=== PATIENT | female | born 2000 | race Caucasian/White ===

== ENCOUNTER 2023-07-17 19:15 | Outpatient (REF) | payer OTHER, SELFPAY ==
[2023-07-24 15:12] LABS: Age Gdln ACOG Testing Note (.); IGP, rfx Aptima HPV ASCU Note (.)
== END 2023-07-17 19:16 | disposition home or self-care (01) ==
LOC: LAB 19:15
PROVIDERS: Visit Provider Physician Assistant
DX: Z01.419 Encounter for gynecological examination (general) (routine) without abnormal findings (principal)
CPT/HCPCS: 88142; G0145

== ENCOUNTER 2024-07-21 20:12 | Outpatient (REF) | payer OTHER, SELFPAY ==
--- OUTSIDE RECORDS SUMMARY | 2024-07-21 20:17 | XMS_ITS | CCD ---
Author Organization [facility] Care Team Providers Care Tube Washer Name Role Phone ALISHA SHELLEY Attending Unavailable KARSTEN, ALISHA Admitting Unavailable CHARLA, DR ANN Marin Consulting Unavailable ALISHA SHELLEY Consulting Unavailable PRERNA, DR SLICK Fierro Attending Unavailable PRERNA, DR SLICK Fierro Consulting Unavailable PRERNA, DR SLICK Fierro Admitting Unavailable CHARLA, DR ANN Marin Consulting Unavailable ZIYAD, KHOI Admitting Unavailable ZIYAD, KHOI Attending Unavailable KHOI LACKEY Consulting Unavailable ANTONIO Browne Attending Provider [phone] Triny Browne Unavailable Triny Browne Admitting Unavailable Triny Browne Attending Unavailable FRANCISCO DOYLE Attending Unavailable FRANCISCO DOYLE Attending Unavailable FRANCISCO DOYLE Attending Unavailable FRANCISCO DOYLE Attending Unavailable Slick Graff MD Primary Care Provider LINO CONNER Attending Unavailable SLICK GRAFF Referring Unavailable SLICK GRAFF Primary Care Unavailable LINO CONNER Referring Unavailable SLICK GRAFF Primary Care Unavailable SLICK GRAFF Referring Unavailable SLICK GRAFF Primary Care Unavailable Slick Graff MD Primary Care Provider BECCA KEATING Attending Unavailable BECCA KEATING Attending Unavailable Allergies Allergy Classification Reported Allergen(s) Allergy Type Date of Onset Reaction(s) Facility (1 source) ALLERGIES NOT ON FILE; Translations: [ALLERGIES NOT ON FILE] Propensity to adverse reactions (disorder) [facility] Repository Medications Current Medications Medication Drug Class(es) Dates Sig (Normalized) Sig (Original) cetirizine hydrochloride 10 mg oral tablet (1 source) Histamine-1 Receptor Antagonist Start: 01-16-2022 take 1 tablet by mouth once daily cetirizine (ZyrTEC) 10 mg tablet TAKE 1 TABLET(10 MG) BY MOUTH DAILY 90 tablet 1 01/16/2022 Active Ethinyl Estradiol / Ferrous fumarate / Norethindrone (4 sources) Estrogen Start: 03-27-2024 End: 03-27-2025 norethindrone-eth inyl estradiol (Blisovi FE 07/28) 1-20 MG-MCG tablet Indications: Uses control Take 1 tablet by mouth Daily 28 tablet 12 03/27/2024 03/27/2025 Active Start: 08-14-2023 End: 12-04-2023 take 1 tablet by mouth in the morning, then take 0.05 tablet by mouth once norethindrone-e.estradioL-iron (JUNEL FE 07/28) 1 mg-20 mcg (21)/75 mg (7) per tablet Take 1 tablet by mouth in the morning. 0 08/14/2023 12/04/2023 Active fluticasone propionate 0.05 mg/actuat metered dose nasal spray (1 source) Corticosteroid Start: 12-09-2020 take 2 spray(s) nasal route once daily fluticasone propionate (FLONASE) 50 mcg/actuation nasal spray Administer 2 sprays into each nostril daily. 15.8 mL 2 12/09/2020 Active midodrine hydrochloride 5 mg oral tablet (4 sources) alpha-Adrenergic Agonist Start: 05-15-2023 midodrine (Proamatine) 5 MG tablet Take 5 mg by mouth in the morning and 5 mg at noon and 5 mg in the evening. 05/15/2023 Active Problems Active Problems Problem Classification Problem Date Documented Da te Episodic/Chronic Anxiety disorders (2 sources) Generalized anxiety disorder; Translations: [Generalized anxiety disorder] Onset: 03-09-2023 Chronic Menstrual disorders (2 sources) Menorrhagia; Translations: [Excessive and frequent menstruation with regular cycle] Onset: 08-21-2023 08-21-2023 Chronic Mood disorders (1 source) Moderate major depression, single episode; Translations: [Major depressive disorder, single episode, moderate] Onset: 09-11-2017 09-11-2017 Chronic Nonmalignant breast conditions (4 sources) Unspecified lump in axillary tail of the left breast; Translations: [UNS LUMP IN AXILLARY TAIL LT BREAST] Onset: 06-01-2021 Episodic Other and unspecified benign neoplasm (2 sources) Lipoma (clinical); Translations: [Benign lipomatous neoplasm of other sites] 06-11-2024 Episodic Residual codes; unclassified (1 source) Family history of Von Willebrand disease; Translations: [Family history of diseases of the blood and blood-forming organs and certain disorders involving the immune mechanism] 08-21-2023 Episodic Residual codes; unclassified (1 source) Family history of diseases of the blood and blood-forming organs and certain disorders involving the immune mechanism; Translations: [Family history of diseases of the blood and blood-forming organs and certain disorders involving the immune mechanism] Onset: 08-21-2023 Episodic Unclassified (1 source) Frequency of micturition; Translations: [Frequency of micturition] Onset: 04-29-2023 Unclassified (1 source) New Patient Onset: 08-21-2023 Unclassified (1 source) FHx Bleeding Disorder Onset: 08-21-2023 Past or Other Problems Problem Classification Problem Date Documented Da te Episodic/Chronic Fever of unknown origin (1 source) Fever, unspecified; Translations: [FEVER UNSPECIFIED] Onset: 01-31-2020 Episodic Immunizations and screening for infectious disease (4 sources) Encounter for screening for other viral diseases; Translations: [ENC SCREENING FOR OTH VIRAL DZ] Onset: 01-27-2020 Episodic Mood disorders (1 source) Mood disorders Onset: 08-21-2023 08-21-2023 Other connective tissue disease (4 sources) Pain in left foot; Translations: [PAIN IN LEFT FOOT] Onset: 03-02-2020 Episodic Other upper respiratory infections (1 source) Acute pharyngitis due to other specified organisms; Translations: [AC PHARYNGIT D/T OTH SPEC ORGANISMS] Onset: 01-31-2020 Episodic Syncope (1 source) Near syncope; Translations: [Syncope and collapse] Onset: 04-03-2023 04-03-2023 Episodic Results Test Name Value Interpretation Reference Range Facility Coagulation factor VIII acti vity actual/normal Coag (PPP) [Relative time]on 08-22-2023 Interpretation and review of laboratory results Abnormal [facility] Factor 8 activityon 08-22-19 Coagulation factor VIII activity actual/normal Coag (PPP) [Relative time] 152 % High [facility] No Panel Informationon 08-22 [facility] Von Willebrand antigen facto r VIII agon 08-22-2023 vWf Ag IA Qn (PPP) 157 % High 50 - 150 % [facility] Comment on above: It has been reported that patients with group A,B or AB have a much greater mean vWf: Ag than blood group O individuals. Data from a study of 1300 normal blood donors showed: ABO type Reference range O 35.6-157.0 A 48.0-233.9 B 56.8-241.0 AB 63.8-238.2 Reference: GIUSEPPE Vance, et.al. The effect of ABO blood group on the diagnosis of vWd. Blood 69:1691, 1987 vWf Ag IA Qn (PPP)on Interpretation and review of laboratory results Abnormal [facility] von Willebrand Factor Activi tyon 08-22-2023 vWf.activity actual/normal IA (PPP) [Relative ratio] 158 % 50 - 200 % [facility] APTTon 08-21-2023 aPTT Coag (PPP) [Time] 30 s [facility] GENERIC ORDERon TEST NAME [id number] VON WILLEBRA ND FACTOR GP1BM ACTIVITY Normal [facility] TEST RESULT SEE NOTE Normal [facility] Comment on above: Result Comment: NOTE Test name Result Flag Units RefIntvl VWF GPIbM Activity 132 IU/dL 52-180 For additional information, please visit [email or web address] This test was developed and its performance characteristics determined by [facility]. It has not been cleared or approved by the [place] Food and Drug Administration. This test is used for clinical purposes. It should not be regarded as investigational or for research. This laboratory is certified under the Clinical Laboratory Improvement Amendments (CLIA) as qualified to perform high complexity clinical laboratory testing. Performed by: [facility]. [address] [place] [id number] CBC AND AUTO DIFFon 08-21-19 24 ABSOLUTE BASOPHIL 0.0 X10E9/L Normal 0.0-0.2 [facility] Comment on above: Performed By: #### P INR, 10254-0, CBCA, FEPR, 2276-4, 6012-9, 96576-4, 3209-4 #### [facility] ([id number]) [address], [address] [place] [address] ABSOLUTE NEUTROPHIL 3.4 X10E9/L Normal 1.5-6.6 [facility] Comment on above: Performed By: #### P INR, 97915-9, CBCA, FEPR, 2276-4, 6012-9, 26588-5, 3209-4 #### [facility] ([id number]) [address], [address] [place] [address] Basophils/100 WBC (Bld) 0.6 % Normal [facility] Comment on above: Performed By: #### P INR, 92810-3, CBCA, FEPR, 2276-4, 6012-9, 61374-9, 3209-4 #### [facility] ([id number]) [address], [address] [place] [address] Eosinophils (Bld) [#/Vol] 0.1 10*3/uL Normal 0.0-0.4 [facility] Comment on above: Performed By: #### P INR, 67313-0, CBCA, FEPR, 2276-4, 6012-9, 47014-3, 3209-4 #### [facility] ([id number]) [address], [address] [place] [address] Eosinophils/100 WBC (Bld) 2.0 % Normal [facility] Comment on above: Performed By: #### P INR, 26761-6, CBCA, FEPR, 2276-4, 6012-9, 01214-0, 3209-4 #### [facility] ([id number]) [address], [address] [place] [address] Erythrocyte distribution width (RBC) [Ratio] 13.3 % Normal 11.5-15.0 [facility] Comment on above: Performed By: #### P INR, 55125-1, CBCA, FEPR, 2276-4, 6012-9, 43200-3, 3209-4 #### [facility] ([id number]) [address] [address] Hematocrit (Bld) [Volume fraction] 38.6 % Normal 35-47 [facility] Comment on above: Performed By: #### P INR, 43249-3, CBCA, FEPR, 2276-4, 6012-9, 04486-5, 3209-4 #### [facility] ([id number]) [address] [address] Hemoglobin (Bld) [Mass/Vol] 13.1 g/dL Normal 11.7-15.5 [facility] Comment on above: Performed By: #### P INR, 50453-5, CBCA, FEPR, 2276-4, 6012-9, 14118-4, 3209-4 #### [facility] ([id number]) [address] [address] Lymphocytes (Bld) [#/Vol] 1.2 10*3/uL Normal 1.0-3.5 [facility] Comment on above: Performed By: #### P INR, 66258-0, CBCA, FEPR, 2276-4, 6012-9, 92048-8, 3209-4 #### [facility] ([id number]) [address], [address] [place] [address] Lymphocytes/100 WBC (Bld) 23.5 % Normal [facility] Comment on above: Performed By: #### P INR, 23820-3, CBCA, FEPR, 2276-4, 6012-9, 04516-4, 3209-4 #### [facility] ([id number]) [address], [address] [place] [address] MCH (RBC) [Entitic mass] 29.8 pg Normal 27-34 [facility] Comment on above: Performed By: #### P INR, 28882-8, CBCA, FEPR, 2276-4, 6012-9, 93017-7, 3209-4 #### [facility] ([id number]) [address], [address] [place] [address] MCHC (RBC) [Mass/Vol] 33.8 g/dL Normal 32-36 [facility] Comment on above: Performed By: #### P INR, 83425-5, CBCA, FEPR, 2276-4, 6012-9, 90122-1, 3209-4 #### [facility] ([id number]) [address], [address] [place] [address] MCV (RBC) [Entitic vol] 88 fL Normal 80-100 [facility] Comment on above: Performed By: #### P INR, 32019-5, CBCA, FEPR, 2276-4, 6012-9, 70529-8, 3209-4 #### [facility] ([id number]) [address], [address] [place] [address] Monocytes (Bld) [#/Vol] 0.4 10*3/uL Normal 0-0.9 [facility] Comment on above: Performed By: #### P INR, 19494-0, CBCA, FEPR, 2276-4, 6012-9, 28141-9, 3209-4 #### [facility] ([id number]) [address], [address] [place] [address] Monocytes/100 WBC (Bld) 8.5 % Normal [facility] Comment on above: Performed By: #### P INR, 15354-0, CBCA, FEPR, 2276-4, 6012-9, 58613-2, 3209-4 #### [facility] ([id number]) [address], [facility] [address] [place] [address] Neutrophils/100 WBC (Bld) 65.4 % Normal [facility] Comment on above: Performed By: #### P INR, 45722-3, CBCA, FEPR, 2276-4, 6012-9, 08439-5, 3209-4 #### [facility] ([id number]) [address], [facility] [address] [place] [address] Platelet mean volume (Bld) [Entitic vol] 8.9 fL Normal 7-12 [facility] Comment on above: Performed By: #### P INR, 18555-7, CBCA, FEPR, 2276-4, 6012-9, 04085-2, 3209-4 #### [facility] ([id number]) [address], [facility] [address] [place] [address] Platelets (Bld) [#/Vol] 225 10*3/uL Normal 150-450 [facility] Comment on above: Performed By: #### P INR, 28184-0, CBCA, FEPR, 2276-4, 6012-9, 08704-3, 3209-4 #### [facility] ([id number]) [address], [facility] [address] [place] [address] RBC COUNT 4.38 X10E12/L Normal 3.80-5.20 [facility] Comment on above: Performed By: #### P INR, 79083-4, CBCA, FEPR, 2276-4, 6012-9, 29182-1, 3209-4 #### [facility] ([id number]) [address], [address] [place] [address] WBC (Bld) [#/Vol] 5.2 10*3/uL Normal 4.0-11.0 [facility] Comment on above: Performed By: #### P INR, 54970-0, CBCA, FEPR, 2276-4, 6012-9, 96181-9, 3209-4 #### [facility] ([id number]) [address], [address] [place] [address] CBC auto differentialon 08-09 Basophils (Bld) [#/Vol] 0.0 10*3/uL [facility] Basophils/100 WBC (Bld) 0.6 % [facility] Eosinophils (Bld) [#/Vol] 0.1 10*3/uL [facility] Eosinophils/100 WBC (Bld) 2.0 % [facility] Erythrocyte distribution width (RBC) [Ratio] 13.3 % 11.5 - 15.0 % [facility] Hematocrit (Bld) [Volume fraction] 38.6 % 35 - 47 % [facility] Hemoglobin (Bld) [Mass/Vol] 13.1 g/dL 11.7 - 15.5 g/dL [facility] Lymphocytes (Bld) [#/Vol] 1.2 10*3/uL [facility] Lymphocytes/100 WBC (Bld) 23.5 % [facility] MCH (RBC) [Entitic mass] 29.8 pg 27 - 34 pg [facility] MCHC (RBC) [Mass/Vol] 33.8 g/dL 32 - 36 g/dL [facility] MCV (RBC) [Entitic vol] 88 fL 80 - 100 fL [facility] Monocytes (Bld) [#/Vol] 0.4 10*3/uL [facility] Monocytes/100 WBC (Bld) 8.5 % [facility] Neutrophils (Bld) [#/Vol] 3.4 10*3/uL [facility] Neutrophils/100 WBC (Bld) 65.4 % [facility] Platelet mean volume (Bld) [Entitic vol] 8.9 fL 7 - 12 fL [facility] Platelets (Bld) [#/Vol] 225 10*3/uL [facility] RBC (Bld) [#/Vol] 4.38 10*6/uL [facility] WBC corrected for nucl RBC Auto (Bld) [#/Vol] 5.[address] [facility] Coagulation factor VIII acti vity actual/normal Coag (PPP) [Relative time]on 08-21-2023 FACTOR 8 ASSAY 152 % act High 50-150 [facility] Comment on above: Performed By: #### P INR, 88802-9, CBCA, FEPR, 2276-4, 6012-9, 38199-8, 3209-4 #### [facility] ([id number]) [address] [facility], [address] [place] [address] FERRITINon 08-21-2023 Ferritin [Mass/Vol] 9 ng/mL Low 11-307 [facility] Comment on above: Performed By: #### P INR, 69243-2, CBCA, FEPR, 2276-4, 6012-9, 10061-8, 3209-4 #### [facility] ([id number]) [address] [facility], [address] [place] [address] Ferritinon 08-21-2023 Ferritin [Mass/Vol] 9 ng/mL Low 11 - 307 ng/mL [facility] Ferritin [Mass/Vol]on 2023 Interpretation and review of laboratory results Abnormal [facility] IRON PROFILEon 08-21-2023 Iron [Mass/Vol] 67 ug/dL Normal 50-170 [facility] Comment on above: Performed By: #### P INR, 52579-9, CBCA, FEPR, 2276-4, 6012-9, 05296-3, 3209-4 #### [facility] ([id number]) [address] [facility], [address] [place] [address] IRON BINDING 438 ug/dL High 250-425 [facility] Comment on above: Performed By: #### P INR, 09675-4, CBCA, FEPR, 2276-4, 6012-9, 29188-3, 3209-4 #### [facility] ([id number]) [address], [address] [place] [address] IRON SATURATION 15 % SATURATION Normal 15-50 [facility] Comment on above: Performed By: #### P INR, 94919-0, CBCA, FEPR, 2276-4, 6012-9, 88776-5, 3209-4 #### [facility] ([id number]) [address], [address] [place] [address] Iron and TIBCon 08-21-2023 Interpretation and review of laboratory results Abnormal [facility] Iron [Mass/Vol] 67 ug/dL 50 - 170 ug/dL [facility] Iron binding capacity [Mass/Vol] 438 ug/dL High 250 - 425 ug/dL [facility] Iron saturation [Mass fraction] 15 [facility] Laboratory comment Be (Repo rt)on 08-21-2023 UNLISTED LAB TEST Sent to reference lab Normal [facility] No Panel Informationon 08-21 [facility] PROTIME AND INRon 08-21-2023 INR Coag (PPP) [Relative time] 1.1 {INR} Normal 0.8-1.1 [facility] Comment on above: Performed By: #### P INR, 68303-1, CBCA, FEPR, 2276-4, 6012-9, 36545-9, 3209-4 #### [facility] ([id number]) [address], [address] [place] [address] PT Coag (PPP) [Time] 13.1 s Normal 9.8-13.2 [facility] Comment on above: Performed By: #### P INR, 14789-6, CBCA, FEPR, 2276-4, 6012-9, 85904-9, 3209-4 #### [facility] ([id number]) [address], [address] [place] [address] Protime & INRon 08-21-2023 INR Coag (PPP) [Relative time] 1.1 {INR} [facility] PT Coag (PPP) [Time] 13.1 s [facility] aPTT Coag (PPP) [Time]on aPTT Coag (Bld) [Time] 30 s Normal 26-37 [facility] Comment on above: Performed By: #### P INR, 35161-2, CBCA, FEPR, 2276-4, 6012-9, 05738-8, 3209-4 #### [facility] ([id number]) [address], [address] [place], [place] [address] vWf Ag IA Qn (PPP)on 024 VON WILLEBRAND AG 157 % High 50-150 [facility] Comment on above: Result Comment: It has been reported that patients with group A,B or AB have a much greater mean vWf: Ag than blood group O individuals. Data from a study of 1300 normal blood donors showed: ABO type Reference range O 35.6-157.0 A 48.0-233.9 B 56.8-241.0 AB 63.8-238.2 Reference: GIUSEPPE Vance, et.al. The effect of ABO blood group on the diagnosis of vWd. Blood 69:1691, 1987 Performed By: #### P INR, 79739-8, CBCA, FEPR, 2276-4, 6012-9, 10566-1, 3209-4 #### [facility] ([id number]) [address], [address] [place] [address] vWf.activity actual/normal I A (PPP) [Relative ratio]on 08-21-2023 von Willebrand Factor Activity 158 % Normal 50-200 [facility] Comment on above: Performed By: #### P INR, 81522-6, CBCA, FEPR, 2276-4, 6012-9, 67952-2, 3209-4 #### [facility] ([id number]) [address] [place] [address], [address] [place] [address] Behavioral Health Telemedici neon 06-14-2023 [facility] [id number] Muhammad,Christina 2000 F Date Provider Department Center 06/14/2023 FRANCISCO GUILLAUME [facility] No family history on file Reason for Visit and Comments: Therapy [849] Normal [facility] Behavior[facility] Health Telemedici neon 05-17-2023 [facility] [id number] Muhammad,Christina 2000 F Date Provider Department Center 05/17/2023 FRANCISCO GUILLAUME [facility] GloriaFormerly named [facility] No family history on file Reason for Visit and Comments: Therapy [849] Normal [facility] Telemedici neon 05-03-2023 [facility] [id number] Muhammad,Christina 2000 F Date Provider Department [place] [facility] No family history on file Reason for Visit and Comments: Therapy [849] [facility] Urine Cultureon 04-29-2023 Bacteria identified Cx Nom (U) ORGANISM: Strep. agalactiae Grp B (O:B) [place] Count <10,000 PERFORMED BY: [place] [address] PATHOLOGIST SANDW[employer]ARD CARRIER TUAN HOGAN M.D. [facility] Comment on above: Performed By: #### C UU #### [place] [address] [place] #### VAGINITIS+ #### [facility] , Vaginitis Plus (VG+)on 04-29 Atopobium Vaginae Low - 0 Normal . [facility] Comment on above: Performed By: #### C UU #### [address] #### VAGINITIS+ #### [facility] , BVAB2 Low - 0 Normal . [facility] Comment on above: Performed By: #### C UU #### [place] [address] [place] #### VAGINITIS+ #### [facility] , Cherie Albicans, ALXEANDER Negative Normal Negative [facility] Comment on above: Result Comment: This test was developed and its performance characteristics determined by [facility]. It has not been cleared or approved by the Food and Drug Administration. Performed By: #### C UU #### [address] #### VAGINITIS+ #### [facility] , Cherie Glabrata, ALEXANDER Negative Normal Negative [facility] Comment on above: Result Comment: This test was developed and its performance characteristics determined by [facility]. It has not been cleared or approved by the Food and Drug Administration. PERFORMED BY: [place] [address] PATHOLOGIST SANDWICH [employer]ARD CARRIER TUAN HOGAN M.D. Performed By: #### C UU #### [place] [address] [place] #### VAGINITIS+ #### [facility] , Chlamydia Trachomotis, ALEXANDER Negative Normal Negative [facility] Comment on above: Performed By: #### C UU #### [place] [address] [place] #### VAGINITIS+ #### [facility] , Megasphaera Low - 0 Normal . [facility] Comment on above: Result Comment: Calc ulate total score by adding the 3 individual bacterial vaginosis (BV) marker scores together. Total score is interpreted as follows: Total score 0-1: Indicates the absence of BV. Total score 2: Indeterminate for BV. Additional clinical data should be evaluated to establish a diagnosis. Total score 3-6: Indicates the presence of BV. This test was developed and its performance characteristics determined by [facility]. It has not been cleared or approved by the Food and Drug Administration. Performed By: #### C UU #### [facility] [address] [place] [address] [place] #### VAGINITIS+ #### [facility] , Neisseria Gonorrhoeae, ALEXANDER Negative Normal Negative [facility] Comment on above: Result Comment: Perf ormed at: =G - [facility] [address] [id number] Trucker: Haylie Bustamante MD, Phone: [phone] Performed By: #### C UU #### [place] [address] [place] #### VAGINITIS+ #### [facility] , Tric Vag ALEXANDER Negative Normal Negative [facility] Comment on above: Performed By: #### C UU #### [facility] [address] [place] [address] [place] #### VAGINITIS+ #### [facility] , Behavioral Health Telemedici neon 04-10-2023 Behavioral Health Telemedicine [id number] [facility] 2000 F Date Provider Department Center 04/10/2023 FRANCISCO GUILLAUME [facility] No family history on file Reason for Visit and Comments: Therapy [849] Normal [facility] Behavioral Health Telemedici neon 03-26-2023 [facility] Tele[facility]icine [id number] Muhammad,Christina 2000 F Date Provider Department Center 03/26/2023 FRANCISCO GUILLAUME [facility] GloriaFormerly named [facility] No family history on file Reason for Visit and Comments: Therapy [849] Normal [facility] Behavioral Health Telemedici neon 03-09-2023 [facility] Telemedicine [id number] Christina Muhammad 2000 F Date [facility] 03/09/2023 [facility]ISCO GUILLAUME [facility] Gloria Heal No family history on file Reason for Visit and Comments: Therapy [849] Normal [facility] US BREAST LEFT LIMITEDon US BREAST LEFT LIMITED Patient: CHRISTINA MUHAMMAD Exam Date: 12/07/2020 : 2000 Gender:F Ordering : DR. ALISHA SHELLEY . Admission #: [id number] Family : Order #: [id number] CLICK HERE TO VIEW EXAM RADIOLOGY REPORT PROCEDURE: ULTRASOUND BREAST LEFT LIMITED COMPARISON: US VAC ASST BX BRST LT WO CLP, 05/10/2018. INDICATIONS: Breast lump TECHNIQUE: Breast ultrasound was performed, with evaluation focusing only on specific areas of concern. FINDINGS: DIAGNOSTIC CATEGORY 2--BENIGN FINDING NO CHANGE FROM COMPARISON ASSESSMENT. Ultrasound in the area the patient's palpable abnormality, left axilla demonstrates normal skin, fibroglandular tissue, fat and muscle. No focal ultrasound mass. Further evaluation should be based on clinical and physical exam. RECOMMENDATIONS: CLINICAL EVALUATION. PLEASE NOTE: A NORMAL ULTRASOUND EXAMINATION DOES NOT EXCLUDE THE POSSIBILITY OF BREAST CANCER. A CLINICALLY SUSPICIOUS PALPABLE LUMP SHOULD BE BIOPSIED. Dictated by: Ann Dunham MD on 12/07/2020 at 15:11 Approved by: Ann Dunham MD on 12/07/2020 at 15:12 Normal [facility] COVID-19 PCRon 01-29-2020 SARS-CoV-2 (COVID-19) RNA ALEXANDER+probe Ql (Unsp spec) Not detected Normal Not Detected [facility] Comment on above: Result Comment: This test was developed and its performance characteristics determined by [facility]. This test has not been FDA cleared or approved. This test has been authorized by FDA under an Emergency Use Authorization (EUA). This test is only authorized for the duration of time the declaration that circumstances exist justifying the authorization of the emergency use of in vitro diagnostic tests for detection of SARS-CoV-2 virus and/or diagnosis of COVID-19 infection under section 564(b)(1) of the Act, 21 U.S.C. 360bbb-3(b)(1), unless the authorization is terminated or revoked sooner. When diagnostic testing is negative, the possibility of a false negative result should be considered in the context of a patient's recent exposures and the presence of clinical signs and symptoms consistent with COVID-19. An individual without symptoms of COVID-19 and who is not shedding SARS-CoV-2 virus would expect to have a negative (not detected) result in this assay. Performed By: #### C VDPCR #### [facility] [address], [place] [address] Viraj Guadarrama Discharge Summaryon 12-08-19 18 Discharge Summary MR[id number] Name: Christina Muhammad Admitted: 11/08/2017 Discharged: 11/12/2017 Date of : 2000 Physician: Domenico Goodwin M.D. DISCHARGE SUMMARYREASON FOR ADMISSION: Suicidal ideation.HISTORY OF PRESENT ILLNESS AT ADMISSION: :Patient is a 17 year old female with no previous psychiatric history,presenting as a direct admission from [facility], where shepresented with her mother after she told a friend she wished she had takenthe pills in July today, who Patient reports she feels that she worriesexcessively, unable to identify specific areas of worry, but states thatshe gets nervous in crowds at times, making calls on the phone and havingto speak in front of people. She denies difficulty relaxing, does state shegets more irritable if she is anxious. Pt Denies auditory or visualhallucinations. Denies symptoms of joseph. Per mother, patient has seemedmore sad and irritable the majority of the time since July, appeared lupe doing better the last month or so until recent events. She does notethat patient was started on control in April, and while she has nottaken in in 3-4 weeks, she says that both she and patient's sister have hadissue with control causing mood issues and irritability in the past.Patient's mother states she is uneasy about patient being on medication dueto sister having a bad experience with being on medication briefly fordepression (cannot recall name of medication),who then told patient'sfamily. Patient was referring to an suicide attempt in July in which shetook 7 Flexeril pills. Patient states she had recently broken up with peter at the time and had somewhat impulsively decided she no longerwanted to live. She states she told a friend about this days later and thefriend told her family, who got her in to see a counselor. Patient did notgo to the hospital after this attempt.Patient states since this attempt, her mood has been up and down. Shestates she never really regretted attempting suicide afterwards, but has good and bad days. She states she may have been feeling a little betterrecently, but her ex texted her recently about he and his baseball team allwanting to have sex with her and she became upset. She called his family'slandlord and reported that they had a new puppy there, which was againstthe rules. The family was evicted last week, and the ex-boyfriend found outpatient was the one who reported this and texted her that he he didn't loveher anymore, which patient states led to her feeling like overdosing onpills again. She states prior to recent events she may have been feeling abit better, but essentially since July states she has been depressed andhas thought about suicide on and off, but did not reach point of wishing toharm herself until last night. She states 2-3 days a week she feels sad anddepressed for most of the day, and the rest of the days she typically feels normal and denies feeling down or depressed On these days that she feelsmore down, she endorses excessive daytime fatigue, states she will not feellike doing anything, despite enjoying playing sports and hanging out withfriends on other days. Denies problems falling asleep, says at times shewill wake up at night and have a hard time falling back asleep. Denieschanges in appetite. Denies feeling hopeless or helpless most of the time.She is ambivalent presently as to whether she wishes she was now or isstill contemplating suicide.HOSPITAL COURSE:Upon admission [facility], pt was assessed in detail by Dr. Lomeli. Labs were reviewed and discussed with guardian of patient, andpatient did not have any acute medical problems at time of admission andduring hospitalization. Patient was placed on suicide precaution andrun-away precautions for first 24 hours after admission, and wasperiodically assessed if she is acutely suicidal or homicidal duringhospitalization. Patient received individual and group therapy. Familymeetings were held to resolve the conflicts in relationship withcaretakers. Informed consent was given to legal guardian and Patient forthe medication. The patient's family and the patient did not want to start anypsychotropic medication and they felt that the patient's admission wasmainly due to psychosocial stressors. The patient's Loestrin controlpill was restarted. Family meetings were helpd to address the socialconflict. The patient was encouraged to work on her coping skills ingroups or individual therapy. The patient was taught the coping skills andwas asked to test those coping skills, which she reported significantimprovement in her coping skills. At the time of discharge, the patientdenied any suicidal or homicidal ideation, intent, or plan. The patientwas encouraged to go in outpatient therapy in addition to the struggles. Ptdenied suicidal ideation, intent or plan. Pt denied homicidal ideation,intend or plan. Patient and Legal guardians were ask to continueoutpatient follow up, were asked to call suicide hotline or 911 if patientbecomes acutely suicidal , homicidal or psychotic. Caretakers were asked tokeep medication safe in locked cabinet and only allow responsible adults tohave access to them.MENTAL STATUS EXAMINATION: The patient is 17-year-old female,who appears to be as stated age and there is known psychomotor agitation,retardation. Thought process was linear and goal directed. Thoughtcontent, patient denied any suicidal or homicidal ideation, intent, orplan. Thought perception, the patient denied any auditory, visual, ortactile hallucination. Cognition was alert and oriented x. Insight wasgood. Judgment was also good.DISCHARGE MEDICATIONS: None.DISCHARGE DIAGNOSES:[place] I: Mood disorder, NOS.[place] II: Deferred.[place] III: We do not know, but unsafe.[place] IV: Romantic relationship conflict.[place] V: GAF of 65.POSTDISCHARGE APPOINTMENT/POSTDISCHARGE FOLLOWUP: See the dischargeinstruction.DISC HARGE DISPOSITION: Parent's home.Time on discharge 32 minReviewed By:Randall Andres MD 12/11/2017 06:56 AEdited and Electronically Signed by:Domenico Goodwin M.D. 12/11/2017 11:21 A Domenico Goodwin M.D. I personally saw this patient on the day of the encounter, performed thekey portion(s) of the service and participated in the management andconfirm the resident's documentation. Please note there may be anadditional personal documentation from me. Date Dict: 12/07/2017/01:07 A/Vijay Beltrán Trans: 12/07/2017 06:22 [id number] Normal [facility] FREE T3on 11-09-2017 Triiodothyronine (T3) free 3.4 pg/mL Normal 2.5-3.9 [facility] Comment on above: Order Comment: No: D o not add to previous draw Performed By: #### 4 [id number], 19721, 10202, 00974 ####[facility].[address] FREE T4on 11-09-2017 Thyroxine (T4) free 0.89 ng/dL Normal 0.71-1.85 [facility] Comment on above: Order Comment: No: D o not add to previous draw Performed By: #### 4 6413, 41073, 86692, 29045 ####[facility] [place] [address], [facility] LIPID PROFILEon 11-09-2017 Cholesterol 152 mg/dL Normal 120-170 [facility] Comment on above: Order Comment: No: D o not add to previous draw Result Comment: CHOL ESTEROL REFERENCE RANGE:20 YEARS AND OLDER CARDIOVASCULAR RISKLess than 200 mg/dl Low Dbbm774 to 239 mg/dl Borderline Apqa863 mg/dl and greater High Risk Performed By: #### 4 6413, 44223, 62893, 40215 ####[facility] [place] [address], [facility] Cholesterol to HDL Ratio 3.3 {ratio} Normal .0-4.5 [facility] Comment on above: Order Comment: No: D o not add to previous draw Performed By: #### 4 6413, 44313, 24946, 44702 ####[facility] HDL Cholesterol 46 mg/dL Normal 23-92 [facility] Comment on above: Order Comment: No: D o not add to previous draw Result Comment: Slig ht variation in normal range could be due to gender and/or age.HDL CHOLESTEROL REFERENCE RANGE:20 years and older Cardiovascular Risk> or =60 mg/dL [id number] TO 59 mg/dL Low Risk<40 mg/dL High Risk Performed By: #### 4 6413, 93660, 77512, 71912 ####[facility].[address] LDL Cholesterol 92 mg/dL Normal 0-130 [facility] Comment on above: Order Comment: No: D o not add to previous draw Result Comment: LDL IS A CALCULATIONLDL IS ONLY VALID IF THE TRIG IS LESS THAN 400. Performed By: #### 4 6413, 56031, 92927, 85472 ####[facility].[address] NON-HDL CHOLESTEROL 106 mg/dL Normal [facility] Comment on above: Order Comment: No: D o not add to previous draw Performed By: #### 4 6413, 97192, 21108, 92315 ####[facility] Triglyceride 70 mg/dL Normal 37-148 [facility] Comment on above: Order Comment: No: D o not add to previous draw Result Comment: TRIG LYCERIDE REFERENCE RANGE:20 YEARS AND OLDER CARDIOVASCULAR RISKLESS THAN 150 mg/dl LOW DWYS349 TO 199 mg/dl BORDERLINE ZJSS638 mg/dl AND GREATER HIGH RISK Performed By: #### 4 6413, 36130, 84589, 47811 ####[facility] [facility].[address] VLDL CHOL 14 mg/dL Normal 0-40 [facility] Comment on above: Order Comment: No: D o not add to previous draw Performed By: #### 4 6413, 64700, 49904, 55555 ####[facility] [facility].[address] TSHon 11-09-2017 Thyroid stimulating hormone (TSH) 1.25 MICRO-IU/ML Normal 0.34-5.60 [facility] Comment on above: Order Comment: No: D o not add to previous draw Performed By: #### 4 6413, 15167, 56287, 11433 ####[facility] Vital Signs Date Time Vital Sign Value Performing Clinician Deb torrez 06-11-2024 09:28-0500 Body mass index (BMI) [Ratio] 21.58 kg/m2 Becca DALE Work Phone: [facility] 06-11-2024 09:28-0500 Body weight 68.22 kg Becca DALE Work Phone: [facility] 06-11-2024 09:28-0500 Diastolic blood pressure 70 mm[Hg] Becca DALE Work Phone: [facility] 06-11-2024 09:28-0500 Systolic blood pressure 108 mm[Hg] Becca DALE Work Phone: [facility] 08-21-2023 14:46-0500 Body height 177.8 cm Lino Conner MD Work Phone: [facility] 08-21-2023 14:46-0500 Body mass index (BMI) [Ratio] 21.48 kg/m2 Lino Conner MD Work Phone: [facility] 08-21-2023 14:46-0500 Body weight 67.9 kg Lino Conner MD Work Phone: [facility] 08-21-2023 14:46-0500 Diastolic blood pressure 75 mm[Hg] Lino Conner MD Work Phone: [facility] 08-21-2023 14:46-0500 Heart rate 66 /min Lino Conner MD Work Phone: [facility] 08-21-2023 14:46-0500 Systolic blood pressure 115 mm[Hg] Lino Conner MD Work Phone: [facility] Encounters Encounter Date Encounter Type Care Provider Facility Start: 06-11-2024 End: 06-11-2024 Bamboo flowsheet Becca DALE Work Phone: [facility] Start: 06-11-2024 End: 06-11-2024 Bamboo flowsheet Becca Keating PA Work Phone: [facility] Start: 06-11-2024 End: 06-11-2024 Office outpatient visit 10 minutes Becca DALE Work Phone: [facility] Comment on above: Lipoma of other spec ified sites (Primary Dx) Start: 06-11-2024 End: 06-11-2024 ambulatory BECCA KEATING Not Available Start: 08-21-2023 End: 08-22-2023 ambulatory LINO Arredondo [facility] Start: 08-21-2023 End: 08-21-2023 Office outpatient new 30 minutes Lino Conner MD Work Phone: [facility] Comment on above: Family history of vo n Willebrand disease (Primary Dx); Menorrhagia with regular cycle Start: 07-17-2023 End: 07-17-2023 ambulatory BECCA KEATING Not Available Start: 05-04-2023 End: 05-04-2023 ambulatory Triny Browne Other [place] Other Start: 05-04-2023 Telephone encounter Triny Browne [facility] [address] Start: 05-03-2023 ambulatory FRANCISCO Leung [facility] Start: 04-29-2023 End: 04-29-2023 ambulatory Triny Browne Facility:[facility] Start: 04-29-2023 End: 04-29-2023 ambulatory REFRIGERATION LEAD Triny Browne Work Phone: [facility] Work Phone: Start: 04-29-2023 End: 04-29-2023 Departed Referred REFRIGERATION LEAD Triny Browne Work Phone: [facility] [place] Work Phone: Start: 04-10-2023 ambulatory FRANCISCO DOYLE [facility] Start: 03-26-2023 ambulatory FRANCISCO DOYLE [facility] Start: 03-09-2023 ambulatory FRANCISCO DOYLE [facility] Start: 12-07-2020 End: 12-08-2020 ambulatory ALISHA SHELLEY Facility:[facility] Start: 03-02-2020 End: 03-03-[address] ANN DUNHAM Facility:[facility] Start: 01-27-2020 End: 01-28-[address] SLICK GRAFF Facility:[facility] Procedures Date Procedure Procedure Detail Performing Clinician Start: 08-21-2023 Adult depression screening assessment Lino Conner MD Work Phone: Plan of Treatment Date Care Activity Detail Author Start: 08-21-2024 Adult BMI Screening Adult BMI Screen ing [facility] Start: 08-21-2024 Depression Screening Depression Scre ening [facility] Start: 08-21-2024 Tobacco Screening Tobacco Screening [facility] Start: 07-21-2024 End: 07-21-2024 Patient encounter procedure 07/21/2024 2:00 PM EST Office Visit [facility] [address] [place] [id number] Becca Keating PA [address] [place], [place] [id number] [facility] Start: 06-11-2024 End: 06-11-2024 Patient encounter procedure 06/11/2024 9:30 AM EST Office Visit [facility] [address] [place], [place] [id number] Becca Keating PA [address] [place] [address] Arrived [facility] Comment on above: Arrived Start: 11-26-2023 DTaP,Tdap and Td Vaccines (7 - Td or Tdap) DTaP,Tdap and Td Vaccines (7 - Td or Tdap) [facility] Start: 04-29-2023 Bacteria identified in Urine by Culture [facility] Start: 04-29-2023 [facility] Start: 03-09-2023 Influenza vaccination Influenza Vacc ine [facility] Start: 2023 Screening for malign ant neoplasm of cervix Pap Smear [facility] Start: 2000 Screening for Chlamy samm trachomatis Chlamydia Screening [facility] Atopobium vaginae DN A [Presence] in Vaginal fluid by ALEXANDER with probe detection [facility] Bacterial vaginosis associated bacterium 2 DNA [Presence] in Vaginal fluid by ALEXANDER with probe detection [facility] Megasphaera sp type 1 DNA [Presence] in Vaginal fluid by ALEXANDER with probe detection [facility] End: 08-21-2024 Unlisted Lab Test Unlisted Lab Test Lab Routine Family history of von Willebrand disease Menorrhagia with regular cycle 1 Occurrences starting 08/21/2023 until 08/21/2024 [facility] Work Phone: Comment on above: 1 Occurrences starti ng 08/21/2023 until 08/21/2024 Unlisted Lab Test GP 1bM send to [facility] ([facility]) Unlisted Lab Test GP1bM send to [facility] ([facility]) Lab Routine Family history of von Willebrand disease Menorrhagia with regular cycle 08/21/2023 3:50 PM EST [facility] Immunizations Immunization Date Immunization Notes Care Provider Fa cility 05-08-2019 human papilloma viru s vaccine, quadrivalent Lino Conner MD Work Phone: [facility] 05-08-2019 influenza, seasonal, injectable, preservative free Lino Conner MD Work Phone: [facility] 05-08-2019 influenza virus vacc ine, unspecified formulation Lino Conner MD Work Phone: [facility] 03-03-2019 meningococcal oligosaccharide (groups A, C, Y and W-135) diphtheria toxoid conjugate vaccine (MCV4O) Lino Conner MD Work Phone: [facility] 02-14-2019 human papilloma viru s vaccine, quadrivalent Lino Conner MD Work Phone: [facility] 03-23-2018 influenza, injectabl e, quadrivalent, preservative free Lino Conner MD Work Phone: [facility] Payers Date Payer Category Payer Self-pay 2023 Unknown [id number] 2022 Private Health Insurance [id number] 2022 Unknown [id number] 2.16.8 [id number] 2002 Unknown [id number] 2.16.84 [id number] 2002 Unknown [id number] 2.16.8 [id number] 2002 Unknown [id number] 2.16.8 [id number] 2002 Unknown [id number] 2.16.8 [id number] 2002 Unknown [id number] 2.16.84 [id number] 2002 Unknown [id number] 2.16.84 [id number] 1977 Unknown [id number] 2.16.84 [id number] 1977 Unknown [id number] 2.16.84 [id number] 1959 Unknown [id number] Unknown [id number] 2.16.8 [id number] Social History Date Type Detail Facility Tobacco smoking stat [facility] Unknown if ever smoked [facility] Work Phone: Start: 2000 Sex Assigned At Female F [facility] Start: 08-19-2020 End: 08-21-2023 Sex Assigned At [facility] Start: 02-26-2023 Tobacco smoking stat [facility] Never smoked tobacco [facility] Start: 02-26-2023 Tobacco use and exposure Smokeless tobacco non-user [facility] Start: 08-21-2023 Alcohol intake Ex-drinker (finding) [facility] Start: 08-19-2020 End: 08-21-2023 History of Social function [facility] Adolescent depressio n screening assessment 0 [facility] Start: 04-03-2023 Alcohol Comment socially [facility] Start: 2000 Sex Assigned At Not on file P [facility] Tobacco smoking stat [facility] Tobacco smoking consumption unknown [facility] Start: 07-17-2023 Gender identity Identifies as female gender (finding) [facility] Clinical Notes 03-02-2020 to 06-11-2024 CHITO Alvarez - 06/11/2024 9:30 AM Hanny Rocha RN - 08/21/2023 3:00 PM Elena Conner MD - 08/21/2023 3:00 PM EST Note Date & Type Note Facility 06-11-2024 History of Present illness Narrative Reason for Appointment: Patient ID: Christina Muhammad is a 24 y.o. female who presents for Pelvic lump Patient presents today for Acute Visit. MEDICATIONS Current Outpatient Medications Medication Instructions midodrine (PROAMATINE) 5 mg, Oral, 3 times daily norethindrone-ethinyl estradiol (Blisovi FE 07/28) 1-20 MG-MCG tablet 1 tablet, Oral, Daily ALLERGIES No Known Allergies PROBLEMS Active Ambulatory Problems Diagnosis Date Noted No Active Ambulatory Problems Resolved Ambulatory Problems Diagnosis Date Noted No Resolved Ambulatory Problems Past Medical History: Diagnosis Date Low blood pressure HISTORY PAST MEDICAL HISTORY SOCIAL HISTORY Past Medical History: Diagnosis Date Low blood pressure Social History Tobacco Use Smoking status: Not on file Smokeless tobacco: Not on file Substance Use Topics Alcohol use: Not on file Drug use: Not on file FAMILY HISTORY No family history on file. SURGICAL HISTORY History reviewed. No pertinent surgical history. REVIEW OF SYSTEMS Review of Systems: Review of Systems Skin: Reports lump under skin located left mons pubis. Reports this is unchanged and non-tender and has been there since she can remember. All other systems reviewed and are negative. OBJECTIVE Objective: Physical Exam Constitutional: Appearance: Normal appearance. She is normal weight. HENT: Head: Normocephalic. Cardiovascular: Rate and Rhythm: Normal rate. Pulses: Normal pulses. Pulmonary: Effort: Pulmonary effort is normal. Breath sounds: Normal breath sounds. Abdominal: Palpations: Abdomen is soft. Musculoskeletal: General: Normal range of motion. Neurological: General: No focal deficit present. Mental Status: She is alert and oriented to person, place, and time. Skin: General: Skin is warm and dry. Comments: Lipoma 2.5cm to left mons pubis; no erythema, no lymphangitic streaking, no tenderness and no evidence of secondary infection, and no noted lymphadenopathy Psychiatric: Mood and Affect: Mood normal. Behavior: Behavior normal. Thought Content: Thought content normal. Judgment: Judgment normal. Vitals and nursing note reviewed. Vitals: Estimated body mass index is 21.58 kg/m as calculated from the following: Height as of 07/17/23: 5' 10 . Weight as of this encounter: 150 lb 6.4 oz. BP: 108/70 No LMP recorded. ASSESSMENT & PLAN No diagnosis found. Lipoma noted to the left Mons Pubis 2.5 cm freely mobile and non tender. If this becomes painful or larger and she desires excision this can be completed surgically if she desires. She declines surgical option at this time. Documented by CHITO Alvarez on behalf of: CHITO Alvarez documented in this encounter [facility] 08-21-2023 History of Present illness Narrative Pt is here as a new patient with a family history of vWD. Her maternal cousin has vWD. She reports that she has had 1-2 nosebleed throughout her life and nothing was recent. Periods LMP: 07/15/23-07/21/23 Age at onset 16 years old Duration: 6 days Frequency: monthly. The last couple of months have been at the beginning and the end of the month. Changing protection Every 3 hours Cramping [x] Clotting [x] BC: Junel FE started about 1 month ago. LIBRARY MONITOR: Wilson Images from the original note were not included. [facility] AD[facility] PEDIATRIC BENIGN HEMATOLOGY PEDIATRIC THROMBOPHILIA Dr.Dagmar Miguel Hernandez PA-C NEW OUTPATIENT NOTE: [facility] Patient ID: Christina Muhammad, 23 y.o. female Referred by: Self-referred PCP: Slick Graff MD : [id number] REASON FOR CONSULTATION: Family history of VWD CHIEF COMPLAINT: Chief Complaint Patient presents with New Patient FHx Bleeding Disorder HISTORY OF PRESENT ILLNESS: Christina Muhammad is a 23 y.o. female with history of ADHD, depression, and other health problems who presents today for consultation at the [facility] due to menorrhagia and family history of VWD. She reports that her maternal cousin was diagnosed with von Willebrand's disease. It sounds like this was diagnosed based on a low GP1bM level. She thinks that her maternal grandfather may have had some abnormal bleeding or blood disorder. Her mom does not have any problems. She has had 2 nosebleeds in her life. She does have a history of menorrhagia. This did not start until the last few years. She started OCPs last month for this, but has not had a period since. Sounds like her periods typically were lasting for 6-7 days. Four days were heavy. She did change her pad every 3 hours on her heavy days. She denies any clear symptoms of iron deficiency. No other major complaints today. She is here today alone. PAST HEMATOLOGY HISTORY: Oncology History No history exists. IS Bleeding Assessment Tool: Prashanth Martinez J Thromb Haemost. 2009;8(9):2063-5. Epistaxis: 0 0 = Trivial 1 = more than 5 events in 1 year or typical duration > 10 minutes 2 = Consultation only 3 = packing or Cauterization or Antifibrinolytics 4 = Blood transfusion or replacement therapy or DDAVP Cutaneous: 1 0 = no or trivial (<1cm) 1 = 5 or more bruises that are >1cm and no trauma 2 = Consultation only 3 = Extensive 4 = Spontaneous hematoma requiring transfusion Bleeding from minor wounds: 0 0 = trivial 1 = >5 events/year or typical duration > 10 minutes 2 = Consultation only 3 = Surgical hemostasis 4 = Blood transfusion or replacement therapy or DDAVP Oral Cavity (not dental): 0 0 = None 1 = Reported at least once 2 = Consultation only 3 = Surgical hemostasis or Antifibrinolytics 4 = Blood transfusion or replacement therapy or DDAVP GI bleedin 0 = None 1 = Associated with ulcer, portal HTN, hemorrhoids, angiodysplasia 2 = Spontaneous 3 = Surgical hemostasis or Antifibrinolytics or Blood transfusion or Replacement therapy or DDAVP Tooth Extraction: 0 0 = Not done or no bleeding in 1 extraction 1 = Reported in <25% of all procedures 2 = Reported in >25% of all procedures, no intervention 3 = Resuturing or Packing 4 = Blood transfusion or replacement therapy or DDAVP Surgery: 0 (no surgeries) 0 = Not done or no bleeding in 1 surgery 1 = Reported in <25% of all procedures 2 = Reported in >25% of all procedures, no intervention 3 = Resuturing or Packing 4 = Blood transfusion or replacement therapy or DDAVP Menorrhagia: 2 (increased in last 1-2 years) 0 = None 1 = Consultation only or change pad < 2 hours or clot and flooding 2 =Antifibrinolytics or pill use or Time off work/school > twice per year 3 = Requires combined antifibrinolytics and OCP or Present since menarche 4 = Admission for emergency treatment, or Blood transfusion/DDAVP or D&C/endometrial ablation/Hysterectomy Post- hemorrhage: 0 0 = None 1 = Consultation Only or Lochia > 6 weeks 2 = Iron therapy or Antifibrinolytics 3 = Blood transfusion, DDAVP or Exam under anesthesia to tamponade the uterus 4 = Hysterectomy or other surgical intervention Muscle Hematoma: 0 0 = Never 1 = Post-trauma, no therapy 2 = Spontaneous, no therapy 3 = Spontaneous or traumatic requiring DDAVP or Replacement therapy 4 = Spontaneous or traumatic requiring Surgical intervention or blood transfusion Hemarthrosis: 0 0 = Never 1 = Post-trauma, no therapy 2 = Spontaneous, no therapy 3 = Spontaneous or traumatic requiring DDAVP or Replacement therapy 4 = Spontaneous or traumatic requiring Surgical intervention or blood transfusion CLASSIFIED AD CLERK bleedin 3 = Subdural, any intervention 4 = Intracerebral, any intervention Total Score: 3 Abnormal ISTH BAT cutoff: Men >3 and Women >5 Samy lee al Haemophilia. 2014 May;20(6):831-5. REVIEW OF SYSTEMS: Complete 10-point ROS is negative except as mentioned in HPI. PAST MEDICAL HISTORY: Past Medical History: Diagnosis Date ADD (attention deficit disorder) Depression Orthostatic hypotension Suicide attempt by drug ingestion ([facility]) 07/2017 pt states she took 7 flexeril PAST SURGICAL HISTORY: History reviewed. No pertinent surgical history. PAST FAMILY HISTORY: Family History Problem Relation Age of Onset Meniere's disease Mother No Known Problems Father Heart disease Maternal Grandmother Dementia Maternal Grandfather Parkinsonism Maternal Grandfather Heart disease Maternal Grandfather Diabetes Paternal Grandmother SOCIAL HISTORY: Lives in [place], [place] with her parents. Works for [employer] 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 Tobacco Use Smoking status: Never Smokeless tobacco: Never Vaping Use Vaping Use: Every day Substances: Nicotine, THC, CBD, Flavoring Devices: Disposable Substance and Sexual Activity Alcohol use: Not Currently Comment: socially Drug use: Yes Types: Marijuana Comment: few times per month Sexual activity: Yes Partners: Male Other Topics Concern Caffeine Use Yes Social History Narrative Not on file Social Determinants of Health Financial Resource Strain: Not on file Food Insecurity: No Food Insecurity (08/21/2023) Hunger Screening Food Insecurity - Worry: Never True Food Insecurity - Inability: Never True Transportation Needs: Not on file Physical Activity: Not on file Stress: Not on file Social Connections: Not on file Interpersonal Safety: Not on file Housing Instability: Not on file MEDICATIONS: Current Outpatient Medications on File Prior to Visit Medication Sig Dispense Refill cetirizine (ZyrTEC) 10 mg tablet TAKE 1 TABLET(10 MG) BY MOUTH DAILY 90 tablet 1 fluticasone propionate (FLONASE) 50 mcg/actuation nasal spray Administer 2 sprays into each nostril daily. 15.8 mL 2 midodrine (PROAMATINE) 5 mg tablet Take 1 tablet (5 mg total) by mouth 3 (three) times a day. 270 tablet 3 norethindrone-e.estradioL-iron (07/28) 1 mg-20 mcg (21)/75 mg (7) per tablet Take 1 tablet by mouth in the morning. No current facility-administered medications on file prior to visit. ALLERGIES: No Known Allergies PHYSICAL EXAMINATION: Vital signs: BP 115/75 (BP Site: Left Arm, BP Postition: Sitting) Pulse 66 Ht 177.8 cm (5' 10 ) Wt 67.9 kg (149 lb 11.1 oz) LMP 07/15/2023 (Exact Date) BMI 21.48 kg/m General appearance: alert, oriented, no acute distress HEENT: supple CV: RRR, no murmurs PULM: CTAB, no wheezing ABD: soft, NT/ND NEURO: Negative for focal deficit, weakness or loss of sensation. EXT: No deformities or skin discoloration. No clubbing, cyanosis, or edema. LABORATORY DATA: Lab Results Component Value Date WBC 5.2 08/21/2023 HGB 13.1 08/21/2023 HCT 38.6 08/21/2023 MCV 88 08/21/2023 PLT 225 08/21/2023 Lab Results Component Value Date GLU 85 02/26/2023 CALCIUM 9.3 02/26/2023 SODIUM 141 02/26/2023 K 3.6 02/26/2023 CO2 29 02/26/2023 BUN 9 02/26/2023 CREATININE 0.74 02/26/2023 Lab Results Component Value Date ALT 11 02/26/2023 AST 16 02/26/2023 ALKPHOS 38 (L) 02/26/2023 Lab Results Component Value Date INR 1.1 08/21/2023 PROTIME 13.1 08/21/2023 IMAGING: Reviewed in EPIC BILLING: Total time spent was 30 minutes: Preparing to see the patient (e.g., review of tests) Obtaining and/or reviewing separately obtained history Performing a medically appropriate examination and/or evaluation Counseling and educating the patient/family/caregiver Ordering medications, tests, or procedures Documenting clinical information in the electronic or other health record ASSESSMENT: Christina Muhammad is a 23 y.o. female with history of ADHD, depression, and other health problems who presents today for consultation at the [facility] due to menorrhagia and family history of VWD. 1. Concern for bleeding diathesis / family history of VWD in cousin: She is here today given concerns for bleeding diathesis. Past bleeding includes menorrhagia mostly. She has not had any other bleeding or significant epistaxis. Her IS bleeding assessment score is 3 which is below the cutoff for abnormal bleeding in a woman. We discussed further bleed workup could be obtained given his family history. We discussed the pros and cons of this. We discussed the potential implications. At the end of our discussion, we decided to proceed with selective testing for von Willebrand's disease alone. Will also check GP1bM and her cousin's diagnosis was based on send out GP1bM. We discussed that her von Willebrand levels could be falsely elevated due to her estrogen use. Therefore, for levels are borderline, she may require repeat testing down the road when off estrogen. Will also check coags, CBC, and iron studies. RECOMMENDATIONS: - Discussed bleeding diathesis today. Discussed pros and cons of testing for VWD. - Check for VWD today. Will also do send out GP1bM VWD lab. Will also check coags. - Check CBC and iron studies as well. - Will contact patient with results. - RTC to be determined based upon the above results. Lino Conner MD Adult Cutter Hand [facility] [employer] Pager: [phone] documented in this encounter [facility] 06-14-2023 Note Psych Progress Note WEBEX SESSION Time In: 3:07 pm Time Out: 4 pm HPI Present at Visit: Christina Location of Service: Office and she was at her home Current Presenting Symptoms/Problems: Mood: Anhedonia Anxiety: Generalized worry Trauma/Abuse: No abuse reported Cognition: intact Sleep: Not hypersomnolent and No insomnia Lifestyle Habits: Attempts healthy eating, Regular exercise, and Structured routine of day Medication Compliance: n/a Onset/Timing: Adolescence Context: Home and work Severity: Moderate Individualized Service Plan (ISP): Problem: Anxiety Dates: Start: 05/17/23 Disciplines: Interdisciplinary Goal: GOAL: Reduce frequency, intesity, duration of anxiety so that daily functioning is improved Dates: Start: 05/17/23 Expected End: 05/17/24 Disciplines: Interdisciplinary Intervention: OBJ- 2 GAD7 total score in the non-clinical range Dates: Start: 05/17/23 Intervention: OBJ 1 -Patient will rate average anxiety level as low as reported in 4 consecutive sessions Dates: Start: 05/17/23 Progress Toward ISP Goals/Objectives: OBJ 1 - not met OBJ 2 - not met Therapeutic Interventions Provided: Assessed Mood, Assessed Thinking, Assistance with accessing natural support systems, Cognitive Behavioral Therapy, Insight Oriented Psychotherapy, Linkage to community resources, and Motivational Interviewing Rates recent mood as 7.4 lately on 1-10 (saddest to happiest) scale and recent anxiety as low. Is now working 1st shift versus previously on 3rd. She is considering taking 1-2 college classes again. She is taking new medication for low blood pressure. Addressed medication compliance and somatic anxiety. Has an [facility] appt Jul 17. Response to Intervention: Agreeable Overall Assessment of Progress: unchanged OARRS: Not reviewed Mental Status Exam Level of Alertness: alert Appearance: dressed appropriately and well-groomed Eye Contact: normal Build/Stature: normal weight and normal height Posture: good posture Muscle Tone: normal Attitude Toward Examiner: cooperative and pleasant Behavior: normal Speech: clear and coherent reciprocal Language: expressive normal and receptive normal Mood: anxious Affect: appropriate, congruent, and full Thought Process: coherent, goal-directed, linear, and logical Thought Content: intact Orientation: oriented to person, oriented to place, and oriented to time Attention and Concentration: able to appropriately shift attention Memory: able to comment on events Estimated Intelligence: above average and average Insight: intact Judgement: social judgment intact Reliability: very reliable The encounter diagnosis was JULITO (generalized anxiety disorder). Plan: Individual therapy for anxiety - 2 x monthly for 50+ minute sessions. Psychologist: Attestation Not Needed. The patient was not seen with a resident or student. Patient???s identity and location have been verified. Patient has been provide with confirmation of the provider???s identity and qualifications. Patient has been provided with provider???s contact information. It has been determined that patient is capable of using technology necessary for today???s session. Patient has confirmed that they are in a private location away from the general public. Telehealth care appears to be an appropriate method of treatment delivery for patient at this time. Francisco Doyle, PhD (electronically signed on 06/14/2023 at 3:59 PM) [facility] 05-17-2023 Note Psych Progress Note WEBEX SESSION Time In: 10:02 am Time Out: 10:58 am HPI Present at Visit: Christina Location of Service: Office and she was at her home Current Presenting Symptoms/Problems: Mood: Anhedonia Anxiety: Generalized worry Trauma/Abuse: No abuse reported Cognition: intact Sleep: Not hypersomnolent and No insomnia Lifestyle Habits: Attempts healthy eating, Regular exercise, and Structured routine of day Medication Compliance: n/a Onset/Timing: Adolescence Context: Home and work Severity: Moderate Individualized Service Plan (ISP): Problem: Anxiety Dates: Start: 05/17/23 Disciplines: Interdisciplinary Goal: GOAL: Reduce frequency, intesity, duration of anxiety so that daily functioning is improved Dates: Start: 05/17/23 Expected End: 05/17/24 Disciplines: Interdisciplinary Intervention: OBJ- 2 GAD7 total score in the non-clinical range Dates: Start: 05/17/23 Intervention: OBJ 1 -Patient will rate average anxiety level as low as reported in 4 consecutive sessions Dates: Start: 05/17/23 Progress Toward ISP Goals/Objectives: OBJ 1 - not met OBJ 2 - not met Therapeutic Interventions Provided: Assessed Mood, Assessed Thinking, Assistance with accessing natural support systems, Cognitive Behavioral Therapy, Insight Oriented Psychotherapy, Linkage to community resources, and Motivational Interviewing Rates recent mood as 5 lately on 1-10 (saddest to happiest) scale and recent anxiety as high. Had EKG and heart monitor. Addressed trust issues, demanding respect in relationship. Developed treatment plan. Response to Intervention: Agreeable Overall Assessment of Progress: unchanged OARRS: Not reviewed Mental Status Exam Level of Alertness: alert Appearance: dressed appropriately and well-groomed Eye Contact: normal Build/Stature: normal weight and normal height Posture: good posture Muscle Tone: normal Attitude Toward Examiner: cooperative and pleasant Behavior: normal Speech: clear and coherent reciprocal Language: expressive normal and receptive normal Mood: anxious Affect: appropriate, congruent, and full Thought Process: coherent, goal-directed, linear, and logical Thought Content: intact Orientation: oriented to person, oriented to place, and oriented to time Attention and Concentration: able to appropriately shift attention Memory: able to comment on events Estimated Intelligence: above average and average Insight: intact Judgement: social judgment intact Reliability: very reliable The encounter diagnosis was JULITO (generalized anxiety disorder). Plan: Individual therapy for anxiety - 2 x monthly for 50+ minute sessions. Psychologist: Attestation Not Needed. The patient was not seen with a resident or student. Patient???s identity and location have been verified. Patient has been provide with confirmation of the provider???s identity and qualifications. Patient has been provided with provider???s contact information. It has been determined that patient is capable of using technology necessary for today???s session. Patient has confirmed that they are in a private location away from the general public. Telehealth care appears to be an appropriate method of treatment delivery for patient at this time. Francisco Doyle, PhD (electronically signed on 05/17/2023 at 11:07 AM) [facility] 05-03-2023 Note Psych Progress Note WEBEX SESSION Time In: 10:02 am Time Out: 10:55 am HPI Present at Visit: Christina Location of Service: Office and she was at her home Current Presenting Symptoms/Problems: Mood: Anhedonia Anxiety: Generalized worry Trauma/Abuse: No abuse reported Cognition: intact Sleep: Not hypersomnolent and No insomnia Lifestyle Habits: Attempts healthy eating, Regular exercise, and Structured routine of day Medication Compliance: n/a Onset/Timing: Adolescence Context: Home and work Severity: Moderate Individualized Service Plan (ISP): Developing goals Progress Toward ISP Goals/Objectives: Developing goals Therapeutic Interventions Provided: Assessed Mood, Assessed Thinking, Assistance with accessing natural support systems, Cognitive Behavioral Therapy, Insight Oriented Psychotherapy, Linkage to community resources, and Motivational Interviewing Rates recent mood as 5-6 lately on 1-10 (saddest to happiest) scale and recent anxiety as high. Addressed truancy at work. Advised documenting re: intermittent leave. Is getting an echo cardiogram and 24 hour halter to check on BP/heart issues. Addressed health concerns in detail. Advised calling MD re: taking supplements. Advised seeing Bread Racker. Response to Intervention: Agreeable Overall Assessment of Progress: unchanged OARRS: Not reviewed Mental Status Exam Level of Alertness: alert Appearance: dressed appropriately and well-groomed Eye Contact: normal Build/Stature: normal weight and normal height Posture: good posture Muscle Tone: normal Gait and Ambulation: coordinated Station: able to stand both with the eyes open and feet close together Attitude Toward Examiner: cooperative and pleasant Behavior: normal Speech: clear and coherent reciprocal Language: expressive normal and receptive normal Mood: anxious Affect: appropriate, congruent, and full Thought Process: coherent, goal-directed, linear, and logical Thought Content: intact Orientation: oriented to person, oriented to place, and oriented to time Attention and Concentration: able to appropriately shift attention Memory: able to comment on events Estimated Intelligence: above average and average Insight: intact Judgement: social judgment intact Reliability: very reliable The encounter diagnosis was JULITO (generalized anxiety disorder). Plan: Individual therapy for anxiety - 2 x monthly for 50+ minute sessions. Psychologist: Attestation Not Needed. The patient was not seen with a resident or student. Patient???s identity and location have been verified. Patient has been provide with confirmation of the provider???s identity and qualifications. Patient has been provided with provider???s contact information. It has been determined that patient is capable of using technology necessary for today???s session. Patient has confirmed that they are in a private location away from the general public. Telehealth care appears to be an appropriate method of treatment delivery for patient at this time. Francisco Doyle, PhD (electronically signed on 05/03/2023 at 11:00 AM) [facility] 04-10-2023 Note Psych Progress Note WEBEX SESSION Time In: 10:01 am Time Out: 10:55 am HPI Present at Visit: Christina Location of Service: Office and she was at her home Current Presenting Symptoms/Problems: Mood: Anhedonia Anxiety: Generalized worry Trauma/Abuse: No abuse reported Cognition: intact Sleep: Not hypersomnolent and No insomnia Lifestyle Habits: Attempts healthy eating, Regular exercise, and Structured routine of day Medication Compliance: n/a Onset/Timing: Adolescence Context: Home and work Severity: Moderate Individualized Service Plan (ISP): Developing goals Progress Toward ISP Goals/Objectives: Developing goals Therapeutic Interventions Provided: Assessed Mood, Assessed Thinking, Assistance with accessing natural support systems, Cognitive Behavioral Therapy, Insight Oriented Psychotherapy, Linkage to community resources, and Motivational Interviewing Rates recent mood as 7 lately on 1-10 (saddest to happiest) scale and recent anxiety as low. Works 9:45 pm to 6:15 am. Addressed coping with jealous/insecure co-workers. She asked mother to help her with OBGYN appt. Also saw rice drier operator and has low blood pressure. AGREED will make an appt with mother to go over health insurance and other benefits. Call to schedule echo for cardio issues. NEED TO REVIEW - call advisor at [facility]. Response to Intervention: Agreeable Overall Assessment of Progress: unchanged OARRS: Not reviewed Mental Status Exam Level of Alertness: alert Appearance: dressed appropriately and well-groomed Eye Contact: normal Build/Stature: normal weight and normal height Posture: good posture Muscle Tone: normal Gait and Ambulation: coordinated Station: able to stand both with the eyes open and feet close together Attitude Toward Examiner: cooperative and pleasant Behavior: normal Speech: clear and coherent reciprocal Language: expressive normal and receptive normal Mood: anxious Affect: appropriate, congruent, and full Thought Process: coherent, goal-directed, linear, and logical Thought Content: intact Orientation: oriented to person, oriented to place, and oriented to time Attention and Concentration: able to appropriately shift attention Memory: able to comment on events Estimated Intelligence: above average and average Insight: intact Judgement: social judgment intact Reliability: very reliable The encounter diagnosis was JULITO (generalized anxiety disorder). Plan: Individual therapy for anxiety - 2 x monthly for 50+ minute sessions. Psychologist: Attestation Not Needed. The patient was not seen with a resident or student. Patient???s identity and location have been verified. Patient has been provide with confirmation of the provider???s identity and qualifications. Patient has been provided with provider???s contact information. It has been determined that patient is capable of using technology necessary for today???s session. Patient has confirmed that they are in a private location away from the general public. Telehealth care appears to be an appropriate method of treatment delivery for patient at this time. Francisco Doyle, PhD (electronically signed on 04/10/2023 at 11:18 AM) [facility] 03-26-2023 Note Psych Progress Note WEBEX SESSION Time In: 10:01 am Time Out: 10:56 am HPI Present at Visit: Christina Location of Service: Office and she was at her home Current Presenting Symptoms/Problems: Mood: Anhedonia Anxiety: Generalized worry Trauma/Abuse: No abuse reported Cognition: intact Sleep: Not hypersomnolent and No insomnia Lifestyle Habits: Attempts healthy eating, Regular exercise, and Structured routine of day Medication Compliance: n/a Onset/Timing: Adolescence Context: Home and work Severity: Moderate Individualized Service Plan (ISP): Developing goals Progress Toward ISP Goals/Objectives: Developing goals Therapeutic Interventions Provided: Assessed Mood, Assessed Thinking, Assistance with accessing natural support systems, Cognitive Behavioral Therapy, Insight Oriented Psychotherapy, Linkage to community resources, and Motivational Interviewing Rates mood as 5-6 lately on 1-10 (saddest to happiest) scale and anxiety as high. 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 Worries about college - wants to get an Associates in Business Management. Failed digital literacy class. Addressed plans and worries about her future, medical issues. AGREED - schedule OBGYN, and call advisor at [facility]. Response to Intervention: Agreeable Overall Assessment of Progress: unchanged OARRS: Not reviewed Mental Status Exam Level of Alertness: alert Appearance: dressed appropriately and well-groomed Eye Contact: normal Build/Stature: normal weight and normal height Posture: good posture Muscle Tone: normal Gait and Ambulation: coordinated Station: able to stand both with the eyes open and feet close together Attitude Toward Examiner: cooperative and pleasant Behavior: normal Speech: clear and coherent reciprocal Language: expressive normal and receptive normal Mood: anxious Affect: appropriate, congruent, and full Thought Process: coherent, goal-directed, linear, and logical Thought Content: intact Orientation: oriented to person, oriented to place, and oriented to time Attention and Concentration: able to appropriately shift attention Memory: able to comment on events Estimated Intelligence: above average and average Insight: intact Judgement: social judgment intact Reliability: very reliable The encounter diagnosis was JULITO (generalized anxiety disorder). Plan: Individual therapy for anxiety - 2 x monthly for 50+ minute sessions. Psychologist: Attestation Not Needed. The patient was not seen with a resident or student. Patient???s identity and location have been verified. Patient has been provide with confirmation of the provider???s identity and qualifications. Patient has been provided with provider???s contact information. It has been determined that patient is capable of using technology necessary for today???s session. Patient has confirmed that they are in a private location away from the general public. Telehealth care appears to be an appropriate method of treatment delivery for patient at this time. Francisco Doyle, PhD (electronically signed on 03/26/2023 at 10:57 AM) [facility] 03-09-2023 Note Department of Psychi atry Diagnostic Assessment Time In: 10 am Time Out: 10:55 am Encounter Type: On-Site Video at [facility] Patient Name: Christina Muhammad MRN / CSN: [id number] Date of / Age: 10 2000 y.o. / female Encounter Date: 03/09/23 Diagnosis: There were no encounter diagnoses. Care Team Encounter Provider: Francisco Doyle, PhD Referring Physician (if known): No ref. provider found Other Referral Sources: Self PCP (if known): Slick Graff MD Additional Provider(s): Source of Information: Source of Information: Patient Special Needs: Special Needs: None Subjective Reason for Referral Obtained verbal and written informed consent for telehealth sessions due to the pandemic. Discussed the risks, benefits and alternatives to treatment. They provided consent for online or phone session rather than in-person due to the pandemic. During the session, they were at home ([address], [place], [place]), and I was in my home office. Their alternate # was reported as ([phone]). They informed me that they were in a private room during the entire session. Ensured they are using a secure connection and informed them that it may not be fully secure. Verified that they are capable of using the online/phone technology. NARRATIVE Christina reports her recent mood has been 5-7 on a 0 (depressed) to 10 (happiest) scale. Has been feeling anxious a lot, and is accompanied by feeling indecisiveness, low appetite, lower concentration, low energy. Has worries about her health and dying due to dizziness/passing out on occasion. Worries about her new relationship, family, and work. She lives with boyfriend Osmin, now, at [address], [place], [place]. 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 SCHOOL / JOB Not in school now. HOBBIES Hang out with friends. Pokemon [employer]. Cooking. DEVELOPMENTAL HISTORY Milestones were met on time. Born full term. MEDICAL/MEDICATION/PAIN No medications. Gets dizzy / passes out ???randomly.??? Denies recent pain. Nutritional Screenings: Eats a variety of foods. Change in appetite (increase or decrease) None Weight loss or weight gain of 10 lbs or more in the last 3 months None Dental problems None Eating habits or behaviors that are not picked up by the assessment None [facility] Started therapy with Dr Doyle at age 17. No meds. SPIRITISM/CULTURE Not sikh. She is . STRENGTHS /WEAKNESSES /GOALS She is a hard worker, honest, reliable. Has trouble coping with stressors/overthinks often. Wants to reduce those issues No barriers anticipated. SUICIDALITY/HOMICIDALITY Denied SLEEP Sleeping well 7 hours per night. STRESSORS/TRAUMA Grandma passed recently. Grandfather has dementia and Parkinsons. DRUGS/ALCOHOL Drinks alcohol (3 shots) once weekly. Smokes weed daily. Vapes nicotine daily. Does not wish to reduce substance use at this time. ABUSE / NEGLECT Denied GENDER/SEX Identifies as female, heterosexual. LEGAL/CUSTODY None Identifying Information: Christina Muhammad is a 23 y.o. female (marital status) ([employer]) (job) (living) Chief Complaint Anxiety History of Present Illness: Christina Muhammad is a 23 y.o. female with past psychiatric history of anxiety presenting to the [facility] for a psychiatric evaluation. Psychosocial changes contributing to current stressors: New job, new relationship, health concerns Recent medical changes or non-psychiatric medication changes: Denies Mood Symptoms: Patient denies mood symptoms. Anxiety Symptoms: JULITO Symptoms: Patient reports the following symptoms: Uncontrollable Worry, Irritability, Poor Concentration, Inability to Relax, and Fatigue Psychosis: Patient does not meet criteria. Attention-Deficit Hyperactivity Disorder: Patient does not meet criteria. Other Disorders: Patient does not spontaneously report symptoms of other DSM-V diagnoses. Substance Use: Patient denies substance use. Past Psychiatric History Inpatient Psychiatric History: Hospitalizations: Denies Current or previous non-suicidal self-injury: Denies Previous Suicide Attempts: Denies Previous Homicide Attempts: Denies Outpatient Psychiatric History: Currently Active in Psychiatric Care: Denies Previous Providers: Francisco Doyle PHD Previous Therapists: Denies Psychiatric Medication Trials: Drug, Dose, Frequency Outcomes (Efficacy, Side Effects) Date(s) Taken Substance Use History Substance Current Use Previous Use Alcohol See above Denies Tobacco See above Denies Cannabis See above Denies Cocaine Denies Denies Opiates Denies Denies Other Drugs Denies Denies Previous Rehabilitation: Denies Legal History (due to substance use): Denies Medical History Medical Diagnoses Patient Active Problem List Diagnosis JULITO (generalized anxiety disorder) Primary Care Physician: Slick Graff MD Surgeries: Denies Head I (more content not included)... [facility] 03-02-2020 Note PROCEDURE: XR FOOT L T MIN 3 VIEWS COMPARISON: None. HISTORY: Pain in left foot FINDINGS: BONES:No fracture, acute abnormality, or significant arthropathy. Incidental fused os trigonum SOFT TISSUES:Negative. No visible soft tissue swelling. EFFUSION:None visible. OTHER: Negative. IMPRESSION: No acute abnormality Electronically authenticated by: ANN DUNHAM Date: 2020-03-02 09:21 [facility] Evaluation note No assessment inform ation available [facility] Work Phone: Evaluation note No Information [facility] [employer] Other Evaluation note Diagnosis Family history of von Willebrand disease- Primary Menorrhagia with regular cycle [facility] Diagnosis Lipoma of other specified sites- Primary documented in this encounter [facility] Attachments The following attachments cannot be sent through Care Everywhere. * Taking care of bruises (Croatian) [facility] Purpose Family History No Family History Records FoundNo Family History Records FoundNo Family History Records FoundNo Family History Records FoundNo Family History Records FoundNo Family History Records Found Advance Directives No Advanced Directives Records FoundNo Advanced Directives Records FoundNo Advanced Directives Records FoundNo Advanced Directives Records FoundNo Advanced Directives Records FoundNo Advanced Directives Records Found Additional Source Comments INFORMATION SOURCE (unrecogn ized section and content) DATE CREATED AUTHOR 12/25/2017 [facility] DATE CREATED AUTHOR AUTHOR'S ORGANIZ ATION 12/17/2020 [facility] DATE CREATED AUTHOR AUTHOR'S ORGANIZ ATION 05/07/2023 [facility] DATE CREATED AUTHOR AUTHOR'S ORGANIZ ATION 06/15/2023 [facility] DATE CREATED AUTHOR AUTHOR'S ORGANIZ ATION 09/09/2023 [facility] DATE CREATED AUTHOR AUTHOR'S ORGANIZ ATION 06/13/2024 [facility] [employer] Care Teams (unrecognized sec tion and content) Team Status: Inactive Member Role Status Dates Triny Browne NP Attending Provider Active Tube Washer Relationship Specialty Start Date End Date Slick Graff MD [address] [place] [id number], [address] [place] [address] PCP - General Pediatrics 09/03/17 Tube Washer Relationship Specialty Start Date End Date Slick Graff MD [address] [place] [address], [address] [place] [address] PCP - General Family Medicine 07/17/23 Tube Washer Relationship Specialty Start Date End Date Slick Graff MD [address] [place] [address], [address] [place] [address] PCP - General Family Medicine 07/17/23 Goals (unrecognized section and content) Goals may be documented in a n alternate sectionNo InformationNot on filedocumented as of this encounter Reason for Visit (unrecogniz ed section and content) Reason Comments Pelvic lump Reason Comments New Patient FHx Bleeding Disorder FOR RECORDS PERTAINING TO PATIENTS WHO ARE OR HAVE BEEN ENROLLED IN A CHEMICAL DEPENDENCY/SUBSTANCEABUSE PROGRAM, SOME INFORMATION MAY BE OMITTED. This clinical summary was aggregated from multiple sources. Caution should be exercised in using it in the provision of clinical care. This summary normalizes information from multiple sources, and as a consequence, information in this document may materially change the coding, format and clinical context of patient data. In addition, data may be omitted in some cases. CLINICAL DECISIONS SHOULD BE BASED ON THE PRIMARY CLINICAL RECORDS. [employer] provides no warranty or guarantee of the accuracy or completeness of information in this document.
== END 2024-07-21 20:13 | disposition home or self-care (01) ==
LOC: LAB 20:12
PROVIDERS: Visit Provider Physician Assistant
DX: Z01.419 Encounter for gynecological examination (general) (routine) without abnormal findings (principal)
CPT/HCPCS: 88175

== ENCOUNTER 2024-12-08 15:56 | Outpatient (OUT) | payer OTHER, SELFPAY ==
[2024-12-08 16:27] LABS: Basophils Percent Auto 0.3 % (0.2-2.0); Eosinophils Absolute Auto 0.1 10^3/uL (0.0-0.7); Eosinophils Percent Auto 0.9 % (0.9-7.0); Hematocrit 37.7 % (36.0-48.0); Hemoglobin 12.7 g/dL (12.0-16.0); Immature Granulocytes Abs Auto 0.02 10^3/uL (0.00-0.03); Immature Granulocytes Pct Auto 0.2 % (0.0-0.5); Lymphocytes Absolute Auto 1.5 10^3/uL (1.2-3.8); Lymphocytes Percent Auto 14.9 % (20.5-60.0); Mean Corpuscular HGB Conc 33.7 g/dL (29.9-35.2); Mean Corpuscular Hemoglobin 29.7 pg (26.7-34.0); Mean Corpuscular Volume 88.1 fL (81.0-99.0); Mean Platelet Volume 10.4 fL (9.5-13.5); Monocytes Absolute Auto 0.7 10^3/uL (0.3-0.8); Monocytes Percent Auto 6.6 % (1.7-12.0); Neutrophils Absolute Auto 7.9 10^3/uL (1.4-6.5); Neutrophils Percent Auto 77.1 % (43.0-75.0); Platelet Count 147 10^3/uL (150-450); Red Blood Count 4.28 10^6/uL (4.20-5.40); Red Cell Distribution Width 12.2 % (11.0-15.0); White Blood Count 10.2 10^3/uL (4.0-11.0)
[2024-12-08 16:35] LABS: Estimated Average Glucose 108 mg/dL; Glycohemoglobin A1C 5.4 % (4.5-6.2)
[2024-12-08 16:48] LABS: Amphetamine Screen Urine NEGATIVE (NEGATIVE); Barbiturates Screen Urine NEGATIVE (NEGATIVE); Benzodiazepines Screen Urine NEGATIVE (NEGATIVE); Buprenorphine Screen Urine NEGATIVE (NEGATIVE); Cannabinoid Screen Urine POSITIVE (NEGATIVE); Cocaine Screen Urine NEGATIVE (NEGATIVE); Methadone Screen Urine NEGATIVE (NEGATIVE); Methamphetamines Screen Urine NEGATIVE (NEGATIVE); Opiate Screen Urine NEGATIVE (NEGATIVE); Oxycodone Screen Urine NEGATIVE (NEGATIVE); Phencyclidine Screen Urine NEGATIVE (NEGATIVE); Tricyclic Antidepressant Urine NEGATIVE (NEGATIVE)
--- OUTSIDE RECORDS SUMMARY | 2024-12-08 18:11 | XMS_ITS | CCD ---
Author Organization 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 Meat Name Role Phone ALISHA SHELLEY Attending Unavailable KARSTEN, ALISHA Admitting Unavailable CHARLA, DR ANN Marin Consulting Unavailable ALISHA SHELLEY Consulting Unavailable PRERNA, DR SLICK Fierro Attending Unavailable PRERNA, DR SLICK Fierro Consulting Unavailable PRERNA, DR SLICK Fierro Admitting Unavailable WEST, DR ANN Marin Consulting Unavailable ZIYAD, KHOI Admitting Unavailable ZIYAD, KHOI Attending Unavailable KHOI LACKEY Consulting Unavailable ANTONIO Browne Attending Provider [phone] Triny Browne Unavailable Triny Browne Admitting Unavailable Triny Browne Attending Unavailable FRANCISCO ANTUNEZ Attending Unavailable ANTUNEZFRANCISCO SIMONS Attending Unavailable FRANCISCO ANTUNEZ Attending Unavailable FRANCISCO ANTUNEZ Attending Unavailable LINO CONNER Attending Unavailable SLICK GRAFF Referring Unavailable SLICK GRAFF Primary Care Unavailable LINO CONNER Referring Unavailable SLICK GRAFF Primary Care Unavailable SLICK GRAFF Referring Unavailable SLICK GRAFF Primary Care Unavailable Slick Graff MD Primary Care Provider Slick Graff MD Primary Care Provider BECCA KEATING Attending Unavailable BECCA KEATING Attending Unavailable Allergies Allergy Classification Reported Allergen(s) Allergy Type Date of Onset Reaction(s) Facility (1 source) ALLERGIES NOT ON FILE; Translations: [ALLERGIES NOT ON FILE] Propensity to adverse reactions (disorder) [facility] Repository Medications Current Medications Medication Drug Class(es) Dates Sig (Normalized) Sig (Original) azithromycin 250 mg oral tablet (1 source) Macrolide Antimicrobial Start: 12-24-2023 End: 12-28-2023 azithromycin (ZITHROMAX) 250 mg tablet Indications: Pharyngitis, unspecified etiology Take 2 tablets the first day, then 1 tablet daily for 4 days. 6 tablet 12/24/2023 12/28/2023 Active cetirizine hydrochloride 10 mg oral tablet (10 sources) Histamine-1 Receptor Antagonist Start: 01-16-2022 End: 11-15-2023 take 1 tablet by mouth in the morning cetirizine (ZyrTEC) 10 mg tablet Take 1 tablet (10 mg total) by mouth in the morning. 90 tablet 1 11/15/2023 Active escitalopram 10 mg oral tablet (4 sources) Serotonin Reuptake Inhibitor Start: 05-05-2024 take 1 tablet by mouth in the morning escitalopram (LEXAPRO) 10 mg tablet Indications: Anxiety Take 1 tablet (10 mg total) by mouth in the morning. 30 tablet 2 05/05/2024 Active Ethinyl Estradiol / Ferrous fumarate / Norethindrone (13 sources) Estrogen Start: 08-21-2024 End: 12-04-2024 norethindrone-ethi nyl estradiol (Blisovi FE 1/20) 1-20 MG-MCG tablet Indications: Uses control Take 1 tablet by mouth Daily 90 tablet 3 08/21/2024 12/04/2024 Discontinued (Therapy completed) Start: 07-21-2024 End: 07-21-2025 norethindrone-ethinyl estrad iol (Blisovi FE 1/20) 1-20 MG-MCG tablet Indications: Uses control Take 1 tablet by mouth Daily 28 tablet 12 07/21/2024 07/21/2025 Active Start: 03-27-2024 End: 07-21-2024 norethindrone-ethinyl estrad iol (Blisovi FE 1/20) 1-20 MG-MCG tablet Indications: Uses control Take 1 tablet by mouth Daily 28 tablet 12 03/27/2024 07/21/2024 Discontinued (Reorder) Start: 03-27-2024 End: 03-27-2025 norethindrone-ethinyl estrad iol (Blisovi FE 1/20) 1-20 MG-MCG tablet Indications: Uses control Take 1 tablet by mouth Daily 28 tablet 12 03/27/2024 03/27/2025 Active Start: 08-14-2023 End: 05-28-2024 take 1 tablet by mouth in the morning, then take 0.05 tablet by mouth once norethindrone-e.estradioL-iron ( FE 07/28) 1 mg-20 mcg (21)/75 mg (7) per tablet Take 1 tablet by mouth in the morning. 08/14/2023 12/04/2023 Active Start: 08-14-2023 End: 12-04-2023 take 1 tablet by mouth in the morning, then take 0.05 tablet by mouth once norethindrone-e.estradioL-iron ( FE 07/28) 1 mg-20 mcg (21)/75 mg (7) per tablet Take 1 tablet by mouth in the morning. 0 08/14/2023 12/04/2023 Active fluticasone propionate 0.05 mg/actuat metered dose nasal spray (10 sources) Corticosteroid Start: 11-15-2023 take 2 spray(s) nasal route in the morning fluticasone propionate (FLONASE) 50 mcg/actuation nasal spray Administer 2 sprays into each nostril in the morning. 15.8 mL 2 11/15/2023 Active Start: 12-09-2020 End: 11-15-2023 take 2 spray(s) nasal route once daily fluticasone propionate (FLONASE) 50 mcg/actuation nasal spray Administer 2 sprays into each nostril daily. 15.8 mL 2 12/09/2020 11/15/2023 Discontinued (Reorder) metoclopramide 10 mg oral tablet (2 sources) Dopamine-2 Receptor Antagonist Start: 11-17-2024 End: 12-17-2024 metoclopramide (Reglan) 10 MG tablet Indications: Nausea Take 1 tablet (10 mg) by mouth in the morning and 1 tablet (10 mg) at noon and 1 tablet (10 mg) in the evening. Take before meals. Take 1 tablet by mouth 30 minutes prior to meals 3 times daily as needed for nausea. 90 tablet 3 11/17/2024 12/17/2024 Active midodrine hydrochloride 5 mg oral tablet (17 sources) alpha-Adrenergic Agonist Start: 05-15-2023 End: 12-04-2024 midodrine (Proamatine) 5 MG tablet Take 5 mg by mouth in the morning and 5 mg at noon and 5 mg in the evening. 05/15/2023 12/04/2024 Discontinued ondansetron 4 mg oral tablet (7 sources) Serotonin-3 Receptor Antagonist Start: 11-10-2024 take 1 tablet by mouth every six hours as needed for nausea and vomiting and nausea and nausea ondansetron (Zofran) 4 MG tablet Indications: Nausea Take 1 tablet (4 mg) by mouth every 6 (six) hours if needed for nausea or vomiting for up to 30 doses Take 1 tablet by mouth every 6 hours as needed for nausea. 30 tablet 3 11/10/2024 Active Start: 07-18-2024 take 1 tablet by tee th every eight hours as needed for nausea and vomiting ondansetron ODT (ZOFRAN ODT) 4 mg disintegrating tablet Dissolve 1 tablet (4 mg total) on tongue every 8 (eight) hours as needed for nausea or vomiting. 10 tablet 07/18/2024 Active Start: 11-12-2023 End: 12-24-2023 ondansetron ODT (ZOFRAN ODT) 4 mg disintegrating tablet Indications: H/O motion sickness Dissolve 1 tablet (4 mg total) on tongue every 8 (eight) hours as needed for nausea or vomiting. 10 tablet 11/12/2023 12/24/2023 Discontinued (Therapy completed) promethazine hydrochloride 12.5 mg oral tablet (1 source) Phenothiazine Start: 11-10-2024 End: 12-04-2024 take 1 tablet by mouth every six hours as needed for nausea and vomiting and nausea and nausea promethazine (Phenergan) 12.5 MG tablet Indications: Nausea Take 1 tablet (12.5 mg) by mouth every 6 (six) hours if needed for nausea or vomiting for up to 30 doses Take 1 tablet by mouth every 6 hours as needed for nausea. 30 tablet 2 11/10/2024 12/04/2024 Discontinued 72 hr scopolamine 0.0139 mg/hr transdermal system (5 sources) Anticholinergic Start: 07-18-2024 apply 1 dose transdermal route once daily scopolamine (TRANSDERM-SCOP) 1 mg/[address] 1 patch on the skin every third day. 4 patch 07/18/2024 Active Start: 11-12-2023 End: 12-24-2023 apply 1 dose transdermal route once daily scopolamine (TRANSDERM-SCOP) 1 mg/3 days Indications: H/O motion sickness Place 1 patch on the skin every third day. 4 patch 11/12/2023 12/24/2023 Discontinued (Therapy completed) Completed/Discontinued Medications Medication Drug Class(es) Dates Sig (Normalized) Sig (Original) LORazepam 1 mg oral tablet (3 sources) Benzodiazepine Start: 11-12-2023 End: 12-24-2023 take 1 tablet by mouth twice daily as needed for anxiety LORazepam (ATIVAN) 1 mg tablet Indications: Anxiety Take 1 tablet (1 mg total) by mouth 2 (two) times a day as needed for anxiety. 6 tablet 11/12/2023 12/24/2023 Discontinued (Therapy completed) sertraline 50 mg oral tablet (2 sources) Serotonin Reuptake Inhibitor Start: 01-01-2024 End: 05-05-2024 sertraline (ZOLOFT) 50 mg tablet Indications: Neurocardiogenic syncope Take 1 tablet (50 mg total) by mouth once daily at bedtime. Take 1/2 tab (25 mg) at bedtime for the first 4 nights. 30 tablet 1 01/01/2024 05/05/2024 Discontinued Problems Active Problems Problem Classification Problem Date Documented Date Episodic/Chronic Anxiety disorders (6 sources) Generalized anxiety disorder; Translations: [Anxiety] Onset: 03-09-2023 Chronic Menstrual disorders (3 sources) Excessive and frequent menstruation with regular cycle; Translations: [Menorrhagia] Onset: 08-21-2023 08-21-2023 Chronic Mood disorders (9 sources) Moderate major depression, single episode; Translations: [Major depressive disorder, single episode, moderate] Onset: 09-11-2017 09-11-2017 Chronic Nonmalignant breast conditions (4 sources) Unspecified lump in axillary tail of the left breast; Translations: [UNS LUMP IN AXILLARY TAIL LT BREAST] Onset: 12-07-2020 Episodic Other and unspecified benign neoplasm (2 sources) Lipoma (clinical); Translations: [Benign lipomatous neoplasm of other sites] 06-11-2024 Episodic Other inflammatory condition of skin (1 source) Pityriasis rosea; Translations: [Pityriasis rosea] 05-26-2024 Chronic Other and delivery including normal (2 sources) ; Translations: [Encounter for supervision of normal , unspecified, unspecified trimester] 12-04-2024 Episodic Residual codes; unclassified (1 source) Family history of diseases of the blood and blood-forming organs and certain disorders involving the immune mechanism; Translations: [Family history of diseases of the blood and blood-forming organs and certain disorders involving the immune mechanism] Onset: 08-21-2023 Episodic Residual codes; unclassified (2 sources) Contraception ; Translations: [Other specified health status] 07-21-2024 Episodic Unclassified (1 source) Frequency of micturition; [...] VIRAL DZ] Onset: 01-27-2020 Episodic Mood disorders (9 sources) Mood disorders Onset: 08-21-2023 Resolved: 05-05-2024 05-05-2024 Other connective tissue disease (4 sources) Pain in left foot; Translations: [PAIN IN LEFT FOOT] Onset: 03-02-2020 Episodic Other upper respiratory infections (2 sources) Acute pharyngitis due to other specified organisms; Translations: [Pharyngitis] Onset: 01-31-2020 12-24-2023 Episodic Residual codes; unclassified (1 source) History of clinical finding in subject; Translations: [Personal history of other specified conditions] 11-12-2023 Episodic Residual codes; unclassified (1 source) Family history of Von Willebrand disease; Translations: [Family history of diseases of the blood and blood-forming organs and certain disorders involving the immune mechanism] 08-21-2023 Episodic Syncope (10 sources) Near syncope; Translations: [Syncope and collapse] Onset: 04-03-2023 04-03-2023 Episodic Results Test Name Value Interpretation Reference Range Facility ALL CBC WITH AUTO DIFFon BASOPHILS ABSOLUTE AUTO 0 [facility] Basophils/100 WBC (Bld) 0.3 % 0.2 - 2.0 % [facility] Eosinophils/100 WBC (Bld) 0.9 % 0.9 - 7.0 % [facility] Erythrocyte distribution width (RBC) [Ratio] 12.2 % 11.0 - 15.0 % [facility] Hematocrit (Bld) [Volume fraction] 37.7 % 36.0 - 48.0 % [facility] Hemoglobin (Bld) [Mass/Vol] 12.7 g/dL 12.0 - 16.0 g/dL [facility] IMMATURE GRANULOCYTES ABS AUTO 0.02 [facility] Immature granulocytes/100 WBC (Bld) 0.2 % 0.0 - 0.5 % [facility] Interpretation and review of laboratory results Abnormal [facility] LYMPHOCYTES ABSOLUTE AUTO 1.5 [facility] Lymphocytes/100 WBC (Bld) 14.9 % Low 20.5 - 60.0 % [facility] MCH (RBC) [Entitic mass] 29.7 pg 26.7 - 34.0 pg [facility] MCHC (RBC) [Mass/Vol] 33.7 g/dL 29.9 - 35.2 g/dL [facility] MCV (RBC) [Entitic vol] 88.1 fL 81.0 - 99.0 fL [facility] MONOCYTES ABSOLUTE AUTO 0.7 [facility] Monocytes/100 WBC (Bld) 6.6 % 1.7 - 12.0 % [facility] NEUTROPHILS ABSOLUTE AUTO 7.9 High [facility] Neutrophils/100 WBC (Bld) 77.1 % High 43.0 - 75.0 % [facility] Platelet mean volume (Bld) [Entitic vol] 10.4 fL 9.5 - 13.5 fL [facility] Low [facility] RBC 4.28 [facility] WBC 10.2 [facility] MLR HEMOGLOBIN A1Con 025 Glucose [Mass/Vol] 108 mg/dL [facility] HbA1c (Bld) [Mass fraction] 5.4 % 4.5 - 6.2 % [facility] Comment on above: ADA RECOMMENDED LIMI T 4.0 - 6.0 ADA THERAPEUTIC TARGET < 7.0 ACTION SUGGESTED > 7.0 [facility] HCG ( test) Ql (U)o n 12-04-2024 Interpretation and review of laboratory results Abnormal [facility] Preg Test, Ur Positive Negative [facility] US OB TRANSVAGINALon 025 US OB TRANSVAGINAL EXAM: US OB TRANSVAG INAL HISTORY: Dating. COMPARISON: None available. TECHNIQUE: Two-dimensional transvaginal grayscale ultrasound imaging of the pelvis was performed. Color Doppler evaluation of the ovaries was also performed. FINDINGS: The uterus demonstrates a normal homogeneous echotexture. The cervix measures 4.2 cm in length and the cervical os is closed. The right ovary measures 2.6 x 2.2 x 2.4 cm and demonstrates a normal echotexture. There is normal color Doppler flow. There is a presumed corpus luteal cyst visualized. The left ovary measures 2.6 x 1.6 x 2.5 cm and demonstrates a normal echotexture. There is normal color Doppler flow. No fluid is present within the cul-de-sac. There is a single, live intrauterine gestation identified with a heart rate of 186 beats per minute and a crown-rump length measurement of 2.3 cm, correlating to a gestational age of 9 weeks 0 days (+/- 6 days). There is no subchorionic hemorrhage visualized. A yolk sac is visualized. IMPRESSION: 1. Single, live intrauterine gestation 8 weeks, 6 days by LMP. Today's ultrasound measurements correlate with a gestational age of 9 weeks 0 days (+/- 6 days). VAIBHAV by today's ultrasound is 07/09/2025. 2. tachycardia. A short-term follow-up ultrasound is recommended to monitor heart rate. 3. Normal color Doppler evaluation of the bilateral ovaries. Interpreted by: Electronically signed by NADEEM SHOEMAKER II, MD, PHD at 05-Dec-2024 11:53:06 AM [facility] [employer] Normal Not Available Comment on above: Order Comment: US OB TRANSVAGINAL No LMP recorded. Urinalysis macro (dipstick) panel (U)on 12-04-2024 Bilirubin, UA Positive Negative - 4(70) +++ mg/dL [facility] Comment on above: small Blood, UA Negative Negative - 50 Jovani/mcL [facility] Clarity, UA Clear [facility] Color, UA Yellow [facility] Glucose, UA Negative Negative - 2000(110) ++++ mg/dL [facility] Interpretation and review of laboratory results Abnormal [facility] Ketones, UA Negative Negative - 160(16) ++++ mg/dL [facility] Leukocytes, UA Negative Negative - 500+++ Luis E/mcL [facility] Nitrite, UA Negative Negative - Positive [facility] pH, UA 6.5 5 - 9 [facility] Protein, UA Positive Negative - 2000(20) ++++ mg/dL [facility] Comment on above: 30mg/dL Spec Grav, UA 1.025 1 - 1.03 [facility] Urobilinogen, UA 0.2 0.2 - 12 mg/dL [facility] IGP,APTIMA HPV,AGE GDLNon AGE GDLN ACOG TESTING Note . [facility] Comment on above: TESTS RESULT FLAG UN ITS REF RANGE LAB Clinician Provided Cytology Information Source.............Cervix;Endocervix No. of containers..01 ThinPrep Vial Age Algo ACOG Jannet... -06 08 FLAG LEGEND: L-Low Normal,H-High Normal,LL-Alert Low,HH-Alert High <-Panic Low,>-Panic High,A-Abnormal,AA-Critical Abnormal Performed at: 01 =G [facility] [address] [place] [address] Haylie Bustamante MD, IGP, RFX APTIMA HPV ASCU Note . [facility] Comment on above: TESTS RESULT FLAG UN ITS REF RANGE LAB DIAGNOSIS: 02 NEGATIVE FOR INTRAEPITHELIAL LESION OR MALIGNANCY. Specimen adequacy: 02 Satisfactory for evaluation. Endocervical and/or squamous metaplastic cells (endocervical component) are present. Performed by: 02 Veena Miller, Decating Machine Operator ([facility]) . 02 Note: Note 03 The Pap smear is a screening test designed to aid in the detection of premalignant and malignant conditions of the uterine cervix. It is not a diagnostic procedure and should not be used as the sole means of detecting cervical cancer. Both false-positive and false-negative reports do occur. Test Methodology: Note 03 This liquid based ThinPrep(R) pap test was screened with the use of an image guided system. . 02 The HPV DNA reflex criteria were not met with this specimen result therefore, no HPV testing was performed. FLAG LEGEND: L-Low Normal,H-High Normal,LL-Alert Low,HH-Alert High <-Panic Low,>-Panic High,A-Abnormal,AA-Critical Abnormal Performed at: 02 AGUILAR [facility] [address] [place] [address] Tania Mullins PhD, 03 WB [facility] [address] [address] Haylie Bustamante MD, Performed at: =G - [facility] [address] [id number] Treasury Agent: Haylie Bustamante MD, Phone: [phone] Performed at: [facility] [address] [place] [id number] Treasury Agent: Tania Mullins PhD, Phone: [phone] BRUSH-SPATULA CERVIX ENDOCERVIX [facility] Coagulation factor VIII acti vity actual/normal Coag (PPP) [Relative time]on 08-22-2023 Interpretation and review of laboratory results Abnormal [facility] Factor 8 activityon 08-22-19 Coagulation factor VIII activity actual/normal Coag (PPP) [Relative time] 152 % High [facility] No Panel Informationon 08-22 [facility] Von Willebrand antigen facto r VIII agon 08-22-2023 vWf Ag IA Qn (PPP) 157 % High 50 - 150 % [facility] Comment on above: It has been reported [...] Interpretation and review of laboratory results Abnormal [facility] von Willebrand Factor Activi tyon 08-22-2023 vWf.activity actual/normal IA (PPP) [Relative ratio] 158 % 50 - 200 % [facility] APTTon 08-21-2023 aPTT Coag (PPP) [Time] 30 s [facility] [place] GENERIC ORDERon TEST NAME [id number] VON WILLEBRA ND FACTOR GP1BM ACTIVITY Normal [facility] TEST RESULT SEE NOTE Normal [facility] Comment on above: Result Comment: NOTE Test name Result Flag Units RefIntvl VWF GPIbM Activity 132 IU/dL 52-180 For additional information, please visit [email or web address] This test was developed and its performance characteristics determined by [facility]. It has not been cleared or approved by the US Food and Drug Administration. This test is used for clinical purposes. It should not be regarded as investigational or for research. This laboratory is certified under the Clinical Laboratory Improvement Amendments (CLIA) as qualified to perform high complexity clinical laboratory testing. Performed by: [facility]. [address] [place] [id number] CBC AND AUTO DIFFon 08-21-19 24 ABSOLUTE BASOPHIL 0.0 X10E9/L Normal 0.0-0.2 [facility] Comment on above: Performed By: #### P INR, 01398-9, CBCA, FEPR, 2276-4, 6012-9, 70076-6, 3209-4 #### [facility] ([id number]) [address], [address] [place] [address] ABSOLUTE NEUTROPHIL 3.4 X10E9/L Normal 1.5-6.6 [facility] Comment on above: Performed By: #### P INR, 63815-6, CBCA, FEPR, 2276-4, 6012-9, 59685-5, 3209-4 #### [facility] ([id number]) [address], [address] [place] [address] Basophils/100 WBC (Bld) 0.6 % Normal [facility] Comment on above: Performed By: #### P INR, 79798-4, CBCA, FEPR, 2276-4, 6012-9, 37048-0, 3209-4 #### [facility] ([id number]) [address], [address] [place] [address] Eosinophils (Bld) [#/Vol] 0.1 10*3/uL Normal 0.0-0.4 [facility] Comment on above: Performed By: #### P INR, 18924-8, CBCA, FEPR, 2276-4, 6012-9, 25380-0, 3209-4 #### [facility] ([id number]) [address], [address] [address] Eosinophils/100 WBC (Bld) 2.0 % Normal [facility] Comment on above: Performed By: #### P INR, 75723-1, CBCA, FEPR, 2276-4, 6012-9, 30093-3, 3209-4 #### [facility] ([id number]) [address] [address] Erythrocyte distribution width (RBC) [Ratio] 13.3 % Normal 11.5-15.0 [facility] Comment on above: Performed By: #### P INR, 86921-1, CBCA, FEPR, 2276-4, 6012-9, 98434-1, 3209-4 #### [facility] ([id number]) [address] [address] Hematocrit (Bld) [Volume fraction] 38.6 % Normal 35-47 [facility] Comment on above: Performed By: #### P INR, 97082-0, CBCA, FEPR, 2276-4, 6012-9, 29949-7, 3209-4 #### [facility] ([id number]) [address] [address] [place] [address] Hemoglobin (Bld) [Mass/Vol] 13.1 g/dL Normal 11.7-15.5 [facility] Comment on above: Performed By: #### P INR, 76655-0, CBCA, FEPR, 2276-4, 6012-9, 52289-2, 3209-4 #### [facility] ([id number]) [address] [address] Lymphocytes (Bld) [#/Vol] 1.2 10*3/uL Normal 1.0-3.5 [facility] Comment on above: Performed By: #### P INR, 99202-9, CBCA, FEPR, 2276-4, 6012-9, 77974-6, 3209-4 #### [facility] ([id number]) [address] [address] Lymphocytes/100 WBC (Bld) 23.5 % Normal [facility] Comment on above: Performed By: #### P INR, 11426-7, CBCA, FEPR, 2276-4, 6012-9, 45765-8, 3209-4 #### [facility] ([id number]) [address] [address] MCH (RBC) [Entitic mass] 29.8 pg Normal 27-34 [facility] Comment on above: Performed By: #### P INR, 65031-4, CBCA, FEPR, 2276-4, 6012-9, 95108-9, 3209-4 #### [facility] ([id number]) [address] [address] MCHC (RBC) [Mass/Vol] 33.8 g/dL Normal 32-36 [facility] Comment on above: Performed By: #### P INR, 57042-8, CBCA, FEPR, 2276-4, 6012-9, 54152-8, 3209-4 #### [facility] ([id number]) [address] [address] MCV (RBC) [Entitic vol] 88 fL Normal 80-100 [facility] Comment on above: Performed By: #### P INR, 46674-7, CBCA, FEPR, 2276-4, 6012-9, 37378-7, 3209-4 #### [facility] ([id number]) [address], [address] [place] [address] Monocytes (Bld) [#/Vol] 0.4 10*3/uL Normal 0-0.9 [facility] Comment on above: Performed By: #### P INR, 88840-9, CBCA, FEPR, 2276-4, 6012-9, 57954-6, 3209-4 #### [facility] ([id number]) [address] [address] Monocytes/100 WBC (Bld) 8.5 % Normal [facility] Comment on above: Performed By: #### P INR, 89641-1, CBCA, FEPR, 2276-4, 6012-9, 20980-6, 3209-4 #### [facility] ([id number]) [address] [address] Neutrophils/100 WBC (Bld) 65.4 % Normal [facility] Comment on above: Performed By: #### P INR, 98517-4, CBCA, FEPR, 2276-4, 6012-9, 52930-6, 3209-4 #### [facility] ([id number]) [address], [address] [place] [address] Platelet mean volume (Bld) [Entitic vol] 8.9 fL Normal 7-12 [facility] Comment on above: Performed By: #### P INR, 83279-1, CBCA, FEPR, 2276-4, 6012-9, 05286-1, 3209-4 #### [facility] ([id number]) [address] [address] [place] [address] Platelets (Bld) [#/Vol] 225 10*3/uL Normal 150-450 [facility] Comment on above: Performed By: #### P INR, 36243-2, CBCA, FEPR, 2276-4, 6012-9, 80320-8, 3209-4 #### [facility] ([id number]) [address], [address] [place] [address] RBC COUNT 4.38 X10E12/L Normal 3.80-5.20 [facility] Comment on above: Performed By: #### P INR, 38729-9, CBCA, FEPR, 2276-4, 6012-9, 76062-8, 3209-4 #### [facility] ([id number]) [address] [place] [address] WBC (Bld) [#/Vol] 5.2 10*3/uL Normal 4.0-11.0 [facility] Comment on above: Performed By: #### P INR, 08420-5, CBCA, FEPR, 2276-4, 6012-9, 97735-0, 3209-4 #### [facility] ([id number]) [address] [place] [address] CBC auto differentialon 08-09 Basophils (Bld) [#/Vol] 0.0 10*3/uL [facility] Basophils/100 WBC (Bld) 0.6 % [facility] Eosinophils (Bld) [#/Vol] 0.1 10*3/uL [facility] Eosinophils/100 WBC (Bld) 2.0 % [facility] Erythrocyte distribution width (RBC) [Ratio] 13.3 % 11.5 - 15.0 % [facility] Hematocrit (Bld) [Volume fraction] 38.6 % 35 - 47 % [facility] Hemoglobin (Bld) [Mass/Vol] 13.1 g/dL 11.7 - 15.5 g/dL [facility] Lymphocytes (Bld) [#/Vol] 1.2 10*3/uL [facility] Lymphocytes/100 WBC (Bld) 23.5 % [facility] MCH (RBC) [Entitic mass] 29.8 pg 27 - 34 pg [facility] MCHC (RBC) [Mass/Vol] 33.8 g/dL 32 - 36 g/dL [facility] MCV (RBC) [Entitic vol] 88 fL 80 - 100 fL [facility] Monocytes (Bld) [#/Vol] 0.4 10*3/uL [facility] Monocytes/100 WBC (Bld) 8.5 % [facility] Neutrophils (Bld) [#/Vol] 3.4 10*3/uL [facility] Neutrophils/100 WBC (Bld) 65.4 % [facility] Platelet mean volume (Bld) [Entitic vol] 8.9 fL 7 - 12 fL [facility] Platelets (Bld) [#/Vol] 225 10*3/uL [facility] RBC (Bld) [#/Vol] 4.38 10*6/uL [facility] WBC corrected for nucl RBC Auto (Bld) [#/Vol] 5.2 [facility] Coagulation factor VIII acti vity actual/normal Coag (PPP) [Relative time]on 08-21-2023 FACTOR 8 ASSAY 152 % act High 50-150 [facility] Comment on above: Performed By: #### P INR, 33192-9, CBCA, FEPR, 2276-4, 6012-9, 75911-9, 3209-4 #### [facility] ([id number]) [address] [place] [address] FERRITINon 08-21-2023 Ferritin [Mass/Vol] 9 ng/mL Low 11-307 [facility] Comment on above: Performed By: #### P INR, 54056-9, CBCA, FEPR, 2276-4, 6012-9, 40861-0, 3209-4 #### [facility] ([id number]) [address] [place] [address] Ferritinon 08-21-2023 Ferritin [Mass/Vol] 9 ng/mL Low 11 - 307 ng/mL [facility] Ferritin [Mass/Vol]on 2023 Interpretation and review of laboratory results Abnormal [facility] IRON PROFILEon 08-21-2023 Iron [Mass/Vol] 67 ug/dL Normal 50-170 [facility] Comment on above: Performed By: #### P INR, 42732-1, CBCA, FEPR, 2276-4, 6012-9, 40036-4, 3209-4 #### [facility] ([id number]) [address], [address] [place] [address] IRON BINDING 438 ug/dL High 250-425 [facility] Comment on above: Performed By: #### P INR, 70086-3, CBCA, FEPR, 2276-4, 6012-9, 93305-5, 3209-4 #### [facility] ([id number]) [address], [address] [place] [address] IRON SATURATION 15 % SATURATION Normal 15-50 [facility] Comment on above: Performed By: #### P INR, 32625-5, CBCA, FEPR, 2276-4, 6012-9, 06326-6, 3209-4 #### [facility] ([id number]) [address], [address] [place] [address] Iron and TIBCon 08-21-2023 Interpretation and review of laboratory results Abnormal [facility] Iron [Mass/Vol] 67 ug/dL 50 - 170 ug/dL [facility] Iron binding capacity [Mass/Vol] 438 ug/dL High 250 - 425 ug/dL [facility] Iron saturation [Mass fraction] 15 [facility] Laboratory comment Be (Repo rt)on 08-21-2023 UNLISTED LAB TEST Sent to reference lab Normal [facility] No Panel Informationon 08-21 [facility] PROTIME AND INRon 08-21-2023 INR Coag (PPP) [Relative time] 1.1 {INR} Normal 0.8-1.1 [facility] Comment on above: Performed By: #### P INR, 99010-0, CBCA, FEPR, 2276-4, 6012-9, 74272-7, 3209-4 #### [facility] ([id number]) [address] [place] [address] PT Coag (PPP) [Time] 13.1 s Normal 9.8-13.2 [facility] Comment on above: Performed By: #### P INR, 26120-0, CBCA, FEPR, 2276-4, 6012-9, 38882-1, 3209-4 #### [facility] ([id number]) [address] [facility] [address] [place] [address] Protime & INRon 08-21-2023 INR Coag (PPP) [Relative time] 1.1 {INR} [facility] PT Coag (PPP) [Time] 13.[address] [facility] aPTT Coag (PPP) [Time]on aPTT Coag (Bld) [Time] 30 s Normal 26-37 [facility] Comment on above: Performed By: #### P INR, 77411-5, CBCA, FEPR, 2276-4, 6012-9, 50368-1, 3209-4 #### [facility] ([id number]) [address], [address] [address] vWf Ag IA Qn (PPP)on 024 VON WILLEBRAND AG 157 % High 50-150 [facility] Comment on above: Result Comment: It has [...] on the diagnosis of vWd. Blood 69:1691, 1984 Performed By: #### P INR, 71045-5, CBCA, FEPR, 2276-4, 6012-9, 75127-2, 3209-4 #### [facility] ([id number]) [address], [address] [place] [address] vWf.activity actual/normal I A (PPP) [Relative ratio]on 08-21-2023 von Willebrand Factor Activity 158 % Normal 50-200 [facility] Comment on above: Performed By: #### P INR, 65881-8, CBCA, FEPR, 2276-4, 6012-9, 19066-0, 3209-4 #### [facility] ([id number]) [address] [place] [address] Behavioral Health Telemedici neon 06-14-2023 [facility] [id number] Muhammad,Christina 2000 F Date Provider Department Center 06/14/2023 FRANCISCO GUILLAUME [facility] Gloriaevelyn Raymond No family history on file Reason for Visit and Comments: Therapy [849] Normal [facility] Behavioral Health Telemedici neon 05-17-2023 [facility] [id number] Muhammad,Christina 2000 F Date Provider Department Center 05/17/2023 FRANCISCO GUILLAUME [facility] Gloria Heal No family history on file Reason for Visit and Comments: Therapy [849] Normal [facility] Behavioral Health Telemedici neon 05-03-2023 [facility] Tele[facility] [id number] Muhammad,Christina 2000 F Date Provider Department [place] 05/03/2023 FRANCISCO GUILLAUME [facility] Gloria Heal No family history on file Reason for Visit and Comments: Therapy [849] Normal [facility] Urine Cultureon 04-29-2023 Bacteria identified Cx Nom (U) ORGANISM: Strep. agalactiae Grp B (O:B) [place] Count <10,000 PERFORMED BY: [place] [address] PATHOLOGIST DRUG SAFETY ASSISTANT TUAN HOGAN M.D. Normal [facility] Comment on above: Performed By: #### C UU #### [address] #### VAGINITIS+ #### [facility] , Vaginitis Plus (VG+)on 04-29 Atopobium Vaginae Low - 0 Normal . [facility] Comment on above: Performed By: #### C UU #### [address] #### VAGINITIS+ #### [facility] , BVAB2 Low - 0 Normal . [facility] Comment on above: Performed By: #### C UU #### [address] #### VAGINITIS+ #### [facility] , Cherie Albicans, ALEXANDER Negative Normal Negative [facility] Comment on above: Result Comment: This test was developed and its performance characteristics determined by [employer]. It has not been cleared or approved by the Food and Drug Administration. Performed By: #### C UU #### [place] [address] [place] #### VAGINITIS+ #### [facility] , Cherie Glabrata, ALEXANDER Negative Normal Negative [facility] Comment on above: Result Comment: This test was developed and its performance characteristics determined by [employer]. It has not been cleared or approved by the Food and Drug Administration. PERFORMED BY: [place] [address] PATHOLOGIST DRUG SAFETY ASSISTANT TUAN HOGAN M.D. Performed By: #### C UU #### [place] [address] [place] #### VAGINITIS+ #### [facility] , Chlamydia Trachomotis, ALEXANDER Negative Normal Negative [facility] Comment on above: Performed By: #### C UU #### [place] [address] [place] #### VAGINITIS+ #### [facility] , Megasphaera Low - 0 Normal . [facility] Comment on above: Result Comment: Calc ulate [...] developed and its performance characteristics determined by [employer]. It has not been cleared or approved by the Food and Drug Administration. Performed By: #### C UU #### [address] #### VAGINITIS+ #### [facility] , Neisseria Gonorrhoeae, ALEXANDER Negative Normal Negative [facility] Comment on above: Result Comment: Perf ormed at: =G - [facility] [address] [id number] Treasury Agent: Haylie Bustamante MD, Phone: [phone] Performed By: #### C UU #### [place] [address] [place] #### VAGINITIS+ #### [facility] , Tric Vag ALEXANDER Negative Normal Negative [facility] Comment on above: Performed By: #### C UU #### [place] [address] [place] #### VAGINITIS+ #### [facility] , Behavioral Health Telemedici neon 04-10-2023 [facility] Telemedicine [id number] Christina Muhammad 2000 F Date Provider Department Center 04/10/2023 FRANCISCO GUILLAUME [facility] Gloria [facility] No family history on file Reason for Visit and Comments: Therapy [849] Normal [facility] Behavioral Health Telemedici neon 03-26-2023 [facility] Telemedicine [id number] Christina Muhammad 2000 F Date Provider Department Center 03/26/2023 FRANCISCO [facility]LLAUME [facility] Gloria [facility] No family history on file Reason for Visit and Comments: Therapy [849] Normal [facility] Behavioral Health Telemedici neon 03-09-2023 [facility] Telemedicine [id number] Christina Muhammad 2000 F Date Provider Department Center 03/09/2023 FRANCISCO GUILLAUME [facility] Gloria [facility] No family history on file Reason for Visit and Comments: Therapy [849] Normal [facility] US BREAST LEFT LIMITEDon US BREAST LEFT LIMITED Patient: CHRISTINA MUHAMMAD Exam Date: 12/07/2020 : 2000 Gender:F Ordering : DR. ALISHA SHELLEY . Admission #: [id number] Family : Order #: [id number] CLICK HERE TO VIEW EXAM RADIOLOGY REPORT [...] Dunham MD on 12/07/2020 at 15:12 Normal [facility] COVID-19 PCRon 01-29-2020 SARS-CoV-2 (COVID-19) RNA ALEXANDER+probe Ql (Unsp spec) Not detected Normal Not Detected [facility] Comment on above: Result Comment: This test was developed and its performance characteristics determined by [employer]. This test has not been FDA cleared [...] assay. Performed By: #### C VDPCR #### [facility] [address] [place] [address] Viraj Guadarrama Discharge Summaryon 12-08-19 Discharge Summary MR#: [id number] [facility] Muhammad Admitted: 11/08/2017 Discharged: 11/12/2017 Date of : 2000 Physician: Domenico Goodwin M.D. DISCHARGE SUMMARYREASON FOR ADMISSION: Suicidal ideation.HISTORY OF PRESENT ILLNESS AT ADMISSION: :Patient is a 17 year old female with no previous psychiatric history,presenting as a direct admission from [facility], where shepresented with her mother [...] states she had recently broken up with herboyfriend at the time and had somewhat impulsively [...] Denies problems falling asleep, says at times shewitrae wake up at night and have a hard time falling back asleep. Denieschanges in appetite. Denies feeling hopeless or helpless most of the time.She is ambivalent presently as to whether she wishes she was now or isstill contemplating suicide.HOSPITAL COURSE:Upon admission [facility] child unit, pt was assessed in detail [...] wasgood. Judgment was also good.DISCHARGE MEDICATIONS: None.DISCHARGE DIAGNOSES:Hendrix I: Mood disorder, NOS.Hendrix II: Deferred.Hendrix III: We do not know, but unsafe.Hendrix IV: Romantic relationship conflict.Hendrix V: GAF of 67.POSTDISCHARGE APPOINTMENT/POSTDISCHARGE FOLLOWUP: See [...] personal documentation from me. Date Dict: 12/07/2017/01:07 Mic/RYNE Beltránate Trans: 12/07/2017 06:22 [id number] Normal [facility] FREE T3on 11-09-2017 Triiodothyronine (T3) free 3.4 pg/mL Normal 2.5-3.9 [facility] Comment on above: Order Comment: No: D o not add to previous draw Performed By: #### 4 6413, 20662, 26753, 41263 ####[facility] FREE T4on 11-09-2017 Thyroxine (T4) free 0.89 ng/dL Normal 0.71-1.85 [facility] Comment on above: Order Comment: No: D o not add to previous draw Performed By: #### 4 6413, 95565, 82590, 28233 ####[facility].[address] LIPID PROFILEon 11-09-2017 Cholesterol 152 mg/dL Normal 120-170 [facility] Comment on above: Order Comment: No: D o not add to previous draw Result Comment: CHOL ESTEROL REFERENCE RANGE:20 YEARS AND OLDER CARDIOVASCULAR RISKLess than 200 mg/dl Low Ggyx398 to 239 mg/dl Borderline Fiyx655 mg/dl and greater High Risk Performed By: #### 4 6413, 49831, 64508, 31953 ####[facility].[address] Cholesterol to HDL Ratio 3.3 {ratio} Normal .0-4.5 [facility] Comment on above: Order Comment: No: D o not add to previous draw Performed By: #### 4 6413, 54148, 24674, 77722 ####[facility].[address] HDL Cholesterol 46 mg/dL Normal 23-92 [facility] Comment on above: Order Comment: No: D o not add to previous draw Result Comment: Slig ht variation in normal range could be due to gender and/or age.HDL CHOLESTEROL REFERENCE RANGE:20 years and older Cardiovascular Risk> or =60 mg/dL Ouljmoout53 TO 59 mg/dL Low Risk<40 mg/dL High Risk Performed By: #### 4 6413, 02427, 63455, 26025 ####[facility].[address] LDL Cholesterol 92 mg/dL Normal 0-130 [facility] Comment on above: Order Comment: No: D o not add to previous draw Result Comment: LDL IS A CALCULATIONLDL IS ONLY VALID IF THE TRIG IS LESS THAN 400. Performed By: #### 4 6413, 68495, 45102, 80993 ####[facility].[address] NON-HDL CHOLESTEROL 106 mg/dL Normal [facility] Comment on above: Order Comment: No: D o not add to previous draw Performed By: #### 4 6413, 49576, 50594, 82396 ####[facility] [address] Triglyceride 70 mg/dL Normal 37-148 [facility] Comment on above: Order Comment: No: D o not add to previous draw Result Comment: TRIG LYCERIDE REFERENCE RANGE:20 YEARS AND OLDER CARDIOVASCULAR RISKLESS THAN 150 mg/dl LOW [id number] TO 199 mg/dl BORDERLINE [id number] mg/dl AND GREATER HIGH RISK Performed By: #### 4 6413, 80072, 06840, 09162 ####[facility] [address] VLDL CHOL 14 mg/dL Normal 0-40 [facility] Comment on above: Order Comment: No: D o not add to previous draw Performed By: #### 4 6413, 70324, 24708, 43955 ####[facility] [address] TSHon 11-09-2017 Thyroid stimulating hormone (TSH) 1.25 MICRO-IU/ML Normal 0.34-5.60 [facility] Comment on above: Order Comment: No: D o not add to previous draw Performed By: #### 4 6413, 96298, 12312, 23072 ####[facility] [address] Vital Signs Date Time Vital Sign Value Performing Clinician Facility 12-04-2024 12:53-0400 Body mass index (BMI) [Ratio] 21.56 kg/m2 [facility] 12-04-2024 12:53-0400 Body weight 68.15 kg [facility] 12-04-2024 12:53-0400 Diastolic blood pressure 84 mm[Hg] [facility] 12-04-2024 12:53-0400 Systolic blood pressure 120 mm[Hg] [facility] 07-21-2024 14:39-0500 Body mass index (BMI) [Ratio] 21.95 kg/m2 Bceca Valenciaey PA Work Phone: [facility] 07-21-2024 14:39-0500 Body weight 69.4 kg Becca [place] PA Work Phone: [facility] 07-21-2024 14:39-0500 Diastolic blood pressure 64 mm[Hg] Becca Ger PA Work Phone: [facility] 07-21-2024 14:39-0500 Systolic blood pressure 110 mm[Hg] Becca Ger PA Work Phone: [facility] 06-11-2024 09:28-0500 Body mass index (BMI) [Ratio] 21.58 kg/m2 Becca Ger PA Work Phone: [facility] 06-11-2024 09:28-0500 Body weight 68.22 kg Becca Ger PA Work Phone: [facility] 06-11-2024 09:28-0500 Diastolic blood pressure 70 mm[Hg] Becca [place] PA Work Phone: [facility] 06-11-2024 09:28-0500 Systolic blood pressure 108 mm[Hg] Becca Ger PA Work Phone: [facility] 05-26-2024 15:25-0500 Body mass index (BMI) [Ratio] 21.38 kg/m2 Slick Graff MD Work Phone: [facility] 05-26-2024 15:25-0500 Body weight 67.59 kg Slick Graff MD Work Phone: [facility] 05-26-2024 15:25-0500 Diastolic blood pressure 92 mm[Hg] Slick Graff MD Work Phone: [facility] 05-26-2024 15:25-0500 Heart rate 99 /min Slick Graff MD Work Phone: [facility] 05-26-2024 15:25-0500 Systolic blood pressure 150 mm[Hg] Slick Graff MD Work Phone: [facility] 05-05-2024 15:52-0400 Body mass index (BMI) [Ratio] 21.92 kg/m2 Slick Graff MD Work Phone: [facility] 05-05-2024 15:52-0400 Body weight 69.31 kg Slick Graff MD Work Phone: [facility] 05-05-2024 15:52-0400 Diastolic blood pressure 71 mm[Hg] Slick Graff MD Work Phone: [facility] 05-05-2024 15:52-0400 Heart rate 62 /min Slick Graff MD Work Phone: [facility] 05-05-2024 15:52-0400 Systolic blood pressure 118 mm[Hg] Slick Graff MD Work Phone: [facility] 01-01-2024 15:42-0400 Body mass index (BMI) [Ratio] 20.81 kg/m2 Slick Graff MD Work Phone: [facility] 01-01-2024 15:42-0400 Body weight 65.77 kg Slick Graff MD Work Phone: [facility] 01-01-2024 15:42-0400 Diastolic blood pressure 80 mm[Hg] Slick Graff MD Work Phone: [facility] 01-01-2024 15:42-0400 Systolic blood pressure 119 mm[Hg] Slick Graff MD Work Phone: [facility] 12-24-2023 13:58-0400 Body mass index (BMI) [Ratio] 20.81 kg/m2 Slick Graff MD Work Phone: [facility] 12-24-2023 13:58-0400 Body temperature 98.29 [degF] Slick Graff MD Work Phone: [facility] 12-24-2023 13:58-0400 Body weight 65.77 kg Slick Graff MD Work Phone: [facility] 12-24-2023 13:58-0400 Diastolic blood pressure 96 mm[Hg] Slick Graff MD Work Phone: [facility] 12-24-2023 13:58-0400 Heart rate 104 /min Slick Graff MD Work Phone: [facility] 12-24-2023 13:58-0400 Systolic blood pressure 148 mm[Hg] Slick Graff MD Work Phone: [facility] 11-12-2023 15:54-0400 Body mass index (BMI) [Ratio] 21.67 kg/m2 Slick Graff MD Work Phone: [facility] 11-12-2023 15:54-0400 Body weight 68.49 kg Slick Graff MD Work Phone: [facility] 11-12-2023 15:54-0400 Diastolic blood pressure 88 mm[Hg] Slick Graff MD Work Phone: [facility] 11-12-2023 15:54-0400 Heart rate 81 /min Slick Graff MD Work Phone: [facility] 11-12-2023 15:54-0400 Systolic blood pressure 132 mm[Hg] Slick Graff MD Work Phone: [facility] 08-21-2023 14:46-0500 Body height 177.8 cm Lino Conner MD Work Phone: [facility] 08-21-2023 14:46-0500 Body mass index (BMI) [Ratio] 21.48 kg/m2 Lino Conner MD Work Phone: [facility] 08-21-2023 14:46-0500 Body weight 67.9 kg Lino Conner MD Work Phone: [facility] 08-21-2023 14:46-0500 Diastolic blood pressure 75 mm[Hg] Lino Conner MD Work Phone: [facility] 08-21-2023 14:46-0500 Heart rate 66 /min Lion Conner MD Work Phone: [facility] 08-21-2023 14:46-0500 Systolic blood pressure 115 mm[Hg] Lino Conner MD Work Phone: [facility] Encounters Encounter Date Encounter Type Care Provider Facility Start: 12-08-2024 End: 12-08-2024 Clinisync Result Encounter Rudi Aliceao DO Work Phone: [facility] Unsolicited Start: 12-08-2024 End: 12-08-2024 Clinisync Result Encounter Rudi Aliceao DO Work Phone: [facility] Unsolicited Start: 12-04-2024 End: 12-04-2024 Office outpatient visit 5 minutes [facility] Nurse [facility] Comment on above: GA: 8w6d Start: 12-04-2024 End: 12-04-2024 ambulatory BECCA KEATING Not Available Start: 08-15-2024 End: 08-15-2024 Refill Slick Graff MD Work Phone: [facility] Comment on above: Anxiety Start: 07-21-2024 End: 07-21-2024 Bamboo flowsheet Becca DALE Work Phone: [facility] Start: 07-21-2024 End: 07-25-2024 Bamboo flowsheet Becca DALE Work Phone: [facility] Start: 07-21-2024 End: 07-25-2024 Clinisync Result Encounter Becca DALE Work Phone: [facility] Unsolicited Start: 07-21-2024 End: 07-21-2024 Patient encounter procedure Becca DALE Work Phone: [facility] Work Phone: Start: 07-21-2024 End: 07-21-2024 Periodic preventive med est patient 18-39 yrs Becca DALE Work Phone: [facility] Comment on above: Well woman exam with routine gynecological exam; Uses control Start: 07-21-2024 End: 07-21-2024 ambulatory BECCA KEATING Not Available Start: 07-18-2024 End: 07-18-2024 Telephone encounter Slick Graff MD Work Phone: [facility] Start: 06-11-2024 End: 06-11-2024 Bamboo flowsheet Becca Keating PA Work Phone: [facility] Start: 06-11-2024 End: 06-11-2024 Bamboo flowsheet Becca Keating PA Work Phone: [facility] Start: 06-11-2024 End: 06-11-2024 Office outpatient visit 10 minutes Becca Keating PA Work Phone: [facility] Comment on above: Lipoma of other spec ified sites (Primary Dx) Start: 06-11-2024 End: 06-11-2024 ambulatory BECCA KEATING Not Available Start: 05-26-2024 End: 05-26-2024 Office outpatient visit 15 minutes Slick Graff MD Work Phone: [facility] Comment on above: Pityriasis rosea (Pr imary Dx) Start: 05-05-2024 End: 05-05-2024 Office outpatient visit 15 minutes Slick Graff MD Work Phone: [facility] Comment on above: Anxiety (Primary Dx) Start: 01-01-2024 End: 01-01-2024 Office outpatient visit 15 minutes Slick Graff MD Work Phone: [facility] Comment on above: Neurocardiogenic syn cope (Primary Dx); Anxiety Start: 12-24-2023 End: 12-24-2023 Office outpatient visit 15 minutes Slick Graff MD Work Phone: [facility] Comment on above: Pharyngitis, unspeci fied etiology (Primary Dx) Start: 11-15-2023 End: 11-15-2023 Refill Trish Gan WARDROBE CUSTODIAN [facility] Start: 11-12-2023 End: 11-12-2023 Office outpatient visit 15 minutes Slick Graff MD Work Phone: [facility] Comment on above: Anxiety (Primary Dx) ; H/O motion sickness Start: 08-21-2023 End: 08-22-2023 ambulatory LINO CONNER [facility] Start: 08-21-2023 End: 08-21-2023 Office outpatient new 30 minutes Lino Conner MD Work Phone: [facility] Comment on above: Family history of vo n Willebrand disease (Primary Dx); Menorrhagia with regular cycle Start: 05-04-2023 End: 05-04-2023 ambulatory Triny Browne Other [employer] Other Start: 05-04-2023 Telephone encounter Triny Browne [facility] Start: 05-03-2023 ambulatory FRANCISCO ANTUNEZ [facility] Start: 04-29-2023 End: 04-29-2023 ambulatory Triny Browne Facility:[facility] Start: 04-29-2023 End: 04-29-2023 ambulatory [employer]IC[employer] Triny Browne Work Phone: [facility] Work Phone: Start: 04-29-2023 End: 04-29-2023 Departed Referred [employer] OFFICER Triny Browne Work Phone: [facility] Work Phone: Start: 04-10-2023 ambulatory FRANCISCO ANTUNEZ [facility] Start: 03-26-2023 ambulatory FRANCISCO ANTUNEZ [facility] Start: 03-09-2023 ambulatory FRANCISCO ANTUNEZ [facility] Start: 12-07-2020 End: 12-08-2020 ambulatory ALISHA SHELLEY Facility:[facility] Start: 03-02-2020 End: 03-03-[address] ANN DUNHAM Facility:[facility] Start: 01-27-2020 End: 01-28-[address] SLICK GRAFF Facility:[facility] Procedures Date Procedure Procedure Detail Performing Clinician Start: 12-08-2024 ALL CBC WITH AUTO DIFF Rudi Wilson DO Work Phone: Start: 12-08-2024 MLR HEMOGLOBIN A1C Core y Wilson DO Work Phone: Start: 12-04-2024 End: 12-04-2024 Urnls dip stick/tablet rgnt non-auto w/o micrscp Rudi Wilson DO Work Phone: Start: 07-21-2024 IGP,APTIMA HPV,AGE GDLN Becca Keating PA Work Phone: Start: 05-05-2024 Adult depression screening assessment Slick Graff MD Work Phone: Start: 08-21-2023 Adult depression screening assessment Lino Conner MD Work Phone: Plan of Treatment Date Care Activity Detail Author Start: 05-26-2025 Adult BMI Screening Adult BMI Screen ing [facility] Start: 05-26-2025 Tobacco Screening Tobacco Screening [facility] Start: 05-05-2025 Adult BMI Screening Adult BMI Screen ing [facility] Start: 05-05-2025 Depression Screening Depression Scre ening [facility] Start: 05-05-2025 Tobacco Screening Tobacco Screening [facility] Start: 01-05-2025 End: 01-05-2025 Patient encounter procedure 01/05/2025 1:50 PM EDT Routine [facility] [address] [place] [id number] Rudi Rachel, DO [address] [place] [address] [facility] Start: 12-31-2024 Adult BMI Screening Adult BMI Screen ing [facility] Start: 12-31-2024 Tobacco Screening Tobacco Screening [facility] Start: 12-23-2024 Adult BMI Screening Adult BMI Screen ing [facility] Start: 12-23-2024 Tobacco Screening Tobacco Screening [facility] Start: 12-04-2024 End: 12-04-2025 ABO/Rh ABO/Rh Lab Routine Missed menses , unspecified gestational age Expected: 12/04/2024 (Approximate), Expires: 12/04/2025 [facility] Comment on above: Expected: 12/04/2024 (Approximate), Expires: 12/04/2025 Start: 12-04-2024 End: 12-04-2025 Blood type and Indirect antibody screen panel - Blood Type and screen Lab Routine Missed menses , unspecified gestational age Expected: 12/04/2024 (Approximate), Expires: 12/04/2025 [facility] Comment on above: Expected: 12/04/2024 (Approximate), Expires: 12/04/2025 Start: 12-04-2024 End: 12-04-2025 Drugs of abuse panel - Urine by Screen method Rapid drug screen, urine Lab Routine , unspecified gestational age Encounter for supervision of normal first in first trimester Expected: 12/04/2024 (Approximate), Expires: 12/04/2025 [facility] Comment on above: Expected: 12/04/2024 (Approximate), Expires: 12/04/2025 Start: 11-28-2024 End: 02-28-2025 US Pelvis transvaginal US OB transvaginal Imaging Routine Missed menses Expected: 11/28/2024, Expires: 02/28/2025 [facility] Work Phone: Comment on above: Expected: 11/28/2024 , Expires: 02/28/2025 Start: 11-11-2024 Adult BMI Screening Adult BMI Screen ing [facility] Start: 11-11-2024 Tobacco Screening Tobacco Screening [facility] Start: 08-21-2024 Adult BMI Screening Adult BMI Screen ing [facility] Start: 08-21-2024 Depression Screening Depression Scre ening [facility] Start: 08-21-2024 Tobacco Screening Tobacco Screening [facility] Start: 07-21-2024 End: 07-21-2024 Patient encounter procedure [facility] Comment on above: Arrived Start: 06-11-2024 End: 06-11-2024 Patient encounter procedure 06/11/2024 9:30 AM EST Office Visit [facility] [address] [place] [id number] Becca Keating PA [address] [place] [address] Arrived [facility] Comment on above: Arrived Start: 03-09-2024 Influenza vaccination Influenza Vacc [facility] Start: 11-26-2023 DTaP,Tdap and Td Vaccines (7 - Td or Tdap) DTaP,Tdap and Td Vaccines (7 - Td or Tdap) [facility] Start: 04-29-2023 Bacteria identified in Urine by Culture [facility] Start: 04-29-2023 [facility] Start: 03-09-2023 Influenza vaccination Influenza Vacc [facility] Start: 2023 Screening for malign ant neoplasm of cervix Pap Smear [facility] Start: 2002 Screening for Chlamy samm trachomatis Chlamydia Screening [facility] Atopobium vaginae DN A [Presence] in Vaginal fluid by ALEXANDER with probe detection [facility] Bacteria identified in Urine by Culture Urine culture Microbiology Routine Missed menses Ordered: 12/04/2024 [facility] Comment on above: Ordered: 12/04/2024 Bacterial vaginosis associated bacterium 2 DNA [Presence] in Vaginal fluid by ALEXANDER with probe detection [facility] CBC W Auto Different ial panel - Blood CBC and differential Lab Routine Missed menses , unspecified gestational age Ordered: 12/04/2024 [facility] Comment on above: Ordered: 12/04/2024 Cytology Cervical or vaginal smear or scraping study Pap Smear Pathology and Cytology Routine Well woman exam with routine gynecological exam Ordered: 07/21/2024 [facility] Work Phone: Comment on above: Ordered: 07/21/2024 Hemoglobin A1c/Hemoglobin.total in Blood Hemoglobin A1c Lab Routine Missed menses , unspecified gestational age Ordered: 12/04/2024 [facility] Comment on above: Ordered: 12/04/2024 Hepatitis B virus surface Ag [Presence] in Serum or Plasma by Immunoassay Hepatitis B surface antigen Lab Routine Missed menses , unspecified gestational age Ordered: 12/04/2024 [facility] Comment on above: Ordered: 12/04/2024 Hepatitis C virus Ab [Presence] in Serum or Plasma by Immunoassay Hepatitis C antibody Lab Routine Missed menses , unspecified gestational age Ordered: 12/04/2024 [facility] Comment on above: Ordered: 12/04/2024 HIV-1/HIV-2 antigen/antibody combination immunoassay HIV-1 and HIV-2 antibodies Lab Routine Missed menses , unspecified gestational age Ordered: 12/04/2024 [facility] Comment on above: Ordered: 12/04/2024 Megasphaera sp type 1 DNA [Presence] in Vaginal fluid by ALEXANDER with probe detection [facility] Reagin Ab [Presence] in Serum by RPR RPR Lab Routine Missed menses , unspecified gestational age Ordered: 12/04/2024 [facility] Comment on above: Ordered: 12/04/2024 Rubella antibody, IgG Rubella an tibody, IgG Lab Routine Missed menses , unspecified gestational age Ordered: 12/04/2024 [facility] Comment on above: Ordered: 12/04/2024 End: 08-21-2024 Unlisted Lab Test Unlisted Lab Test Lab Routine Family history of von Willebrand disease Menorrhagia with regular cycle 1 Occurrences starting 08/21/2023 until 08/21/2024 Dely Work Phone: Comment on above: 1 Occurrences starti ng 08/21/2023 until 08/21/2024 Unlisted Lab Test GP 1bM send to [facility] (blood [facility]) Unlisted Lab Test GP1bM send to [facility] ([facility]) Lab Routine Family history of von Willebrand disease Menorrhagia with regular cycle 08/21/2023 3:[facility] PM [facility]inal US OB tra nsvaginal Imaging Routine Missed menses 12/04/2024 12:52 PM EDT [facility] Immunizations Immunization Date Immunization Notes Care Provider Fa semaj 05-08-2019 human papilloma viru s vaccine, quadrivalent Lino Conner MD [facility] 05-08-2019 influenza, seasonal, injectable, preservative free Lino Conner MD Work Phone: [facility] [facility] 05-08-2019 influenza virus vacc ine, unspecified formulation Lino Conner MD Work Phone: [facility] [employer] 03-03-2019 meningococcal oligosaccharide (groups A, C, Y and W-135) diphtheria toxoid conjugate vaccine (MCV4O) Lino Conner MD Work Phone: [facility] [employer] [facility] 02-14-2019 human papilloma viru s vaccine, quadrivalent Lino Conner MD Work Phone: [facility] [employer] [facility] 03-23-2018 influenza, injectabl e, quadrivalent, preservative free Lino Conner MD Work Phone: [facility] Payers Date Payer Category Payer Self-pay 2023 Unknown [id number] 2022 Managed Care Other (unspecified) [id number] 2022 Private Health Insurance [id number] 2022 Unknown [id number] 2002 Unknown [id number] 2002 Unknown [id number] 2002 Unknown [id number] 2002 Unknown [id number] 2002 Unknown [id number] 2002 Unknown [id number] 2002 Unknown [id number] 2002 Unknown [id number] 1977 Unknown [id number] 1977 Unknown [id number] 1959 Unknown [id number] Unknown [id number] Social History Date Type Detail Facility Tobacco smoking stat [facility] Unknown if ever smoked [facility] Work Phone: Start: 2002 Sex Assigned At Female F [facility] Start: 08-19-2020 End: 05-26-2024 Sex Assigned At [facility] Tobacco smoking stat [facility] Tobacco smoking consumption unknown [facility] Start: 07-17-2023 Gender identity Identifies as female gender (finding) [facility] Start: 02-26-2023 Tobacco smoking stat [facility] Never smoked tobacco [facility] Start: 02-26-2023 Tobacco use and exposure Smokeless tobacco non-user [facility] Start: 05-05-2024 End: 05-26-2024 Alcoholic beverage intake Ex-drinker (finding) [facility] Start: 08-19-2020 End: 05-26-2024 History of Social function [facility] How hard is it for y ou to pay for the very basics like food, housing, medical care, and heating Not very hard [facility] Adolescent depressio n screening assessment 0 [facility] Start: 04-03-2023 Alcohol Comment socially [facility] Start: 2002 Sex assigned at Not on file P [facility] Start: 02-11-2015 Sex Female (finding) [facility] Start: 10-17-2024 [facility] Clinical Notes 03-02-2020 to 12-04-2024 Rupal Owusu MA - 12/04/2024 1:00 PM CHITO Bird - 07/21/2024 2:00 PM ESTTelephone Encounter - Christy Zhang - 07/18/2024 10:56 AM CHITO Dietrich - 06/11/2024 9:30 AM EST Note Date & Type Note Facility 12-04-2024 History of Present illness Narrative Reason for Appointment: Patient ID: Christina Muhammad is a 24 y.o. female who presents for Amenorrhea Patient presents today for a Nurse OB Intake appointment. Patient is 8w6d with a Estimated Date of Delivery: 07/10/25 OB History Para Term AB Living 1 SAB IAB Ectopic Multiple Live Births # Outcome Date GA Lbr Quintin/2nd Weight Sex Type Anes PTL Lv 1 Current Current Medications: has a current medication list which includes the following prescription(s): metoclopramide and ondansetron. Medical History: Active Ambulatory Problems Diagnosis Date Noted No Active Ambulatory Problems Resolved Ambulatory Problems Diagnosis Date Noted No Resolved Ambulatory Problems Past Medical History: Diagnosis Date Low blood pressure No family history on file. Social History Tobacco Use Smoking status: Not on file Smokeless tobacco: Not on file Substance Use Topics Alcohol use: Not on file Drug use: Not on file No past surgical history on file. No Known Allergies Vitals: Estimated body mass index is 21.56 kg/m as calculated from the following: Height as of 07/17/23: 5' 10 . Weight as of this encounter: 150 lb 4 oz. BP: 120/84 Patient's last menstrual period was 10/03/2024. Assessment/Plan Diagnoses and all orders for this visit: Missed menses - US OB transvaginal; Future - Type and screen; Future - ABO/Rh; Future - CBC and differential - Hemoglobin A1c - RPR - Rubella antibody, IgG - Hepatitis B surface antigen - Hepatitis C antibody - HIV-1 and HIV-2 antibodies - Urine culture - POCT , urine manually resulted - POCT urinalysis dipstick manually resulted , unspecified gestational age - Type and screen; Future - ABO/Rh; Future - CBC and differential - Hemoglobin A1c - RPR - Rubella antibody, IgG - Hepatitis B surface antigen - Hepatitis C antibody - HIV-1 and HIV-2 antibodies - Rapid drug screen, urine; Future Encounter for supervision of normal first in first trimester - Rapid drug screen, urine; Future Nurse Note: OB Intake: Patient presents today for first OB visit. Patients history has been reviewed in great detail including any potential risks. Patient signed consent forms and patient desires testing in both trimesters. Patient currently has no complaints and has been advised to drink 6-8 glasses of water a day, eat no raw or undercooked meat, and stay away from [facility]. Patient has also been advised to not change litter boxes and eat 6 small meals a day. Patient has been consulted regarding the do's and don'ts of . Patient was given labs and all questions and concerns were answered. Follow Up: Patient is to have labs drawn at directed and return to office for initial OB appointment with provider in 4 weeks. Patient may call office as needed with any concerns or questions. Nurse Visit Completed by: Rupal Owusu MA documented in this encounter [facility] 07-21-2024 History of Present illness Narrative Reason for Appointment: Patient ID: Christina Muhammad is a 24 y.o. female who presents for Well Women Visit Patient presents today for Annual Exam. MEDICATIONS Current Outpatient Medications Medication Instructions midodrine (PROAMATINE) 5 mg, 3 times daily norethindrone-ethinyl estradiol (Blisovi FE [...] SYSTEMS Review of Systems: Review of Systems Constitutional: Negative. HENT: Negative. Eyes: Negative. Respiratory: Negative. Cardiovascular: Negative. Gastrointestinal: Negative. Genitourinary: Negative. Musculoskeletal: Negative. Skin: Negative. Neurological: Negative. All other systems reviewed and are negative. Hematological: Negative. Endocrine: Negative. Allergic/Immunologic: Negative. OBJECTIVE Objective: Physical Exam Constitutional: Appearance: Normal appearance. She is normal weight. Genitourinary: Right Adnexa: not tender and no mass present. Left Adnexa: not tender and no mass present. No cervical discharge. Breasts: Breasts are soft. Right: Normal. Left: Normal. HENT: Head: Normocephalic. Nose: Nose normal. Mouth/Throat: Mouth: Mucous membranes are moist. Cardiovascular: Rate and Rhythm: Normal rate. Pulses: Normal pulses. Pulmonary: Effort: Pulmonary effort is normal. Breath sounds: Normal breath sounds. Abdominal: General: Bowel sounds are normal. Palpations: Abdomen is soft. Musculoskeletal: General: Normal range of motion. Cervical back: Normal range of motion. Neurological: General: No focal deficit present. Mental Status: She is alert and oriented to person, place, and time. Skin: General: Skin is warm and dry. Psychiatric: Mood and Affect: Mood normal. Behavior: Behavior normal. Thought Content: Thought content normal. Judgment: Judgment normal. Vitals and nursing note reviewed. Exam conducted with a sr. [employer] system administrator present. Vitals: Estimated body mass index is 21.95 kg/m as calculated from the following: Height as of 07/17/23: 5' 10 . Weight as of this encounter: 153 lb. BP: 110/64 Patient's last menstrual period was 06/29/2024. ASSESSMENT & PLAN ICD-10-CM 1. Well woman exam with routine gynecological exam Z01.419 Pap Smear 2. Uses control Z78.9 norethindrone-ethinyl estradiol (Blisovi FE 07/28) 1-20 MG-MCG tablet Annual Exam: Patient presents today for an annual exam. Patient states she is doing well and has no complaints. Pap was obtained without difficulty. No orders of the defined types were placed in this encounter. Follow Up: Patient is to return in one year for annual unless needed otherwise. Documented by Mary Kay Salazar MA on behalf of: CHITO Alvarez documented in this encounter [facility] 07-18-2024 Miscellaneous Notes Aryan is wondering if you could prescribe motion sickness patches and zofran for her. She is going on a cruise and is afraid she will get motion sickness. Please advise Scripts sent Patient was appreciative of the meds being called in and of the call. documented in this encounter [facility] 07-18-2024 Telephone encounter Note Aryan is wondering if you could prescribe motion sickness patches and zofran for her. She is going on a cruise and is afraid she will get motion sickness. Please advise [facility] 07-18-2024 Telephone encounter Note Scripts sent [facility] 07-18-2024 Telephone encounter Note Patient was appreciative of the meds being called in and of the call. [facility] 06-11-2024 History of Present illness Narrative Reason [...] of: CHITO Alvarez documented in this encounter [facility] 05-26-2024 History of Present illness Narrative Subjective Patient ID: Christina Montoya is a 24 y.o. female. Comes in with a rash that she has had for two weeks. Not really spreading now. Mainly on her trunk, a few on her arms. No itch. She has not been ill, no fever. The lesions feel like dry skin to her and are more noticeable after a shower. Her boyfriend does not have a rash. The following portions of the patient's history were reviewed and updated as appropriate: allergies, current medications, past medical history, past social history, and problem list. Review of Systems Objective Physical Exam Constitutional: Comments: She looks well. Eyes: Conjunctiva/sclera: Conjunctivae normal. Skin: Comments: Mildly erythematous patches on the trunk that line up along the skin lines. No significant scale. Assessment/Plan Reviewed with her. Consistent with pityriasis rosea which is not considered contagious and is self limited, although may persist for 6 weeks. No treatment required. If something not consistent with that diagnosis develops, she will let me know for re-evaluation. Diagnoses and all orders for this visit: Pityriasis rosea documented in this encounter [facility] 05-05-2024 History of Present illness Narrative Subjective Patient ID: Christina Montoya is a 24 y.o. female. She has a history of near-syncope episodes on the basis of neurocardiogenic syncope and also a history of depression and anxiety. She was tried on sertraline at the end of the summer and that did not go well. She only took a couple of doses but experienced significant stomach upset and diarrhea. She denies any worsening of depression symptoms and does not have thoughts of self-harm. Her near-syncope spells have been relatively few and far between recently. The anxiety however is constant and distressing to her. She has not been physically sick. The following portions of the patient's history were reviewed and updated as appropriate: allergies, current medications, past medical history, past social history, and problem list. Review of Systems Objective Physical Exam Constitutional: Comments: She looks well and has a normal blood pressure. Interacts appropriately. No other physical exam done today. Neurological: Mental Status: She is alert. Assessment/Plan Reviewed with her. Probably the GI upset and diarrhea related to the sertraline were idiopathic to that medication rather than associated with the entire class. Trial of Lexapro which generally is well tolerated in younger women. Reasonable expectation reviewed. Further pending her tolerance and response. If not tolerated or not beneficial might consider a trial of BuSpar. Diagnoses and all orders for this visit: Anxiety - escitalopram (LEXAPRO) 10 mg tablet; Take 1 tablet (10 mg total) by mouth in the morning. documented in this encounter [facility] 01-01-2024 History of Present illness Narrative Subjective Patient ID: Christina Muhammad is a 23 y.o. female. HPI Christina Muhammad is here for her ADA forms to be filled out to obtain more time off and to potentially transition back to days for work instead of night. She experiences dizziness, nausea, and lightheadedness she believes is due to her low blood pressure. No SOB or palpitations, no headache or vision changes. No syncope, only pre-syncopal episodes with accompanying anxiety about the episodes. She is missing extra time from work and has used up all of her time off. This is why she is requesting these forms filled out to add 2 more days per month to the current work allowance of 2 days per week for a total for 4 days per month. She said the transition to nights was quick which might be exacerbating her symptoms. This started on December 09. She is drinking plenty of water and Gatorade. She is drinking less Monster energy drinks. She takes her iron supplement intermittently. The following portions of the patient's history were reviewed and updated as appropriate: allergies, current medications, past medical history, past social history, and problem list. Review of Systems Constitutional: Positive for unexpected weight change (lost 40 pounds without change in diet or exercise). Negative for appetite change, fatigue and fever. Respiratory: Negative for cough and shortness of breath. Cardiovascular: Negative for chest pain, palpitations and leg swelling. Gastrointestinal: Positive for nausea. Endocrine: Negative for cold intolerance and heat intolerance. Skin: Negative for color change. Neurological: Positive for dizziness and light-headedness. Negative for syncope (Near syncopal episodes) and weakness. Objective Physical Exam Vitals (Blood Pressure is appropriate) reviewed. Constitutional: Appearance: Normal appearance. She is normal weight. HENT: Head: Normocephalic. Eyes: Conjunctiva/sclera: Conjunctivae normal. Neck: Comments: Thyroid is non-palpable and non-tender Cardiovascular: Rate and Rhythm: Normal rate and regular rhythm. Heart sounds: Normal heart sounds. Pulmonary: Effort: Pulmonary effort is normal. Breath sounds: Normal breath sounds. Musculoskeletal: Cervical back: Neck supple. No tenderness. Skin: General: Skin is dry. Neurological: General: No focal deficit present. Mental Status: She is alert and oriented to person, place, and time. Psychiatric: Mood and Affect: Mood normal. Behavior: Behavior normal. Thought Content: Thought content normal. Judgment: Judgment normal. Assessment/Plan Christina Muhammad is here to have ADA paperwork filled out to allow for more days off or leaving from work due to her hypotension and near syncopal episodes accompanied with anxiety. She is taking her medication as prescribed and staying hydrated with less energy drinks. Will sign the paperwork to allow her 6 days per month instead of the [facility] standard 2 days per week and 4 maximum per month. She is agreeable to start sertraline to help reduce these spells and anxiety. She should take the midodrine as she feels needed. Further pending her course. Diagnoses and all orders for this visit: Neurocardiogenic syncope - sertraline (ZOLOFT) 50 mg tablet; Take 1 tablet (50 mg total) by mouth once daily at bedtime. Take 1/2 tab (25 mg) at bedtime for the first 4 nights. Anxiety documented in this encounter [facility] [employer] 12-24-2023 History of Present illness Narrative Subjective Patient ID: Christina Muhammad is a 23 y.o. female. She has a history of allergic rhinitis. That has not been bothering her. She started at the end of last week with congestion and sore throat. No high fever. Over the weekend her throat was sore to the point that she did not want to eat. It is slightly better today. OTC drainage and decongestant medication has not really helped. Her ears do not hurt. It is not in her chest. She is now starting to note some posterior drainage. The following portions of the patient's history were reviewed and updated as appropriate: allergies, current medications, past medical history, past social history, past surgical history, and problem list. Review of Systems Objective Physical Exam Constitutional: Comments: Afebrile and in no acute distress. HENT: Right Ear: Tympanic membrane normal. Left Ear: Tympanic membrane normal. Nose: Congestion present. Mouth/Throat: Pharynx: Posterior oropharyngeal erythema present. No oropharyngeal exudate. Comments: No oral lesions. Eyes: Conjunctiva/sclera: Conjunctivae normal. Pulmonary: Effort: Pulmonary effort is normal. Breath sounds: Normal breath sounds. Lymphadenopathy: Cervical: No cervical adenopathy. Neurological: Mental Status: She is alert. Assessment/Plan Continue symptomatic treatment otherwise and if this is not resolved or something more develops she will let me know. Diagnoses and all orders for this visit: Pharyngitis, unspecified etiology - azithromycin (ZITHROMAX) 250 mg tablet; Take 2 tablets the first day, then 1 tablet daily for 4 days. documented in this encounter [facility] 11-15-2023 Miscellaneous Notes Refill request, patient's allergies are bothering her and would like these meds refilled documented in this encounter [facility] 11-15-2023 Telephone encounter Note Refill request, patient's allergies are bothering her and would like these meds refilled [facility] 11-12-2023 History of Present illness Narrative Subjective Patient ID: Christina Muhammad is a 23 y.o. female. She went on a trip to [place]. She has quite a bit of anxiety related to flying. She will be flying internationally and is concerned about the anxiety. She also has concern regarding motion sickness associated with train travel through [place]. Dramamine did not help her previously. The following portions of the patient's history were reviewed and updated as appropriate: allergies, current medications, past medical history, past social history, and problem list. Review of Systems Objective Physical Exam Constitutional: Appearance: Normal appearance. Comments: She interacts appropriately. No other physical exam done today. Neurological: Mental Status: She is alert. Assessment/Plan She can use a lorazepam pre flight and repeat it once during the flight if needed. Hopefully her motion sickness symptoms can be controlled with medication. Diagnoses and all orders for this visit: Anxiety - LORazepam (ATIVAN) 1 mg tablet; Take 1 tablet (1 mg total) by mouth 2 (two) times a day as needed for anxiety. H/O motion sickness - ondansetron ODT (ZOFRAN ODT) 4 mg disintegrating tablet; Dissolve 1 tablet (4 mg total) on tongue every 8 (eight) hours as needed for nausea or vomiting. - scopolamine (TRANSDERM-SCOP) 1 mg/3 days; Place 1 patch on the skin every third day. documented in this encounter [employer] 08-21-2023 History of Present illness Narrative Pt [...] 3 hours Cramping [x] Clotting [x] BC: started about 1 month ago. BABYSITTER: Wilson Images from the original note were not included. [facility]EM[facility]IA [facility] ADULT & PEDIATRIC BENIGN HEMATOLOGY PEDIATRIC THROMBOPHILIA Dr.Dagmar Miguel Hernandez PA-C NEW OUTPATIENT NOTE: [facility] Patient ID: Christina Muhammad, 23 [...] who presents today for consultation at the [facility] Hemophilia Center due to menorrhagia and [...] traumatic requiring Surgical intervention or blood transfusion HOSIERY MATER bleedin 3 = Subdural, any intervention 4 = Intracerebral, any intervention Total Score: 3 Abnormal ISTH BAT cutoff: Men >3 and Women >5 Samy et al Haemophilia. 2014 May;20(6):831-5. REVIEW OF SYSTEMS: Complete 10-point ROS is negative except as mentioned in HPI. PAST MEDICAL HISTORY: Past Medical History: Diagnosis Date ADD (attention deficit disorder) Depression Orthostatic hypotension Suicide attempt by drug ingestion ([facility]) 07/2017 pt states she took 7 flexeril PAST SURGICAL HISTORY: History reviewed. No pertinent surgical history. PAST FAMILY HISTORY: Family History Problem Relation Age of Onset Meniere's disease Mother No Known Problems Father Heart disease Maternal Grandmother Dementia Maternal Grandfather Parkinsonism Maternal Grandfather Heart disease Maternal Grandfather Diabetes Paternal Grandmother SOCIAL HISTORY: Lives in [place], [place] with her parents. Works for [employer]. 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 270 tablet 3 norethindrone-e.estradioL-iron (JUNEL FE 07/28) 1 mg-20 mcg [...] 08/21/2023 PROTIME 13.1 08/21/2023 IMAGING: Reviewed in [employer] BILLING: Total time spent was 30 minutes: [...] who presents today for consultation at the [facility] Hemophilia Center due to menorrhagia and family history of VWD. 1. Concern for bleeding diathesis / family history of VWD in cousin: She is here today given concerns for bleeding diathesis. Past bleeding includes menorrhagia mostly. She has not had any other bleeding or significant epistaxis. Her ISTH bleeding assessment score is 3 which is [...] be determined based upon the above results. iLno Conner MD Adult Automation Sales Manager [facility] Hemophilia Center [email or web address] Pager: [phone] documented in this encounter [facility] 06-14-2023 Note Psych Progress Note WEBEX SESSION [...] medication compliance and somatic anxiety. Has an ObGyn appt Jul 17. Response to Intervention: Agreeable [...] delivery for patient at this time. Francisco Antunez, PhD (electronically signed on 06/14/2023 at 3:59 PM) [facility] 05-17-2023 Note Psych Progress Note WEBEX SESSION [...] delivery for patient at this time. Francisco Antunez, PhD (electronically signed on 05/17/2023 at 11:07 AM) [facility] 05-03-2023 Note Psych Progress Note WEBEX SESSION [...] calling MD re: taking supplements. Advised seeing Java Application Developer. Response to Intervention: Agreeable Overall Assessment of [...] delivery for patient at this time. Francisco Antunez, PhD (electronically signed on 05/03/2023 at 11:00 AM) [facility] 04-10-2023 Note Psych Progress Note WEBEX SESSION [...] help her with OBGYN appt. Also saw blockman and has low blood pressure. AGREED will make an appt with mother to go over health insurance and other benefits. Call to schedule echo for cardio issues. NEED TO REVIEW - call advisor at [facility]. Response to Intervention: Agreeable Overall Assessment of [...] delivery for patient at this time. Francisco Antunez, PhD (electronically signed on 04/10/2023 at 11:18 AM) [facility] 03-26-2023 Note Psych Progress Note WEBEX SESSION [...] scale and anxiety as high. 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 Worries about college - wants to get an Associates in Business [employer]. Failed digital literacy class. Addressed plans and worries about her future, medical issues. AGREED - schedule OBGYN, and call advisor at [facility]. Response to Intervention: Agreeable Overall Assessment of [...] delivery for patient at this time. Francisco Antunez, PhD (electronically signed on 03/26/2023 at 10:57 AM) [facility] 03-09-2023 Note Department of Psychi atry Diagnostic Assessment Time In: 10 am Time Out: 10:55 am Encounter Type: On-Site Video at [facility] Patient Name: Christina Muhammad MRN / CSN: [id number] Date of / Age: 8 2000 / y.o. / female Encounter Date: 03/09/23 Diagnosis: There were no encounter diagnoses. Care Team Encounter Provider: Francisco Antunez, PhD Referring Physician (if known): No ref. [...] they were at home ([address], [place], [place]), and I was in my home office. Their alternate # was reported as ([phone]). They informed me that they were in [...] lives with boyfriend Osmin, now, at [address] [address], [place], [place]. 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 SCHOOL / JOB Not in school now. [...] MENTAL HEALTH SERVICES Started therapy with Dr Antunez at age 17. No meds. LATTER-DAY/CULTURE Not latter-day. She is . STRENGTHS /WEAKNESSES /GOALS She [...] is a 23 y.o. female (marital status) (jewish) (job) (living) Chief Complaint Anxiety History of Present Illness: Christina Muhammad is a 23 y.o. female with past psychiatric history of anxiety presenting to the [facility] Out[facility] for a psychiatric evaluation. [...] in Psychiatric Care: Denies Previous Providers: Francisco Antunez PHD Previous Therapists: Denies Psychiatric Medication Trials: [...] Denies Head I (more content not included)... [facility] 03-02-2020 Note PROCEDURE: XR FOOT L T MIN 3 VIEWS COMPARISON: None. HISTORY: Pain in left foot FINDINGS: BONES:No fracture, acute abnormality, or significant arthropathy. Incidental fused os trigonum SOFT TISSUES:Negative. No visible soft tissue swelling. EFFUSION:None visible. OTHER: Negative. IMPRESSION: No acute abnormality Electronically authenticated by: ANN DUNHAM Date: 2020-03-02 09:21 [facility] Evaluation note No assessment inform ation available [facility] Work Phone: Evaluation note No Information [facility] [employer] Other Evaluation note Diagnosis Lipoma of other specified sites- Primary documented in this encounter [facility]* Diagnosis Well woman exam with routine gynecological exam Routine gynecological examination Uses control documented in this encounter [facility] Healthcare[facility]* Diagnosis Anxiety Anxiety state, unspecified [facility] Diagnosis Anxiety- Primary Anxiety state, unspecified H/O motion sickness [facility] Diagnosis Pharyngitis, unspecified etiology- Primary [facility] Diagnosis Family history of von Willebrand disease- Primary Menorrhagia with regular cycle [facility] Diagnosis Neurocardiogenic syncope- Primary Anxiety Anxiety state, unspecified [facility] Diagnosis Anxiety- Primary Anxiety state, unspecified [facility] Diagnosis Pityriasis rosea- Primary [facility] Diagnosis Missed menses , unspecified gestational age Encounter for supervision of normal first in first trimester documented in this encounter [facility] HealthcareInstructionsNot on filedocumented in [facility] SystemInstructionsNot on filedocumented in this [facility] SystemInstructionsNot on filedocumented in this [facility] SystemInstructions* Attachments The following attachments cannot be sent through Care Everywhere. * Taking care of bruises (Divehi) documented [facility] SystemInstructionsNot on file [facility] Summary Purpose Family History No Family [...] section and content) DATE CREATED AUTHOR 12/25/2017 [facility] DATE CREATED AUTHOR AUTHOR'S ORGANIZ ATION 12/17/2020 [facility] DATE CREATED AUTHOR AUTHOR'S ORGANIZ ATION 05/07/2023 [facility] DATE CREATED AUTHOR AUTHOR'S ORGANIZ ATION 06/15/2023 [facility] DATE CREATED AUTHOR AUTHOR'S ORGANIZ ATION 09/09/2023 [facility] DATE CREATED AUTHOR AUTHOR'S ORGANIZ ATION 12/06/2024 [facility] dical Specialists EPIC Care Teams (unrecognized sec tion and content) Team Status: Inactive Member Role Status Dates Triny Browne NP Attending Provider Active Hand Molder Meat Relationship Specialty Start Date End Date Slick Graff MD [address] [place] [address], [address] [place], [place] [id number] PCP - General Family Medicine 07/17/23 Hand Molder Meat Relationship Specialty Start Date End Date Slick Graff MD [address] [place] [address], [address] [place] [address] PCP - General Family Medicine 07/17/23 Hand Molder Meat Relationship Specialty Start Date End Date Slick Graff MD [address] [place] [address], [address] [place] [address] PCP - General Pediatrics 09/03/17 Hand Molder Meat Relationship Specialty Start Date End Date Slick Graff MD [address] [place] [address], [address] [place] [address] PCP - General Family Medicine 07/17/23 Hand Molder Meat Relationship Specialty Start Date End Date Slick Graff MD [address] [place] [address], [address] [place] [address] PCP - General Family Medicine 07/17/23 Hand Molder Meat Relationship Specialty Start Date End Date Slick Graff MD [address] [place] [address], [address] [place] [id number] PCP - General Family Medicine 07/17/23 Hand Molder Meat Relationship Specialty Start Date End Date Slick Graff MD [address] [place] [address], [address] [place] [id number] PCP - General Pediatrics 09/03/17 Hand Molder Meat Relationship Specialty Start Date End Date Slick Graff MD [address] [place] [address], [address] [place] [id number] PCP - General Pediatrics 09/03/17 Hand Molder Meat Relationship Specialty Start Date End Date Slick Graff MD [address] [place] [address], [address] [place] [id number] PCP - General Pediatrics 09/03/17 Hand Molder Meat Relationship Specialty Start Date End Date Slick Graff MD [address] [place] [address], [address] [place] [id number] PCP - General Family Medicine 07/17/23 Hand Molder Meat Relationship Specialty Start Date End Date Slick Graff MD [address] [place] [address], [address] [place] [address] PCP - General Family Medicine 07/17/23 Goals (unrecognized section and content) Goals may be documented in a n alternate sectionNo InformationNot on filedocumented as of this encounterNot on filedocumented as of this encounterNot on filedocumented as of this encounterNot on filedocumented as of this encounterNot on filedocumented as of this encounterNot on filedocumented as of this encounterNot on filedocumented as of this encounterNot on filedocumented as of this encounterNot on filedocumented as of this encounter Reason for Visit (unrecogniz ed section and content) Reason Comments Amenorrhea Reason Comments Rash Abdomen and back, so me on arm, does not itch Reason Comments Follow-up Needs FMLA forms al led out and anxiety meds making her sick. Reason Comments working midnights Has noticed her BP i s elevated Reason Comments New Patient FHx Bleeding Disorder Reason Comments Sinusitis Sore throat Reason Onset Date Comments Med Refill 11/15/2023 Reason Comments discuss anxiety and motion sickness medi cations Reason Comments Med Refill Reason Comments Well Women Visit Reason Comments Pelvic lump FOR RECORDS PERTAINING TO PATIENTS WHO ARE [...] BE BASED ON THE PRIMARY CLINICAL RECORDS. [employer] provides no warranty or guarantee of the accuracy or completeness of information in this document.
[2024-12-10 04:07] LABS: Rubella Antibodies, IgG 2.21 index (Immune >0.99)
[2024-12-10 05:07] LABS: HCV Ab Non Reactive (Non Reactive); HIV Ab/p24 Ag Screen Non Reactive (Non Reactive)
[2024-12-10 06:08] LABS: HBsAg Screen Negative (Negative)
[2024-12-10 12:09] LABS: Rapid Plasma Reagin, Quant Non Reactive titer (NonRea<1:1)
== END 2024-12-08 15:57 | disposition home or self-care (01) ==
LOC: LAB 15:59
PROVIDERS: PCP Internal Medicine; Visit Provider Obstetrics & Gynecology
DX: Z34.01 Encounter for supervision of normal first pregnancy, first trimester (principal); Z36.0 Encounter for antenatal screening for chromosomal anomalies; N92.6 Irregular menstruation, unspecified
CPT/HCPCS: 36415; 80307; 83036; 85025; 86592; 86762; 86803; 86850; 86900; 86901; 87086; 87340; 87389

== ENCOUNTER 2025-03-02 07:04 | Outpatient (OUT) | payer OTHER, SELFPAY ==
--- NOTE | 2025-03-02 07:06 | US_ITS ---
The [address] [address] Patient Name: BETO KIM MRN: [id number] date: 2000 Sex: F Assigned Patient Location: Current Patient Location: US Accession/Order Number: [id number] Exam Date: 03/02/2025 07:08 Report Date: 03/02/2025 08:54 At the request of: PIETRO KEATING Procedure: US OB cervical length CLINICAL DATA: anatomy survey COMPARISON: None ULTRASOUND OB ANATOMY There is a single live intrauterine gestation in cephalic presentation. The amniotic fluid volume is subjectively normal. The placenta is posterior. There is cardiac and somatic activity with heart rate of 145 beats per minutes. The neural axis and all 4 extremities were surveyed by the car filler and no abnormalities were detected. The stomach, bladder, kidneys, three-vessel cord with insertion, diaphragm, four-chamber heart with right and left outflow tracts, facial features and male genitalia are seen. The following measurements were obtained: Biparietal diameter 5.7 cm 23 weeks 4 days >97% Head circumference 20.9 cm 23 weeks 0 days 93% Abdominal circumference 17.1 cm 22 weeks 0 days 64% Femur length 3.6 cm 21 weeks 3 days 39% The composite ultrasound age based on these measurements is 22 weeks 4 days. The estimated date of delivery is July 02, 2025. US/US OB anatomy IMPRESSION: SINGLE LIVE INTRAUTERINE GESTATION WITH ULTRASOUND AGE OF 22 WEEKS 4 DAYS. UNREMARKABLE ANATOMY SURVEY. ULTRASOUND OB CERVICAL LENGTH COMPARISON: None The placenta is posterior. The placenta is approximately 3.3 cm from the internal cervical os. The cervix is closed with estimated length of 5.1 cm using a transvaginal probe. IMPRESSION: CLOSED UNREMARKABLE CERVIX. Impression dictated by: Chiara Bailey M.D. 03/02/2025 8:54 AM Dictation Location: [facility] [employer] Electronically authenticated by: [id number] Date: 03/02/2025 08:54
--- OUTSIDE RECORDS SUMMARY | 2025-03-02 07:06 | XMS_ITS | CCD ---
Author Organization [facility] Care Team Providers Care Skylights Assembler Name Role Phone ALISHA SHELLEY Attending Unavailable KARSTEN, ALISHA Admitting Unavailable CHARLA, DR ANN Marin Consulting Unavailable ALISHA SHELLEY Consulting Unavailable PRERNA, DR SLICK Fierro Attending Unavailable PRERNA, DR SLICK Fierro Consulting Unavailable PRERNA, DR SLICK Fierro Admitting Unavailable WEST, DR ANN Marin Consulting Unavailable KHOI LACKEY Admitting Unavailable ZIYAD, KHOI Attending Unavailable KHOI LACKEY Consulting Unavailable ANTONIO Browne Attending Provider Triny Browne Unavailable Triny Browne Admitting Unavailable Triny Browne Attending Unavailable FRANCISCO ANTUNEZ Attending Unavailable ANTUNEZFRANCISCO SIMONS Attending Unavailable FRANCISCO ANTUNEZ Attending Unavailable FRANCISCO ANTUNEZ Attending Unavailable NIMO VEGAS Attending Unavailable SLICK GRAFF Referring Unavailable SLICK GRAFF Primary Care Unavailable NIMO VEGAS Referring Unavailable SLICK GRAFF Primary Care Unavailable SLICK GRAFF Referring Unavailable SLICK GRAFF Primary Care Unavailable Slick Graff MD Primary Care Provider BECCA KEATING Attending Unavailable BECCA KEATING Attending Unavailable SARAVANAN RACHEL Attending Unavailable BECCA KEATING Attending Unavailable Allergies Allergy Classification Reported Allergen(s) Allergy Type Date of Onset Reaction(s) Facility (1 source) ALLERGIES NOT ON FILE; Translations: [ALLERGIES NOT ON FILE] Propensity to adverse reactions (disorder) [facility] Repository Medications Current Medications Medication Drug Class(es) Dates Sig (Normalized) Sig (Original) cetirizine hydrochloride 10 mg oral tablet (3 sources) Histamine-1 Receptor Antagonist Start: 09-23-2024 cetirizine (ZyrTEC) 10 MG tablet 09/23/2024 Active Ethinyl Estradiol / Ferrous fumarate / Norethindrone (10 sources) Estrogen Start: 08-21-2024 End: 12-04-2024 norethindrone-ethin yl estradiol (Blisovi FE 07/28) 1-20 MG-MCG tablet Indications: Uses control Take 1 tablet by mouth Daily 90 tablet 3 08/21/2024 12/04/2024 Discontinued (Therapy completed) Start: 07-21-2024 End: 07-21-2025 norethindrone-ethinyl estrad iol (Blisovi FE 07/28) 1-20 MG-MCG tablet Indications: Uses control Take 1 tablet by mouth Daily 28 tablet 12 07/21/2024 07/21/2025 Active Start: 03-27-2024 End: 07-21-2024 norethindrone-ethinyl estrad iol (Blisovi FE 07/28) 1-20 MG-MCG tablet Indications: Uses control Take 1 tablet by mouth Daily 28 tablet 12 03/27/2024 07/21/2024 Discontinued (Reorder) Start: 03-27-2024 End: 03-27-2025 norethindrone-ethinyl estrad iol (Blisovi FE 07/28) 1-20 MG-MCG tablet Indications: Uses control Take 1 tablet by mouth Daily 28 tablet 12 03/27/2024 03/27/2025 Active metoclopramide 10 mg oral tablet (8 sources) Dopamine-2 Receptor Antagonist Start: 11-17-2024 End: [...] needed for nausea. 90 tablet 3 11/17/2024 Active midodrine hydrochloride 5 mg oral tablet (8 sources) alpha-Adrenergic Agonist Start: 05-15-2023 End: 12-04-2024 midodrine (Proamatine) 5 MG tablet Take 5 mg by mouth in the morning and 5 mg at noon and 5 mg in the evening. 05/15/2023 12/04/2024 Discontinued ondansetron 4 mg oral tablet (9 sources) Serotonin-3 Receptor Antagonist Start: 11-10-2024 take [...] for nausea. 30 tablet 3 11/10/2024 Active promethazine hydrochloride 12.5 mg oral tablet (1 [...] nausea. 30 tablet 2 11/10/2024 12/04/2024 Discontinued sertraline 50 mg oral tablet (6 sources) Serotonin Reuptake Inhibitor Start: 07-20-2024 sertraline (Zoloft) 50 MG tablet 07/20/2024 Active Completed/Discontinued Medications Medication Drug Class(es) Dates Sig (Normalized) Sig (Original) azithromycin 250 mg oral tablet (3 sources) Macrolide Antimicrobial Start: 01-12-2025 End: 02-02-2025 azithromycin (Zithromax Z-Bjorn) 250 MG tablet Indications: Sinusitis, unspecified chronicity, unspecified location As directed 6 tablet 01/12/2025 02/02/2025 Discontinued Problems Active Problems Problem Classification Problem Date Documented Date Episodic/Chronic Anxiety disorders (2 sources) Generalized anxiety disorder; Translations: [Generalized anxiety disorder] Onset: 03-09-2023 Chronic Menstrual disorders (2 sources) Excessive and frequent menstruation with regular cycle; Translations: [Missed period] Onset: 08-21-2023 11-28-2024 Chronic Nonmalignant breast conditions (4 sources) Unspecified lump in axillary tail of the left breast; Translations: [UNS LUMP IN AXILLARY TAIL LT BREAST] Onset: 12-07-2020 Episodic Other and unspecified benign neoplasm (2 sources) Lipoma (clinical); Translations: [Benign lipomatous neoplasm of other sites] 06-11-2024 Episodic Other female genital disorders (2 sources) Vaginal discharge; Translations: [Other specified noninflammatory disorders of vagina] 02-02-2025 Episodic Other and delivery including normal (6 sources) ; Translations: [Encounter for supervision of normal , unspecified, unspecified trimester] 12-04-2024 Episodic Other screening for suspected conditions (not mental disorders or infectious disease) (2 sources) Patient encounter status; Translations: [Encounter for other specified screening] 02-02-2025 Episodic Residual codes; unclassified (1 source) Family history of diseases of the blood and blood-forming organs and certain disorders involving the immune mechanism; Translations: [Family history of diseases of the blood and blood-forming organs and certain disorders involving the immune mechanism] Onset: 08-21-2023 Episodic Residual codes; unclassified (2 sources) Contraception ; Translations: [Other specified health status] 07-21-2024 Episodic Residual codes; unclassified (2 sources) Gestation period, 13 weeks; Translations: [13 weeks gestation of ] 01-05-2025 Episodic Residual codes; unclassified (2 sources) Gestation period, 17 weeks; Translations: [17 weeks gestation of ] 02-02-2025 Episodic Unclassified (1 source) Frequency of micturition; [...] FOR OTH VIRAL DZ] Onset: 01-27-2020 Episodic Other connective tissue disease (4 sources) Pain in left foot; Translations: [PAIN IN LEFT FOOT] Onset: 03-02-2020 Episodic Other upper respiratory infections (1 source) Acute pharyngitis due to other specified organisms; Translations: [AC PHARYNGIT D/T OTH SPEC ORGANISMS] Onset: 01-31-2020 Episodic Results Test Name Value Interpretation Reference Range Facility RECURRENT VAGINITIS (HTRX)on 02-04-2025 ATOPOBIUM VAGINAE 0 [facility] ATOPOBIUM VAGINAE Not detected [facility] BVAB 2,3 (BACTERIAL VAGINOSIS ASSOCIATED BACTERIA 2, 3); MOBILUNCUS SPP 0 [facility] BVAB 2,3 (BACTERIAL VAGINOSIS ASSOCIATED BACTERIA 2, 3); MOBILUNCUS SPP Not detected [facility] CHERIE ALBICANS, PARAPSILOSIS, TROPICALIS 0 [facility] CHERIE ALBICANS, PARAPSILOSIS, TROPICALIS Not detected [facility] CHERIE GLABRATA 0 [facility] CHERIE GLABRATA Not detected [facility] CHERIE KRUSEI 0 [facility] CHERIE KRUSEI Not detected [facility] CHLAMYDIA TRACHOMATIS 0 [facility] CHLAMYDIA TRACHOMATIS Not detected [facility] GARDNERELLA VAGINALIS 0 [facility] GARDNERELLA VAGINALIS Not detected [facility] MEGASPHAERA (TYPES 1, 2) 0 [facility] MEGASPHAERA (TYPES 1, 2) Not detected [facility] MYCOPLASMA GENITALIUM 0 [facility] MYCOPLASMA GENITALIUM Not detected [facility] NEISSERIA GONORRHOEAE 0 [facility] NEISSERIA GONORRHOEAE Not detected [facility] TRICHOMONAS VAGINALIS 0 [facility] TRICHOMONAS VAGINALIS Not detected [facility] Urinalysis macro (dipstick) panel (U)on 02-02-2025 Bilirubin, UA Negative Negative - 4(70) +++ mg/dL [facility] Blood, UA Negative Negative - 50 Jovani/mcL [facility] Clarity, UA Clear [facility] Color, UA Yellow [facility] Glucose, UA Negative Negative - 1999(110) ++++ mg/dL [facility] Interpretation and review of laboratory results Normal [facility] Ketones, UA Negative Negative - 160(16) ++++ mg/dL [facility] Leukocytes, UA Negative Negative - 500+++ Luis E/mcL [facility] Nitrite, UA Negative Negative - Positive [facility] pH, UA 6 5 - 9 [facility] Protein, UA Negative Negative - 2000(20) ++++ mg/dL [facility] Spec Grav, UA 1.025 1 - 1.03 [facility] Urobilinogen, UA 0.2 0.2 - 12 mg/dL [facility] Urinalysis macro (dipstick) panel (U)on 01-05-2025 Bilirubin, UA Negative Negative - 4(70) +++ mg/dL [facility] Blood, UA Negative Negative - 50 Jovani/mcL [facility] Clarity, UA Clear [facility] Color, UA Yellow [facility] Glucose, UA Negative Negative - 2000(110) ++++ mg/dL [facility] Interpretation and review of laboratory results Normal [facility] Ketones, UA Negative Negative - 160(16) ++++ mg/dL [facility] Leukocytes, UA Negative Negative - 500+++ Luis E/mcL [facility] Nitrite, UA Negative Negative - Positive [facility] pH, UA 7 5 - 9 [facility] Protein, UA Negative Negative - 2000(20) ++++ mg/dL [facility] Spec Grav, UA 1.02 1 - 1.03 [facility] Urobilinogen, UA 0.2 0.2 - 12 mg/dL [facility] ALL CBC WITH AUTO DIFFon BASOPHILS ABSOLUTE AUTO 0 [facility] Basophils/100 WBC (Bld) 0.3 % 0.2 - 2.0 % [facility] Eosinophils/100 WBC (Bld) 0.9 % 0.9 - 7.0 % [facility] Erythrocyte distribution width (RBC) [Ratio] 12.2 % 11.0 - 15.0 % [facility] Hematocrit (Bld) [Volume fraction] 37.7 % 36.0 - 48.0 % [facility] Hemoglobin (Bld) [Mass/Vol] 12.7 g/dL 12.0 - 16.0 g/dL [facility] IMMATURE GRANULOCYTES ABS AUTO 0.02 [facility] Immature granulocytes/100 WBC (Bld) 0.2 % 0.0 - 0.5 % [facility] Interpretation and review of laboratory results Abnormal [facility] LYMPHOCYTES ABSOLUTE AUTO 1.5 [facility] Lymphocytes/100 WBC (Bld) 14.9 % Low 20.5 - 60.0 % [facility] MCH (RBC) [Entitic mass] 29.7 pg 26.7 - 34.0 pg [facility] MCHC (RBC) [Mass/Vol] 33.7 g/dL 29.9 - 35.2 g/dL [facility] MCV (RBC) [Entitic vol] 88.1 fL 81.0 - 99.0 fL [facility] MONOCYTES ABSOLUTE AUTO 0.7 [facility] Monocytes/100 WBC (Bld) 6.6 % 1.7 - 12.0 % [facility] NEUTROPHILS ABSOLUTE AUTO 7.9 High [facility] Neutrophils/100 WBC (Bld) 77.1 % High 43.0 - 75.0 % [facility] Platelet mean volume (Bld) [Entitic vol] 10.4 fL 9.5 - 13.5 fL [facility] EO # 0.1 [facility] PLT 147 Low [facility] RBC 4.28 [facility] WBC 10.2 [facility] MLR HEMOGLOBIN A1Con 025 Glucose [Mass/Vol] 108 mg/dL [facility] HbA1c (Bld) [Mass fraction] 5.4 % 4.5 - 6.2 % [facility] Comment on above: ADA RECOMMENDED LIMI T 4.0 - 6.0 ADA THERAPEUTIC TARGET < 7.0 ACTION SUGGESTED > 7.0 [facility] HCG ( test) Ql (U)o n 12-04-2024 Interpretation and review of laboratory results Abnormal [facility] Preg Test, Ur Positive Negative [facility] US OB TRANSVAGINALon 025 US OB TRANSVAGINAL [...] II, MD, PHD at 05-Dec-2024 11:53:06 AM [facility] Normal Not Available Comment on above: Order Comment: US OB TRANSVAGINAL No LMP recorded. Urinalysis macro (dipstick) panel (U)on 12-04-2024 Bilirubin, UA Positive Negative - 4(70) +++ mg/dL [facility] Comment on above: small Blood, UA Negative Negative - 50 Jovani/mcL [facility] Clarity, UA Clear [facility] Color, UA Yellow [facility] Glucose, UA Negative Negative - 2000(110) ++++ mg/dL [facility] Interpretation and review of laboratory results Abnormal [facility] Ketones, UA Negative Negative - 160(16) ++++ mg/dL [facility] Leukocytes, UA Negative Negative - 500+++ Luis E/mcL [facility] Nitrite, UA Negative Negative - Positive [facility] pH, UA 6.5 5 - 9 [facility] Protein, UA Positive Negative - 1999(20) ++++ mg/dL [facility] Comment on above: 30mg/dL Spec Grav, UA 1.025 1 - 1.03 [facility] Urobilinogen, UA 0.2 0.2 - 12 mg/dL [facility] IGP,APTIMA HPV,AGE GDLNon AGE GDLN ACOG TESTING Note . [facility] Comment on above: TESTS RESULT FLAG UN ITS REF RANGE LAB Clinician Provided Cytology Information Source.............Cervix;Endocervix No. of containers..01 ThinPrep Vial Age Algo ACOG Jannet... FLAG LEGEND: L-Low Normal,H-High Normal,LL-Alert Low,HH-Alert High <-Panic Low,>-Panic High,A-Abnormal,AA-Critical Abnormal Performed at: 01 =G [facility] [address] Haylie Bustamante MD, IGP, RFX APTIMA HPV ASCU Note . [facility] Comment on above: TESTS RESULT FLAG U NITS REF RANGE LAB DIAGNOSIS: 02 NEGATIVE FOR INTRAEPITHELIAL LESION OR MALIGNANCY. Specimen adequacy: 02 Satisfactory for evaluation. Endocervical and/or squamous metaplastic cells (endocervical component) are present. Performed by: Rj Miller, Joist Setter ([facility]) . 02 Note: Note 03 The [...] <-Panic Low,>-Panic High,A-Abnormal,AA-Critical Abnormal Performed at: [id number] [place] [address] Tania Mullins PhD, [address] [address] Haylie Bustamante MD, Performed at: [address] [id number] Manager Placement: Haylie Bustamante MD, Phone: [phone] Performed at: [address], [place] [id number] Manager Placement: Tania Mullins PhD, Phone: [phone] BRUSH-SPATULA CERVIX ENDOCERVIX [facility] GENERIC ORDERon 024 TEST NAME [id number] VON WILLEBRA ND FACTOR GP1BM ACTIVITY Normal [facility] TEST RESULT SEE NOTE Normal [facility] Comment on above: Result Comment: NOTE Test name Result Flag Units RefIntvl VWF GPIbM Activity 132 IU/dL 52-180 For additional information, please visit [email or web address] This test was developed and its performance characteristics determined by [facility]. It has not been cleared or approved by the [place] Food and Drug Administration. This test is used for clinical purposes. It should not be regarded as investigational or for research. This laboratory is certified under the Clinical Laboratory Improvement Amendments (CLIA) as qualified to perform high complexity clinical laboratory testing. Performed by: [facility]. [address] [place] [id number] CBC AND AUTO DIFFon 08-21-19 24 ABSOLUTE BASOPHIL 0.0 X10E9/L Normal 0.0-0.2 [facility] Comment on above: Performed By: #### P INR, 66181-4, CBCA, FEPR, 2276-4, 6012-9, 60261-7, 3209-4 #### [facility] ([id number]) [address], [address] [place] [address] ABSOLUTE NEUTROPHIL 3.4 X10E9/L Normal 1.5-6.6 [facility] Comment on above: Performed By: #### P INR, 67243-6, CBCA, FEPR, 2276-4, 6012-9, 46853-7, 3209-4 #### [facility] ([id number]) [address], [address] [place] [address] Basophils/100 WBC (Bld) 0.6 % Normal [facility] Comment on above: Performed By: #### P INR, 34541-9, CBCA, FEPR, 2276-4, 6012-9, 55346-5, 3209-4 #### [facility] ([id number]) [address], [address] [place] [address] Eosinophils (Bld) [#/Vol] 0.1 10*3/uL Normal 0.0-0.4 [facility] Comment on above: Performed By: #### P INR, 85309-6, CBCA, FEPR, 2276-4, 6012-9, 40322-3, 3209-4 #### [facility] ([id number]) [address], [address] [place] [address] Eosinophils/100 WBC (Bld) 2.0 % Normal [facility] Comment on above: Performed By: #### P INR, 18756-4, CBCA, FEPR, 2276-4, 6012-9, 97706-5, 3209-4 #### [facility] ([id number]) [address], [address] [place] [address] Erythrocyte distribution width (RBC) [Ratio] 13.3 % Normal 11.5-15.0 [facility] Comment on above: Performed By: #### P INR, 13872-1, CBCA, FEPR, 2276-4, 6012-9, 04728-9, 3209-4 #### [facility] ([id number]) [address] [address] Hematocrit (Bld) [Volume fraction] 38.6 % Normal 35-47 [facility] Comment on above: Performed By: #### P INR, 84517-2, CBCA, FEPR, 2276-4, 6012-9, 49272-0, 3209-4 #### [facility] ([id number]) [address] [address] Hemoglobin (Bld) [Mass/Vol] 13.1 g/dL Normal 11.7-15.5 [facility] Comment on above: Performed By: #### P INR, 36555-6, CBCA, FEPR, 2276-4, 6012-9, 02284-1, 3209-4 #### [facility] ([id number]) [address] [address] Lymphocytes (Bld) [#/Vol] 1.2 10*3/uL Normal 1.0-3.5 [facility] Comment on above: Performed By: #### P INR, 81072-8, CBCA, FEPR, 2276-4, 6012-9, 19158-4, 3209-4 #### [facility] ([id number]) [address] [address] Lymphocytes/100 WBC (Bld) 23.5 % Normal [facility] Comment on above: Performed By: #### P INR, 93868-4, CBCA, FEPR, 2276-4, 6012-9, 78733-7, 3209-4 #### [facility] ([id number]) [address], [address] [place] [address] MCH (RBC) [Entitic mass] 29.8 pg Normal 27-34 [facility] Comment on above: Performed By: #### P INR, 30088-6, CBCA, FEPR, 2276-4, 6012-9, 27969-7, 3209-4 #### [facility] ([id number]) [address], [address] [place] [address] MCHC (RBC) [Mass/Vol] 33.8 g/dL Normal 32-36 [facility] Comment on above: Performed By: #### P INR, 24014-5, CBCA, FEPR, 2276-4, 6012-9, 82378-5, 3209-4 #### [facility] ([id number]) [address], [address] [place] [address] MCV (RBC) [Entitic vol] 88 fL Normal 80-100 [facility] Comment on above: Performed By: #### P INR, 84700-4, CBCA, FEPR, 2276-4, 6012-9, 60063-9, 3209-4 #### [facility] ([id number]) [address], [address] [place] [address] Monocytes (Bld) [#/Vol] 0.4 10*3/uL Normal 0-0.9 [facility] Comment on above: Performed By: #### P INR, 96859-8, CBCA, FEPR, 2276-4, 6012-9, 04672-9, 3209-4 #### [facility] ([id number]) [address], [address] [place] [address] Monocytes/100 WBC (Bld) 8.5 % Normal [facility] Comment on above: Performed By: #### P INR, 39376-7, CBCA, FEPR, 2276-4, 6012-9, 00077-0, 3209-4 #### [facility] ([id number]) [address], [facility] [address] [place] [address] Neutrophils/100 WBC (Bld) 65.4 % Normal [facility] Comment on above: Performed By: #### P INR, 69121-3, CBCA, FEPR, 2276-4, 6012-9, 25277-7, 3209-4 #### [facility] ([id number]) [address], [facility] [address] [place] [address] Platelet mean volume (Bld) [Entitic vol] 8.9 fL Normal 7-12 [facility] Comment on above: Performed By: #### P INR, 47724-6, CBCA, FEPR, 2276-4, 6012-9, 49354-2, 3209-4 #### [facility] ([id number]) [address], [address] [address] Platelets (Bld) [#/Vol] 225 10*3/uL Normal 150-450 [facility] Comment on above: Performed By: #### P INR, 03938-0, CBCA, FEPR, 2276-4, 6012-9, 77166-7, 3209-4 #### [facility] ([id number]) [address], [facility] [address] [place] [address] RBC COUNT 4.38 X10E12/L Normal 3.80-5.20 [facility] Comment on above: Performed By: #### P INR, 79568-6, CBCA, FEPR, 2276-4, 6012-9, 65114-5, 3209-4 #### [facility] ([id number]) [address], [address] [place] [address] WBC (Bld) [#/Vol] 5.2 10*3/uL Normal 4.0-11.0 [facility] Comment on above: Performed By: #### P INR, 14779-7, CBCA, FEPR, 2276-4, 6012-9, 21855-2, 3209-4 #### [facility] ([id number]) [address], [address] [place] [address] Coagulation factor VIII acti vity actual/normal Coag (PPP) [Relative time]on 08-21-2023 FACTOR 8 ASSAY 152 % act High 50-150 [facility] Comment on above: Performed By: #### P INR, 62246-8, CBCA, FEPR, 2276-4, 6012-9, 53704-5, 3209-4 #### [facility] ([id number]) [address], [address] [place] [address] FERRITINon 08-21-2023 Ferritin [Mass/Vol] 9 ng/mL Low 11-307 [facility] Comment on above: Performed By: #### P INR, 78867-8, CBCA, FEPR, 2276-4, 6012-9, 41672-2, 3209-4 #### [facility] ([id number]) [address], [address] [place] [address] IRON PROFILEon 08-21-2023 Iron [Mass/Vol] 67 ug/dL Normal 50-170 [facility] Comment on above: Performed By: #### P INR, 86279-8, CBCA, FEPR, 2276-4, 6012-9, 91324-3, 3209-4 #### [facility] ([id number]) [address], [address] [place] [address] IRON BINDING 438 ug/dL High 250-425 [facility] Comment on above: Performed By: #### P INR, 73599-5, CBCA, FEPR, 2276-4, 6012-9, 87864-9, 3209-4 #### [facility] ([id number]) [address], [address] [place] [address] IRON SATURATION 15 % SATURATION Normal 15-50 [facility] Comment on above: Performed By: #### P INR, 93770-9, CBCA, FEPR, 2276-4, 6012-9, 63705-3, 3209-4 #### [facility] ([id number]) [address], [address] [place] [address] Laboratory comment Be (Repo rt)on 08-21-2023 UNLISTED LAB TEST Sent to reference lab Normal [facility] PROTIME AND INRon 08-21-2023 INR Coag (PPP) [Relative time] 1.1 {INR} Normal 0.8-1.1 [facility] Comment on above: Performed By: #### P INR, 45538-4, CBCA, FEPR, 2276-4, 6012-9, 74297-0, 3209-4 #### [facility] ([id number]) [address], [address] [place] [address] PT Coag (PPP) [Time] 13.1 s Normal 9.8-13.2 [facility] Comment on above: Performed By: #### P INR, 33174-6, CBCA, FEPR, 2276-4, 6012-9, 86238-8, 3209-4 #### [facility] ([id number]) [address], [address] [place] [address] aPTT Coag (PPP) [Time]on aPTT Coag (Bld) [Time] 30 s Normal 26-37 [facility] Comment on above: Performed By: #### P INR, 58594-0, CBCA, FEPR, 2276-4, 6012-9, 68184-0, 3209-4 #### [facility] ([id number]) [address] [place] [address], [address] [place] [address] vWf Ag IA Qn (PPP)on 024 VON WILLEBRAND AG 157 % High 50-150 [facility] Comment on above: Result Comment: It [...] 69:1691, 1985 Performed By: #### P INR, 04539-1, CBCA, FEPR, 2276-4, 6012-9, 55679-1, 3209-4 #### [facility] ([id number]) [address] [place] [address], [address] [place] [address] vWf.activity actual/normal I A (PPP) [Relative ratio]on 08-21-2023 von Willebrand Factor Activity 158 % Normal 50-200 [facility] Comment on above: Performed By: #### P INR, 57778-6, CBCA, FEPR, 2276-4, 6012-9, 80877-3, 3209-4 #### [facility] ([id number]) [address] [place] [address], [address] [place] [address] [facility]-14-2023 [facility]al [facility] Telemedicine [id number] Christina Muhammad 2000 F Date Provider Department Center 06/14/2023 FRANCISCO GUILLAUME [facility] Gloria Heal No family history on file Reason for Visit and Comments: Therapy [849] Normal [facility] Behavioral Health Telemedici neon 05-17-2023 [facility] Telemedicine [id number] MuhammadWaqasChristina 2000 F Date Provider Department [place] 05/17/2023 FRANCISCO GUILLAUME [facility] Gloria Heal No family history on file Reason for Visit and Comments: Therapy [849] Normal [facility] Behavioral Health Telemedici neon 05-03-2023 [facility] Telemedicine [id number] Muhammad,Christina 2000 F Date Provider Department Center 05/03/2023 FRANCISCO GUILLAUME [facility] Gloria Heal No family history on file Reason for Visit and Comments: Therapy [849] Normal [facility] Urine Cultureon 04-29-2023 Bacteria identified Cx Nom (U) ORGANISM: Strep. agalactiae Grp B (O:B) [place] Count <10,000 PERFORMED BY: [place] [address] PATHOLOGIST AGENT LICENSING CLERK TUAN HOGAN M.D. Normal [facility] Comment on above: Performed By: #### C UU #### [facility] [address] [place] [address] #### VAGINITIS+ #### [facility] , Vaginitis Plus (VG+)on 04-29 Atopobium Vaginae Low - 0 Normal . [facility] Comment on above: Performed By: #### C UU #### [facility] [address] [place] [address] #### VAGINITIS+ #### [facility] , BVAB2 Low - 0 Normal . [facility] Comment on above: Performed By: #### C UU #### [facility] [address] [place] [address] #### VAGINITIS+ #### [facility] , Cherie Albicans, ALEXANDER Negative Normal Negative [facility] Comment on above: Result Comment: This test was developed and its performance characteristics determined by [facility]. It has not been cleared or approved by the Food and Drug Administration. Performed By: #### C UU #### [address] #### VAGINITIS+ #### [facility] , Cherie Glabrata, ALEXANDER Negative Normal Negative [facility] Comment on above: Result Comment: This test was developed and its performance characteristics determined by [facility]. It has not been cleared or approved by the Food and Drug Administration. PERFORMED BY: [place] [address] PATHOLOGIST AGENT LICENSING CLERK TUAN HOGAN M.D. Performed By: #### C UU #### [place] [address] [place] #### VAGINITIS+ #### [facility] , Chlamydia Trachomotis, ALEXANDER Negative Normal Negative [facility] Comment on above: Performed By: #### C UU #### [address] #### VAGINITIS+ #### [facility] , Megasphaera Low - 0 Normal . [facility] Comment on above: Result Comment: Calc ulate [...] Administration. Performed By: #### C UU #### [place] [address] [place] #### VAGINITIS+ #### [facility] , Neisseria Gonorrhoeae, ALEXANDER Negative Normal Negative [facility] Comment on above: Result Comment: Perf ormed at: =G - [facility] [address] [id number] Manager Placement: Haylie Bustamante MD, Phone: [phone] Performed By: #### C UU #### [facility] [address] [place] [address] [place] #### VAGINITIS+ #### [facility] , Tric Vag ALEXANDER Negative Normal Negative [facility] Comment on above: Performed By: #### C UU #### [facility] [address] [place] [address] [place] #### VAGINITIS+ #### [facility] , Behavioral Health Telemedici neon 04-10-2023 Behavioral Health Telemedicine [id number] Christina Muhammad 2000 F Date Provider Department Center 04/10/2023 FRANCISCO GUILLAUME [facility] Gloria Heal No family history on file Reason for Visit and Comments: Therapy [849] Normal [facility] Behavioral Health Telemedici neon 03-26-2023 Behavioral Health Telemedicine [id number] Waqas Muhammadlena 2000 F Date Provider Department Center 03/26/2023 FRANCISCO GUILLAUME [facility] Gloria Heal No family history on file Reason for Visit and Comments: Therapy [849] Normal [facility] Behavioral Health Telemedici neon 03-09-2023 Behavioral Health Telemedicine [id number] Christina Muhammad 2000 F Date Provider Department Center 03/09/2023 FRANCISCO GUILLAUME [facility] Gloria Heal No family history on file Reason for Visit and Comments: Therapy [849] Normal [facility] US BREAST LEFT LIMITEDon US BREAST LEFT LIMITED Patient: CHRISTINA MUHAMMAD Exam Date: 12/07/2020 : 2000 Gender:F Ordering : DR. ALISHA SHELLEY . Admission #: [id number] Family : Order #: [id number] CLICK HERE TO VIEW EXAM RADIOLOGY REPORT [...] MD on 12/07/2020 at 15:12 Normal [facility] COVID-19 PCRon 01-29-2020 SARS-CoV-2 (COVID-19) RNA ALEXANDRE+probe Ql (Unsp spec) Not detected Normal Not Detected [facility] Comment on above: Result Comment: This test was developed and its performance characteristics determined by [facility]. This test has not been FDA cleared [...] assay. Performed By: #### C VDPCR #### [facility] [address] [place] [address] Viraj Guadarrama Discharge Summaryon 12-08-19 18 Discharge Summary MR#: [id number] [facility] Muhammad Admitted: 11/08/2017 Discharged: 11/12/2017 Date of : 2000 Physician: Domenico Goodwin M.D. DISCHARGE SUMMARYREASON FOR ADMISSION: Suicidal ideation.HISTORY OF PRESENT ILLNESS AT ADMISSION: :Patient is a 17 year old female with no previous psychiatric history,presenting as a direct admission from [facility], where shepresented with her mother [...] now or isstill contemplating suicide.HOSPITAL COURSE:Upon admission [facility] child unit, pt was assessed in detail [...] wasgood. Judgment was also good.DISCHARGE MEDICATIONS: None.DISCHARGE DIAGNOSES:Antelope I: Mood disorder, NOS.Antelope II: Deferred.Antelope III: We do not know, but unsafe.Antelope IV: Romantic relationship conflict.Antelope V: GAF of 67.POSTDISCHARGE APPOINTMENT/POSTDISCHARGE FOLLOWUP: See [...] personal documentation from me. Date Dict: 12/07/2017/01:07 Mic/Vijay Beltrán Trans: 12/07/2017 06:22 [id number] Normal [facility] FREE T3on 11-09-2017 Triiodothyronine (T3) free 3.4 pg/mL Normal 2.5-3.9 [facility] Comment on above: Order Comment: No: D o not add to previous draw Performed By: #### 4 6413, 22655, 83493, 87892 ####[facility].[address] FREE T4on 11-09-2017 Thyroxine (T4) free 0.89 ng/dL Normal 0.71-1.85 [facility] Comment on above: Order Comment: No: D o not add to previous draw Performed By: #### 4 6413, 34744, 51049, 87007 ####[facility] LIPID PROFILEon 11-09-2017 Cholesterol 152 mg/dL Normal 120-170 [facility] Comment on above: Order Comment: No: D o not add to previous draw Result Comment: CHOL ESTEROL REFERENCE RANGE:20 YEARS AND OLDER CARDIOVASCULAR RISKLess than 200 mg/dl Low Vwrm048 to 239 mg/dl Borderline Tqxo959 mg/dl and greater High Risk Performed By: #### 4 6413, 05712, 36218, 98363 ####[facility] Cholesterol to HDL Ratio 3.3 {ratio} Normal .0-4.5 [facility] Comment on above: Order Comment: No: D o not add to previous draw Performed By: #### 4 6413, 23009, 87507, 27213 ####[facility] [facility].[address] HDL Cholesterol 46 mg/dL Normal 23-92 [facility] Comment on above: Order Comment: No: D o not add to previous draw Result Comment: Slig ht variation in normal range could be due to gender and/or age.HDL CHOLESTEROL REFERENCE RANGE:20 years and older Cardiovascular Risk> or =60 mg/dL Mhkjnvahb19 TO 59 mg/dL Low Risk<40 mg/dL High Risk Performed By: #### 4 6413, 71597, 25071, 95026 ####[facility] LDL Cholesterol 92 mg/dL Normal 0-130 [facility] Comment on above: Order Comment: No: D o not add to previous draw Result Comment: LDL IS A CALCULATIONLDL IS ONLY VALID IF THE TRIG IS LESS THAN 400. Performed By: #### 4 6413, 19267, 77735, 08565 ####[facility] NON-HDL CHOLESTEROL 106 mg/dL Normal [facility] Comment on above: Order Comment: No: D o not add to previous draw Performed By: #### 4 6413, 00724, 04167, 02710 ####[facility] Triglyceride 70 mg/dL Normal 37-148 [facility] Comment on above: Order Comment: No: D o not add to previous draw Result Comment: TRIG LYCERIDE REFERENCE RANGE:20 YEARS AND OLDER CARDIOVASCULAR RISKLESS THAN 150 mg/dl LOW [id number] TO 199 mg/dl BORDERLINE BQKA101 mg/dl AND GREATER HIGH RISK Performed By: #### 4 6413, 91485, 28602, 25485 ####[facility].[address] VLDL CHOL 14 mg/dL Normal 0-40 [facility] Comment on above: Order Comment: No: D o not add to previous draw Performed By: #### 4 6413, 93171, 85821, 11809 ####[facility] TSHon 11-09-2017 Thyroid stimulating hormone (TSH) 1.25 MICRO-IU/ML Normal 0.34-5.60 [facility] Comment on above: Order Comment: No: D o not add to previous draw Performed By: #### 4 6413, 53946, 72915, 16334 ####[facility] Vital Signs Date Time Vital Sign Value Performing Clinician Deb torrez 02-02-2025 15:45-0400 Body mass index (BMI) [Ratio] 24.03 kg/m2 Becca DALE Work Phone: [facility] 02-02-2025 15:45-0400 Body weight 75.98 kg Becca DALE Work Phone: [facility] 02-02-2025 15:45-0400 Diastolic blood pressure 80 mm[Hg] Becca DALE Work Phone: [facility] 02-02-2025 15:45-0400 Systolic blood pressure 108 mm[Hg] Becca DALE Work Phone: [facility] 01-05-2025 14:08-0400 Body mass index (BMI) [Ratio] 22.67 kg/m2 Saravanan Wilson DO Work Phone: [facility] 01-05-2025 14:08-0400 Body weight 71.67 kg Saravanan Wilson DO Work Phone: [facility] 01-05-2025 14:08-0400 Diastolic blood pressure 72 mm[Hg] Saravanan Wilson DO Work Phone: [facility] 01-05-2025 14:08-0400 Systolic blood pressure 118 mm[Hg] Saravanan Wilson DO Work Phone: [facility] 12-04-2024 12:53-0400 Body mass index (BMI) [Ratio] 21.56 kg/m2 Nom Nurse [facility] 12-04-2024 12:53-0400 Body weight 68.15 kg [facility] Nurse [facility] 12-04-2024 12:53-0400 Diastolic blood pressure 84 mm[Hg] [facility] Nurse [facility] 12-04-2024 12:53-0400 Systolic blood pressure 120 mm[Hg] [facility] Nurse [facility] 07-21-2024 14:39-0500 Body mass index (BMI) [Ratio] 21.95 kg/m2 Becca Ger PA Work Phone: [facility] 07-21-2024 14:39-0500 Body weight 69.4 kg Becca Ger PA Work Phone: [facility] 07-21-2024 14:39-0500 Diastolic blood pressure 64 mm[Hg] Becca Keating PA Work Phone: [facility] 07-21-2024 14:39-0500 Systolic blood pressure 110 mm[Hg] Becca Kingwood PA Work Phone: [facility] 06-11-2024 09:28-0500 Body mass index (BMI) [Ratio] 21.58 kg/m2 Becca Keating PA Work Phone: [facility] 06-11-2024 09:28-0500 Body weight 68.22 kg Becca Keating PA Work Phone: [facility] 06-11-2024 09:28-0500 Diastolic blood pressure 70 mm[Hg] Becca Ger PA Work Phone: [facility] 06-11-2024 09:28-0500 Systolic blood pressure 108 mm[Hg] Becca Kingwood PA Work Phone: [facility] Healthcare Encounters Encounter Date Encounter Type Care Provider Facility Start: 02-02-2025 End: 02-02-2025 ambulatory BECCA KEATING Not Available Start: 02-02-2025 End: 02-02-2025 flow sheet Becca DALE Work Phone: [facility] Cortez SALOMON Comment on above: Second trimester pre gnancy ([facility]); 17 weeks gestation of ([facility]); Screening, , for anatomic survey ([facility]); Vaginal discharge Start: 02-02-2025 End: 02-02-2025 Bamboo flowsheet Becca DALE Work Phone: [facility] Start: 02-02-2025 End: 02-04-2025 Bamboo flowsheet [facility]ALE [facility] Start: 02-02-2025 End: 02-04-2025 External Result Encounter Becca DALE Work Phone: [facility] Unsolicited Start: 01-05-2025 End: 01-05-2025 Bamboo flowsheet Saravanan Wilson DO Work Phone: [facility] Start: 01-05-2025 End: 01-05-2025 Bamboo flowsheet Saravanan Wilson DO Work Phone: [facility] Start: 01-05-2025 End: 01-05-2025 ambulatory SARAVANAN WILSON Not Available Start: 01-05-2025 End: 01-05-2025 flow sheet Saravanan Wilson DO Work Phone: [facility] Comment on above: Second trimester pre gnancy ([facility]); 13 weeks gestation of ([facility]) Start: 12-08-2024 End: 12-08-2024 Clinisync Result Encounter Saravanan Wilson DO Work Phone: [facility] External [facility] Unsolicited Start: 12-08-2024 End: 12-08-2024 Clinisync Result Encounter Saravanan Wilson DO Work Phone: [facility] Unsolicited Start: 12-04-2024 End: 12-04-2024 Office outpatient visit 5 minutes [facility] Wilson Nurse [facility] Comment on above: GA: 8w6d Start: 12-04-2024 End: 12-04-2024 ambulatory BECCA KEATING Not Available Start: 07-21-2024 End: 07-21-2024 Bamboo flowsheet Becca DALE Work Phone: [facility] Start: 07-21-2024 End: 07-25-2024 Bamboo flowsheet Becca DALE Work Phone: [facility] Start: 07-21-2024 End: 07-25-2024 Clinisync Result Encounter Becca DALE Work Phone: [facility] External [facility] Unsolicited Start: 07-21-2024 End: 07-21-2024 Patient encounter procedure Becca DALE Work Phone: [facility] Work Phone: Start: 07-21-2024 End: 07-21-2024 Periodic preventive med est patient 18-39 yrs Becca DALE Work Phone: [facility] Comment on above: Well woman exam with routine gynecological exam; Uses control Start: 07-21-2024 End: 07-21-2024 ambulatory BECCA KEATING Not Available Start: 06-11-2024 End: 06-11-2024 Bamboo flowsheet Becca DALE Work Phone: [facility] Start: 06-11-2024 End: 06-11-2024 Bamboo flowsheet Becca DALE Work Phone: [facility] Start: 06-11-2024 End: 06-11-2024 Office outpatient visit 10 minutes Becca DALE Work Phone: [facility] Comment on above: Lipoma of other spec ified sites (Primary Dx) Start: 06-11-2024 End: 06-11-2024 ambulatory BECCA KEATING Not Available Start: 08-21-2023 End: 08-22-2023 ambulatory NIMO VEGAS [facility] Start: 05-04-2023 End: 05-04-2023 ambulatory Triny Browne Other [facility] Other Start: 05-04-2023 Telephone encounter Triny Browne [facility] Start: 05-03-2023 ambulatory [facility] Start: 04-29-2023 End: 04-29-2023 ambulatory Triny Browne Facility:[facility] Start: 04-29-2023 End: 04-29-2023 ambulatory [employer] Triny Browne Work Phone: [facility] Work Phone: Start: 04-29-2023 End: 04-29-2023 Departed Referred [employer] Triny Browne Work Phone: [facility] [place] Work Phone: Start: 04-10-2023 ambulatory FRANCISCOANN-MARIE ANTUNEZ [facility] Start: 03-26-2023 ambulatory FRANCISCOANN-MARIE ANTUNEZ [facility] Start: 03-09-2023 ambulatory FRANCISCOANN-MARIE ANTUNEZ [facility] Start: 12-07-2020 End: 12-08-2020 ambulatory ALISHA SHELLEY Facility:[facility] Start: 03-02-2020 End: 03-03-[address] ANN DUNHAM Facility:[facility] Start: 01-27-2020 End: 01-28-[address] SLICK GRAFF Facility:[facility] Procedures Date Procedure Procedure Detail Performing Clinician Start: 02-02-2025 RECURRENT VAGINITIS (HTRX) Becca DALE Work Phone: Start: 02-02-2025 Urnls dip stick/tabl et rgnt non-auto w/o micrscp Becca DALE Work Phone: Start: 01-05-2025 Urnls dip stick/tabl et rgnt non-auto w/o micrscp Saravanan Wilson DO Work Phone: Start: 12-08-2024 ALL CBC WITH AUTO DIFF Saravanan Wilson DO Work Phone: Start: 12-08-2024 MLR HEMOGLOBIN A1C Core y Wilson DO Work Phone: Start: 12-04-2024 End: 12-04-2024 Urnls dip stick/tablet rgnt non-auto w/o micrscp Saravanan Wilson DO Work Phone: Start: 07-21-2024 IGP,APTIMA HPV,AGE GDLN Becca DALE Work Phone: Plan of Treatment Date Care Activity Detail Author Start: 03-02-2025 End: 03-02-2025 Patient encounter procedure 03/02/2025 9:00 AM EDT Routine [facility] [address] [place] [address] Saravanan Rachel DO [address] [place] [address] [facility] [place] [facility] Start: 03-02-2025 End: 03-02-2025 Professional / ancillary services management 03/02/2025 8:00 AM EDT Ancillary Procedure [facility] SAL[facility]ON [address] [place] [id number] [facility] Start: 02-02-2025 End: 04-05-2025 Alpha fetoprotein, maternal Alpha fetoprotein, maternal Lab Routine Second trimester ([facility]) Expected: 02/02/2025 (Approximate), Expires: 04/05/2025 [facility] Comment on above: Expected: 02/02/2025 (Approximate), Expires: 04/05/2025 Start: 02-02-2025 End: 05-05-2025 US for US OB 14+ weeks anatomy scan Imaging Routine Screening, , for anatomic survey ([facility]) Expected: 02/02/2025, Expires: 05/05/2025 [facility] Comment on above: Expected: 02/02/2025 , Expires: 05/05/2025 Start: 01-05-2025 End: 01-05-2025 Patient encounter procedure 01/05/2025 1:50 PM EDT Routine [facility] [address] [place] [id number] Saravanan Rachel, DO [address] [place] [address] [facility] Start: 12-04-2024 End: 12-04-2025 ABO/Rh ABO/Rh Lab [...] first trimester Expected: 12/04/2024 (Approximate), Expires: 12/04/2025 [facility] Comment on above: Expected: 12/04/2024 (Approximate), Expires: 12/04/2025 Start: 11-28-2024 End: 02-28-2025 US Pelvis transvaginal US OB transvaginal Imaging Routine Missed menses Expected: 11/28/2024, Expires: 02/28/2025 [facility] Work Phone: Comment on above: Expected: 11/28/2024 , Expires: 02/28/2025 Start: 07-21-2024 End: 07-21-2024 Patient encounter procedure [facility] Comment on above: Arrived Start: 06-11-2024 End: 06-11-2024 Patient encounter procedure 06/11/2024 9:30 AM EST Office Visit [facility] [address] [place] [id number] Becca Keating PA [address] [place], [place] [id number] Arrived [facility] Comment on above: Arrived Start: 04-29-2023 Bacteria identified in Urine by Culture [facility] Start: 04-29-2023 [facility] Atopobium vaginae DN A [Presence] in Vaginal fluid by ALEXANDER with probe detection [facility] Bacteria identified in Urine by Culture Urine culture Microbiology Routine Missed menses Ordered: 12/04/2024 [facility] Comment on above: Ordered: 12/04/2024 Bacterial vaginosis associated bacterium 2 DNA [Presence] in Vaginal fluid by ALEXANDER with probe detection [facility] CBC W Auto Different ial panel - Blood CBC and differential Lab Routine Missed menses , unspecified gestational age Ordered: 12/04/2024 [facility] Comment on above: Ordered: 12/04/2024 CHLAMYDIA TRACHOMATI S (GENITO/STI) CHLAMYDIA TRACHOMATIS (GENITO/STI) Lab Routine Vaginal discharge Ordered: 02/02/2025 [facility] Comment on above: Ordered: 02/02/2025 Cytology Cervical or vaginal smear or scraping study Pap Smear Pathology and Cytology Routine Well woman exam with routine gynecological exam Ordered: 07/21/2024 [facility] Work Phone: Comment on above: Ordered: 07/21/2024 Hemoglobin A1c/Hemoglobin.total in Blood Hemoglobin A1c Lab Routine Missed menses , unspecified gestational age Ordered: 12/04/2024 [facility] Comment on above: Ordered: 12/04/2024 Hepatitis B virus surface Ag [Presence] in Serum or Plasma by Immunoassay Hepatitis B surface antigen Lab Routine Missed menses , unspecified gestational age Ordered: 12/04/2024 [facility] Comment on above: Ordered: 12/04/2024 Hepatitis C virus Ab [Presence] in Serum or Plasma by Immunoassay Hepatitis C antibody Lab Routine Missed menses , unspecified gestational age Ordered: 12/04/2024 [facility] Comment on above: Ordered: 12/04/2024 HIV-1/HIV-2 antigen/antibody combination immunoassay HIV-1 and HIV-2 antibodies Lab Routine Missed menses , unspecified gestational age Ordered: 12/04/2024 [facility] Comment on above: Ordered: 12/04/2024 Megasphaera sp type 1 DNA [Presence] in Vaginal fluid by ALEXANDER with probe detection [facility] Neisseria gonorrhoea e DNA [Presence] in Unspecified specimen by ALEXANDER with probe detection Neisseria gonorrhea DNA probe, direct Lab Routine Vaginal discharge Ordered: 02/02/2025 [facility] Comment on above: Ordered: 02/02/2025 Reagin Ab [Presence] in Serum by RPR RPR Lab Routine Missed menses , unspecified gestational age Ordered: 12/04/2024 [facility] Comment on above: Ordered: 12/04/2024 Rubella antibody, IgG Rubella an tibody, IgG Lab Routine Missed menses , unspecified gestational age Ordered: 12/04/2024 [facility] Comment on above: Ordered: 12/04/2024 SURESWAB(R) ADVANCED VAGINITIS PLUS, TMA SURESWAB(R) ADVANCED VAGINITIS PLUS, TMA Pathology and Cytology Routine Vaginal discharge Ordered: 02/02/2025 [facility] Work Phone: Comment on above: Ordered: 02/02/2025 US Pelvis transvaginal US OB tra nsvaginal Imaging Routine Missed menses 12/04/2024 12:52 PM EDT [facility] Payers Date Payer Category Payer Self-pay 2023 Unknown [id number] 2022 Private Health Insurance [id number] 2022 Unknown [id number] 2.16.8 [id number] 2002 Unknown [id number] 2.16.84 [id number] 2002 Unknown [id number] 2.16.8 40.1.863423.3.579.2.1286 2002 Unknown [id number] 2.16.8 40.1.063915.3.579.2.1286 2002 Unknown [id number] 2.16.8 40.1.174320.3.579.2.1286 2002 Unknown [id number] 2.16.8 40.1.196788.3.579.2.1259 2002 Unknown [id number] 2.16.8 40.1.558703.3.579.2.1259 2002 Unknown [id number] 2.16.84 0.1.136711.3.579.2.1259 2002 Unknown [id number] 2.16.84 0.1.727520.3.579.2.1259 2002 Unknown [id number] 2.16.84 0.1.641737.3.579.2.1259 2002 Unknown [id number] 2.16.84 0.1.872903.3.579.2.1259 1977 Unknown [id number] 2.16.84 0.1.275026.3.579.2.593 1977 Unknown [id number] 2.16.84 0.1.228334.3.579.2.593 1959 Unknown [id number] Unknown [id number] 2.16.8 40.1.831444.3.579.2.531 Social History Date Type Detail Facility Tobacco smoking status NVIS Unknown if ever smoked [facility] Work Phone: Start: 2002 Sex Assigned At Female F [facility] Sex Assigned At [facility] [employer] Other Tobacco smoking status NVIS Tobacco smoking consumption unknown [facility] Start: 07-17-2023 Gender identity Identifies as female gender (finding) [facility] Start: 10-17-2024 [facility] Notes 03-02-2020 to 02-02-2025 CHITO Alvarez - 02/02/2025 3:30 PM CHITO Bird - 01/05/2025 1:50 PM Ora Owusu MA - 12/04/2024 1:00 PM CHITO Bird - 07/21/2024 2:00 PM CHITO Dietrich - 06/11/2024 9:30 AM EST Note Date & Type Note Facility 02-02-2025 History of Present illness Narrative Reason for Appointment: Patient ID: Christina Muhammad is a 24 y.o. female who presents for Routine Visit Patient presents today for Return OB appointment. MEDICATIONS Current Outpatient Medications Medication Instructions cetirizine (ZyrTEC) 10 MG tablet metoclopramide (REGLAN) 10 mg, Oral, 3 times daily before meals, Take 1 tablet by mouth 30 minutes prior to meals 3 times daily as needed for nausea. ondansetron (ZOFRAN) 4 mg, Oral, Every 6 hours PRN, Take 1 tablet by mouth every 6 hours as needed for nausea. sertraline (Zoloft) 50 MG tablet ALLERGIES No Known Allergies PROBLEMS Active Ambulatory [...] No family history on file. SURGICAL HISTORY No past surgical history on file. REVIEW OF SYSTEMS Review of Systems: Review [...] reviewed. Vitals: Estimated body mass index is 24.03 kg/m as calculated from the following: Height as of 07/17/23: 5' 10 . Weight as of this encounter: 167 lb 8 oz. BP: 108/80 Patient's last menstrual period was 10/03/2024. ASSESSMENT & PLAN (Z34.92) Second trimester ([facility]) Plan: Alpha fetoprotein, maternal, Alpha fetoprotein, maternal (Z3A.17) 17 weeks gestation of ([facility]) Plan: POCT urinalysis dipstick manually resulted (Z36.89) Screening, , for anatomic survey ([facility]) Plan: US OB 14+ weeks anatomy scan (N89.8) Vaginal discharge Plan: SURESWAB(R) ADVANCED VAGINITIS PLUS, TMA, CHLAMYDIA TRACHOMATIS (GENITO/STI), Neisseria gonorrhea DNA probe, direct Return OB: Patient presents today for a routine obstetrics appointment. Patient is currently 17w3d . Patient states she is doing well but has complaints of being tired due to current . Patient has verbalizes frequent movement. Orders Placed This Encounter Procedures US OB 14+ weeks anatomy scan CHLAMYDIA TRACHOMATIS (GENITO/STI) Neisseria gonorrhea DNA probe, direct Alpha fetoprotein, maternal POCT urinalysis dipstick manually resulted Follow Up: Patient is to return to office in 4 week for routine OB appointment. Documented by CHITO Alvarez on behalf of: CHITO Alvarez documented in this encounter [facility] 01-05-2025 History of Present illness Narrative Reason for Appointment: Patient ID: Christina Muhammad is a 24 y.o. female who presents for Routine Visit Patient presents today for Return OB appointment. MEDICATIONS Current Outpatient Medications Medication Instructions metoclopramide (REGLAN) 10 mg, Oral, 3 times daily before meals, Take 1 tablet by mouth 30 minutes prior to meals 3 times daily as needed for nausea. ondansetron (ZOFRAN) 4 mg, Oral, Every 6 hours PRN, Take 1 tablet by mouth every 6 hours as needed for nausea. sertraline (Zoloft) 50 MG tablet ALLERGIES No Known Allergies PROBLEMS Active Ambulatory [...] reviewed. Vitals: Estimated body mass index is 22.67 kg/m as calculated from the following: Height as of 07/17/23: 5' 10 . Weight as of this encounter: 158 lb. BP: 118/72 Patient's last menstrual period was 10/03/2024. ASSESSMENT & PLAN ICD-10-CM 1. Second trimester ([facility]) Z34.92 POCT urinalysis dipstick manually resulted 2. 13 weeks gestation of ([facility]) Z3A.13 Return OB: Patient presents today for a routine obstetrics appointment. Patient is currently 13w3d . Patient states she is doing well but has complaints of being tired due to current .patient states nausea has been improving Orders Placed This Encounter Procedures POCT urinalysis dipstick manually resulted Follow Up: Patient is to return to office in 4 week for routine OB appointment. Documented by CHITO Alvarez on behalf of: Saravanan Rachel DO documented in this encounter [facility] 12-04-2024 History of Present illness Narrative Reason [...] or undercooked meat, and stay away from [facility]. Patient has also been advised to not [...] Rupal Owusu MA documented in this encounter [facility] 07-21-2024 History of Present illness Narrative Reason [...] nursing note reviewed. Exam conducted with a cherry dipper present. Vitals: Estimated body mass index is 21.95 kg/m as calculated from the following: Height as of 07/17/23: 5' 10 . Weight as of this encounter: 153 lb. BP: 110/64 Patient's last menstrual period was 06/29/2024. ASSESSMENT & PLAN ICD-10-CM 1. Well woman exam with routine gynecological exam Z01.419 Pap Smear 2. Uses control Z78.9 norethindrone-ethinyl estradiol (Blisovi FE /20) 1-20 MG-MCG tablet Annual Exam: Patient presents [...] of: CHITO Alvarez documented in this encounter [facility] 06-11-2024 History of Present illness Narrative Reason for Appointment: Patient ID: Christina Muhammad is a 24 y.o. female who presents for Pelvic lump Patient presents today for Acute Visit. MEDICATIONS Current Outpatient Medications Medication Instructions midodrine (PROAMATINE) 5 mg, Oral, 3 times daily norethindrone-ethinyl estradiol (Blisovi FE /20) 1-20 MG-MCG tablet 1 tablet, Oral, Daily [...] of: CHITO Alvarez documented in this encounter [facility] 06-14-2023 Note Psych Progress Note WEBEX SESSION [...] medication compliance and somatic anxiety. Has an [employer] appt Jul 17. Response to Intervention: Agreeable [...] (electronically signed on 06/14/2023 at 3:59 PM) [facility] 05-17-2023 Note Psych Progress Note WEBEX [...] (electronically signed on 05/17/2023 at 11:07 AM) [facility] 05-03-2023 Note Psych Progress Note WEBEX [...] calling MD re: taking supplements. Advised seeing [employer]. Response to Intervention: Agreeable Overall Assessment of [...] (electronically signed on 05/03/2023 at 11:00 AM) [facility] 04-10-2023 Note Psych Progress Note WEBEX [...] help her with OBGYN appt. Also saw scale installer and has low blood pressure. AGREED will make an appt with mother to go over health insurance and other benefits. Call to schedule echo for cardio issues. NEED TO REVIEW - call advisor at [facility]. Response to Intervention: Agreeable Overall Assessment of [...] (electronically signed on 04/10/2023 at 11:18 AM) [facility] 03-26-2023 Note Psych Progress Note WEBEX [...] scale and anxiety as high. 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 Worries about college - wants to get an Associates in [employer]. Failed digital literacy class. Addressed plans and worries about her future, medical issues. AGREED - schedule OBGYN, and call advisor at [facility]. Response to Intervention: Agreeable Overall Assessment of [...] (electronically signed on 03/26/2023 at 10:57 AM) [facility] 03-09-2023 Note Department of Psychi atry Diagnostic Assessment Time In: 10 am Time Out: 10:55 am Encounter Type: On-Site Video at [facility] Patient Name: Christina Muhammad MRN / CSN: [id number] Date of / Age: 10 2000 y.o. [...] session, they were at home ([address], [place]), and I was in my home office. Their alternate # was reported as ([phone]). They informed me that they were in [...] lives with boyfriend Osmin, now, at [address], [place], [place]. 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 SCHOOL / JOB Not in school now. [...] Dr Antunez at age 17. No meds. 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 She is . STRENGTHS /WEAKNESSES /GOALS She [...] is a 23 y.o. female (marital status) (gnosticism) (job) (living) Chief Complaint Anxiety History of Present Illness: Christina Muhammad is a 23 y.o. female with past psychiatric history of anxiety presenting to the [facility] for a psychiatric evaluation. [...] Denies Head I (more content not included)... [facility] 03-02-2020 Note PROCEDURE: XR FOOT L T MIN 3 VIEWS COMPARISON: None. HISTORY: Pain in left foot FINDINGS: BONES:No fracture, acute abnormality, or significant arthropathy. Incidental fused os trigonum SOFT TISSUES:Negative. No visible soft tissue swelling. EFFUSION:None visible. OTHER: Negative. IMPRESSION: No acute abnormality Electronically authenticated by: ANN DUNHAM Date: 2020-03-02 09:21 [facility] Evaluation note No assessment inform ation available [facility] Work Phone: Evaluation note No Information [facility] Other Evaluation note Diagnosis Lipoma of other specified sites- Primary [facility] Diagnosis Well woman exam with routine gynecological exam Routine gynecological examination Uses control [facility] Diagnosis Missed menses , unspecified gestational age Encounter for supervision of normal first in first trimester [facility] Diagnosis Second trimester ([facility]) state, incidental 13 weeks gestation of ([facility]) [facility] Diagnosis Second trimester ([facility]) state, incidental 17 weeks gestation of ([facility]) Screening, , for anatomic survey ([facility]) Encounter for anatomic survey Vaginal discharge Leukorrhea, not specified as infective documented in this encounter [facility] Summary Purpose Family History No Family History [...] and content) DATE CREATED AUTHOR 12/25/2017 [facility] DATE CREATED AUTHOR AUTHOR'S ORGANIZ ATION 12/17/2020 [facility] DATE CREATED AUTHOR AUTHOR'S ORGANIZ ATION 05/07/2023 [facility] DATE CREATED AUTHOR AUTHOR'S ORGANIZ ATION 06/15/2023 [facility] DATE CREATED AUTHOR AUTHOR'S ORGANIZ ATION 09/09/2023 [facility] DATE CREATED AUTHOR AUTHOR'S ORGANIZ ATION 02/03/2025 [facility] dical Specialists EPIC Care Teams (unrecognized sec tion and content) Team Status: Inactive Member Role Status Dates Triny Browne NP Attending Provider Active Skylights Assembler Relationship Specialty Start Date End Date Slick Graff MD [address] [place] [address], [address] [place] [address] PCP - General Family Medicine 07/17/23 Skylights Assembler Relationship Specialty Start Date End Date Slick Graff MD [address] [place] [address], [address] [place] [address] PCP - General Family Medicine 07/17/23 Skylights Assembler Relationship Specialty Start Date End Date Slick Graff MD [address] [place] [address], [address] [place] [address] PCP - General Family Medicine 07/17/23 Skylights Assembler Relationship Specialty Start Date End Date Slick Graff MD [address] [place] [address], [address] [place] [address] PCP - General Family Medicine 07/17/23 Skylights Assembler Relationship Specialty Start Date End Date Slick Graff MD [address] [place] [address], [address] [place] [address] PCP - General Family Medicine 07/17/23 Skylights Assembler Relationship Specialty Start Date End Date Slick Graff MD [address] [place] [address], [address] [place] [address] PCP - General Family Medicine 07/17/23 Skylights Assembler Relationship Specialty Start Date End Date Slick Graff MD [address] [place] [address], [address] [place] [address] PCP - General [facility] 07/17/23 Skylights Assembler Relationship Specialty Start Date End Date Slick Graff MD [address] [place] [address], [address] [place] [address] PCP - [facility] 07/17/23 Skylights Assembler Relationship Specialty Start Date End Date Slick Graff MD [address] [place] [address], [address] [place] [address] PCP - [facility] 07/17/23 Skylights Assembler Relationship Specialty Start Date End Date Slick Graff MD [address] [place] [address], [address] [place] [address] PCP - [facility] 07/17/23 Goals (unrecognized section and content) Goals may be documented in a n alternate sectionNo Information Reason for Visit (unrecogniz ed section and content) Reason Comments Routine Visit Reason Comments Amenorrhea Reason Comments Well Women Visit Reason Comments [...] BE BASED ON THE PRIMARY CLINICAL RECORDS. [employer] [facility]. provides no warranty or guarantee of the accuracy or completeness of information in this document.
== END 2025-03-02 07:05 | disposition home or self-care (01) ==
LOC: US 07:04
PROVIDERS: PCP Internal Medicine; Visit Provider Physician Assistant
DX: Z36.89 Encounter for other specified antenatal screening (principal); Z3A.22 22 weeks gestation of pregnancy
CPT/HCPCS: 76805; 76817

== ENCOUNTER 2025-04-04 11:27 | Outpatient (OUT) | payer OTHER, SELFPAY ==
--- OUTSIDE RECORDS SUMMARY | 2025-03-16 13:16 | XMS_ITS ---
Author Name Auto Generated Organization [facility] Care Team Providers Care Meter Installer Name Role Phone SARAVANAN NIETO Attending Unavailable PIETRO KEATING Attending Unavailable SARAVANAN NIETO Attending Unavailable JOSELINE ANGELO Attending Unavailable PIETRO KEATING Attending Unavailable PIETRO KEATING Attending Unavailable PROBLEMS No Problem Records Found PROCEDURES No Procedure Records Found RESULTS US OB TRANSVAGINAL Observed: 12/04/2024 12:30 PM Status: F Source: [facility] EPIC Order Comment: US OB TRANSVA GINAL No LMP recorded. EXAM: US OB TRANSVAGINAL HISTORY: Dating. COMPARISON: None available. TECHNIQUE: Two-dimensional [...] II, MD, PHD at 05-Dec-2024 11:53:06 AM [facility] ALLERGIES No Allergies Records Found ENCOUNTERS ADMIT/DISCHARGE ACCOUNT NUMBER ADMITTING ENCOUNTER CLASS LOCATION SOURCE 03/16/2025/ 5 [id number] Ambulatory Building:[facility] 03/02/2025/ 5 [id number] Ambulatory Building:[facility] 02/02/2025/ 5 [id number] Ambulatory Building:[facility] 01/05/2025/ 5 [id number] Ambulatory Building:[facility] 12/04/2024/ 5 [id number] Ambulatory Building:[facility] 12/04/2024/ 5 [id number] Ambulatory Building:[facility] 07/21/2024/ 5 [id number] Ambulatory Building:[facility] 06/11/2024/ 4 [id number] Ambulatory Building:[facility] PAYERS ENCOUNTER GUARANTOR PAYER SUBSCRIBER SOURCE 03/16/2025 BETO WHITESIDE: [id number] [place], [place] [address]Bci: (HP) Primary Insurance:HEALTH SCOPEPolicy Number: [id number] e Date:2022-07-09 AKILAH PERAZAYESDOB: [id number] [place] [address] [facility] EPIC 03/02/2025 BETO BURNSDOB: [place], [place] [address]Fiz: (HP) Primary Insurance:HEALTH SCOPEPolicy Number: [id number] e Date:2022-07-09 AKILAH REYESDOB: [id number] [place] [address] [facility] EPIC 02/02/2025 BTEO BURNSDOB: [place], [place] [address]Lhz: (HP) Primary Insurance:HEALTH SCOPEPolicy Number: [id number] e Date:2022-07-09 AKILAH PERAZAYESDOB: [id number] [place] [address] [facility] EPIC 01/05/2025 BETO BURNSDOB: [place], [place] [address]Lwb: (HP) Primary Insurance:HEALTH SCOPEPolicy Number: [id number] e Date:2022-07-09 AKILAH PERAZAYESDOB: [id number] [place] [address] [facility] EPIC 12/04/2024 BETO BURNSDOB: [place], [place] [address]Vcw: (HP) Primary Insurance:HEALTH SCOPEPolicy Number: [id number] e Date:2022-07-09 AKILAH KARMENYESDOB: [id number] [place] [address] [facility] EPIC 12/04/2024 BETO BURNSDOB: [place], [place] [address]Smr: (HP) Primary Insurance:HEALTH SCOPEPolicy Number: [id number] e Date:2022-07-09 AKILAH FERREIRAOB: [id number] [place] [address] [facility] EPIC 07/21/2024 BETO WHITESIDE: [place], [place] [address]Jeo: () Primary Insurance:HEALTH SCOPEPolicy Number: [id number] e Date:2022-07-09 AKILAH FERREIRAOB: [id number] [place] [address] [facility] EPIC 06/11/2024 BETO WHITESIDE: [place], [place] [address]Tcp: () Primary Insurance:HEALTH SCOPEPolicy Number: [id number] e Date:2022-07-09 AKILAH FERREIRAOB: [id number] [place] [address] [facility] EPIC
[2025-04-04 12:58] LABS: Hematocrit 31.9 % (36.0-48.0); Hemoglobin 10.7 g/dL (12.0-16.0); Immature Granulocytes Abs Auto 0.10 10^3/uL (0.00-0.03); Immature Granulocytes Pct Auto 0.8 % (0.0-0.5); Lymphocytes Absolute Auto 1.3 10^3/uL (1.2-3.8); Mean Corpuscular HGB Conc 33.5 g/dL (29.9-35.2); Mean Corpuscular Hemoglobin 30.6 pg (26.7-34.0); Mean Corpuscular Volume 91.1 fL (81.0-99.0); Platelet Count 232 10^3/uL (150-450); Red Blood Count 3.50 10^6/uL (4.20-5.40); White Blood Count 12.1 10^3/uL (4.0-11.0)
[2025-04-04 13:02] LABS: Glucose 1 Hour 83 mg/dL (<130)
== END 2025-04-04 11:28 | disposition home or self-care (01) ==
PROVIDERS: PCP Internal Medicine; Visit Provider Nurse Practitioner Family
DX: Z13.1 Encounter for screening for diabetes mellitus (principal)
CPT/HCPCS: 36415; 82950; 85025

== ENCOUNTER 2025-06-06 09:02 | Outpatient (OUT) | payer OTHER, SELFPAY ==
--- OUTSIDE RECORDS SUMMARY | 2025-06-03 14:50 | XMS_ITS | Encounter Summary ---
Author Organization [facility] Address [address] [place] [address] Care Team Providers Care Operations Research Scientist Name Role Phone Dick Parker MD Primary Care Provider Reason for Referral * (Routine) - AuthorizedSpecialtyDiagnoses / ProceduresReferred By Contact Referred To ContactRadiology Diagnoses Right leg pain Procedures Vascular US lower extremity venous duplex right Rudi Rachel DO [address] [place] [address] Phone: tel: fax: Referral IDStatusReasonStart DateExpiration DateVisits RequestedVisits [id number] Reason for Visit * ReasonCommentsRoutine Visit Encounter Details DateTypeDepartmentCare Team (Latest Contact Info)Spyvskruvgl61/26/2025 2:50 PM ESTRoutine [facility] [place] [facility] [address] [place] [phone] Rudi Rachel DO [address] [place], [place] [id number] Third trimester ([facility]); 34 weeks gestation of ([facility]); Right leg pain Social History Tobacco UseTypesPacks/DayYears UsedDateSmoking Tobacco: Never Assessed Estimated Date of ByxinltyUgmgscohNjx24/02/2026ased on last menstrual period of 10/03/2024Sex and Gender InformationValueDate RecordedSex Assigned at BirthFemale 07/17/2023 10:18 AM ESTLegal XxhZhctms12/15/2023 11:47 PM EDTGender Identity Vilmhk4407/17/2023 10:18 AM ESTSexual OrientationNot on filedocumented as of this encounter Last Filed Vital Signs Vital SignReadingTime TakenCommentsBlood Aollaoge470/7206/03/2025 3:04 PM EST Pulse--Temperature--Respiratory Rate--Oxygen Saturation--Inhaled Oxygen Concentration--Ekzfii10.6 kg (210 lb 12.8 oz)06/03/2025 3:04 PM ESTHeight--Body Mass Index30.25007/17/2023 1:22 PM ESTdocumented in this encounter Progress Notes * Chiara Bobby, REFERRAL NURSE - 06/03/2025 2:50 PM EST Reason for [...] nursing note reviewed. Exam conducted with a ski patrol present. Vitals: Estimated body mass index is 30.25 kg/m?? as calculated from the following: Height as of 07/17/23: 5' 10 . Weight as of this encounter: 210 lb 12.8 oz. BP: 108/72 Patient's last menstrual period was 10/03/2024. Assessment/Plan ICD-10-CM 1. Third trimester ([facility]) Z34.93 POCT urinalysis dipstick manually resulted 2. 34 weeks gestation of ([facility]) Z3A.34 POCT urinalysis dipstick manually resulted Assessment/Plan [...] Plan of Treatment DateTypeDepartmentCare Team (Latest Contact Info)Cmjrdcbreus44/10/2025 3:20 PM ESTRoutine [facility] [address] [place] [phone] Rudi Rachel DO [address] [place] [address] NameTypePriorityAssociated DiagnosesOrder ScheduleVascular US lower extremity venous duplex rightImagingRoutine Right leg pain Expected: 06/03/2025, Expires: 06/03/2026documented as of this encounter Procedures Procedure NamePriorityDate/TimeAssociated DiagnosisCommentsPOCT URINALYSIS TZLGNQEEAdfqxtt19/26/2025 3:09 PM EST Third trimester ([facility]) 34 weeks gestation of ([facility]) documented in this encounter Results * POCT urinalysis dipstick manually resulted (06/03/2025 [...] Team MemberRelationshipSpecialtyStart DateEnd Date Dick Parker MD [address] [place] [address], [address] [place] [address] PCP - GeneralFamily Medicine07/17/23documented as of this encounter
--- OUTSIDE RECORDS SUMMARY | 2025-06-06 09:04 | XMS_ITS | CCD ---
Author Organization [facility] Care Team Providers Care Outside Sales Executive Name Role Phone ALISHA SHELLEY Attending Unavailable KARSTEN, ALISHA Admitting Unavailable CHARLA, DR ANN Marin Consulting Unavailable ALISHA SHELLEY Consulting Unavailable PRERNA, DR SLICK Fierro Attending Unavailable PRERNA, DR SLICK Fierro Consulting Unavailable PRERNA, DR SLICK Fierro Admitting Unavailable CHARLA, DR ANN Marin Consulting Unavailable KHOI LACKEY Admitting Unavailable KHOI LACKEY Attending Unavailable KHOI LACKEY Consulting Unavailable ANTONIO Browne Triny Attending Provider Triny Browne Unavailable Triny Browne Admitting Unavailable Triny Browne Attending Unavailable FRANCISCO DOYLE Attending Unavailable FRANCISCO DOYLE Attending Unavailable FRANCISCO DOYLE Attending Unavailable FRANCISCO DOYLE Attending Unavailable Slick Graff MD Primary Care Provider [phone] Slick Graff MD Primary Care Provider SARAVANAN RACHEL Attending Unavailable BECCA KEATING Attending Unavailable SARAVANAN RACHEL Attending Unavailable BETSY GATES Attending Unavailable BETSY GATES Attending Unavailable BECCA KEATING Attending Unavailable SARAVANAN RACHEL Attending Unavailable SARAVANAN RACHEL Referring Unavailable BECCA KEATING Attending Unavailable BECCA KEATING Attending Unavailable BECCA KEATING Attending Unavailable Allergies Allergy ClassificationReported Allergen(s)Allergy TypeDate of OnsetReaction(s) Facility (1 source)ALLERGIES NOT ON FILE; Translations: [ALLERGIES NOT ON FILE]Propensity to adverse reactions (disorder)[facility] Medications Current Medications MedicationDrug Class(es)DatesSig (Normalized)Sig (Original)cetirizine hydrochloride 10 mg oral tablet (20 sources)Histamine-1 Receptor AntagonistStart: 08-39-8948bdardknhal (ZyrTEC) 10 MG tablet 09/23/2024 ActiveEthinyl Estradiol / Ferrous fumarate / Norethindrone (10 sources)EstrogenStart: 08-21-2024 End: 52-13-5394gqyoizqyzufcw-ethinyl estradiol (Blisovi FE 120) 1-20 MG-MCG tablet Indications: Uses control Take 1 tablet by mouth Daily 90 tablet 3 08/21/2024 12/04/2024 Discontinued (Therapy completed)Start: 07-21-2024 End: 80-49-4754xbvpjasfqznfp-ethinyl estradiol (Blisovi FE 20) 1-20 MG-MCG tablet Indications: Uses control Take 1 tablet by mouth Daily 28 tablet 12 07/21/2024 07/21/2025 ActiveStart: 03-27-2024 End: 45-03-3117jvrfeplfvsmso-ethinyl estradiol (Blisovi FE 07/28) 1-20 MG-MCG tablet Indications: Uses control Take 1 tablet by mouth Daily 28 tablet 12 03/27/2024 07/21/2024 Discontinued (Reorder)Start: 03-27-2024 End: 01-58-8186xzzavvzzckavz-ethinyl estradiol (Blisovi FE 07/28) 1-20 MG-MCG tablet Indications: Uses control Take 1 tablet by mouth Daily 28 tablet 12 03/27/2024 03/27/2025 Activefluticasone propionate 0.05 mg/actuat metered dose nasal spray (14 sources)CorticosteroidStart: 55-78-6810gzlq 2 spray(s) nasal route in the morningfluticasone (Flonase) 50 MCG/ACT nasal spray Administer 2 sprays into affected nostril(s) in the morning. 02/05/2025 Activemetoclopramide 10 mg oral tablet (20 sources)Dopamine-2 Receptor AntagonistStart: 11-17-2024 End: 41-16-4657eqeonbvziiuhlc (Reglan) 10 MG tablet Indications: Nausea Take 1 tablet (10 mg) by mouth in the morning and 1 tablet (10 mg) at noon and 1 tablet (10 mg) in the evening. Take before meals. Take 1 tablet by mouth 30 minutes prior to meals 3 times daily as needed for nausea. 90 tablet 3 11/17/2024 Active midodrine hydrochloride 5 mg oral tablet (8 sources)alpha-Adrenergic AgonistStart: 05-15-2023 End: 93-05-2787lcbhhaian (Proamatine) 5 MG tablet Take 5 mg by mouth in the morning and 5 mg at noon and 5 mg in the evening. 05/15/2023 12/04/2024 Discontinuedomeprazole 20 mg delayed release oral capsule (2 sources)Proton Pump InhibitorStart: 05-20-2025 End: 09-78-9272vbnt 1 capsule by mouth before mealtimeomeprazole (PriLOSEC) [address] capsule Indications: Gastroesophageal Reflux Disease , Heartburn Take 1 capsule (20 mg) by mouth in the morning. Take before meals. Do not crush or chew. 30 capsule 3 05/20/2025 06/19/2025 Activeondansetron 4 mg disintegrating oral tablet (20 sources)Serotonin-3 Receptor AntagonistStart: 05-20-2025 End: 36-85-9180ixfh 1 tablet by mouth every six hours as needed for nausea and vomiting and nausea and nauseaondansetron ODT (Zofran-ODT) 4 MG disintegrating tablet Indications: Nausea Take 1 tablet (4 mg) bymouth every 6 (six) hours if needed for nausea or vomiting 30 tablet 2 05/20/2025 06/19/2025 ActiveStart: 39-51-2926exuj 1 tablet by mouth every six hours as needed for nausea and vomiting and nausea and nauseaondansetron (Zofran) 4 MG tablet Indications: Nausea Take 1 tablet (4 mg) by mouth every 6 (six) hours if needed for nausea or vomiting for up to 30 doses Take 1 tablet by mouth every 6 hours as needed for nausea. 30 tablet 3 11/10/2024 Activepolysaccharide iron complex 391 mg oral capsule (8 sources)Start: 04-06-2025 End: 54-44-1865qcqe 1 capsule by mouth once dailyiron polysaccharides (ProFe) 391.3 (180 Fe) MG capsule Indications: Anemia, unspecified type Take 1capsule (391.3 mg) by mouth Daily 30 capsule 6 04/06/2025 05/06/2025 Activepromethazine hydrochloride 12.5 mg oral tablet (1 source)PhenothiazineStart: 11-10-2024 End: 61-89-4420ylkr 1 tablet by mouth every six hours as needed for nausea and vomiting and nausea and nauseapromethazine (Phenergan) 12.5 MG tablet Indications: Nausea Take 1 tablet (12.5 mg) by mouth every 6 (six) hours if needed for nausea or vomiting for up to 30 doses Take 1 tablet by mouth every 6 hours as needed for nausea. 30 tablet 2 11/10/2024 12/04/2024 Discontinued sertraline 50 mg oral tablet (10 sources)Serotonin Reuptake InhibitorStart: 07-20-2024 End: 99-69-7675xesiaikxcd (Zoloft) 50 MG tablet 07/20/2024 03/02/2025 Discontinued (Side effects)24 hr venlafaxine 37.5 mg extended release oral capsule (17 sources)Serotonin and Norepinephrine Reuptake InhibitorStart: 03-02-2025 End: 61-70-7355ctut 1 capsule by mouth once dailyvenlafaxine XR (Effexor XR) 37.5 MG 24 hr capsule Indications: Anxiety, generalized Take 1 capsule (37.5 mg) by mouth Daily Do not crush or chew. 30 capsule 5 03/02/2025 03/02/2026 Active Completed/Discontinued Medications MedicationDrug Class(es)DatesSig (Normalized)Sig (Original)azithromycin 250 mg oral tablet (3 sources)Macrolide AntimicrobialStart: 01-12-2025 End: 98-60-9254axyxowlnvnul (Zithromax Z-Bjorn) 250 MG tablet Indications: Sinusitis, unspecified chronicity, unspecified location As directed 6 tablet 01/12/2025 02/02/2025 Discontinued Problems Active Problems Problem ClassificationProblemDateDocumented DateEpisodic/ChronicAnxiety disorders (6 sources)Generalized anxiety disorder; Translations: [Generalized anxiety disorder]Onset: 43-71-7266ZjuqxceBcdbfvipnc and other anemia (2 sources)Anemia; Translations: [Anemia, unspecified]59-88-7977Tnwaucwy Menstrual disorders (1 source)Missed period; Translations: [Irregular menstruation, unspecified] 01-21-0505NyniyilEftifw and vomiting (2 sources)Nausea; Translations: [Nausea]85-01-7593SczxvirgLmwujdgpvawa breast conditions (4 sources)Unspecified lump in axillary tail of the left breast; Translations: [UNS LUMP IN AXILLARY TAIL LT BREAST]Onset: 51-27-6747CkaplupiLejpw and unspecified benign neoplasm (2 sources)Lipoma (clinical); Translations: [Benign lipomatous neoplasm of other sites]02-51-7167VepkttayGbyte complications of (2 sources) size does not accord with dates; Translations: [Uterine size- date discrepancy, unspecified trimester]44-07-5638XgxcbtjsYzanv female genital disorders (2 sources)Vaginal discharge; Translations: [Other specified noninflammatory disorders of vagina]69-24-9463YarbqyrsCxrdl gastrointestinal disorders (2 sources)Heartburn; Translations: [Heartburn]04-87-6045ExzsibayEzxlv and delivery including normal (18 sources); Translations: [Encounter for supervision of normal , unspecified, unspecified trimester]76-03-4910EaapwbrqYeong screening for suspected conditions (not mental disorders or infectious disease) (4 sources)Patient encounter status; Translations: [Encounter for other specified screening]42-13-0705PtciijqnLtetezfk codes; unclassified (2 sources)Contraception ; Translations: [Other specified health status] 75-96-2564ZtsxbhtrTkzpdpzw codes; unclassified (2 sources)Gestation period, 13 weeks; Translations: [13 weeks gestation of ]97-55-9416AtvnefnbWiqwhmrn codes; unclassified (2 sources)Gestation period, 17 weeks; Translations: [17 weeks gestation of ]49-00-1062LjnkihjxWcoaigfi codes; unclassified (2 sources)Gestation period, 21 weeks; Translations: [21 weeks gestation of ]87-68-7404GaaqosmcWyyjlhgn codes; unclassified (2 sources)Gestation period, 23 weeks; Translations: [23 weeks gestation of ]52-19-1561MytisftjWykatvyt codes; unclassified (2 sources)Gestation period, 26 weeks; Translations: [26 weeks gestation of ]67-26-9845NottxrsmBoupmbcd codes; unclassified (2 sources)Gestation period, 28 weeks; Translations: [28 weeks gestation of ]41-12-3985EmldqsvlDrzrjouz codes; unclassified (2 sources)Gestation period, 30 weeks; Translations: [30 weeks gestation of ]50-18-3548IzkxbwpoZrddgofo codes; unclassified (2 sources)Gestation period, 32 weeks; Translations: [32 weeks gestation of ]06-49-2459DdznfviaIpzmtdtcxgou (1 source)Frequency of micturition; Translations: [Frequency of micturition] Onset: 04-29-2023 Past or Other Problems Problem ClassificationProblemDateDocumented DateEpisodic/ChronicFever of unknown origin (1 source)Fever, unspecified; Translations: [FEVER UNSPECIFIED]Onset: 01-31-2020 EpisodicImmunizations and screening for infectious disease (4 sources)Encounter for screening for other viral diseases; Translations: [ENC SCREENING FOR OTH VIRAL DZ]Onset: 60-43-5127FxyiogpcPcruq connective tissue disease (4 sources)Pain in left foot; Translations: [PAIN IN LEFT FOOT]Onset: 03-02-2020 EpisodicOther upper respiratory infections (1 source)Acute pharyngitis due to other specified organisms; Translations: [AC PHARYNGIT D/T OTH SPEC ORGANISMS]Onset: 17-60-3988Vlhuybgd Results Test NameValueInterpretationReference RangeFacilityUS OB FOLLOW UP TRANSABDOMINAL APPROACHon 88-44-7127QV OB FOLLOW UP TRANSABDOMINAL APPROACH FINDINGS: A single, live intrauterine is present with normal cardiac rate of 165 beats per minute. Normal activity and amniotic fluid volume. Amniotic fluid index is 13 cm. Morphology is grossly normal. The current sonographic age is 33 weeks and 3 days, based on the following measurements: BPD 8.4cm (33 weeks, 5 days) Head Circumference 30.4cm (33 weeks,5 days) Abdominal Circumference 29.0cm (33 weeks,0 days) Femur Length 6.5cm ( 33weeks, 2 days) Presentation Cephalic Weight (g) by Percentile 57.0 % * These measurements result in an estimated date of delivery of July 05, 2025. The current estimated weight is 2149 grams ( 4 pound, 12 ounces). IMPRESSION: 1. Single, live intrauterine , current sonographic age of 33 weeks and 3 days, with an estimated date of delivery of July 05, 2025. 2. Prior examination of December 04, 2024 delivery at that time was July 09, 2025. * Estimated Weight (g) by Percentile is based upon an accurate estimated age based on last menstrual period. TRANSCRIBED BY: ELECTRONICALLY SIGNED BY: Breanne SalesNot AvailableComment on above:Order Comment: US OB SCAN FOR GROWTH Estimated Date of Delivery: 07/10/25 Gestational Age as of 05/05/2025: 47u9mCduedscfas macro (dipstick) panel (U)on 07-37-5716Ritjadfvk, UANegativeNegative - 4(70) +++ mg/dLNOMS HealthcareBlood, UANegativeNegative - 50 Jovani/mcLNOMS HealthcareClarity, UAClearNOMS Healthcare Color, UAYellowNOMS HealthcareGlucose, UANegativeNegative - 1999(110) ++++ mg/dL NOMS HealthcareInterpretation and review of laboratory resultsAbnormalNOMS HealthcareKetones, UAPositiveNegative - 160(16) ++++ mg/dLNOMS Healthcare Leukocytes, UA1+Negative - 500+++ Luis E/mcLNOMS HealthcareNitrite, UANegative Negative - PositiveNOMS HealthcarepH, UA6.55 - 9NOMS HealthcareProtein, UA NegativeNegative - 2000(20) ++++ mg/dLNOMS HealthcareSpec Grav, UA1.0101 - 1.03 NOMS HealthcareUrobilinogen, UA1.00.2 - 12 mg/dLNOMS HealthcareNOMS Healthcare Urinalysis macro (dipstick) panel (U)on 96-92-6239Zlzenrejt, UANegativeNegative - 4(70) +++ mg/dLNOMS HealthcareBlood, UANegativeNegative - 50 Jovani/mcLNOMS HealthcareClarity, UAClearNOMS HealthcareColor, UAYellowNOMS HealthcareGlucose, UATraceNegative - 2000(110) ++++ mg/dLNOMS HealthcareInterpretation and review of laboratory resultsAbnormalNOMS HealthcareKetones, UANegativeNegative - 160(16) ++++ mg/dLNOMS HealthcareLeukocytes, UANegativeNegative - 500+++ Luis E/mcL NOMS HealthcareNitrite, UANegativeNegative - PositiveNOMS HealthcarepH, UA8.05 - 9NOMS HealthcareProtein, UANegativeNegative - 1999(20) ++++ mg/dLNOMS Healthcare Spec Grav, UA1.0101 - 1.03NOMS HealthcareUrobilinogen, UA1.00.2 - 12 mg/dLNOMS HealthcareNOMS HealthcareUrinalysis macro (dipstick) panel (U)on 04-20-2025 Bilirubin, UANegativeNegative - 4(70) +++ mg/dLNOMS HealthcareBlood, UANegative Negative - 50 Jovani/mcLNOMS HealthcareClarity, UAClearNOMS HealthcareColor, UA YellowNOMS HealthcareGlucose, UANegativeNegative - 1999(110) ++++ mg/dLNOMS HealthcareInterpretation and review of laboratory resultsNormalNOMS Healthcare Ketones, UANegativeNegative - 160(16) ++++ mg/dLNOMS HealthcareLeukocytes, UA NegativeNegative - 500+++ Luis E/mcLNOMS HealthcareNitrite, UANegativeNegative - PositiveNOMS HealthcarepH, UA6.05 - 9NOMS HealthcareProtein, UANegativeNegative - 1999(20) ++++ mg/dLNOMS HealthcareSpec Grav, UA1.0151 - 1.03N[facility] Urobilinogen, UA0.20.2 - 12 mg/dLNOMS HealthcareNOMS HealthcareUrinalysis macro (dipstick) panel (U)on 00-06-8162Mwohgrbvu, UANegativeNegative - 4(70) +++ mg/dL NOMS HealthcareBlood, UANegativeNegative - 50 Jovani/mcLNOMS HealthcareClarity, UA ClearNOMS HealthcareColor, UAYellowNOMS HealthcareGlucose, UANegativeNegative - 1999(110) ++++ mg/dLNOMS HealthcareInterpretation and review of laboratory resultsNormalNOMS HealthcareKetones, UANegativeNegative - 160(16) ++++ mg/dLNOMS HealthcareLeukocytes, UANegativeNegative - 500+++ Luis E/mcLNOMS HealthcareNitrite, UANegativeNegative - PositiveNOMS HealthcarepH, UA65 - 9NOMS HealthcareProtein, UANegativeNegative - 2000(20) ++++ mg/dLNOTN HealthcareSpec Grav, UA1.0151 - 1.03NOTN HealthcareUrobilinogen, UA1.00.2 - 12 mg/dLNOTN HealthcareNOMS HealthcareALL CBC WITH AUTO DIFFon 62-59-3265SSYGNNZKI ABSOLUTE AUTO0.1NOMS HealthcareBasophils/100 WBC (Bld)0.5 %0.2 - 2.0 %[facility] HospitalEosinophils/100 WBC (Bld)7.5 %High0.9 - 7.0 %[facility] HospitalErythrocyte distribution width (RBC) [Ratio]12.3 %11.0 - 15.0 %[facility] HospitalHematocrit (Bld) [Volume fraction]31.9 %Low36.0 - 48.0 %[facility] HospitalHemoglobin (Bld) [Mass/Vol]10.7 g/dLLow12.0 - 16.0 g/dLEllett Memorial HospitalIMMATURE GRANULOCYTES ABS AUTO0.1HighEllett Memorial Hospital Immature granulocytes/100 WBC (Bld)0.8 %High0.0 - 0.5 %[facility] Interpretation and review of laboratory resultsAbnormalEllett Memorial Hospital LYMPHOCYTES ABSOLUTE AUTO1.3NOSaint Joseph Health CenterLymphocytes/100 WBC (Bld)11.1 %Low 20.5 - 60.0 %[facility] HospitalH (RBC) [Entitic mass]30.6 pg26.7 - 34.0 pgBarnes-Jewish West County HospitalHC (RBC) [Mass/Vol]33.5 g/dL29.9 - 35.2 g/dLBarnes-Jewish West County HospitalV (RBC) [Entitic vol]91.1 fL81.0 - 99.0 fLEllett Memorial HospitalMONOCYTES ABSOLUTE AUTO0.8NOMS [facility] HospitalMonocytes/100 WBC (Bld)6.8 %1.7 - 12.0 %[facility] HospitalNEUTROPHILS ABSOLUTE AUTO8.9HighNOSaint Joseph Health CenterNeutrophils/100 WBC (Bld)73.3 %43.0 - 75.0 % [facility] HospitalPlatelet mean volume (Bld) [Entitic vol]10.5 fL9.5 - 13.5 fLNOMS HealthcareTBH EO #0.9HighNOMS HealthcareTBH [id number] HealthcareTBH RBC3.5Low NOMS HealthcareTBH WBC12.1HighNOMS HealthcareCLINISYNCNOMS HealthcareUrinalysis macro (dipstick) panel (U)on 67-86-2755Olecvvfmk, UANegativeNegative - 4(70) +++ mg/dLNOMS HealthcareBlood, UANegativeNegative - 50 Jovani/mcLNOMS Healthcare Clarity, UAClearNOMS HealthcareColor, UAYellowNOMS HealthcareGlucose, UANegative Negative - 2000(110) ++++ mg/dLNOMS HealthcareInterpretation and review of laboratory resultsNormalNOMS HealthcareKetones, UANegativeNegative - 160(16) ++++ mg/dLNOMS HealthcareLeukocytes, UANegativeNegative - 500+++ Luis E/mcLNOMS HealthcareNitrite, UANegativeNegative - PositiveNOMS HealthcarepH, UA65 - 9NOMS HealthcareProtein, UANegativeNegative - 2000(20) ++++ mg/dLNOMS HealthcareSpec Grav, UA1.011 - 1.03NOMS HealthcareUrobilinogen, UA1.00.2 - 12 mg/dLNOMS HealthcareNOMS HealthcareUS OB ANATOMYon 29-94-87[address] [address] Ultrasound Report Signed Patient: CHRISTINA MUHAMMAD MR#: [id number] : 2000 Acct:[id number] Age/Sex: 25 / F ADM Date: 03/02/25 Loc: US Attending Dr: Becca Keating Ordering Physician: Becca Keating Date of Service: 03/02/25 Procedure(s): US OB anatomy Accession Number(s): [id number] cc: Becca Keating; SLICK GRAFF [address] [address] Patient Name: CHRISTINA MUHAMMAD MRN: [id number] date: 2000 Sex: F Assigned Patient Location: US Current Patient Location: US Accession/Order Number: [id number] Exam Date: 03/02/2025 07:08 Report Date: 03/02/2025 08:54 At the request of: BECCA KEATING Procedure: US OB cervical length CLINICAL DATA: anatomy survey COMPARISON: None ULTRASOUND OB ANATOMY There is a single live intrauterine gestation in cephalic presentation. The amniotic fluid volume is subjectively normal. The placenta is posterior. There is cardiac and somatic activity with heart rate of 145 beats per minutes. The neural axis and all 4 extremities were surveyed by the glue jointer operator and no abnormalities were detected. The stomach, bladder, kidneys, three-vessel cord with insertion, diaphragm, four-chamber heart with right and left outflow tracts, facial features and male genitalia are seen. The following measurements were obtained: Biparietal diameter 5.7 cm 23 weeks 4 days >97% Head circumference 20.9 cm 23 weeks 0 days 93% Abdominal circumference 17.1 cm 22 weeks 0 days 64% Femur length 3.6 cm 21 weeks 3 days 39% The composite ultrasound age based on these measurements is 22 weeks 4 days. The estimated date of delivery is July 02, 2025. US/US OB anatomy IMPRESSION: SINGLE LIVE INTRAUTERINE GESTATION WITH ULTRASOUND AGE OF 22 WEEKS 4 DAYS. UNREMARKABLE ANATOMY SURVEY. ULTRASOUND OB CERVICAL LENGTH COMPARISON: None The placenta is posterior. The placenta is approximately 3.3 cm from the internal cervical os. The cervix is closed with estimated length of 5.1 cm using a transvaginal probe. IMPRESSION: CLOSED UNREMARKABLE CERVIX. Impression dictated by: Chiara Bailey M.D. 03/02/2025 8:54 AM Dictation Location: [place] [address] Electronically authenticated by: [id number] Y Date: 03/02/2025 08:54 Dictated By: Chiara Bailey M.D. Signed By: 03/02/25 0857 DD/ 0854 TD/TT: Lathe Operator:TBHRadiology, Radiologist, - 03/02/[address] [address] Ultrasound Report Signed Patient: CHRISTINA MUHAMMAD MR#: [id number] : 2000 Acct:[id number] Age/Sex: 25 / F ADM Date: 03/02/25 Loc: US Attending Dr: Becca Keating Ordering Physician: Becca Keating Date of Service: 03/02/25 Procedure(s): US OB anatomy Accession Number(s): [id number] cc: Becca Keating; SLICK GRAFF [address] [address] Patient Name: CHRISTINA MUHAMMAD MRN: [facility]:[id number] date: 2000 Sex: F Assigned Patient Location: US Current Patient Location: US Accession/Order Number: [id number] Exam Date: 03/02/2025 07:08 Report Date: 03/02/2025 08:54 At the request of: BECCA KEATING Procedure: US OB cervical length CLINICAL DATA: anatomy survey COMPARISON: None ULTRASOUND OB ANATOMY There is a single live intrauterine gestation in cephalic presentation. The amniotic fluid volume is subjectively normal. The placenta is posterior. There is cardiac and somatic activity with heart rate of 145 beats per minutes. The neural axis and all 4 extremities were surveyed by the glue jointer operator and no abnormalities were detected. The stomach, bladder, kidneys, three-vessel cord with insertion, diaphragm, four-chamber heart with right and left outflow tracts, facial features and male genitalia are seen. The following measurements were obtained: Biparietal diameter 5.7 cm 23 weeks 4 days >97% Head circumference 20.9 cm 23 weeks 0 days 93% Abdominal circumference 17.1 cm 22 weeks 0 days 64% Femur length 3.6 cm 21 weeks 3 days 39% The composite ultrasound age based on these measurements is 22 weeks 4 days. The estimated date of delivery is July 02, 2025. US/US OB anatomy IMPRESSION: SINGLE LIVE INTRAUTERINE GESTATION WITH ULTRASOUND AGE OF 22 WEEKS 4 DAYS. UNREMARKABLE ANATOMY SURVEY. ULTRASOUND OB CERVICAL LENGTH COMPARISON: None The placenta is posterior. The placenta is approximately 3.3 cm from the internal cervical os. The cervix is closed with estimated length of 5.1 cm using a transvaginal probe. IMPRESSION: CLOSED UNREMARKABLE CERVIX. Impression dictated by: Chiara Bailey M.D. 03/02/2025 8:54 AM Dictation Location: [employer] Electronically authenticated by: [id number] Y Date: 03/02/2025 08:54 Dictated By: Chiara Bailey M.D. Signed By: 03/02/25 0857 DD/ 0854 TD/TT: Lathe Operator: MEHDI HealthcareRadiology Study observation (narrative)[facility] HospitalUS OB ANATOMYOrdered By: Radiologist Radiology on 61-92-0467WQXK Healthcare Work Phone: Urinalysis macro (dipstick) panel (U)on 03-02-2025 Bilirubin, UANegativeNegative - 4(70) +++ mg/dLNOMS HealthcareBlood, UANegative Negative - 50 Jovani/mcLNOMS HealthcareClarity, UAClearNOMS HealthcareColor, UA YellowNOMS HealthcareGlucose, UANegativeNegative - 2000(110) ++++ mg/dLNOMS HealthcareInterpretation and review of laboratory resultsNormalNOTN Healthcare Ketones, UANegativeNegative - 160(16) ++++ mg/dLNOMS HealthcareLeukocytes, UA NegativeNegative - 500+++ Luis E/mcLNOMS HealthcareNitrite, UANegativeNegative - PositiveNOMS HealthcarepH, UA75 - 9NOMS HealthcareProtein, UANegativeNegative - 2000(20) ++++ mg/dLNOMS HealthcareSpec Grav, UA1.011 - 1.03N[facility]S Healthcare Urobilinogen, UA1.00.2 - 12 mg/dLNOMS HealthcareNOMS HealthcareRECURRENT VAGINITIS (HTRX)on 07-67-1252PZGZXLASU [id number] HealthcareATOPOBIUM VAGINAE Not detectedNOTN HealthcareBVAB 2,3 (BACTERIAL VAGINOSIS ASSOCIATED BACTERIA 2, 3); MOBILUNCUS [id number] HealthcareBVAB 2,3 (BACTERIAL VAGINOSIS ASSOCIATED BACTERIA 2, 3); MOBILUNCUS SPPNot detectedNOMS HealthcareCANDIDA ALBICANS, PARAPSILOSIS, [id number] HealthcareCANDIDA ALBICANS, PARAPSILOSIS, TROPICALISNot detectedNOMS HealthcareCANDIDA ATZAWUCR5MIVW HealthcareCANDIDA GLABRATANot detectedNOMS HealthcareCANDIDA [id number] HealthcareCANDIDA KRUSEI Not detectedNOMS HealthcareCHLAMYDIA QPKECVRUYEJ7DFWU HealthcareCHLAMYDIA TRACHOMATISNot detectedNOMS HealthcareGARDNERELLA WXCYSMNMG3QSCV Healthcare GARDNERELLA VAGINALISNot detectedNOMS HealthcareMEGASPHAERA (TYPES 1, 2)0NOMS HealthcareMEGASPHAERA (TYPES 1, 2)Not detectedNOMS HealthcareMYCOPLASMA [id number] HealthcareMYCOPLASMA GENITALIUMNot detectedNOMS Healthcare NEISSERIA [id number] HealthcareNEISSERIA GONORRHOEAENot detectedNOMS HealthcareTRICHOMONAS [id number] HealthcareTRICHOMONAS VAGINALISNot detected NOMS HealthcareNOMS HealthcareUrinalysis macro (dipstick) panel (U)on 02-02-2025 Bilirubin, UANegativeNegative - 4(70) +++ mg/dLNOMS HealthcareBlood, UANegative Negative - 50 Jovani/mcLNOMS HealthcareClarity, UAClearNOMS HealthcareColor, UA YellowNOMS HealthcareGlucose, UANegativeNegative - 1999(110) ++++ mg/dLNOTN HealthcareInterpretation and review of laboratory resultsNormalNOTN Healthcare Ketones, UANegativeNegative - 160(16) ++++ mg/dLNOMS HealthcareLeukocytes, UA NegativeNegative - 500+++ Luis E/mcLNOMS HealthcareNitrite, UANegativeNegative - PositiveNOMS HealthcarepH, UA65 - 9NOMS HealthcareProtein, UANegativeNegative - 2000(20) ++++ mg/dLNOMS HealthcareSpec Grav, UA1.0251 - 1.03N[facility]S Healthcare Urobilinogen, UA0.20.2 - 12 mg/dLNOTN HealthcareNOTN HealthcareUrinalysis macro (dipstick) panel (U)on 52-10-9863Oexgsmmcp, UANegativeNegative - 4(70) +++ mg/dL [facility]OMS HealthcareBlood, UANegativeNegative - 50 Jovani/mcLNOMS HealthcareClarity, UA ClearNOMS HealthcareColor, UAYellowNOMS HealthcareGlucose, UANegativeNegative - 1999(110) ++++ mg/dLNOMS HealthcareInterpretation and review of laboratory resultsNormalNOMS HealthcareKetones, UANegativeNegative - 160(16) ++++ mg/dLNOMS HealthcareLeukocytes, UANegativeNegative - 500+++ Luis E/mcLNOMS HealthcareNitrite, UANegativeNegative - PositiveNOTN HealthcarepH, UA75 - 9NOMS HealthcareProtein, UANegativeNegative - 2000(20) ++++ mg/dLNOTN HealthcareSpec Grav, UA1.021 - 1.03 NOMS HealthcareUrobilinogen, UA0.20.2 - 12 mg/dLMiss[facility] Healthcare ALL CBC WITH AUTO DIFFon 45-19-5468FMKEFBCUR ABSOLUTE HLVH4LHEOEllett Memorial Hospital Basophils/100 WBC (Bld)0.3 %0.2 - 2.0 %NOMTexas County Memorial HospitalEosinophils/100 WBC (Bld) 0.9 %0.9 - 7.0 %[facility] HospitalErythrocyte distribution width (RBC) [Ratio]12.2 %11.0 - 15.0 %[facility] HospitalHematocrit (Bld) [Volume fraction]37.7 %36.0 - 48.0 %[facility] HospitalHemoglobin (Bld) [Mass/Vol]12.7 g/dL12.0 - 16.0 g/dLEllett Memorial HospitalIMMATURE GRANULOCYTES ABS AUTO0.02NOSaint Joseph Health CenterImmature granulocytes/100 WBC (Bld)0.2 %0.0 - 0.5 %[facility] HospitalInterpretation and review of laboratory resultsAbnormalEllett Memorial HospitalLYMPHOCYTES ABSOLUTE AUTO1.5 [facility] HospitalLymphocytes/100 WBC (Bld)14.9 %Low20.5 - 60.0 %[facility] HospitalH (RBC) [Entitic mass]29.7 pg26.7 - 34.0 pgBarnes-Jewish West County HospitalHC (RBC) [Mass/Vol] 33.7 g/dL29.9 - 35.2 g/dLBarnes-Jewish West County HospitalV (RBC) [Entitic vol]88.1 fL81.0 - 99.0 fLEllett Memorial HospitalMONOCYTES ABSOLUTE AUTO0.7NOSaint Joseph Health CenterMonocytes/100 WBC (Bld)6.6 %1.7 - 12.0 %[facility] HospitalNEUTROPHILS ABSOLUTE AUTO7.9HighEllett Memorial HospitalNeutrophils/100 WBC (Bld)77.1 %High43.0 - 75.0 %[facility] Platelet mean volume (Bld) [Entitic vol]10.4 fL9.5 - 13.5 fLNONevada Regional Medical Center EO #0.1NOMS [facility] LCK115RkyRAYPNevada Regional Medical Center RBC4.28NONev[facility] Center WBC10.2NOMS HealthcareCLINISYNCNWestern Missouri Medical CenterMLR HEMOGLOBIN A1Con 12-08-2024 Glucose [Mass/Vol]108 mg/dLEllett Memorial HospitalHbA1c (Bld) [Mass fraction]5.4 %4.5 - 6.2 %NOMS HealthcareComment on above:ADA RECOMMENDED LIMIT 4.0 - 6.0 ADA THERAPEUTIC TARGET < 7.0 ACTION SUGGESTED > 7.0 CLINISYNCNOTN HealthcareHCG ( test) Ql (U)on 11-46-7907Hpznxtfhceoswy and review of laboratory resultsAbnormalNOSaint Joseph Health CenterPreg Test, UrPositive NegativeNOSSM Health Care HealthcareUS OB TRANSVAGINALon 83-49-5649FA OB TRANSVAGINALEXAM: US OB TRANSVAGINAL HISTORY: Dating. COMPARISON: None [...] II, MD, PHD at 05-Dec-2024 11:53:06 AM [facility]-Italian TeleradiologyNormalNot AvailableComment on above:Order Comment: US OB TRANSVAGINAL No LMP recorded.Urinalysis macro (dipstick) panel (U)on 07-86-0347Nbwhhpwox, UA PositiveNegative - 4(70) +++ mg/dLNOMS HealthcareComment on above:smallBlood, UA NegativeNegative - 50 Jovani/mcLNOMS HealthcareClarity, UAClearNOMS Healthcare Color, UAYellowNOMS HealthcareGlucose, UANegativeNegative - 2000(110) ++++ mg/dL [facility] HealthcareInterpretation and review of laboratory resultsAbnormalNOMS HealthcareKetones, UANegativeNegative - 160(16) ++++ mg/dLNOMS Healthcare Leukocytes, UANegativeNegative - 500+++ Luis E/mcLNOMS HealthcareNitrite, UA NegativeNegative - PositiveNOMS HealthcarepH, UA6.55 - 9NOMS HealthcareProtein, UAPositiveNegative - 2000(20) ++++ mg/dLNOMS HealthcareComment on above:30mg/dL Spec Grav, UA1.0251 - 1.03NOMS HealthcareUrobilinogen, UA0.20.2 - 12 mg/dLNOMS HealthcareNOMS HealthcareIGP,APTIMA HPV,AGE GDLNon 11-64-5412OLP GDLN ACOG TESTINGNote.NOMS HealthcareComment on above:TESTS RESULT FLAG UNITS REF RANGE LAB Clinician Provided Cytology Information Source.............Cervix;Endocervix No. of containers..01 ThinPrep Vial Age Algo ACOG Jannet... FLAG LEGEND: L-Low Normal,H-High Normal,LL-Alert Low,HH-Alert High <-Panic Low,>-Panic High,A-Abnormal,AA-Critical Abnormal Performed at: 01 =G [facility] [place] [address] Haylie Bustamante MD, IGP, RFX APTIMA HPV ASCUNote.NOMS HealthcareComment on above:TESTS RESULT FLAG UNITS REF RANGE LAB DIAGNOSIS: 02 NEGATIVE FOR INTRAEPITHELIAL LESION OR MALIGNANCY. Specimen adequacy: 02 Satisfactory for evaluation. Endocervical and/or squamous metaplastic cells (endocervical component) are present. Performed by: Rj Miller, Taker Away ([facility]) . 02 Note: Note 03 The Pap [...] Low,>-Panic High,A-Abnormal,AA-Critical Abnormal Performed at: 02 AGUILAR [facility] [place] [address] [place] [address] Tania Mullins PhD, [address] [facility] [address] [address] Haylie Bustamante MD, Performed at: = - [facility] [address] [id number] Crime Specialist: Haylie Bustamante MD, Phone: [phone] Performed at: AGUILAR - [facility] [address], [place] [id number] Crime Specialist: Tania Mullins PhD, Phone: [phone] BRUSH-SPATULA CERVIX ENDOCERVIX CLINISYNCNOVA Medical Center Health Telemedicineon 07-65-7395Xkvvavexce Health [id number] Waqas Muhammadlena 2000 [facility] 06/14/2023 [facility] No family history on file Reason for Visit and Comments: Therapy [849][facility] Health Telemedicineon 50-76-4776Ikposbjmze Health [id number] Muhammad,Christina 2000 [facility] 05/17/2023 [facility] No family history on file Reason for Visit and Comments: Therapy [849][facility] Health Telemedicineon 09-93-6230Yeofkaudng Health [id number] Waqas Muhammadlena 2000 [facility] Provider Department [place] 05/03/2023 [facility] No family history on file Reason for Visit and Comments: Therapy [849][facility] Cultureon 04-29-2023 Bacteria identified Cx Nom (U)ORGANISM: Strep. agalactiae Grp B (O:B) Vermillion Count <10,000 PERFORMED BY: [place] [address] PATHOLOGIST ASSISTANT OCEANOGRAPHER TUAN HOGAN M.D.[facility]tering Memorial HospitalComment on above: Performed By: #### CUU #### [facility] [address] [place] [address] [place] #### VAGINITIS+ #### [facility] ,Vaginitis Plus (VG+)on 52-96-1763Csfjqvvuz VaginaeLow - 0Normal.[facility] Memorial HospitalComment on above:Performed By: #### CUU #### [address] #### VAGINITIS+ #### [facility] ,KVMQ2Ern - 0Normal.[facility] Memorial HospitalComment on above:Performed By: #### CUU #### [facility] [address] [place] [address] #### VAGINITIS+ #### [facility] ,Cherie Albicans, NAANegativeNormalNegSelect Medical Specialty Hospital - [facility] Comment on above:Result Comment: This test was developed and its performance characteristics determined by [facility]. It has not been cleared or approved by the Food and Drug Administration.Performed By: #### CUU #### [facility] [address] [place] [address] [place] #### VAGINITIS+ #### [facility] ,Cherie Glabrata, NAANegativeNormalNegSelect Medical Specialty Hospital [facility] Comment on above:Result Comment: This test was developed and its performance characteristics determined by [facility]. It has not been cleared or approved by the Food and Drug Administration. PERFORMED BY: [address] [place] [address] PATHOLOGIST ASSISTANT OCEANOGRAPHER TUAN HOGAN M.D.Performed By: #### CUU #### [place] [address] [place] #### VAGINITIS+ #### [facility] ,Chlamydia Trachomotis, NAANegativeNormalNegativeTrumbull Memorial HospitalComment on above:Performed By: #### CUU #### [facility] [address] [place] [address] [place] #### VAGINITIS+ #### [facility] ,MegasphaeraLow - 0Normal.[facility] Memorial HospitalComment on above: Result Comment: Calculate total score by adding the 3 individual bacterial vaginosis (BV) marker scores together. Total score is interpreted as follows: Total score 0-1: Indicates the absence of BV. Total score 2: Indeterminate for BV. Additional clinical data should be evaluated to establish a diagnosis. Total score 3-6: Indicates the presence of BV. This test was developed and its performance characteristics determined by [facility]. It has not been cleared or approved by the Food and Drug Administration.Performed By: #### CUU #### [place] [address] [place] #### VAGINITIS+ #### [facility] ,Neisseria Gonorrhoeae, NAANegativeNormalNegSelect Medical Specialty Hospital - Cleveland-FairhillComment on above:Result Comment: Performed at: = - [facility] [id number] Crime Specialist: Haylie Bustamante MD, Phone: [phone] By: #### CUU #### [place] [address] [place] #### VAGINITIS+ #### [facility] ,Tric Vag NAANegativeNormalNegativeTrumbull Memorial HospitalComment on above:Performed By: #### CUU #### [place] [address] [place] #### VAGINITIS+ #### [facility] ,Behavioral Health Telemedicineon 73-75-7728Amjshnvbjr Health Telemedicine [id number] Christina Muhammad 2000 F Date Provider Department Center 04/10/2023 [facility] No family history on file Reason for Visit and Comments: Therapy [849][facility] Centerhavior[facility] Health Telemedicineon 40-66-8716Nxozmiektr Health [id number] Christina Muhammad 2000 F Date Provider Department Center 03/26/2023 [facility] No family history on file Reason for Visit and Comments: Therapy [849][facility] Health Telemedicineon 64-42-8053Ojkudsflww Health [id number] Christina Muhammad 2000 F Date Provider Department Center 03/09/2023 [facility] No family history on file Reason for Visit and Comments: Therapy [849][facility] AdministrationUS BREAST LEFT LIMITEDon 48-23-9033DE BREAST LEFT LIMITEDPatient: CHRISTINA MUHAMMAD Exam Date: 12/07/2020 : 2000 Gender:F Ordering : DR. ALISHA SHELLEY . Admission #: [id number] Family : Order #: [id number] CLICK HERE TO VIEW EXAM RADIOLOGY REPORT [...] by: Ann Dunham MD on 12/07/2020 at 15:12[facility] COVID-19 PCRon 55-31-9400VRQB-CoV-2 (COVID-19) RNA ALEXANDER+probe Ql (Unsp spec)Not detectedNormalNot DetectedThe Delaware County HospitalComment on above:Result Comment: This test was developed and its performance characteristics determined by [employer]. This test has not been FDA cleared [...] a negative (not detected) result in this assay.Performed By: #### CVDPCR #### [facility] [address] [place] [address] [facility] Summaryon 18-78-5529Pmujcqxax SummaryMR#: [id number] IUniversKettering Health [facility] Pt. Name: Christina Muhammad Admitted: 11/08/2017 Discharged: 11/12/2017 Date of : 2000 Physician: Domenico Goodwin M.D. DISCHARGE SUMMARYREASON FOR ADMISSION: Suicidal ideation.HISTORY OF PRESENT ILLNESS AT ADMISSION: :Patient is a 17 year old female with no previous psychiatric history,presenting as a direct admission [facility], where shepresented with her mother after [...] the majority of the time since July, appearedtobe doing better the last month or so [...] fordepression (cannot recall name of medication),who then brittany d patient'sfamily. Patient was referring to an suicide [...] good and bad days. She states she mayhave been feeling a little betterrecently, but her [...] this and texted her that he he didn'tloveher anymore, which patient states led to her [...] now or isstill contemplating suicide.HOSPITAL COURSE:[facility], pt was assessed in detail by Dr. Lomeli. Labs were re viewed and discussed with guardian of patient, andpatient [...] controlpill was restarted. Family meetings were helpd toaddress the socialconflict. The patient was encouraged to work on her coping skills ingroups or individual therapy. The patient was taught the coping skills andwas asked to test those coping skills, w brendanh she reported significantimprovement in her coping skills. [...] them.MENTAL STATUS EXAMINATION: The patient is 17-year-old female,whoappears to be as stated age and there is known psychomotor agitation,retardation. Thought process was linear and goal directed. Thoughtcontent, patient denied any suicidal or homicidal ideation, intent, orplan. Thought perception, the patient denied any auditory, visual, ortactile hallucination. Cognition was alert and oriented x. Insight wasgood. Judgment was also good.DISCHARGE MEDICATIONS: None.DISCHARGE DIAGNOSES:[place] I: Mood disorder, NOS.[place] II: Deferred.[place] III: We do not know, but unsafe.[place] IV: Romantic relationship conflict.[place] V: GAF of 65.POSTDISCHARGE APPOINTMENT/POSTDISCHARGE FOLLOWUP: See the dischargeinstruction.DISCHARGE DISPOSITION: Parent's home.Time on discharge 32 minReviewed [...] Dict: 12/07/2017/01:07 Mic/RYNE Beltránate Trans: 12/07/2017 06:22 Mic/ElderN_JN:[id number] Doctors HospitalFREE T3on 69-89-5792Lawytdwvfyokjwpl (T3) free3.4 pg/mLNormal 2.5-3.9The Doctors HospitalComment on above:Order Comment: No: Do not add to previous drawPerformed By: #### 42225, 32728, 88063, 83855 ####[facility] FREE T4on 67-55-6655Ebcosxhvq (T4) free0.89 ng/dLNormal0.71-1.85The Doctors HospitalComment on above:Order Comment: No: Do not add to previous drawPerformed By: #### 33418, 95394, 76140, 28962 ####[facility] [place] [address], USALIPID PROFILEon 84-83-8051Ggqidfnkxgk007 mg/cSGkgnpl416-334Sng Doctors HospitalComment on above:Order Comment: No: Do not add to previous drawResult Comment: CHOLESTEROL REFERENCE RANGE:20 YEARS AND OLDER CARDIOVASCULAR RISKLess than 200 mg/dl Low Hdnj921 to 239 mg/dl Borderline Ahvx403 mg/dl and greater High RiskPerformed By: #### 83413, 24377, 65252, 41603 ####[facility] [place] [address], USACholesterol to HDL Ratio3.3 {ratio}Normal.0-4.5The Doctors HospitalComment on above: Order Comment: No: Do not add to previous drawPerformed By: #### 66919, 21378, 43403, 97818 ####[facility] [place] [address], USAHDL Nxnbbamghrx60 mg/pVXojvai67-38Yri Doctors HospitalComment on above:Order Comment: No: Do not add to previous drawResult Comment: Slight variation in normal range could be due to gender and/or age.HDL CHOLESTEROL REFERENCE RANGE:20 years and older Cardiovascular Risk> or =60 mg/dL Bavowvfym81 TO 59 mg/dL Low Risk<40 mg/dL High RiskPerformed By: #### 17092, 99918, 74588, 77576 ####[facility] [place] [address], USALDL Vpqgwmscwox20 mg/dLNormal0-130The Doctors HospitalComment on above:Order Comment: No: Do not add to previous drawResult Comment: LDL IS A CALCULATIONLDL IS ONLY VALID IF THE TRIG IS LESS THAN 400.Performed By: #### 82305, 82803, 37193, 20451 ####[facility] [place] [address], [facility] CHILDREN'S PSYCHIATRIC CENTERNON-HDL CWSMYNXWLAU910 mg/dLNoLima City Hospitale Doctors HospitalComment on above:Order Comment: No: Do not add to previous drawPerformed By: #### 19372, 68367, 11638, 49374 ####[facility] [place] [address], UJTWjjdiyvcvzmx51 mg/aLLiiheo10-740Ubq [facility] Comment on above:Order Comment: No: Do not add to previous drawResult Comment: TRIGLYCERIDE REFERENCE RANGE:20 YEARS AND OLDER CARDIOVASCULAR RISKLESS THAN 150 mg/dl LOW XXHN297 TO 199 mg/dl BORDERLINE BWCN003 mg/dl AND GREATER HIGH RISK Performed By: #### 60319, 16478, 15413, 80355 ####[facility] [place] [address], [facility] CHILDREN'S PSYCHIATRIC CENTERVLDL CHOL14 mg/dLNormal0-40The Doctors HospitalComment on above:Order Comment: No: Do not add to previous drawPerformed By: #### 81039, 83187, 97689, 39798 ####[address] [place] [address], USATSHon 11-09-2017 Thyroid stimulating hormone (TSH)1.25 MICRO-IU/MLNormal0.34-5.60The Doctors HospitalComment on above:Order Comment: No: Do not add to previous drawPerformed By: #### 15566, 55370, 73759, 71353 ####[facility] [place] [address], [facility] Vital Signs Date TimeVital SignValuePerforming QyohzvseoFcooxycg93-32-4182 08:41-0500Body mass index (BMI) [Ratio]29.39 kg/m2Becca DALE Work Phone: [facility] HospitalVtcvpmrcly87-08-5103 08:41-0500Body cclrne68.9 kg Becca Ger PA Work Phone: [facility] HospitalIqcwavzknq27-45-7055 08:41-0500Diastolic blood rforiwlj96 mm[Hg]Becca Keating PA Work Phone: [facility] HospitalIcfvmfrtfz07-76-4741 08:41-0500Systolic blood azrtxbdv453 mm[Hg]Becca Keating PA Work Phone: [facility] HospitalZidbbbaeyb21-12-4290 14:21-0400Body mass index (BMI) [Ratio]29.53 kg/e9Dvtbi Wilson DO Work Phone: [facility] HospitalMtumfndgmw73-18-4681 14:21-0400Body .35 kgCorey Wilson DO Work Phone: [facility] HospitalRdneibxhpl98-87-6574 14:21-0400Diastolic blood ajwsvryz14 mm[Hg]Saravanan Wilson DO Work Phone: [phone] HospitalXfupktqwap21-56-8771 14:21-0400Systolic blood mm[Hg]Saravanan Wilson DO Work Phone: [phone] [place], [place] [address]Xliksjzdlo86-17-6891 15:12-0400Body mass index (BMI) [Ratio]29.2 kg/m2Becca Ger PA Work Phone: [phone])668-[address] [place], [place] [address]Hsimemvarg48-65-6476 15:12-0400Body bcznci62.31 kgBecca Ger PA Work Phone: [facility] HospitalRjubsuurhi83-90-7977 15:12-0400Diastolic blood vgmqordc64 mm[Hg]Becca Keating PA Work Phone: [phone])[phone] [place], [place] [address]Ndjtexljbg18-89-6242 15:12-0400Systolic blood uxiljpue269 mm[Hg]Becca DALE Work Phone: [phone])315-[facility] HospitalYzyfitsfjx01-72-5841 14:49-0400Body mass index (BMI) [Ratio]28.12 kg/x5ClweombqBetsy Gates SALESPERSON HOUSEHOLD APPL[employer]ANCES Work Phone: [facility] HospitalRjomikxazd60-56-8106 14:49-0400Body wtlqoi59.91 kgBetsy Gates SALESPERSON HOUSEH[employer]PL[employer]ANC[employer] Work Phone: [phone] [place], [place] [address]Oxfmyqhpem74-03-8361 14:49-0400Diastolic blood mm[Hg]Betsy Gatse SALESPERSON HOUSEH[employer]ANC[employer] Work Phone: [phone])406-[address] [place], [place] [address]Rzknfeojel32-40-8142 14:49-0400Systolic blood wegindmh355 mm[Hg]Betsy Gates SALESPERSON HOU[employer]ANC[employer] Work Phone: [phone] [place], [place] [address]Apkyhuzjnm19-24-3439 13:25-0400Body mass index (BMI) [Ratio]27.28 kg/b7UfjzdwiiBetsy Gates SALESPERSON HOUSE[employer]PL[employer]ANCES Work Phone: 1([phone])[facility] [place], [place] [address]Ghemktmhet50-59-8855 13:25-0400Body aicocu49.24 kgBetsy Gates SALESPERSON HOUSEH[employer] Work Phone: 1(638)[facility] [place], [place] [address]Rfwjpaksal33-50-7896 13:25-0400Diastolic blood phlyqwkn37 mm[Hg]Betsy Gates SALESPERSON [employer] Work Phone: 1(154)[facility] [place], [place] [address]Gkcqvqdyfx94-15-1517 13:25-0400Systolic blood crlxysxe831 mm[Hg]Betsy Gates SALESPERSON HOU[employer] Work Phone: [phone] [place], [place] [address]408-25-2025 09:19-0400Body mass index (BMI) [Ratio]26.6 kg/n7Hnmii Wilson DO Work Phone: [phone])[facility] [place], [place] [address]Bzfdmbnpaj66-67-1189 09:19-0400Body nlwpac47.1 kg Saravanan Wilson DO Work Phone: 1([phone])[facility] [place], [place] [address]Idwmjehkie13-79-1382 09:19-0400Diastolic blood vmllywwl87 mm[Hg]Saravanan Wilson DO Work Phone: [phone])[facility] [place], [place] [address]Uazxvzcalb78-23-9748 09:19-0400Systolic blood yqkibqmg834 mm[Hg]Saravanan Wilson DO Work Phone: 1(435)[facility] [place], [place] [address]Rurepyposy11-88-7525 15:45-0400Body mass index (BMI) [Ratio]24.03 kg/m2Becca DALE Work Phone: 1(483)[facility] [place], [place] [address]Zynyatmmin75-54-5624 15:45-0400Body heisff24.98 kgBecca DALE Work Phone: [facility] HospitalRpalsxdxfj28-00-7172 15:45-0400Diastolic blood gncgbayi23 mm[Hg]Becca DALE Work Phone: [phone])067-[address] [place], [place] [address]Xzyhwgvxkc14-40-7908 15:45-0400Systolic blood ygkedtog573 mm[Hg]Becca DALE Work Phone: [facility] HospitalYlooaoutpl57-94-4796 14:08-0400Body mass index (BMI) [Ratio]22.67 kg/y4Lfqks Wilson DO Work Phone: 1(065)578-[address] [place], [place] [address]Grxkazhbkz62-91-1113 14:08-0400Body ndaryn26.67 kgCorey Wilson DO Work Phone: [phone] [place], [place] [address]Pqjzfurajw73-99-3418 14:08-0400Diastolic blood fmibexih01 mm[Hg]Saravanan Wilson DO Work Phone: [phone])212-[address] [place], [place] [address]Goqucgkdxb81-09-1146 14:08-0400Systolic blood heelgdwo322 mm[Hg]Saravanan Wilson DO Work Phone: [phone] [place], [place] [address]Fuviuvsqwn91-25-9606 12:53-0400Body mass index (BMI) [Ratio]21.56 kg/m2[facility]05-29-2025 12:53-0400Body .15 kgM[facility]05-29-2025 12:53-0400Diastolic blood ddmeurnr43 mm[Hg][facility]05-29-2025 12:53-0400Systolic blood webdzbvm916 mm[Hg][facility]01-13-2025 14:39-0500Body mass index (BMI) [Ratio]21.95 kg/m2Becca DALE Work Phone: [phone] [place], [place] [address]Fjvqgfuhbc29-87-0923 14:39-0500Body jofnca99.4 kg Becca DALE Work Phone: [phone]-[facility] HospitalMdoiiylwhz96-52-5397 14:39-0500Diastolic blood wetwmwsi47 mm[Hg]Becca DALE Work Phone: [phone])075-[address] [place], [place] [address]Uenwfsylst66-45-8592 14:39-0500Systolic blood cezisjpw774 mm[Hg]Becca DALE Work Phone: [facility]OSaint [facility] CenterNmxdjxxcpy00-19-9702 09:28-0500Body mass index (BMI) [Ratio]21.58 kg/m2Becca DALE Work Phone: NOSaint [facility] CenterDupzpgfjqf87-86-1735 09:28-0500Body wahsdf65.22 kgBecca DALE Work Phone: NOSaint [facility] CenterLeiornapbg80-69-3728 09:28-0500Diastolic blood mm[Hg]Becca DALE Work Phone: NOSaint [facility] CenterFhcqmqopji95-82-3834 09:28-0500Systolic blood xycpsfkz602 mm[Hg]Becca DALE Work Phone: NOT[facility] Encounters Encounter DateEncounter TypeCare ProviderFacilityStart: 05-20-2025 End: 46-41-7846Hdutjd outpatient visit 15 minutesBecca DALE Work Phone: [facility] [place] OBGYNComment on above:Third trimester ([facility]); 32 weeks gestation of ([facility]); Heartburn; NauseaStart: 05-20-2025 End: 99-02-4459kayksjkgnlANK RAMEYNot AvailableStart: 05-05-2025 End: 44-87-8365nmpryuyjcrEMJFO FAZIONot AvailableStart: 05-05-2025 End: 51-06-2653Goqxhq flowsheetCorey Wilson DO Work Phone: [facility] [place] OBGYNStart: 05-05-2025 End: 66-77-5822Npebki flowsheetCorey Wilson DO Work Phone: [facility] OBGYNStart: 05-05-2025 End: 96-81-5876Faqdmwcw flow sheetCorey Wilson DO Work Phone: [facility] [place] OBGYNComment on above:Third trimester ([facility]); 30 weeks gestation of ([facility]); size inconsistent with dates ([facility])Start: 04-20-2025 End: 39-90-0184Ukegppwm flow sheetBecca DALE Work Phone: [facility] [place] OBGYNComment on above:Third trimester ([facility]); 28 weeks gestation of ([facility])Start: 04-20-2025 End: 13-16-1851jwtnqfleyrXZE RAMEYNot AvailableStart: 04-20-2025 End: 70-35-3363Vepmvr Gracia DALE Work Phone: [facility] [place] OBGYNStart: 04-20-2025 End: 87-85-7848Kynkhc Gracia DALE Work Phone: [facility] [place] OBGYNStart: 04-06-2025 End: 62-67-4778xozbsgeskgUHTRPYZS EBERLYNot AvailableStart: 04-06-2025 End: 07-78-8356Jkhceksu flow sheetBetsy Gates NP Work Phone: [facility]BGYNComment on above:Anemia, unspecified type (Primary Dx); Second trimester ([facility]); 26 weeks gestation of ([facility])Start: 04-06-2025 End: 89-22-3176Mwxxij Michele Gates SAL[employer] Work Phone: [facility] [facility]BGYNStart: 04-06-2025 End: 73-54-4718Ssdwld flowsKatie Gates SALESPERSON [employer] Work Phone: [facility] [facility]BGYNStart: 04-04-2025 End: 02-80-8177Tgmocyhjl Result EncounterBetsy Gates NP Work Phone: [facility] External Department UnsolicitedStart: 04-04-2025 End: 48-28-7797Zfvlisdku Result EncounterBetsy Gates NP Work Phone: [facility] External Department UnsolicitedStart: 03-16-2025 End: 02-37-2463Epnina flowsheetBetsy Kody [employer]ESPERSON [employer] Work Phone: [facility]BGYNStart: 03-16-2025 End: 44-68-2422Objvng flowsheetBetsy Gates [employer]ERSON [employer] Work Phone: [facility] [place] [facility]BGYNStart: 03-16-2025 End: 98-96-9669Hqcrljcu flow sheetBetsy Gates SAL[employer]ERSON [employer] Work Phone: [facility] OBGYNComment on above:23 weeks gestation of ([facility]); Second trimester ([facility]); Anxiety, generalized ; Diabetes mellitus screeningStart: 03-16-2025 End: 91-30-4025vpybkdgbimTSNSRVQZ EBERLYNot AvailableStart: 03-02-2025 End: 91-37-9751Pacptj flowsheetCorey Wilson DO Work Phone: [facility] [facility]BGYNStart: 03-02-2025 End: 77-97-2142Eujfrq flowsheetCorey Wilson DO Work Phone: [facility] [place] [facility]BGYNStart: 03-02-2025 End: 05-31-3458Pfmuxnyin Result EncounterBecca DALE Work Phone: [facility] External Department UnsolicitedStart: 03-02-2025 End: 80-79-0040Olfdmvbu flow sheetCorey Wilson DO Work Phone: [facility]BGYNComment on above:Anxiety, generalized (Primary Dx); Second trimester ([facility]); 21 weeks gestation of ([facility])Start: 03-02-2025 End: 57-33-5988mekpxipdtpVZOZR FAZIONot AvailableStart: 02-02-2025 End: 29-74-0166izqakkullkIGE Parhta AvailableStart: 02-02-2025 End: 57-17-7551Xjvendkc flow Regina DALE Work Phone: [facility] [place] [facility]BGYNComment on above:Second trimester ([facility]); 17 weeks gestation of ([facility]); Screening, , for anatomic survey ([facility]); Vaginal dischargeStart: 02-02-2025 End: 64-85-1496Ljhkpn flowsheetBecca DALE Work Phone: [facility]BGYNStart: 02-02-2025 End: 20-54-1084Jofsfe flowsheetBecca DALE Work Phone: [facility] [facility]BGYNStart: 02-02-2025 End: 32-04-6457Vwqxwuuv Result EncounterBecca DALE Work Phone: [facility] External Department UnsolicitedStart: 01-05-2025 End: 88-83-4189Vuomxn flowsheetCorey Wilson DO Work Phone: NOLN BCP OBStart: 01-05-2025 End: 12-98-5580Miinff flowsheetCorey Wilson DO Work Phone: NOCB BCP OBStart: 01-05-2025 End: 92-27-5013icxhdxlwoxZPGBT FAZIONot AvailableStart: 01-05-2025 End: 68-97-3311Yboqkcez flow sheetCorey Wilson DO Work Phone: NOBD BCP OBComment on above:Second trimester ([facility]); 13 weeks gestation of ([facility])Start: 12-08-2024 End: 87-32-5039Toamssjja Result EncounterCorey Wilson DO Work Phone: [facility] External Department UnsolicitedStart: 12-08-2024 End: 99-97-2062Acraycsbd Result EncounterCorey Wilson DO Work Phone: noms External Department UnsolicitedStart: 12-04-2024 End: 86-56-5043Toppzw outpatient visit 5 minutesNoms Bcp Ob Wilson NurseNOMS BCP OBComment on above:GA: 6u0vZetlm: 12-04-2024 End: 95-56-6656jusvflavijWMHMB FAZIONot AvailableStart: 07-21-2024 End: 32-97-3970Dkgwpj flowsTeddy Keating CHITO Work Phone: [facility] BCP OBStart: 07-21-2024 End: 90-35-8061Slnrud flowsTeddy Valenciaowen DALE Work Phone: NOYV BCP OBStart: 07-21-2024 End: 46-70-0082Qbfzwvecm Result EncounterBecca Ger DALE Work Phone: noMS External Department UnsolicitedStart: 07-21-2024 End: 19-86-7889Cfxznhu encounter procedureBecca Valenciaowen DALE Work Phone: [facility] Work Phone: Start: 07-21-2024 End: 13-30-6125Awtghkqa preventive med est patient 18-39 yrsBecca Valenciaowen DALE Work Phone: noms BCP OBComment on above:Well woman exam with routine gynecological exam; Uses controlStart: 07-21-2024 End: 75-05-7718mesdaqwtytVHW RAMEYNot AvailableStart: 06-11-2024 End: 42-90-1496Mmkkth flowsTeddy Keating CHITO Work Phone: [facility] BCP OBStart: 06-11-2024 End: 34-92-0253Mwlmxa Gracia Keating CHITO Work Phone: [facility] BCP OBStart: 06-11-2024 End: 27-47-2546Tsxlsc outpatient visit 10 minutesBecca Ger DALE Work Phone: [facility] BCP OBComment on above:Lipoma of other specified sites (Primary Dx)Start: 06-11-2024 End: 79-76-8396oaygmbnlnnXSP RAMEYNot AvailableStart: 05-04-2023 End: 91-00-6182flcoqopbblQjjuc [facility]avan [facility] [employer] Other Start: 17-37-5924Ruochobwo encounterPeggck CamaraG Urgent [facility] Artemas RoadStart: 29-74-7540lzyvhbxqcnIPDNUHL SDeisy [facility] Hospitaltart: 04-29-2023 End: 48-11-3211jvvaunugguOgxxy HartFacility:[facility] Start: 04-29-2023 End: 36-97-7699bonmsethlvSG Triny Browne Work Phone: [facility] Work Phone: Start: 04-29-2023 End: 49-68-8922Lpucstql ReferredNP Triny Browne Work Phone: [facility] [address] [place] Work Phone: Start: 17-70-4341qxgwwuxilcJESWHNP SDeisy [facility] Hospitaltart: 35-58-5034sqjspvinduSOAYGMN SDeisy [facility] Hospitaltart: 86-55-6679cyfzyvjizyAXGWSLM SDeisy [facility] Hospitaltart: 12-07-2020 End: 15-38-3864creieqiixkAYWJAB MOOREFacility:M7Antxr: 03-02-2020 End: 17-13-1506mpkxnltnaxPH ANN Marin WESTFacility:C7Sttty: 01-27-2020 End: 27-87-6698dvpiwfmszqDN SLICK GOLDENESTANDFacility:H1 Procedures DateProcedureProcedure DetailPerforming ClinicianStart: 84-96-1734Diilr dip stick/tablet rgnt non-auto w/o micrscpAmy Ger DALE Work Phone: Start: 63-70-0188Ppzcq dip stick/tablet rgnt non-auto w/o micrscpCorey Wilson DO Work Phone: Start: 22-29-8176Kcraa dip stick/tablet rgnt non-auto w/o micrscpAmy Ger DALE Work Phone: Start: 35-86-4542Rvldd dip stick/tablet rgnt non-auto w/o micrscpBetsy Gates NP Work Phone: Start: 29-44-2342ZUQ CBC WITH AUTO DIFFKristina Kody [employer] Work Phone: Start: 27-59-5798Cykai dip stick/tablet rgnt non-auto w/o micrscpKristina Kody [employer] Work Phone: Start: 08-74-9667Jelbc dip stick/tablet rgnt non-auto w/o micrscpCorey Wilson DO Work Phone: Start: 60-65-9612VX OB ANATOMYBecca DALE Work Phone: Start: 75-55-1367BXHTCQHJK VAGINITIS (HTRX)Becca DALE Work Phone: Start: 99-37-1258Vwzpj dip stick/tablet rgnt non-auto w/o micrscpAmy Ger DALE Work Phone: Start: 13-07-1971Kbzyb dip stick/tablet rgnt non-auto w/o micrscpCorey Wilson DO Work Phone: Start: 10-37-7267QYC CBC WITH AUTO DIFFCorey Wilson DO Work Phone: Start: 24-96-5963ILA HEMOGLOBIN W0IAzsnt Wilson DO Work Phone: Start: 12-04-2024 End: 43-69-9056Bjxhw dip stick/tablet rgnt non-auto w/o micrscpCorey Wilson DO Work Phone: Start: 42-37-2963HKV,APTIMA HPV,AGE GDLNBecca DALE Work Phone: Plan of Treatment DateCare ActivityDetailAuthorStart: 06-03-2025 End: 96-63-3655Odjskrg encounter rnbjbfiiz22/26/2025 2:50 PM EST Routine [facility] [address] [place], [id number] Saravanan Rachel, DO [address] [place] [address] [facility]YNStart: 05-20-2025 End: 00-63-0446Uzmfrti encounter rotddtajj62/12/2025 9:20 AM EST Routine [facility] [address] [place], [id number] Becca Keating PA [address] [place] [address] [facility]BGYNStart: 05-20-2025 End: 63-05-8033Tbjlbuncbxju / ancillary services biagcyfvva21/12/2025 8:00 AM EST Ancillary Procedure [facility] [address] [place], [place] [phone] [facility]BGYNStart: 05-05-2025 End: 76-36-0706Paqimtw encounter oodfzlnhb44/28/2025 2:00 PM EDT Routine [facility] [address] [place], [id number] Saravanan Rachel, [address] [place] [address] [facility] [facility]BGYNStart: 05-05-2025 End: 83-44-4166MS for pregnancyUS OB follow up transabdominal approach Imaging Routine size inconsistent with dates ([facility]) Expected: 05/05/2025, Expires: 09/05/2025[facility] Work Phone: comment on above:Expected: 05/05/2025, Expires: 09/05/2025Start: 04-20-2025 End: 85-89-3059Xzjqosb encounter procedureNOMS [place] OBGYNComment on above: ArrivedStart: 04-06-2025 End: 52-66-6062Rvlvnhw encounter wylxnnefl57/29/2025 2:30 PM EDT Routine [facility] [address] [place], [id number] Betsy Gates, ANTONIO [address] [place] [phone] [facility]BGYNStart: 03-16-2025 End: 94-52-0428JMR panel - Blood by Automated countCBC Lab Routine Diabetes mellitus screening Expected: 03/16/2025 (Approximate), Expires: 03/16/2026[facility] Work Phone: comment on above:Expected: 03/16/2025 (Approximate), Expires: 03/16/2026Start: 03-16-2025 End: 74-20-4453Uezupsxynkt of glucose 1 hour after glucose challenge for glucose tolerance testGlucose tolerance, 1 hour Lab Routine Diabetes mellitus screening Expected: 03/16/2025 (Approximate), Expires: 03/16/2026NOTN HealthcareComment on above:Expected: 03/16/2025 (Approximate), Expires: 03/16/2026Start: 03-16-2025 End: 26-11-7338Uhgmuif encounter procedureNOMS Cortez OBGYNComment on above: ArrivedStart: 03-02-2025 End: 18-32-2253Yocfnub encounter procedureNOMS Cortez OBGYNComment on above: ArrivedStart: 03-02-2025 End: 93-99-5985Pcnjfomjsxno / ancillary services rxdtciickb92/25/2025 8:00 AM EDT Ancillary Procedure [facility] [address] [place] [place] [phone] [facility] [place] [facility]BGYNStart: 02-02-2025 End: 44-91-1233Wgdnq fetoprotein, maternalAlpha fetoprotein, maternal Lab Routine Second trimester ([facility]) Expected: 02/02/2025 (Approximate), Expires: 04/05/2025[facility] HealthcareComment on above:Expected: 02/02/2025 (Approximate), Expires: 04/05/2025Start: 02-02-2025 End: 10-66-4786JY for pregnancyUS OB 14+ weeks anatomy scan Imaging Routine Screening, , for anatomic survey ([facility]) Expected: 02/02/2025, Expires: 05/05/2025NOTN HealthcareComment on above:Expected: 02/02/2025, Expires: 05/05/2025Start: 01-05-2025 End: 81-57-8308Tkxfhje encounter ywyrkokbq48/30/2025 1:50 PM EDT Routine [facility] [address] [place] [address] Saravanan Rachel, DO [address] [place] [address] [facility] BCP OBStart: 12-04-2024 End: 85-79-7140IOA/RhABO/Rh Lab Routine Missed menses , unspecified gestational age Expected: 12/04/2024 (Approximate), Expires: 12/04/2025NOTN HealthcareComment on above:Expected: 12/04/2024 (Approximate), Expires: 12/04/2025Start: 12-04-2024 End: 02-02-3048Xqtes type and Indirect antibody screen panel - BloodType and screen Lab Routine Missed menses , unspecified gestational age Expected: 12/04/2024 (Approximate), Expires: 12/04/2025NOTN HealthcareComment on above:Expected: 12/04/2024 (Approximate), Expires: 12/04/2025Start: 12-04-2024 End: 91-48-0157Luuwi of abuse panel - Urine by Screen methodRapid drug screen, urine Lab Routine , unspecified gestational age Encounter for supervision of normal first in first trimester Expected: 12/04/2024 (Approximate), Expires: 12/04/2025NOTN HealthcareComment on above:Expected: 12/04/2024 (Approximate), Expires: 12/04/2025Start: 11-28-2024 End: 38-49-1192WF Pelvis transvaginalUS OB transvaginal Imaging Routine Missed menses Expected: 11/28/2024, Expires: 02/28/2025[facility] Healthcare Work Phone: comment on above:Expected: 11/28/2024, Expires: 02/28/2025Start: 07-21-2024 End: 54-01-9279Odecasf encounter procedureNOSAN [facility] OBComment on above:Arrived Start: 06-11-2024 End: 48-51-0431Qheepcr encounter /04/2024 9:30 AM EST Office Visit [facility] [address] [place] [phone] Becca Keating PA [address] [place] [address] ArrivedNOSAN [facility]MENTE [facility] OBComment on above:ArrivedStart: 04-29-2023 Bacteria identified in Urine by CultureProMedica Toledo Hospitaltart: 95-69-1089QwckiusbfTrumbull Memorial HospitalAtopobium vaginae DNA [Presence] in Vaginal fluid by ALEXANDER with probe detectionTrumbull Memorial Hospital Bacteria identified in Urine by CultureUrine culture Microbiology Routine Missed menses Ordered: 12/04/2024[facility] HospitalComment on above:Ordered: 12/04/2024 Bacterial vaginosis associated bacterium 2 DNA [Presence] in Vaginal fluid by ALEXANDER with probe detectionTrumbull Memorial HospitalCBC W Auto Differential panel - BloodCBC and differential Lab Routine Missed menses , unspecified gestational age Ordered: 12/04/2024[facility] HealthcareComment on above: Ordered: 12/04/2024HLAMYDIA TRACHOMATIS (GENITO/STI)CHLAMYDIA TRACHOMATIS (GENITO/STI) Lab Routine Vaginal discharge Ordered: 02/02/2025[facility] Comment on above:Ordered: 02/02/2025ytology Cervical or vaginal smear or scraping studyPap Smear Pathology and Cytology Routine Well woman exam with routine gynecological exam Ordered: 07/21/2024[facility] Work Phone: comment on above:Ordered: 07/21/2024Hemoglobin A1c/Hemoglobin.total in BloodHemoglobin A1c Lab Routine Missed menses , unspecified gestational age Ordered: 12/04/2024[facility] HealthcareComment on above: Ordered: 12/04/2024Hepatitis B virus surface Ag [Presence] in Serum or Plasma by ImmunoassayHepatitis B surface antigen Lab Routine Missed menses , unspecified gestational age Ordered: 12/04/2024[facility] HealthcareComment on above: Ordered: 12/04/2024Hepatitis C virus Ab [Presence] in Serum or Plasma by ImmunoassayHepatitis C antibody Lab Routine Missed menses , unspecified gestational age Ordered: 12/04/2024[facility] HealthcareComment on above:Ordered: 12/04/2024HIV-1/HIV-2 antigen/antibody combination immunoassayHIV-1 and HIV-2 antibodies Lab Routine Missed menses , unspecified gestational age Ordered: 12/04/2024[facility] HealthcareComment on above:Ordered: 12/04/2024 Megasphaera sp type 1 DNA [Presence] in Vaginal fluid by ALEXANDER with probe detectionTrumbull Memorial HospitalNeisseria gonorrhoeae DNA [Presence] in Unspecified specimen by ALEXANDER with probe detectionNeisseria gonorrhea DNA probe, direct Lab Routine Vaginal discharge Ordered: 02/02/2025[facility] Comment on above:Ordered: 02/02/2025Reagin Ab [Presence] in Serum by RPRRPR Lab Routine Missed menses , unspecified gestational age Ordered: 12/04/2024 [facility] HealthcareComment on above:Ordered: 12/04/2024Rubella antibody, IgGRubella antibody, IgG Lab Routine Missed menses , unspecified gestational age Ordered: 12/04/2024[facility] HealthcareComment on above:Ordered: 12/04/2024 SURESWAB(R) ADVANCED VAGINITIS PLUS, TMASURESWAB(R) ADVANCED VAGINITIS PLUS, TMA Pathology and Cytology Routine Vaginal discharge Ordered: 02/02/2025[facility] Work Phone: comment on above:Ordered: 02/02/2025US Pelvis transvaginalUS OB transvaginal Imaging Routine Missed menses 12/04/2024 12:52 PM [facility] Payers DatePayer CategoryPayerPolicy [id number] Insurance [id number] 2.16.840.1.383523.3.579.2.593 [id number] 2.16.840.1.578768.3.579.2.094580-51-3862Dbhhmsd [id number] 2.16.840.1.527306.3.57[id number] 2.16.840.1.495310.3.57[id number] 2.16.840.1.679327.3.57[id number] 2.16.840.1.128006.3.57[id number] 2.16.840.1.864168.3.57[id number] 2.16.840.1.731178.3.57[id number] 2.16.840.1.364132.3.57[id number] 2.16.840.1.155760.3.57[id number] 2.16.840.1.828288.3.57[id number] 2.16.840.1.764634.3.57[id number] 2..840.1.374239.3.57[id number] 2.16.840.1.673919.3.57[id number] 2.16.840.1.304241.3.57[id number] 2..840.1.035111.3.57[id number] 2..840.1.787660.3.579.2.531 Social History DateTypeDetailFacilityTobacco smoking status NHISUnknown if ever smokedShelby Memorial Hospital Work Phone: Start: 02-17-7526Ycs Assigned At [facility] Ass[facility] At [facility] [employer] Other Tobacco smoking status NHISTobacco smoking consumption unknownNOTN HealthcareStart: 37-79-6979Vtquyu identityIdentifies as female gender (finding)[facility] HealthcareStart: 83-33-8810BvbujnqkdZCCP HealthcareStart: 99-35-1782BvgXlocllXWGJ Healthcare Clinical Notes 03-02-2020 to 05-20-2025 Note Date & EpsuCczuJqyjvirb62-40-9742 History of Present illness Narrative* Monika Carter - 05/20/2025 9:20 AM EST Reason for Appointment: Patient ID: Christina Muhammad is a 25 y.o. female who presents for Routine Visit Patient presents today for Return OB appointment. MEDICATIONS Current Outpatient Medications Medication Instructions cetirizine (ZyrTEC) 10 MG tablet fluticasone (Flonase) 50 MCG/ACT nasal spray 2 sprays, Daily RT metoclopramide (REGLAN) 10 mg, Oral, 3 times daily before meals, Take 1 tablet by mouth 30 minutes prior to meals 3 times daily as needed for nausea. ondansetron (ZOFRAN) 4 mg, Oral, Every 6 hours PRN, Take 1 tablet by mouth every 6 hours as needed for nausea. venlafaxine XR (EFFEXOR XR) 37.5 mg, Oral, Daily, Do not crush or chew. ALLERGIES No Known Allergies PROBLEMS Active Ambulatory [...] Negative. Endocrine: Negative. Allergic/Immunologic: Negative. OBJECTIVE Objective: OBGyn Exam Vitals: Estimated body mass index is 29.39 kg/m as calculated from the following: Height as of 24: 5' 10 . Weight as of this encounter: 204 lb 12.8 oz. BP: 110/70 Patient's last menstrual period was 10/03/2024. ASSESSMENT & PLAN ICD-10-CM 1. Third trimester ([facility]) Z34.93 2. 32 weeks gestation of ([facility]) Z3A.32 POCT urinalysis dipstick manually resulted Return OB: Patient presents today for a routine obstetrics appointment. Patient is currently 32w5d . Patient states she is doing well [...] week for routine OB appointment. Documented by Monika Carter CST on behalf of: CHITO Alvarez documented in this encounterEllett Memorial [id number] History of Present illness Narrative* Chiara Rosales, [employer]ORT - 05/05/2025 2:00 PM EDT Reason for Appointment: Patient ID: Christina Muhammad is a 25 y.o. female who presents for Routine Visit Patient presents today for Return OB appointment. MEDICATIONS Current Outpatient Medications Medication Instructions cetirizine (ZyrTEC) 10 MG tablet fluticasone (Flonase) 50 MCG/ACT nasal spray 2 sprays, Daily RT iron polysaccharides (PROFE) 391.3 mg, Oral, Daily metoclopramide (REGLAN) 10 mg, Oral, 3 times daily before meals, Take 1 tablet by mouth 30 minutes prior to meals 3 times daily as needed for nausea. ondansetron (ZOFRAN) 4 mg, Oral, Every 6 hours PRN, Take 1 tablet by mouth every 6 hours as needed for nausea. venlafaxine XR (EFFEXOR XR) 37.5 mg, Oral, Daily, Do not crush or chew. ALLERGIES No Known Allergies PROBLEMS Active Ambulatory [...] nursing note reviewed. Exam conducted with a digital communications manager present. Vitals: Estimated body mass index is 29.53 kg/m as calculated from the following: Height as of 07/17/23: 5' 10 . Weight as of this encounter: 205 lb 12.8 oz. BP: 110/78 Patient's last menstrual period was 10/03/2024. Assessment/Plan ICD-10-CM 1. Third trimester ([facility]) Z34.93 2. 30 weeks gestation of ([facility]) Z3A.30 POCT urinalysis dipstick manually resulted Return OB: Patient presents today for a routine obstetrics appointment. Patient is currently 30w4d . Patient states she is doing well [...] by Chiara Rosales LPN on behalf of: Saravanan Rachel DO documented in this encounterEllett Memorial [id number] History of Present illness Narrative* CHITO Alvarez - 04/20/2025 2:50 PM EDT Reason for Appointment: Patient ID: Christina Muhammad is a 25 y.o. female who presents for Routine Visit Patient presents today for Return OB appointment. MEDICATIONS Current Outpatient Medications Medication Instructions cetirizine (ZyrTEC) 10 MG tablet fluticasone (Flonase) 50 MCG/ACT nasal spray 2 sprays, Daily RT iron polysaccharides (PROFE) 391.3 mg, Oral, Daily metoclopramide (REGLAN) 10 mg, Oral, 3 times daily before meals, Take 1 tablet by mouth 30 minutes prior to meals 3 times daily as needed for nausea. ondansetron (ZOFRAN) 4 mg, Oral, Every 6 hours PRN, Take 1 tablet by mouth every 6 hours as needed for nausea. venlafaxine XR (EFFEXOR XR) 37.5 mg, Oral, Daily, Do not crush or chew. ALLERGIES Allergies[1] PROBLEMS Active Ambulatory Problems Diagnosis Date Noted No Active Ambulatory Problems Resolved Ambulatory Problems Diagnosis Date Noted No Resolved Ambulatory Problems Past Medical History: Diagnosis Date Low blood pressure HISTORY PAST MEDICAL HISTORY SOCIAL HISTORY Medical History[2] Social History Tobacco Use Smoking status: Not on file Smokeless tobacco: Not on file Substance Use Topics Alcohol use: Not on file Drug use: Not on file FAMILY HISTORY Family History[3] SURGICAL HISTORY Surgical History[4] REVIEW OF SYSTEMS Review of Systems: Review [...] reviewed. Vitals: Estimated body mass index is 29.2 kg/m as calculated from the following: Height as of 07/17/23: 5' 10 . Weight as of this encounter: 203 lb 8 oz. BP: 118/84 Patient's last menstrual period was 10/03/2024. ASSESSMENT & PLAN ICD-10-CM 1. Third trimester ([facility]) Z34.93 POCT urinalysis dipstick manually resulted 2. 28 weeks gestation of ([facility]) Z3A.28 Return OB: Patient presents today for a routine obstetrics appointment. Patient is currently 28w3d . Patient states she is doing well [...] CHITO Alvarez on behalf of: CHITO Alvarez [1] No Known Allergies [2] Past Medical History: Diagnosis Date Low blood pressure [3] No family history on file. [4] No past surgical history on file. documented in this encounterEllett Memorial [id number] History of Present illness Narrative* Betsy Gates NP - 04/06/2025 2:30 PM EDT Reason for Appointment: Patient ID: Christina Muhammad is a 25 y.o. female who presents for Routine Visit Patient presents today for Return OB appointment. MEDICATIONS Current Outpatient Medications Medication Instructions cetirizine (ZyrTEC) 10 MG tablet fluticasone (Flonase) 50 MCG/ACT nasal spray 2 sprays, Daily RT metoclopramide (REGLAN) 10 mg, Oral, 3 times daily before meals, Take 1 tablet by mouth 30 minutes prior to meals 3 times daily as needed for nausea. ondansetron (ZOFRAN) 4 mg, Oral, Every 6 hours PRN, Take 1 tablet by mouth every 6 hours as needed for nausea. venlafaxine XR (EFFEXOR XR) 37.5 mg, Oral, Daily, Do not crush or chew. ALLERGIES No Known Allergies PROBLEMS Active Ambulatory [...] nursing note reviewed. Exam conducted with a digital communications manager present. Vitals: Estimated body mass index is 28.12 kg/m as calculated from the following: Height as of 07/17/23: 5' 10 . Weight as of this encounter: 196 lb. BP: 130/80 Patient's last menstrual period was 10/03/2024. ASSESSMENT & PLAN ICD-10-CM 1. Second trimester ([facility]) Z34.92 POCT urinalysis dipstick manually resulted 2. 26 weeks gestation of ([facility]) Z3A.26 Return OB: Patient presents today for a routine obstetrics appointment. Patient is currently 26w3d . Patient states she is doing well but has complaints of being tired due to current . Patient has verbalizes frequent movement. labor precautions was discussed/given and patient was instructed to perform kick counts three times a day. Pt has not been to [facility] for a Level 2 US. [facility] appointment is scheduled for April 14. Patient to begin ProFE and prescription sent to pharmacy Orders Placed This Encounter Procedures POCT urinalysis dipstick manually resulted Follow Up: Patient is to return to office in 2 week for routine OB appointment. Documented by Mary Kay Salazar MA on behalf of: Betsy Gates NP documented in this encounterEllett Memorial [id number] History of Present illness Narrative* Betsy Gates NP - 03/16/2025 1:20 PM EDT Reason for Appointment: Patient ID: Christina Muhammad is a 25 y.o. female who presents for Routine Visit Patient presents today for Return OB appointment. MEDICATIONS Current Outpatient Medications Medication Instructions cetirizine (ZyrTEC) 10 MG tablet fluticasone (Flonase) 50 MCG/ACT nasal spray 2 sprays, Daily RT metoclopramide (REGLAN) 10 mg, Oral, 3 times daily before meals, Take 1 tablet by mouth 30 minutes prior to meals 3 times daily as needed for nausea. ondansetron (ZOFRAN) 4 mg, Oral, Every 6 hours PRN, Take 1 tablet by mouth every 6 hours as needed for nausea. venlafaxine XR (EFFEXOR XR) 37.5 mg, Oral, Daily, Do not crush or chew. ALLERGIES No Known Allergies PROBLEMS Active Ambulatory [...] nursing note reviewed. Exam conducted with a digital communications manager present. Vitals: Estimated body mass index is 27.28 kg/m as calculated from the following: Height as of 07/17/23: 5' 10 . Weight as of this encounter: 190 lb 1.9 oz. BP: 130/70 Patient's last menstrual period was 10/03/2024. ASSESSMENT & PLAN ICD-10-CM 1. 23 weeks gestation of ([facility]) Z3A.23 POCT urinalysis dipstick manually resulted 2. Second trimester ([facility]) Z34.92 POCT urinalysis dipstick manually resulted 3. Anxiety, generalized F41.1 4. Diabetes mellitus screening Z13.1 CBC Glucose tolerance, 1 hour CBC Glucose tolerance, 1 hour Return OB: Patient presents today for a routine obstetrics appointment. Patient is currently 23w3d . Patient states she is doing well but has complaints of being tired due to current . Patient has verbalizes frequent movement. labor precautions was discussed/given and patient was instructed to perform kick counts three times a day. Orders Placed This Encounter Procedures CBC Glucose tolerance, 1 hour POCT urinalysis dipstick manually resulted Follow Up: Patient is to return to office in 3 week for routine OB appointment. Patient scheduled for M appointment on April 14. Patient with a family history of hydrocephalus in brother. Documented by Betsy Gates NP on behalf of: Betsy Gates NP documented in this encounterEllett Memorial [id number] History of Present illness Narrative* Betsy Gates NP - 03/02/2025 9:00 AM EDT Reason for Appointment: Patient ID: Christina Muhammad [...] nursing note reviewed. Exam conducted with a digital communications manager present. Vitals: Estimated body mass index is 26.6 kg/m as calculated from the following: Height as of 07/17/23: 5' 10 . Weight as of this encounter: 185 lb 6.4 oz. BP: 110/74 Patient's last menstrual period was 10/03/2024. ASSESSMENT & PLAN ICD-10-CM 1. Second trimester ([facility]) Z34.92 POCT urinalysis dipstick manually resulted 2. 21 weeks gestation of ([facility]) Z3A.21 POCT urinalysis dipstick manually resulted Return OB: Patient presents today for a routine obstetrics appointment. Patient is currently 21w3d . Patient states she is doing well but has complaints of being tired due to current . Patient has verbalizes frequent movement. labor precautions was discussed/given and patient was instructed to perform kick counts three times a day. Orders Placed This Encounter Procedures POCT urinalysis dipstick manually resulted Follow Up: Patient with complaints of anxiety and mood changes. Will begin on Effexor 37.5 mg. Patient with family history of brother with hydrocephalis would like level 2 ultrasound. Patient is to return to office in 2 weeks for routine OB appointment. Documented by Betsy Gates NP on behalf of: Saravanan Rachel DO documented in this encounterEllett Memorial [id number] History of Present illness Narrative* CHITO Alvarez - 02/02/2025 3:30 PM EDT Reason for Appointment: Patient ID: Christina Muhammad [...] 10/03/2024. ASSESSMENT & PLAN (Z34.92) Second trimester ([facility]) Plan: Alpha fetoprotein, maternal, Alpha fetoprotein, maternal (Z3A.17) 17 weeks gestation of ([facility]) Plan: POCT urinalysis dipstick manually resulted (Z36.89) Screening, , for anatomic survey ([facility]) Plan: US OB 14+ weeks anatomy scan [...] behalf of: CHITO Alvarez documented in this encounterEllett Memorial [id number] History of Present illness Narrative* CHITO Alvarez - 01/05/2025 1:50 PM EDT Reason for Appointment: Patient ID: Christina Muhammad [...] ASSESSMENT & PLAN ICD-10-CM 1. Second trimester ([facility]) Z34.92 POCT urinalysis dipstick manually resulted 2. 13 weeks gestation of ([facility]) Z3A.13 Return OB: Patient presents today for [...] of: Saravanan Rachel DO documented in this encounterEllett Memorial [id number] History of Present illness Narrative* Rupal Owusu MA - 12/04/2024 1:00 PM EDT Reason for Appointment: Patient ID: Christina Muhammad [...] drink 6-8 glasses of water a day, eatno raw or undercooked meat, and stay away from [facility]. Patient has also been advised to not change litter boxes and eat 6 small meals a day. Patient has been consulted regarding the do's and don'ts ofpregnancy. Patient was given labs and all questions and concerns were answered. Follow Up: Patient is to have labs drawn at directed and return to office for initial OB appointment with provider in 4 weeks. Patient may call office as needed with any concerns or questions. Nurse Visit Completed by: Rupal Owusu MA documented in this encounterEllett Memorial [id number] History of Present illness Narrative* CHITO Alvarez - 07/21/2024 2:00 PM EST Reason for Appointment: Patient ID: [...] nursing note reviewed. Exam conducted with a digital communications manager present. Vitals: Estimated body mass index is 21.95 kg/m as calculated from the following: Height as of 07/17/23: 5' 10 . Weight as of this encounter: 153 lb. BP: 110/64 Patient's last menstrual period was 06/29/2024. ASSESSMENT & PLAN ICD-10-CM 1. Well woman exam with routine gynecological exam Z01.419 Pap Smear 2. Uses control Z78.9 norethindrone-ethinyl estradiol (Blisovi FE 07/28) 1- 20 MG-MCG tablet Annual Exam: Patient presents today [...] behalf of: CHITO Alvarez documented in this encounterEllett Memorial [id number] History of Present illness Narrative* CHITO Alvarez - 06/11/2024 9:30 AM EST Reason for Appointment: Patient ID: Christina [...] Reports this is unchanged and non-tender and hasbeen there since she can remember. All other [...] and non tender. If this becomes painful orlarger and she desires excision this can be completed surgically if she desires. She declines surgical option at this time. Documented by CHITO Alvarez on behalf of: CHITO Alvarez documented in this encounterEllett Memorial [id number] NotePsych Progress Note WEBEX SESSION Time In: 3:07 [...] medication compliance and somatic anxiety. Has an ObMohoundn appt Jul 17. Response to Intervention: Agreeable [...] PhD (electronically signed on 06/14/2023 at 3:59 PM)[facility]11-09-2023 NotePsych Progress Note WEBEX SESSION Time In: 10:02 [...] PhD (electronically signed on 05/17/2023 at 11:07 AM)[facility]10-26-2023 NotePsych Progress Note WEBEX SESSION Time In: 10:02 [...] calling MD re: taking supplements. Advised seeing Material Engineer. Response to Intervention: Agreeable Overall Assessment of [...] PhD (electronically signed on 05/03/2023 at 11:00 AM)[facility]10-03-2023 NotePsych Progress Note WEBEX SESSION Time In: 10:01 [...] help her with OBGYN appt. Also saw nub card tender and has low blood pressure. AGREED will make an appt with mother to go over health insurance and other benefits. Call to schedule echo for cardio issues. NEED TO REVIEW - call advisor at [facility]. Response to Intervention: Agreeable Overall Assessment of [...] PhD (electronically signed on 04/10/2023 at 11:18 AM)[facility]09-18-2023 NotePsych Progress Note WEBEX SESSION Time In: 10:01 [...] scale and anxiety as high. 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 Worries about college - wants to get an Associates in [employer]. Failed digital literacy class. Addressed plans and worries about her future, medical issues. AGREED - schedule OBGYN, and call advisor at [facility] [place]. Response to Intervention: Agreeable Overall Assessment of [...] PhD (electronically signed on 03/26/2023 at 10:57 AM)[facility]09-01-2023 [facility] Time In: 10 am Time Out: 10:55 am Encounter Type: On-Site Video at [facility] Patient Name: Christina Muhammad MRN / CSN: [id number] Date of / Age: 10 2000 y.o. [...] session, [place], [place]), and I was in my home office. Their alternate # was reported as ([phone]). They informed me that they were in [...] boyfriend Osmin, now, at [address], [place], [place]. 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 SCHOOL / JOB Not in school now. [...] Dr Doyle at age 17. No meds. CHURCH/CULTURE Not nondenominational. She is . STRENGTHS /WEAKNESSES /GOALS She [...] is a 23 y.o. female (marital status) (episcopalian) (job) (living) Chief Complaint Anxiety History of Present Illness: Christina Muhammad is a 23 y.o. female with past psychiatric history of anxiety presenting to the [facility] for a psychiatric evaluation. [...] Surgeries: Denies Head I (more content not included)...[facility] 03-02-2020 NotePROCEDURE: XR FOOT LT MIN 3 VIEWS COMPARISON: None. HISTORY: Pain in left foot FINDINGS: BONES:No fracture, acute abnormality, or significant arthropathy. Incidental fused os trigonum SOFT TISSUES:Negative. No visible soft tissue swelling. EFFUSION:None visible. OTHER: Negative. IMPRESSION: No acute abnormality Electronically authenticated by: ANN DUNHAM Date: 2020-03-02 09:21[facility]Evaluation noteNo assessment information availableShelby Memorial Hospital Work Phone: Evaluation noteNo InformationNort TwentyFeet Other Evaluation note* Diagnosis Lipoma of other specified sites- Primary [facility]* Diagnosis Well woman exam with routine gynecological exam Routine gynecological examination Uses control documented [facility] encounter [facility]* Diagnosis Missed menses , unspecified [...] as infective documented [facility] encounter [facility]* Diagnosis Anxiety, generalized- Primary Second trimester ([facility]) state, incidental 21 weeks gestation of ([facility]) [facility]* Diagnosis 23 weeks gestation of ([facility]) Second trimester ([facility]) state, incidental Anxiety, generalized Diabetes mellitus screening Screening for diabetes mellitus documented [facility]* Diagnosis Anemia, unspecified type- Primary Second trimester ([facility]) state, incidental 26 weeks gestation of ([facility]) [facility]* Diagnosis Third trimester ([facility]) state, incidental 28 weeks gestation of ([facility]) [facility]* Diagnosis Third trimester ([facility]) state, incidental 30 weeks gestation of ([facility]) size inconsistent with dates ([facility]) [facility]* Diagnosis Third trimester ([facility]) state, incidental 32 weeks gestation of ([facility]) Heartburn Nausea Nausea alone documented in this encounter [facility] Summary [...] and content) DATE CREATED AUTHOR 12/25/2017 [facility] DATE CREATED AUTHOR AUTHOR'S ORGANIZ ATION 12/17/2020 [facility] DATE CREATED AUTHOR AUTHOR'S ORGANIZ ATION 05/07/2023 [facility] DATE CREATED AUTHOR AUTHOR'S ORGANIZ ATION 06/15/2023 [facility] DATE CREATED AUTHOR AUTHOR'S ORGANIZ ATION 05/21/2025 [facility] EPIC Care Teams (unrecognized sec tion and content) Team Status: Inactive Member Role Status Dates Triny Browne NP Attending Provider Active Team MemberRelationshipSpecialtyStart DateEnd Date Slick Graff MD [address] [place] [address], [address] [place] [address] [facility]07/17/23Team MemberRelationshipSpecialtyStart DateEnd Date Slick Graff MD [address] [place] [address], [address] [place] [address] PCP - GeneralFamily Medicine07/17/23Team MemberRelationshipSpecialtyStart DateEnd Date Slick Graff MD [address] [place] [address], [address] [place] [address] PCP - GeneralFamily Medicine07/17/23Team MemberRelationshipSpecialtyStart DateEnd Date Slick Graff MD [address] [place] [address], [address] [place] [address] PCP - GeneralFamily Medicine07/17/23Team MemberRelationshipSpecialtyStart DateEnd Date Slick Graff MD [address] [place] [address], [address] [place] [address] PCP - GeneralFamily Medicine07/17/23Team MemberRelationshipSpecialtyStart DateEnd Date Slick Graff MD [address] [place] [address], [address] [place] [address] PCP - GeneralFamily Medicine07/17/23Team MemberRelationshipSpecialtyStart DateEnd Date Slick Graff MD [address] [place] [address], [address] [place] [address] PCP - GeneralFamily Medicine07/17/23Team MemberRelationshipSpecialtyStart DateEnd Date Slick Graff MD [address] [place] [address], [address] [place] [address] PCP - GeneralFamily Medicine07/17/23Team MemberRelationshipSpecialtyStart DateEnd Date Slick Graff MD [address] [place] [address], [address] [place] [address] PCP - GeneralFamily Medicine07/17/23Team MemberRelationshipSpecialtyStart DateEnd Date Slick Graff MD [address] [place] [address], [address] [place] [address] PCP - GeneralFamily Medicine07/17/23Team MemberRelationshipSpecialtyStart DateEnd Date Slick Graff MD [address] [place] [address], [address] [place] [address] PCP - GeneralFamily Medicine07/17/23Team MemberRelationshipSpecialtyStart DateEnd Date Slick Graff MD [address] [place] [address], [address] [place] [address] PCP - GeneralFamily Medicine07/17/23Team MemberRelationshipSpecialtyStart DateEnd Date Slick Graff MD [address] [place] [address], [address] [place] [address] PCP - GeneralFamily Medicine07/17/23Team MemberRelationshipSpecialtyStart DateEnd Date Slick Graff MD [address] [place] [address], [address] [place] [address] PCP - Generalmily Medicine07/17/23Te MemberRelationshipSpecialtyStart DateEnd Date Slick Graff MD [address] [place] [address], [address] [place] [address] PCP - GeneralFamily Medicine07/17/23Te MemberRelationshipSpecialtyStart DateEnd Date Slick Graff MD [address] [place] [address], [address] [place] [address] PCP - GeneralFamily Medicine07/17/23 Goals (unrecognized section and content) Goals may be documented in a n alternate sectionNo Information Reason for Visit (unrecogniz ed section and content) ReasonCommentsRoutine VisitReasonCommentsAmenorrheaReasonCommentsWell Women VisitReasonCommentsPelvic lump FOR RECORDS PERTAINING TO PATIENTS WHO [...] BE BASED ON THE PRIMARY CLINICAL RECORDS. [facility] [employer] provides no warranty or guarantee of the accuracy or completeness of information in this document.
--- OUTSIDE RECORDS SUMMARY | 2025-06-06 09:05 | XMS_ITS | Clinical Summary ---
Author Organization [facility] Healthcare Address [address] [place] [address] Care Team Providers Care Customer Insight Analyst Name Role Phone Dick Parker MD Primary Care Provider [phone] Allergies No known active allergies Medications MedicationSigDispense QuantityRefillsLast FilledStart DateEnd DateStatus ondansetron (Zofran) 4 MG tablet Indications:NauseaTake 1 tablet (4 mg) by mouth every 6 (six) hours if needed for nausea or vomiting for up to 30 doses Take 1 tablet by mouth every 6 hours as needed for nausea. 30 tablet 5Active metoclopramide (Reglan) 10 MG tablet Indications:NauseaTake 1 tablet (10 mg) by mouth in the morning and 1 tablet (10 mg) at noon and 1 tablet (10 mg) in the evening. Take before meals. Take 1 tablet by mouth 30 minutes prior to meals 3 times daily as needed for nausea. 90 tablet 5Active fluticasone (Flonase) 50 MCG/ACT nasal spray Administer 2 sprays into affected nostril(s) in the morning.5Active omeprazole (PriLOSEC) [address] capsule Indications:Gastroesophageal Reflux Disease,HeartburnTake 1 capsule (20 mg) by mouth in the morning. Take before meals. Do not crush or chew. 30 capsule 5Active cetirizine (ZyrTEC) 10 MG tablet /Discontinued venlafaxine XR (Effexor XR) 37.5 MG 24 hr capsule Indications:Anxiety, generalizedTake 1 capsule (37.5 mg) by mouth Daily Do not crush or chew. 30 capsule 505108/03/2024Discontinued ondansetron ODT (Zofran-ODT) 4 MG disintegrating tablet Indications:NauseaTake 1 tablet (4 mg) by mouth every 6 (six) hours if needed for nausea or vomiting 30 tablet 5108/03/2024Discontinued Encounters DateTypeDepartmentCare WsrgKzlhkhmbdmj04/26/2025 2:50 PM ESTRoutine [facility] [address] [place] [place] [address] Rudi Rachel DO Third trimester ([facility]); 34 weeks gestation of ([facility]); Right leg pain06/03/2025cardinal [facility] flowsheet [facility] [place] [address] Rudi Rachel DO 05/20/2025 9:20 AM ESTRoutine [facility] [address] [place] [address] [address] [place] [address] Becca Cyr PA Third trimester ([facility]); 32 weeks gestation of ([facility]); Heartburn; Hqnfto4105/20/2025 8:00 AM ESTAncillary Procedure [facility] [address] [place] [address] size inconsistent with dates ([facility])05/05/2025 2:00 PM EDTRoutine [facility] [address] [place] [address] Rudi Rachel DO Third trimester ([facility]); 30 weeks gestation of ([facility]); size inconsistent with dates ([facility])05/05/2025amboo flowsheet [facility] [address] [place] [place] [address] Rudi Rachel DO 04/20/2025 2:50 PM EDTRoutine [facility] [facility] [address] [place] [address] Becca Cyr PA Third trimester ([facility]); 28 weeks gestation of ([facility])04/20/2025amboo flowsheet [facility] [address] [place] [address] Becca Cyr PA 04/06/2025 2:30 PM EDTRoutine [facility] [address] [place] [address] Betsy Gates NP Anemia, unspecified type (Primary Dx); Second trimester ([facility]); 26 weeks gestation of ([facility])04/06/2025amboo flowsheet [facility] [address] [place] [address] Betsy Gates NP 04/04/2025linisync Result Encounter NOM[facility] External Department Unsolicited Betsy Gates NP 04/01/2025Telephone [facility] [address] [place] [address] Rudi Rachel DO 03/16/2025 1:20 PM EDTRoutine [facility] [address] [place] [address] Betsy Gates NP 23 weeks gestation of ([facility]); Second trimester ([facility]); Anxiety, generalized ; Diabetes mellitus nufqooirj49/08/2025amboo flowsheet [facility] [address] [place] [place] [address] Betsy Gates NP from Last 3 Months Social History Tobacco UseTypesPacks/DayYears UsedDateSmoking Tobacco: Never Assessed Estimated Date of UjuqltgsQxfuykrwEls19/02/2026Based on last menstrual period of 10/03/2024Sex and Gender InformationValueDate RecordedSex Assigned at BirthFemale 07/17/2023 10:18 AM ESTLegal SclCunlxu05/15/2023 11:47 PM EDTGender Identity Usdidj6507/17/2023 10:18 AM ESTSexual OrientationNot on file Last Filed Vital Signs Vital SignReadingTime TakenCommentsBlood Zjcyaczq153/7206/03/2025 3:04 PM EST Pulse--Temperature--Respiratory Rate--Oxygen Saturation--Inhaled Oxygen Concentration--Fzesxg90.6 kg (210 lb 12.8 oz)06/03/2025 3:04 PM QHJOwetqu255.8 cm (5' 10 )07/17/2023 1:22 PM ESTBody Mass Index30.25007/17/2023 1:22 PM EST Plan of Treatment DateTypeDepartmentCare Team (Latest Contact Info)Jkegkwokwaz69/10/2025 3:20 PM ESTRoutine [facility] [address] [place] [address] Rudi Rachel DO [address] [place] [address] Procedures Procedure NamePriorityDate/TimeAssociated DiagnosisCommentsPOCT URINALYSIS ROVJIYCPZeyvrhy20/26/2025 3:09 PM EST Third trimester ([facility]) 34 weeks gestation of ([facility]) POCT URINALYSIS QWXZNIKLEfqguiv16/12/2025 8:46 AM EST 32 weeks gestation of ([facility]) OB FOLLOW UP TRANSABDOMINAL PUBHPJGOZbolett46/12/2025 8:34 AM EST size inconsistent with dates ([facility]) POCT URINALYSIS MKWAWWMYBmnvioe76/28/2025 2:21 PM EDT 30 weeks gestation of ([facility]) POCT URINALYSIS BJSQVRGGAkbmyan95/13/2025 3:17 PM EDT Third trimester ([facility]) POCT URINALYSIS TJNJPVCOYlibzlv94/29/2025 2:50 PM EDT Second trimester ([facility]) GLUCOSE 1 UEHDZeqkelm50/27/2025 12:28 PM EDT ALL CBC WITH AUTO IYTWOwxnhxr26/27/2025 12:28 PM EDT POCT URINALYSIS TKDNDQPHUiawbtu84/08/2025 1:29 PM EDT 23 weeks gestation of ([facility]) Second trimester ([facility]) from Last 3 Months Results * POCT urinalysis dipstick manually resulted (06/03/2025 3:09 PM EST) Only the most recent of6 resultswithin the time period is included. ComponentValueRef RangeTest MethodAnalysis TimePerformed AtPathologist Signature Color, UAYellowClarity, UAClearGlucose, UANegativeNegative - 2000(110) ++++ mg/dLBilirubin, UANegativeNegative - 4(70) +++ mg/dLKetones, UANegativeNegative - 160(16) ++++ mg/dLSpec Grav, UA1.0151 - 1.03Blood, UANegativeNegative - 50 Jovani/mcLpH, UA7.05 - 9Protein, UANegativeNegative - 2000(20) ++++ mg/dL Urobilinogen, UA0.20.2 - 12 mg/dLLeukocytes, UANegativeNegative - 500+++ Luis E/mcL Nitrite, UANegativeNegative - PositiveSpecimen (Source)Anatomical Location / LateralityCollection Method / VolumeCollection TimeReceived RbcnVmcjr54/26/2025 3:09 PM EST Narrative Authorizing ProviderResult TypeResult StatusCorey Wilson DOPOINT OF CARE TEST ENTER/EDIT ORDERABLESFinal Result * US OB follow up transabdominal approach (05/20/2025 8:34 AM EST)Anatomical RegionLateralityModalityBodyUltrasoundSpecimen (Source)Anatomical Location / LateralityCollection Method / VolumeCollection TimeReceived Time05/20/2025 10:30 AM EST Impressions 05/20/2025 10:50 AM EST 1. Single, live intrauterine , current sonographic age of 33 weeks and 3 days, with an estimated date of delivery of July 05, 2025. 2. Prior examination of ??December 04, 2024 delivery at that time was July 09, 2025. * ??Estimated Weight (g) by Percentile is based upon an accurate estimated age based onlast menstrual period. ?? TRANSCRIBED BY: ? ELECTRONICALLY SIGNED BY: Binh Smiley MD Narrative 05/20/2025 10:50 AM EST FINDINGS: A single, live intrauterine is present with normal cardiac rate of 165 ??beats per minute. Normal activity and amniotic fluid volume. Amniotic fluid index is 13 ??cm. ??Morphology is grossly normal. ??The current sonographic age is 33 ??weeks and 3 days, based on the followingmeasurements: BPD ?8.4cm (33 weeks, 5 days) Head Circumference ? 30.4cm (33 weeks,5 ??days) Abdominal Circumference ? 29.0cm (33 weeks,0 ??days) Femur Length ?6.5cm ( 33weeks, 2 days) Presentation ? Cephalic ? Weight (g) by Percentile ??57.0 % * These measurements result in an estimated date of delivery of ??July 05, 2025. ?? The current estimated weight is ??2149 ??grams ( 4 pound, 12 ??ounces). ?? Procedure Note Binh Smiley MD - 05/20/2025 FINDINGS: A single, live intrauterine is present with normal cardiacrate of 165 beats per minute. Normal activity and amniotic fluidvolume. Amniotic fluid index is 13 cm. Morphology is grossly normal.The current sonographic age is 33 weeks and 3 days, based on thefollowing measurements: BPD 8.4cm (33 weeks, 5 days) Head Circumference 30.4cm (33 weeks,5 days) Abdominal Circumference 29.0cm (33 weeks,0 days) Femur Length 6.5cm ( 33weeks, 2 days) Presentation Cephalic Weight (g) by Percentile 57.0 %* These measurements result in an estimated date of delivery of 2024. The current estimated weight is 2149 grams ( 4 pound,12 ounces). IMPRESSION: 1. Single, live intrauterine , current sonographic age of 33weeks and 3 days, with an estimated date of delivery of July 05, 2025. 2. Prior examination of December 04, 2024 delivery at that time was July. * Estimated Weight (g) by Percentile is based upon an accurateestimated age based on last menstrual period. TRANSCRIBED BY: ELECTRONICALLY SIGNED BY: Binh Smiley MD Authorizing ProviderResult TypeResult StatusCoreck URIBE OB US PROCEDURES Final Result * GLUCOSE 1 HOUR (04/04/2025 12:28 PM EDT)ComponentValueRef RangeTest Method Analysis TimePerformed AtPathologist SignatureGLUCOSE 1 HOUR83<130 mg/dLTBH Specimen (Source)Anatomical Location / LateralityCollection Method / Volume Collection TimeReceived Time04/04/2025 12:28 PM EDT04/04/2025 12:29 PM EDT Narrative [facility] - 04/04/2025 1:21 PM EDT Authorizing ProviderResult TypeResult StatusBetsy Gates NPLAB BLOOD ORDERABLESFinal ResultPerforming OrganizationAddressCity/State/ZIP CodePhone Number [facility] * (ABNORMAL) ALL CBC WITH AUTO DIFF (04/04/2025 12:28 PM EDT)ComponentValueRef RangeTest MethodAnalysis TimePerformed AtPathologist SignatureTBH WBC12.1(H) 4.0 - 11.0 10 3/uLTBHTBH RBC3.50(L)4.20 - 5.40 10 6/uLTBHTBH HGB10.7(L)12.0 - 16.0 g/dLTBHTBH HCT31.9(L)36.0 - 48.0 %TBHTBH MCV91.181.0 - 99.0 fLTBHTBH MCH 30.626.7 - 34.0 pgTBHTBH MCHC33.529.9 - 35.2 g/dLTBHTBH RDW12.311.0 - 15.0 % TBHTBH IPK300453 - 450 10 3/uLTBHTBH MPV10.59.5 - 13.5 fLTBHNEUTROPHILS PERCENT AUTO73.343.0 - 75.0 %TBHLYMPHOCYTES PERCENT AUTO11.1(L)20.5 - 60.0 % TBHMONOCYTES PERCENT AUTO6.81.7 - 12.0 %TBHTBH EO %7.5(H)0.9 - 7.0 %TBH BASOPHILS PERCENT AUTO0.50.2 - 2.0 %TBHIMMATURE GRANULOCYTES PCT AUTO0.8(H)0.0 - 0.5 %TBHNEUTROPHILS ABSOLUTE AUTO8.9(H)1.4 - 6.5 10 3/uLTBHLYMPHOCYTES ABSOLUTE AUTO1.31.2 - 3.8 10 3/uLTBHMONOCYTES ABSOLUTE AUTO0.80.3 - 0.8 10 3/uLTBHTBH EO #0.9(H)0.0 - 0.7 10 3/uLTBHBASOPHILS ABSOLUTE AUTO0.10.0 - 0.1 10 3/uLTBHIMMATURE GRANULOCYTES ABS AUTO0.10(H)0.00 - 0.03 10 3/uLTBHSpecimen (Source)Anatomical Location / LateralityCollection Method / VolumeCollection TimeReceived Time04/04/2025 12:28 PM EDT04/04/2025 12:29 PM EDT Narrative [facility] - 04/04/2025 1:19 PM EDT Authorizing ProviderResult TypeResult StatusKrkarmena Kody NPCLINISYNCFinal ResultPerforming OrganizationAddressCity/State/ZIP CodePhone Number [facility] from Last 3 Months Insurance Care Teams Team MemberRelationshipSpecialtyStart DateEnd Date Dick Parker MD [address] [place] [address], [address] [place] [address] PCP - GeneralFamily Medicine07/17/23
--- OUTSIDE RECORDS SUMMARY | 2025-06-06 09:05 | XMS_ITS | Clinical Summary ---
Author Organization [facility] tem Address [facility] [place]-[id number] [address] [place] [address] Care Team Providers Care Freight Team Associate Name Role Phone Dick Parker MD Primary Care Provider [phone] Allergies No known active allergies Medications * This document contains information received from the source organization and may not represent a complete record from that organization. MedicationSigDispense QuantityRefillsLast FilledStart DateEnd DateStatus cetirizine (ZyrTEC) 10 mg tablet Take 1 tablet (10 mg total) by mouth in the morning. 90 tablet 4Active ondansetron ODT (ZOFRAN ODT) 4 mg disintegrating tablet Dissolve 1 tablet (4 mg total) on tongue every 8 (eight) hours as needed for nausea or vomiting. 10 tablet 5Active fluticasone propionate (FLONASE) 50 mcg/actuation nasal spray Administer 2 sprays into each nostril in the morning. 15.8 mL 5Active 115/iron/folic acid ( 19 ORAL) Take 1 tablet by mouth in the morning.Active ferrous sulfate 325 (65 FE) mg EC tablet Take 1 tablet (325 mg total) by mouth daily with breakfast.Active Active Problems ProblemNoted DateDiagnosed DateNear acuaoni2204/03/2023Major depressive disorder, single episode, moderate with anxious zyglhatw10/06/2018Estimated Date of HevroijnLjkewxhhMde57/02/2026ased on last menstrual period of 10/03/2024 Encounters DateTypeDepartmentCare KarhZzfpynxqjce77/07/2025 8:45 AM EDTOffice Visit [facility]aternal[facility] at [facility] [address] [place] [address] Jaja Ybarra MD Family history of disorder of brain (Primary Dx); 27 weeks gestation of ; Depression affecting ; Anxiety disorder affecting , zadmydfykk67/07/2025 7:22 AM EDT - 04/14/2025 11:59 PM EDTHospital Encounter [facility] [address] [place] [address] Screening, , for anatomic survey Discharge Disposition: Home04/13/20250488Kuiztw90/08/2025Orders Only Maternal- Medicine at [facility] [address] [place] [address] Ref Prov, Not In System 5Abstract Maternal- Medicine at [facility] [address] [place] [address] Jaja Ybarra MD 03/13/2025Orders Only Maternal- Medicine at [facility] [address] [place] [address] Ref Prov, Not In System 5Abstract Maternal- Medicine at [facility] [address] [place] [address] Jaja Ybarra MD from Last 3 Months Immunizations ImmunizationAdministration DatesNext DueHPV Laagkgpxtflr75/31/2019,02/14/2019 Influenza (IM) Preservative Free05/08/2019Influenza, Injectable, quadrivalent (PF)03/23/2018Meningococcal Ohvgbbqij68/26/2019 Family History Medical HistoryRelationNameCommentsHydrocephalusBrotherSeizuresBrotherNo Known ProblemsFatherBleeding DisorderMaternal AuntVon Willebrand diseaseMaternal Aunt Bleeding DisorderMaternal GrandfatherCancerMaternal GrandfatherDementiaMaternal GrandfatherHeart diseaseMaternal GrandfatherHypertensionMaternal Grandfather ParkinsonismMaternal GrandfatherPulmonary embolismMaternal GrandfatherSudden deathMaternal GrandfatherPEVon Willebrand diseaseMaternal GrandfatherAutoimmune diseaseMaternal GrandmotherthyroidCancerMaternal GrandmotherHeart disease Maternal GrandmotherHypertensionMaternal GrandmotherAutoimmune diseaseMaternal UncleMultiple sclerosisMaternal UncleMeniere's diseaseMotherHypertensionPaternal AuntDiabetesPaternal GrandmotherAutismNeg HxClotting disorderNeg HxDevelopmental delayNeg HxDown syndromeNeg HxHeart defectNeg HxRelationNameStatusComments BrotherFatherAliveMaternal AuntAliveMaternal GrandfatherAliveMaternal GrandmotherDeceasedMaternal UncleAliveMotherAlivePaternal AuntAlivePaternal GrandmotherAlive Social History Tobacco UseTypesPacks/DayYears UsedDateSmoking Tobacco: NeverSmokeless Tobacco: Never Tobacco Cessation:Counseling Given: No Alcohol UseStandard Drinks/WeekCommentsNot Currently0 (1 standard drink = 0.6 oz pure alcohol)sociallyOverall Financial Resource Strain (CARDIA)AnswerDate RecordedHow hard is it for you to pay for the very basics like food, housing, medical care, and heating?Not very hard11/11/2023HQ-2AnswerDate RecordedTotal Zxjqq981RAPARE - TransportationAnswerDate RecordedIn the past 12 months, has lack of transportation kept you from medical appointments or from getting medications?No11/11/2023In the past 12 months, has lack of transportation kept you from meetings, work, or from getting things needed for daily living?No11/11/2023Housing InstabilityAnswerDate RecordedAre you worried or concerned that in the next two months you may not have stable housing that you own, rent or stay in as a part of a household?No11/11/2023hildcareAnswer Date HkkvwyujKorfvohseLtwrten58/12/2019EmploymentAnswerDate RecordedEmployment Bnoefty7112/18/2018Hunger ScreeningAnswerDate RecordedWithin the past 12 months we worried whether our food would run out before we got money to buy more.Never True04/14/2025Within the past 12 months the food we bought just didn't last and we didn't have money to get more.Never True04/14/2025Purpose - LifeAnswerDate RecordedPurpose and direction in rxqtHzimwje24/11/2021Estimated Date of XdvgwkvaHjqseztzTrr22/02/2026ased on last menstrual period of 10/03/2024Sex and Gender InformationValueDate RecordedSex Assigned at BirthNot on fileLegal Sex Ghpios8702/11/2015 11:59 AM EDTGender IdentityNot on fileSexual OrientationNot on fileOccupationIndustryJob Start DateJob End Dateline operatorNot on fileNot on fileNot on file Last Filed Vital Signs Vital SignReadingTime TakenCommentsBlood Gzjprijw093/801 7:57 AM EDT Ulnzd158204/14/2025 7:57 AM ALJYnbyxlwfxpv12.8 ??C (98.2 ??F)08/17/2024 3:01 PM ESTRespiratory Tplk953408/17/2024 3:01 PM ESTOxygen Xyrhxflwoj850%08/17/2024 3:01 PM ESTInhaled Oxygen Concentration--Wfgffk95.1 kg (198 lb 9.6 oz)04/14/2025 7:57 AM GTITjdafe984.8 cm (5' 10 )04/14/2025 7:57 AM EDTBody Mass Index28. 7:57 AM EDT Plan of Treatment Health MaintenanceDue DateLast DoneCommentsChlamydia Cmvesejty2002Adult BMI Follow Up Plan02/19/2020DTaP,Tdap and Td Vaccines (7 - Td or Tdap)11/26/2023 11/25/2013, 12/21/2006, 08/14/2003, Additional history existsInfluenza Vaccine , 03/23/2018Depression Jjviuotlu874RSV ( or age 60+ yrs) (1 - Risk 1-dose series)05/15/2025dult BMI Ykgdtibsp81Tobacco Qonsgkesr77/07/511799Pap Smear 8007/21/2024 Medical Devices Not on file Procedures Procedure NamePriorityDate/TimeAssociated DiagnosisCommentsCHG US,PREG UTER,FET & MAT,+ DETL FET SNPZtltwmr72/07/2025 9:20 AM EDT Screening, , for anatomic survey ULTRASOUND ZWHNMXMaxypgh18/08/2025 10:02 AM EDTULTRASOUND OFFICERoutine 03/13/2025 3:12 PM EDTULTRASOUND PMQSVBZghkmdx06/05/2025 3:08 PM EDTULTRASOUND OPOFXPEccojrg82/05/2025 3:05 PM EDTUNLISTED GENETIC SGDZRuwjujg09/05/2025 2:39 PM EDTFETAL FREE CELL DNA (NON-[facility] SEND OUT)Ykvwdez3903/13/2025 2:39 PM EDT from Last 3 Months Results * US MFM with or without consult (04/14/2025 9:20 AM EDT)Anatomical Region LateralityModalityOB-GYNUltrasoundSpecimen (Source)Anatomical Location / LateralityCollection Method / VolumeCollection TimeReceived Time04/14/2025 7:53 AM EDT Narrative 04/14/2025 9:12 AM EDT NAME: ??JUDY PÉREZ : 2000 SEX: F Accession Number: [id number] ORDERING PHYSICIAN: JAJA YBARRA REFERRING PHYSICIAN: SARAVANAN NIETO Coding Procedures ? 70792: Ultrasound, uterus, real time with image documentation, and maternal evaluation ? plus detailed anatomic examination, transabdominal approach;single or first gestation ? 38512: Ultrasound, uterus, real time with image documentation, transvaginal Indication Screening for Anatomic Survey , Screening for cervical length , Depression , Anxiety , Supervision of high risk -(MOB brother hydrocephalus . History OB History ? 1. Para 0 ? [id number] Current Cell free DNA ?Low risk analysis Maternal Assessment Physical Exam ??Height 178 cm, 5 ft 10 in. Weight 90 kg, 198 lb. Initial weight 68 kg, 150 lb. BMI 28.41 kg/m??. Initial ? BMI 21.52 kg/m??. Weight gain 22 kg, 48 lb Method Transabdominal and transvaginal ultrasound examination. View: Suboptimal view: limited by activity. Medical Assistant Producer Assistant Producer declined Rivera . Number of fetuses: 1 Dating LMP on: ?10/03/2024 GA by LMP ?27 w + 4 d VAIBHAV by LMP: ?07/10/2025 Previous Ultrasound on: ?12/04/2024 Type of prior assessment: ?CRL U/S measurement at prior assessment date ? 23.0 mm GA by previous U/S ? 27 w + 5 d VAIBHAV by previous Ultrasound: ?07/09/2025 Ultrasound examination on: ? 04/14/2025 GA by U/S based upon: ??AC, BPD, Femur, HC GA by U/S ?28 w + 1 d VAIBHAV by U/S: ?07/06/2025 Assigned: ?based on the LMP, selected on 04/14/2025 Assigned GA (weeks days) ? 27 w + 4 d Assigned VAIBHAV: ??07/10/2025 General Evaluation Cardiac activity Present. FHR 74 bpm. Presentation: variable Placenta: Placental site: posterior, away from cervical os Umbilical cord: Cord vessels: 3 vessel cord. Insertion site: normal insertion Amniotic fluid: Amount of AF: normal amount. MVP 7.9 cm Biometry Standard BPD ?73.0 mm 29w 2d 88% Hadlock OFD ?89.8 mm 29w 0d 86% Echo HC ? 258.6 mm ?28w 1d 37% Hadlock Cerebellum tr ??32.1 mm 27w 3d 58% Hill AC ? 238.4 mm ?28w 1d 60% Hadlock Femur ??49.6 mm 26w 5d 14% Hadlock Humerus ?49.3 mm 29w 0d 81% Echo HC / AC ?1.08 EFW ?1,119 g ??44% Hadlock EFW (lb) ? 2 lb EFW (oz) ? 7 oz EFW by: ?Hadlock (TZQ-RO-CM-FL) Extended Tibia ??46.2 mm 28w 1d 67% Echo [address] Vendor ? 3.8 mm CM 3.6 mm <1% Nicolaides Inner IOD ?20.0 mm Outer IOD ?44.5 mm Head / Face / Neck Cephalic index 0.81 ? 76% Nicolaides Nasal bone: ?present Extremities / Bony Struc FL / BPD ? 0.68 FL / HC ?0.19 FL / AC ?0.21 Other Structures FHR ?74 bpm Anatomy The following structures appear normal: Head/Neck: Cranium. Lateral ventricles. Choroid plexus. Midline falx. Cavum septi pellucidi. Cerebellum. Cisterna ? magna. Parenchyma. Vermis. ? Neck. Face: Lips. Profile. Nose. Nasal bone. Maxilla. Mandible. Orbits. Heart/Thorax: 4-chamber view. RVOT view. LVOT view. 3-vessel view. 4-kdgxwr-eudxzjk view. Situs. Aortic arch view. ? Bicaval view. Ductal arch view. Interventricular septum. Great vessels. Cardiac position. Cardiac axis. ? Cardiac size. Cardiac rhythm. ? Right lung. Left lung. Diaphragm. Abdomen: Abdom. wall. Cord insertion. Stomach. Kidneys. Bladder. Small bowel. Large bowel. Right renal artery. ? Left renal artery. Genitals. Spine: Cervical spine. Thoracic spine. Lumbar spine. Sacral spine. Extremities/Skeleton: Right upper arm. Right forearm. Right hand. Left upper arm. Left forearm. Left hand. Right upper leg. ? Right lower leg. Right foot. Left upper leg. Left lower leg. Left foot. Maternal Structures Uterus Visualized Cervix Visualized ? Approach - Transvaginal: Cervical length 3.66 cm Right Ovary ?Not visualized Left Ovary ? Not visualized Cul de Sac ? Visualized. No free fluid visualized Impression Single live intrauterine consistent with 27w 4d with an VAIBHAV of 07/10/2025. Normal growth. EFW measures at the 44%, AC measures at the 60%. anatomic survey did not reveal sonographic evidence of any gross structural abnormalities. Transvaginal cervical length measures 3.66 cm. Amniotic fluid MVP measures 7.9 cm. Recommendations Please see [facility] documentation from today. Subsequent follow up or other follow up as clinically determined by primary OB provider unless otherwise specified by [facility]. Results forwarded to ordering provider so they can follow up with the patient as necessary. Procedure Note Jaja Ybarra MD - 04/14/2025 NAME: JUDY PÉREZ : 2000 SEX: F Accession Number: [id number] ORDERING PHYSICIAN: JAJA YBARRA REFERRING PHYSICIAN: SARAVANAN NIETO Coding Procedures 57492: Ultrasound, uterus, real time with image documentation, and maternal evaluation plus detailed anatomic examination, transabdominalapproach;single or first gestation 24502: Ultrasound, uterus, real time with imagedocumentation, transvaginal Indication Screening for Anatomic Survey , Screening for cervical length , Depression, Anxiety , Supervision of high risk -(MOB brother hydrocephalus . History OB History 1. Para 0 [id number] Current Cell free DNA Low risk analysis Maternal Assessment Physical Exam Height 178 cm, 5 ft 10 in. Weight 90 kg, 198 lb. Initialweight 68 kg, 150 lb. BMI 28.41 kg/m??. Initial BMI 21.52 kg/m??. Weight gain 22 kg, 48 lb Method Transabdominal and transvaginal ultrasound examination. View: Suboptimalview: limited by activity. Medical Assistant Producer Assistant Producer declined Rivera . Number of fetuses: 1 Dating LMP on: 10/03/2024 GA by LMP 27 w + 4 d VAIBHAV by LMP: 07/10/2025 Previous Ultrasound on: 12/04/2024 Type of prior assessment: CRL U/S measurement at prior assessment date 23.0 mm GA by previous U/S 27 w + 5 d VAIBHAV by previous Ultrasound: 07/09/2025 Ultrasound examination on: 04/14/2025 GA by U/S based upon: AC, BPD, Femur, HC GA by U/S 28 w + 1 d VAIBHAV by U/S: 07/06/2025 Assigned: based on the LMP, selected on 04/14/2025 Assigned GA (weeks days) 27 w + 4 d Assigned VAIBHAV: 07/10/2025 General Evaluation Cardiac activity Present. FHR 74 bpm. Presentation: variable Placenta: Placental site: posterior, away from cervical os Umbilical cord: Cord vessels: 3 vessel cord. Insertion site: normalinsertion Amniotic fluid: Amount of AF: normal amount. MVP 7.9 cm Biometry Standard BPD 73.0 mm 29w 2d 88% Hadlock OFD 89.8 mm 29w 0d 86% Echo HC 258.6 mm 28w 1d 37% Hadlock Cerebellum tr 32.1 mm 27w 3d 58% Hill AC 238.4 mm 28w 1d 60% Hadlock Femur 49.6 mm 26w 5d 14% Hadlock Humerus 49.3 mm 29w 0d 81% Echo HC / AC 1.08 EFW 1,119 g 44% Hadlock EFW (lb) 2 lb EFW (oz) 7 oz EFW by: Hadlock (PCI-PU-PN-FL) Extended Tibia 46.2 mm 28w 1d 67% Echo [address] Vendor 3.8 mm CM 3.6 mm <1% Nicolaides Inner IOD 20.0 mm Outer IOD 44.5 mm Head / Face / Neck Cephalic index 0.81 76% Nicolaides Nasal bone: present Extremities / Bony Struc FL / BPD 0.68 FL / HC 0.19 FL / AC 0.21 Other Structures FHR 74 bpm Anatomy The following structures appear normal: Head/Neck: Cranium. Lateral ventricles. Choroid plexus. Midline falx.Cavum septi pellucidi. Cerebellum. Cisterna magna. Parenchyma. Vermis. Neck. Face: Lips. Profile. Nose. Nasal bone. Maxilla. Mandible. Orbits. Heart/Thorax: 4-chamber view. RVOT view. LVOT view. 3-vessel view. 4-suztxu-ycwnxtc view. Situs. Aortic arch view. Bicaval view. Ductal arch view. Interventricular septum. Greatvessels. Cardiac position. Cardiac axis. Cardiac size. Cardiac rhythm. Right lung. Left lung. Diaphragm. Abdomen: Abdom. wall. Cord insertion. Stomach. Kidneys. Bladder. Smallbowel. Large bowel. Right renal artery. Left renal artery. Genitals. Spine: Cervical spine. Thoracic spine. Lumbar spine. Sacral spine. Extremities/Skeleton: Right upper arm. Right forearm. Right hand. Leftupper arm. Left forearm. Left hand. Right upper leg. Right lower leg. Right foot. Left upper leg. Left lower leg. Leftfoot. Maternal Structures Uterus Visualized Cervix Visualized Approach - Transvaginal: Cervical length 3.66 cm Right Ovary Not visualized Left Ovary Not visualized Cul de Sac Visualized. No free fluid visualized Impression Single live intrauterine consistent with 27w 4d with an VAIBHAV of 07/10/2025. Normal growth. EFW measures at the 44%, AC measures at the 60%. anatomic survey did not reveal sonographic evidence of any grossstructural abnormalities. Transvaginal cervical length measures 3.66 cm. Amniotic fluid MVP measures 7.9 cm. Recommendations Please see [facility] documentation from today. Subsequent follow up or other follow up as clinically determined byprimary OB provider unless otherwise specified by M. Results forwarded to ordering provider so they can follow up with thepatient as necessary. Authorizing ProviderResult TypeResult StatusIra Tate MDIMG US ORDERABLES Final Result * Ultrasound - Office (03/16/2025 10:02 AM EDT) Only the most recent of4 resultswithin the time period is included. Anatomical RegionLateralityModalityAMBUltrasound Narrative Authorizing ProviderResult TypeResult StatusNot In System Ref ProvIMG US ORDERABLESFinal Result * Free Cell DNA (Non-[facility] Send Out) (03/13/2025 2:39 PM EDT) Narrative Authorizing ProviderResult TypeResult StatusNot In System Ref ProvLAB BLOOD ORDERABLESFinal ResultPerforming OrganizationAddressCity/State/ZIP CodePhone Number MANUALLY TRANSCRIBED RESULTS * Unlisted Genetic Test (03/13/2025 2:39 PM EDT) Narrative Authorizing ProviderResult TypeResult StatusNot In System Ref ProvLAB BLOOD ORDERABLESFinal ResultPerforming OrganizationAddressCity/State/ZIP CodePhone Number MANUALLY TRANSCRIBED RESULTS from Last 3 Months Insurance Care Teams Team MemberRelationshipSpecialtyStart DateEnd Date Dick Parker MD [address] [place] [address], [address] [place] [address] PCP - GeneralPediatrics2
--- OUTSIDE RECORDS SUMMARY | 2025-06-06 09:05 | XMS_ITS | Encounter Summary ---
Author Organization [facility] Address [address] [place] [address] Care Team Providers Care Nuclear Licensing Engineer Name Role Phone Dick Parker MD Primary Care Provider [phone] Encounter Details DateTypeDepartmentCare Team (Latest Contact Info)Ftkgktbtlgx53/26/2025Bamboo flowsheet MEHDI SALOMON [address] [facility] [place] [address] Rudi Rachel DO [address] [place] [address] Wanda Toro, [place] [address] Social History Tobacco UseTypesPacks/DayYears UsedDateSmoking Tobacco: Never Assessed Estimated Date of YsdevnsvSgtdpxwwBgv08/02/2026ased on last menstrual period of 10/03/2024Sex and Gender InformationValueDate RecordedSex Assigned at BirthFemale 07/17/2023 10:18 AM ESTLegal IzsYoasqk78/15/2023 11:47 PM EDTGender Identity Dpyixe6407/17/2023 10:18 AM ESTSexual OrientationNot on filedocumented as of this encounter Plan of Treatment DateTypeDepartmentCare Team (Latest Contact Info)Puliugikegn86/10/2025 3:20 PM ESTRoutine NOMAlicia SALOMON [address] [place] [place] [address] Rudi Rachel, DO [address], [id number] documented as of this encounter Visit Diagnoses Not on filedocumented in this encounter Care Teams Team MemberRelationshipSpecialtyStart DateEnd Date Dick Parker MD [address] [place] [address], [address] [place] [address] PCP - GeneralFamily Medicine07/17/23documented as of this encounter
--- OUTSIDE RECORDS SUMMARY | 2025-06-06 09:05 | XMS_ITS ---
Author Organization [facility] Source Produ ction (ClinicalSummary Clone) Address Unknown Care Team Providers Care Supervisor Grading Name Role Phone Unavailable Primary Care Physician Unavailab le Results * [UNITY] CARRIER SCREEN Performed by: NetEffect Component Value Range Date Sickle Cell Disease/Beta-Thalassemia/Hemoglobino pathies carrier screen NEGATIVE 12/19/2024 04:47 pm UTCAlpha-Thalassemia carrier imujqhOYXLRJGQ71/13/2025 04:47 pm UTCCystic Fibrosis carrier ehlqhvXCCRXVWK42/13/2025 04:47 pm UTCSpinal Muscular Atrophy carrier screenNEGATIVE 2 SMN1 copies, SNP not wkiohjk7212/19/2024 04:47 pm UTCFor detailed report, see PDFSee PDF12/19/2024 04:47 pm UTC 12/19/2024 04:47 pm UTC Social History Observation Value Start Date End Date
--- OUTSIDE RECORDS SUMMARY | 2025-06-06 09:05 | XMS_ITS ---
Author Organization [facility] Source Produ ction (ClinicalSummary Clone) Address Unknown Care Team Providers Care Felt Checker Name Role Phone Unavailable Primary Care Physician Unavailab le Results * [UNITY] ANEUPLOIDY NIPT Performed by: CaptiveMotion Component Value Range Date Fraction 6.6% 12/15/2024 02:47 am UTCRh(D) NIPTRhD ZUPRTOMO48/09/2025 02:47 am UTCSex Chromosome AneuploidyNOT YAQMPFPU00/09/2025 02:47 am UTCMonosomy XLOW RISK <1 in , 02:47 am UTCTrisomy 13LOW RISK <1 in , 02:47 am UTCTrisomy 18LOW RISK <1 in , 02:47 am UTCTrisomy 21LOW RISK <1 in , 02:47 am UTCFetal EwvXUGK8312/15/2024 02:47 am UTCPregnancy UumwdytrbEVNABOLCA99/09/2025 02:47 am UTCFor detailed report, see PDFSee PDF 12/15/2024 02:47 am UTC12/15/2024 02:47 am UTC Social History Observation Value Start Date End Date
== END 2025-06-06 09:03 | disposition home or self-care (01) ==
LOC: US 09:02
PROVIDERS: Visit Provider Obstetrics & Gynecology
DX: M79.604 Pain in right leg (principal)
CPT/HCPCS: 93971

== ENCOUNTER 2025-06-17 19:40 | Outpatient (REF) | payer OTHER, SELFPAY ==
--- OUTSIDE RECORDS SUMMARY | 2025-06-03 14:50 | XMS_ITS | Encounter Summary ---
Author Organization [facility] Address [address] [place] [address] Care Team Providers Care Director Sales And Marketing Name Role Phone Dick Parker MD Primary Care Provider [phone] Reason for Referral * (Routine) - AuthorizedSpecialtyDiagnoses / ProceduresReferred By Contact Referred To ContactRadiology Diagnoses Right leg pain Procedures Vascular US lower extremity venous duplex right Rudi Rachel DO [address] [place] [address] Phone: tel: fax: Referral IDStatusReasonStart DateExpiration DateVisits RequestedVisits [id number]/26/20255/25/202611 Reason for Visit * ReasonCommentsRoutine Visit Encounter Details DateTypeDepartmentCare Team (Latest Contact Info)Kclmdoegdef80/26/2025 2:50 PM ESTRoutine [facility] [place] [facility] [address] [place], [place] [phone] Rudi Rachel DO [address] [place], [place] [id number] Third trimester ([facility]); 34 weeks gestation of ([facility]); Right leg pain Social History Tobacco UseTypesPacks/DayYears UsedDateSmoking Tobacco: Never Assessed Estimated Date of WykbozzfLiuhgpfoCct32/02/2026ased on last menstrual period of 10/03/2024Sex and Gender InformationValueDate RecordedSex Assigned at BirthFemale 07/17/2023 10:18 AM ESTLegal MatRsicrr22/15/2023 11:47 PM EDTGender Identity Rzrvfi2107/17/2023 10:18 AM ESTSexual OrientationNot on filedocumented as of this encounter Last Filed Vital Signs Vital SignReadingTime TakenCommentsBlood Lvjbizaw761/7206/03/2025 3:04 PM EST Pulse--Temperature--Respiratory Rate--Oxygen Saturation--Inhaled Oxygen Concentration--Lfsjek89.6 kg (210 lb 12.8 oz)06/03/2025 3:04 PM ESTHeight--Body Mass Index30.25007/17/2023 1:22 PM ESTdocumented in this encounter Progress Notes * Chiara Bobby, BILLBOARD POSTER - 06/03/2025 2:50 PM EST Reason for Appointment: Patient ID: Christina Muhammad is a 25 y.o. female who presents for Routine Visit Patient presents today for Return OB appointment. MEDICATIONS Current Outpatient Medications Medication Instructions fluticasone (Flonase) 50 MCG/ACT nasal spray 2 sprays, Daily RT metoclopramide (REGLAN) 10 mg, Oral, 3 times daily before meals, Take 1 tablet by mouth 30 minutes prior to meals 3 times daily as needed for nausea. omeprazole (PRILOSEC) 20 mg, Oral, Daily before breakfast, Do not crush or chew. ondansetron (ZOFRAN) 4 mg, Oral, Every 6 hours PRN, Take 1 tablet by mouth every 6 hours as needed for nausea. ALLERGIES No Known Allergies PROBLEMS Active Ambulatory [...] Exam Constitutional: Appearance: Normal appearance. She is well-developed. Cardiovascular: Rate and Rhythm: Normal rate and regular rhythm. Pulmonary: Effort: Pulmonary effort is normal. Breath sounds: Normal breath sounds. Abdominal: General: Bowel sounds are normal. There is no distension. Palpations: Abdomen is soft. Tenderness: There is no abdominal tenderness. There is no guarding or rebound. Musculoskeletal: General: No swelling. Normal range of motion. Right lower leg: No edema. Left lower leg: No edema. Neurological: Mental Status: She is alert and oriented to person, place, and time. Skin: General: Skin is warm and dry. Psychiatric: Mood and Affect: Mood normal. Behavior: Behavior normal. Vitals and nursing note reviewed. Exam conducted with a machine clothing man present. Vitals: Estimated body mass index is 30.25 kg/m?? as calculated from the following: Height as of 07/17/23: 5' 10 . Weight as of this encounter: 210 lb 12.8 oz. BP: 108/72 Patient's last menstrual period was 10/03/2024. Assessment/Plan ICD-10-CM 1. Third trimester ([facility]) Z34.93 POCT urinalysis dipstick manually resulted 2. 34 weeks gestation of ([facility]) Z3A.34 POCT urinalysis dipstick manually resulted Assessment/Plan Return OB: Patient presents today for a routine obstetrics appointment. Patient is currently 34w5d . Patient states she is doing well but has complaints of being tired due to current . Patient has verbalizes frequent movement. labor precautions was discussed/given and patient was instructed to perform kick counts three times a day. Orders Placed This Encounter Procedures POCT urinalysis dipstick manually resulted Follow Up: Patient is to return to office in 2 week for routine OB appointment. Documented by Chiara Rosales LPN on behalf of: Rudi Rachel DO documented in this encounter Plan of Treatment DateTypeDepartmentCare Team (Latest Contact Info)Sivnhxamwwe28/15/2025 9:10 AM ESTRoutine [facility] [address] [place] [phone] Rudi Rachel DO [address] [place] [address] documented as of this encounter Procedures Procedure NamePriorityDate/TimeAssociated DiagnosisCommentsPOCT URINALYSIS JKTTHMGAXqbmoje96/26/2025 3:09 PM EST Third trimester ([facility]) 34 weeks gestation of ([facility]) documented in this encounter Results * Vascular US lower extremity venous duplex right (06/08/2025 8:44 AM EST) Anatomical RegionLateralityModalityLower ExtremitiesUltrasound Narrative Authorizing ProviderResult TypeResult StatusCorey Wilson [facility] US PROCEDURESFinal Result * POCT urinalysis dipstick manually resulted (06/03/2025 3:09 PM EST)Component ValueRef RangeTest MethodAnalysis TimePerformed AtPathologist SignatureColor, UAYellowClarity, UAClearGlucose, UANegativeNegative - 2000(110) ++++ mg/dL Bilirubin, UANegativeNegative - 4(70) +++ mg/dLKetones, UANegativeNegative - 160(16) ++++ mg/dLSpec Grav, UA1.0151 - 1.03Blood, UANegativeNegative - 50 Jovani/mcLpH, UA7.05 - 9Protein, UANegativeNegative - 2000(20) ++++ mg/dL Urobilinogen, UA0.20.2 - 12 mg/dLLeukocytes, UANegativeNegative - 500+++ Luis E/mcLNitrite, UANegativeNegative - PositiveSpecimen (Source)Anatomical Location / LateralityCollection Method / VolumeCollection TimeReceived Time Urine06/03/2025 3:09 PM EST Narrative Authorizing ProviderResult TypeResult StatusCorey Wilson DOPOINT OF CARE TEST ENTER/EDIT ORDERABLESFinal Result documented in this encounter Visit Diagnoses Diagnosis Third trimester ([facility]) state, incidental 34 weeks gestation of ([facility]) Right leg pain Pain in soft tissues of limb documented in this encounter Care Teams Team MemberRelationshipSpecialtyStart DateEnd Date Dick Parker MD [address] [place] [address], [address] [place] [address] PCP - GeneralFamily Medicine07/17/23documented as of this encounter
--- OUTSIDE RECORDS SUMMARY | 2025-06-17 15:20 | XMS_ITS | Encounter Summary ---
Author Organization [facility] Address [address] [place] [address] Care Team Providers Care Classroom Instructional Aide Name Role Phone Dick [place] MD Primary Care Provider [phone] Reason for Visit * ReasonCommentsRoutine Visit Encounter Details DateTypeDepartmentCare Team (Latest Contact Info)Sjhmyfepsrf66/10/2025 3:20 PM ESTRoutine [facility] [place] [facility] [address] [facility] [place] [phone] Rudi Rachel DO [address] [place] [address] 36 weeks gestation of ([facility]); Third trimester ([facility]) Social History Tobacco UseTypesPacks/DayYears UsedDateSmoking Tobacco: Never Assessed Estimated Date of OzxhsoegHurxmxnaQfa47/02/2026ased on last menstrual period of 10/03/2024Sex and Gender InformationValueDate RecordedSex Assigned at BirthFemale 07/17/2023 10:18 AM ESTLegal QzcFdxfqs64/15/2023 11:47 PM EDTGender Identity Pqrzji5707/17/2023 10:18 AM ESTSexual OrientationNot on filedocumented as of this encounter Last Filed Vital Signs Vital SignReadingTime TakenCommentsBlood Ennfpacr633/4233806/17/2025 3:41 PM EST Pulse--Temperature--Respiratory Rate--Oxygen Saturation--Inhaled Oxygen Concentration--Wvwgvy63.8 kg (209 lb)06/17/2025 3:41 PM ESTHeight--Body Mass Index29.9901 1:22 PM ESTdocumented in this encounter Progress Notes * Betsy [place] NP - 06/17/2025 3:20 PM EST Reason for Appointment: Patient ID: [...] nursing note reviewed. Exam conducted with a shopper's aide present. Vitals: Estimated body mass index is 29.99 kg/m?? as calculated from the following: Height as of 07/17/23: 5' 10 . Weight as of this encounter: 209 lb. BP: (!) 140/100 Patient's last menstrual period was 10/03/2024. Assessment/Plan ICD-10-CM 1. 36 weeks gestation of ([facility]) Z3A.36 POCT urinalysis dipstick manually resulted 2. Third trimester ([facility]) Z34.93 POCT urinalysis dipstick manually resulted CULTURE, GROUP B STREP WITH SUSCEPTIBLITY CULTURE, GROUP B STREP WITH SUSCEPTIBLITY Assessment/Plan Return OB: Patient presents today for a routine obstetrics appointment. Patient is currently 36w5d . Patient states she is doing well but has complaints of being tired due to current . Patient has verbalizes frequent movement. labor precautions was discussed/given and patient was instructed to perform kick counts three times a day. Orders Placed This Encounter Procedures CULTURE, GROUP B STREP WITH SUSCEPTIBLITY POCT urinalysis dipstick manually resulted Follow Up: Patient is to return to office in 1 week for routine OB appointment. Documented by Betsy Gates NP on behalf of: Rudi [place] DO documented in this encounter Plan of Treatment DateTypeDepartmentCare Team (Latest Contact Info)Aofstfysvcd25/15/2025 9:10 AM ESTRoutine [facility] [place] [facility] [address] [facility] [place] [place] [address] Rudi Rachel DO [address] [facility] [place] [address] NameTypePriorityAssociated DiagnosesOrder ScheduleCULTURE, GROUP B STREP WITH SUSCEPTIBLITYLabRoutine Third trimester ([facility]) Expected: 06/17/2025, Expires: 06/17/2026documented as of this encounter Procedures Procedure NamePriorityDate/TimeAssociated DiagnosisCommentsPOCT URINALYSIS UUZQQYXPDfppizs57/10/2025 3:45 PM EST 36 weeks gestation of ([facility]) Third trimester ([facility]) documented in this encounter Results * POCT urinalysis dipstick manually resulted (06/17/2025 3:45 PM EST)Component ValueRef RangeTest MethodAnalysis TimePerformed AtPathologist SignatureColor, UAYellowClarity, UAClearGlucose, UANegativeNegative - 2000(110) ++++ mg/dL Bilirubin, UANegativeNegative - 4(70) +++ mg/dLKetones, UANegativeNegative - 160(16) ++++ mg/dLSpec Grav, UA1.0151 - 1.03Blood, UANegativeNegative - 50 Jovani/mcLpH, UA6.05 - 9Protein, UANegativeNegative - 2000(20) ++++ mg/dL Urobilinogen, UA1.00.2 - 12 mg/dLLeukocytes, UANegativeNegative - 500+++ Luis E/mcLNitrite, UANegativeNegative - PositiveSpecimen (Source)Anatomical Location / LateralityCollection Method / VolumeCollection TimeReceived Time Urine06/17/2025 3:45 PM EST Narrative Authorizing ProviderResult TypeResult StatusCorey Wilson DOPOINT OF CARE TEST ENTER/EDIT ORDERABLESFinal Result documented in this encounter Visit Diagnoses Diagnosis 36 weeks gestation of ([facility]) Third trimester ([facility]) state, incidental documented in this encounter Care Teams Team MemberRelationshipSpecialtyStart DateEnd Date Dick [place] MD [address] [place] [address], 1 [place] [address] PCP - GeneralFamily Medicine07/17/23documented as of this encounter
--- OUTSIDE RECORDS SUMMARY | 2025-06-17 19:45 | XMS_ITS | Encounter Summary ---
Author Organization [facility] Address [address] [place] [address] Care Team Providers Care Non Clinical Advisor Name Role Phone Dick [place] MD Primary Care Provider [phone] Encounter Details DateTypeDepartmentCare Team (Latest Contact Info)Cqqfvianzjb06/10/2025amboo flowsheet [facility] [address] [facility] [place] [address] Rudi Rachel DO [address] [place] [address] [place], [place] [address] Social History Tobacco UseTypesPacks/DayYears UsedDateSmoking Tobacco: Never Assessed Estimated Date of WxyazoevJfmyfnidCbj21/02/2026Based on last menstrual period of 10/03/2024Sex and Gender InformationValueDate RecordedSex Assigned at BirthFemale 07/17/2023 10:18 AM ESTLegal VbxFndeip79/15/2023 11:47 PM EDTGender Identity Borpyi3707/17/2023 10:18 AM ESTSexual OrientationNot on filedocumented as of this encounter Plan of Treatment DateTypeDepartmentCare Team (Latest Contact Info)Ixbkdykzwba85/15/2025 9:10 AM ESTRoutine [facility] [address] [place] [address] Rudi Rachel, DO [address] [place], [facility]11 documented as of this encounter Visit Diagnoses Not on filedocumented in this encounter Care Teams Team MemberRelationshipSpecialtyStart DateEnd Date Dick [place] MD [address] [place] [address], 1 [place] [address] PCP - GeneralFamily Medicine07/17/23documented as of this encounter
--- OUTSIDE RECORDS SUMMARY | 2025-06-17 19:46 | XMS_ITS | Encounter Summary ---
Author Organization [facility] Address [address] [place] [address] Care Team Providers Care Electrical Installation Inspector Name Role Phone Dick [place] MD Primary Care Provider [phone] Encounter Details DateTypeDepartmentCare Team (Latest Contact Info)Oafraejzaeo62/26/2025Bamboo flowsheet MEHDI [facility] [address] [place] [address] Rudi Rachel DO [facility] [place], [place] [address] Social History Tobacco UseTypesPacks/DayYears UsedDateSmoking Tobacco: Never Assessed Estimated Date of RofygsdxBvliyazcAji54/02/2026Based on last menstrual period of 10/03/2024Sex and Gender InformationValueDate RecordedSex Assigned at BirthFemale 07/17/2023 10:18 AM ESTLegal KlrZgznpr61/15/2023 11:47 PM EDTGender Identity Exxutj3907/17/2023 10:18 AM ESTSexual OrientationNot on filedocumented as of this encounter Plan of Treatment DateTypeDepartmentCare Team (Latest Contact Info)Rbmwxsjhsqv74/15/2025 9:10 AM ESTRoutine N[facility] [address] [place] [address] Rudi Rachel, DO [address] [place], [facility]11 documented as of this encounter Visit Diagnoses Not on filedocumented in this encounter Care Teams Team MemberRelationshipSpecialtyStart DateEnd Date Dick [place] MD [address] [place] [address], 1 [place] [address] PCP - GeneralFamily Medicine07/17/23documented as of this encounter
--- OUTSIDE RECORDS SUMMARY | 2025-06-17 19:46 | XMS_ITS | Encounter Summary ---
Author Organization [facility] Address [address] [place] [address] Care Team Providers Care Director Biomedical Engineering Name Role Phone Dick [place] MD Primary Care Provider Encounter Details DateTypeDepartmentCare Team (Latest Contact Info)Cxwihmypnvy24/01/2025Orders Only [facility] [address] [place] [address] Rupal Owusu MA Right leg pain Social History Tobacco UseTypesPacks/DayYears UsedDateSmoking Tobacco: Never Assessed Estimated Date of ZzkanklpMzzveimoRuq96/02/2026ased on last menstrual period of 10/03/2024Sex and Gender InformationValueDate RecordedSex Assigned at BirthFemale 07/17/2023 10:18 AM ESTLegal ByuAvrwmg89/15/2023 11:47 PM EDTGender Identity Fepqfq6607/17/2023 10:18 AM ESTSexual OrientationNot on filedocumented as of this encounter Plan of Treatment DateTypeDepartmentCare Team (Latest Contact Info)Fssjaahrvwt30/15/2025 9:10 AM ESTRoutine [facility] [address] [place] [address] Rudi Rachel DO [address] [place], [place] [address] documented as of this encounter Procedures Procedure NamePriorityDate/TimeAssociated DiagnosisCommentsVASC US LOWER EXTREMITY VENOUS DUPLEX SWBLUTzeihfa61/01/2025 8:44 AM EST Right leg pain documented in this encounter Results * Vascular US lower extremity venous duplex right (06/08/2025 8:44 AM EST) Anatomical RegionLateralityModalityLower ExtremitiesUltrasound Narrative Authorizing ProviderResult TypeResult StatusCorey Wilson DOIMG US PROCEDURESFinal Result documented in this encounter Visit Diagnoses Diagnosis Right leg pain Pain in soft tissues of limb documented in this encounter Care Teams Team MemberRelationshipSpecialtyStart DateEnd Date Dick [place] MD [address] [place] [address], [address] [place] [address] PCP - GeneralFamily Medicine07/17/23documented as of this encounter
--- OUTSIDE RECORDS SUMMARY | 2025-06-17 19:46 | XMS_ITS | Clinical Summary ---
Author Organization [facility] Address [address] [place] [address] Care Team Providers Care General Manager Food Name Role Phone Dick [place] MD Primary Care Provider [phone] Allergies No known active allergies Medications MedicationSigDispense [...] or vomiting 30 tablet 5108/03/2024Discontinued Encounters DateTypeDepartmentCare OxomPrvblenrddr94/10/2025 3:20 PM ESTRoutine [facility] [place] [address] [place] [address] Rudi Rachel, 36 weeks gestation of ([facility]); Third trimester ([facility])5Bamboo flowsheet [facility] [place] [address] [place] [address] Rudi Rachel, 06/08/2025Orders Only [facility] [place] [facility] [place] [address] [place] [phone] Rupal Owusu MA Right leg pain06/03/2025 2:50 PM ESTRoutine [facility] [place] [facility] [place] [address] [place] [phone] Rudi Rachel, Third trimester ([facility]); 34 weeks gestation of ([facility]); Right leg pain06/03/2025amboo flowsheet [facility] [place] [facility] [place] [address] [place] [address] Rudi Rachel, 05/20/2025 9:20 AM ESTRoutine [facility] [place] [address] Becca Cyr PA Third trimester ([facility]); 32 weeks gestation of ([facility]); Heartburn; Evchjz0205/20/2025 8:00 AM ESTAncillary Procedure [facility] [place] [facility] [place] [address] [place] [address] size inconsistent with dates ([facility])05/05/2025 2:00 PM EDTRoutine [facility] [place] [facility] [address] [facility] [place] [address] [place] [phone] Rudi Rachel DO Third trimester ([facility]); 30 weeks gestation of ([facility]); size inconsistent with dates ([facility])05/05/2025amboo flowsheet [facility] [place] [facility] [address] [facility] [place] [address] [place] [address] Rudi Rachel DO 04/20/2025 2:50 PM EDTRoutine [facility] [place] [facility] [address] [facility] [place] [address] [place] [address] Becca Cyr PA Third trimester ([facility]); 28 weeks gestation of ([facility])04/20/2025amb flowsheet [facility] [address] [facility] [place] [address] [place] [phone] Becca Cyr PA 04/06/2025 2:30 PM EDTRoutine [facility] [facility] [address] [facility] [place] [address] [place] [phone] Betsy [place] NP Anemia, unspecified type (Primary Dx); Second trimester ([facility]); 26 weeks gestation of ([facility])04/06/2025amb flowsheet [facility] [address] [facility] [place] [address] [place] [phone] Betsy [place] NP 04/04/2025linisync Result Encounter [facility] External Department Unsolicited Betsy Gates NP 04/01/2025Telephone [facility] [place] [facility] [address] [facility] [place] [address] [place] [address] Rudi Rachel DO from Last 3 Months Social History Tobacco UseTypesPacks/DayYears UsedDateSmoking Tobacco: Never Assessed Estimated Date of KbdgtvzhViwydjbtWmf38/02/2026ased on last menstrual period of 10/03/2024Sex and Gender InformationValueDate RecordedSex Assigned at BirthFemale 07/17/2023 10:18 AM ESTLegal TuvTzaesg58/15/2023 11:47 PM EDTGender Identity Vkgact7107/17/2023 10:18 AM ESTSexual OrientationNot on file Last Filed Vital Signs Vital SignReadingTime TakenCommentsBlood Abtbhvvx700/2761506/17/2025 3:41 PM EST Pulse--Temperature--Respiratory Rate--Oxygen Saturation--Inhaled Oxygen Concentration--Fgsfup19.8 kg (209 lb)06/17/2025 3:41 PM LSQRdjynw622.8 cm (5' 10 )07/17/2023 1:22 PM ESTBody Mass Index29.9907/17/2023 1:22 PM EST Plan of Treatment DateTypeDepartmentCare Team (Latest Contact Info)Szenovscweo75/15/2025 9:10 AM ESTRoutine [facility] [facility] [address] [facility] [place] [address] [place] [phone] Rudi Rachel DO [address] [facility] [address] [place], [place] [phone] Procedures Procedure NamePriorityDate/TimeAssociated DiagnosisCommentsPOCT URINALYSIS HNSAGXECHlrsgwo77/10/2025 3:45 PM EST 36 weeks gestation of ([facility]) Third trimester ([facility] US LOWER EXTREMITY VENOUS DUPLEX JJSZWPrmjulc42/01/2025 8:44 AM EST Right leg pain POCT URINALYSIS ZIHZCTTLAtbmggs04/26/2025 3:09 PM EST Third trimester ([facility]) 34 weeks gestation of ([facility]) POCT URINALYSIS BHDOOXSLGlrdqpk38/12/2025 8:46 AM EST 32 weeks gestation of ([facility]) US OB FOLLOW UP TRANSABDOMINAL JPFVZHVQFbiupvo50/12/2025 8:34 AM EST size inconsistent with dates ([facility]) POCT URINALYSIS WSPOWXKDXuqqavm97/28/2025 2:21 PM EDT 30 weeks gestation of ([facility]) POCT URINALYSIS PMDLCGCXDakhaim52/13/2025 3:17 PM EDT Third trimester ([facility]) POCT URINALYSIS ZRJMNSCVFjoafjd65/29/2025 2:50 PM EDT Second trimester ([facility]) GLUCOSE 1 KROMComsdrh46/27/2025 12:28 PM EDT ALL CBC WITH AUTO MJLTZuebflz32/27/2025 12:28 PM EDT from Last 3 Months Results * POCT urinalysis dipstick manually resulted (06/17/2025 3:45 PM EST) Only the most recent of6 [...] Location / LateralityCollection Method / VolumeCollection TimeReceived RnatBycsd95/04/2025 3:45 PM EST Narrative Authorizing ProviderResult TypeResult StatusCorey [place] DOPOINT OF CARE TEST ENTER/EDIT ORDERABLESFinal Result * Vascular US lower extremity venous duplex right (06/08/2025 8:44 AM EST) Anatomical RegionLateralityModalityLower ExtremitiesUltrasound Narrative Authorizing ProviderResult TypeResult StatusCorey [place] DOIMG US PROCEDURESFinal Result * US OB follow up transabdominal [...] BY: Binh Smiley MD Authorizing ProviderResult TypeResult StatusCorey WilsonBoston [facility] OB US PROCEDURES Final Result * GLUCOSE 1 HOUR (04/04/2025 12:28 PM EDT)ComponentValueRef RangeTest Method Analysis TimePerformed AtPathologist SignatureGLUCOSE 1 HOUR83<130 mg/dLTBH Specimen (Source)Anatomical Location / LateralityCollection Method / Volume Collection TimeReceived Time04/04/2025 12:28 PM EDT04/04/2025 12:29 PM EDT Narrative [facility] - 04/04/2025 1:21 PM EDT Authorizing ProviderResult TypeResult StatusBetsy Augustinerly NPLAB BLOOD ORDERABLESFinal ResultPerforming OrganizationAddressCity/State/ZIP CodePhone Number [facility] * (ABNORMAL) ALL CBC WITH AUTO DIFF (04/04/2025 12:28 PM EDT)ComponentValueRef RangeTest MethodAnalysis TimePerformed AtPathologist SignatureTBH WBC12.1(H) 4.0 - 11.0 10 3/uLTBHTBH RBC3.50(L)4.20 - 5.40 10 6/uLTBHTBH HGB10.7(L)12.0 - 16.0 g/dLTBHTBH HCT31.9(L)36.0 - 48.0 %TBHTBH MCV91.181.0 - 99.0 fLTBHTBH MCH 30.626.7 - 34.0 pgTBHTBH MCHC33.529.9 - 35.2 g/dLTBHTBH RDW12.311.0 - 15.0 % TBHTBH TRA722231 - 450 10 3/uLTBHTBH MPV10.59.5 - 13.5 [...] 04/04/2025 1:19 PM EDT Authorizing ProviderResult TypeResult StatusKristina Kody NPCLINISYNCFinal ResultPerforming OrganizationAddressCity/State/ZIP CodePhone Number [facility] from Last 3 Months Insurance Care Teams Team MemberRelationshipSpecialtyStart DateEnd Date Dick [place] MD [address] [place] [address], 1 [place] [address] PCP - GeneralFamily Medicine07/17/23
== END 2025-06-17 19:41 | disposition home or self-care (01) ==
LOC: LAB 19:40
PROVIDERS: Visit Provider Obstetrics & Gynecology
DX: Z34.93 Encounter for supervision of normal pregnancy, unspecified, third trimester (principal); Z3A.36 36 weeks gestation of pregnancy
CPT/HCPCS: 87081

== ENCOUNTER 2025-07-08 16:01 | Outpatient (OUT) | payer OTHER, SELFPAY ==
--- NOTE | 2025-07-08 16:05 | US_ITS ---
[place] [address] Patient Name: BETO CHAPMAN MRN: [id number] date: 2000 Sex: F Assigned Patient [facility]: [facility] Current Patient Location: [facility] Accession/Order Number: [id number] Exam Date: 07/08/2025 16:09 Report Date: 07/08/2025 18:15 At the request of: ZAFAR JACOBS DO Procedure: US OB BPP w non-stress US OB BPP w non-stress 07/08/2025 4:31 PM SIGNS AND SYMPTOMS: ^39 WEEKS GESTATION Z3A.39 PROTOCOL: Transabdominal sonographic imaging of the gravid uterus COMPARISON: None FINDINGS: Estimated gestational age: 39 weeks 5 days Amniotic fluid index: 11.39 cm with the deepest vertical pocket measuring 4.03 cm. heart rate: 126 bpm. Biophysical profile: breathing movements: 2/2 Gross body movements: 2/2 tone: 2/2 Amniotic fluid volume: 2/2 US/US OB BPP w non-stress IMPRESSION: Biophysical profile score: 8/8 Impression dictated by: Giovany Noble M.D. 07/08/2025 6:15 PM Dictation Location: [facility] Electronically authenticated by: [id number] Y Date: 07/08/2025 18:15
--- OUTSIDE RECORDS SUMMARY | 2025-07-08 16:06 | XMS_ITS | CCD ---
Author Organization [facility] Team Providers Care Electronic Bench Technician Name Role Phone ALISHA SHELLEY Attending Unavailable KARSTEN, ALISHA Admitting Unavailable CHARLA, DR ANN Marin Consulting Unavailable ALISHA SHELLEY Consulting Unavailable PRERNA, DR SLICK Fierro Attending Unavailable CHANTELESTEBONI, DR SLICK Fierro Consulting Unavailable PRERNA, DR SLICK Fierro Admitting Unavailable WEST, DR ANN Marin Consulting Unavailable KHOI LACKEY Admitting Unavailable ZIYAD, KHOI Attending Unavailable KHOI LACKEY Consulting Unavailable ANTONIO Browne Attending Provider Triny Browne Unavailable Triny Browne Admitting Unavailable Triny Browne Attending Unavailable FRANCISCO DOYLE Attending Unavailable FRANCISCO DOYLE Attending Unavailable FRANCISCO DOYLE Attending Unavailable FRANCISCO DOYLE Attending Unavailable SLICK GRAFF Attending Unavailable SLICK GRAFF Referring Unavailable SLICK GRAFF Primary Care Unavailable SLICK GRAFF Attending Unavailable SLICK GRAFF Referring Unavailable SLICK GRAFF Primary Care Unavailable SLICK GRAFF Attending Unavailable SLICK GRAFF Referring Unavailable SLICK GRAFF Primary Care Unavailable SLICK GRAFF Attending Unavailable SLICK GRAFF Referring Unavailable SLICK GRAFF Primary Care Unavailable SLICK GRAFF Attending Unavailable SLICK GRAFF Referring Unavailable SLICK GRAFF Primary Care Unavailable Slick Graff MD Primary Care Provider [phone] Slick Graff MD Primary Care Provider SLICK GRAFF Primary Care Unavailable Slick Graff MD Primary Care Provider KEVIN YBARRA Attending Unavailable RUDI RACHEL Referring Unavailable SLICK GRAFF Primary Care Unavailable RUDI RACHEL Referring Unavailable SLICK GRAFF Primary Care Unavailable Hiestand MD, Slick Primary Care Provider RUDI RACHEL Attending Unavailable BECCA KEATING Attending Unavailable RUDI RACHEL Attending Unavailable JOSELINE GATES Attending Unavailable JOSELINE GATES Attending Unavailable BECCA KEATING Attending Unavailable RUDI RACHEL Attending Unavailable RUDI RACHEL Referring Unavailable BECCA KEATING Attending Unavailable BECCA KEATING Attending Unavailable BECCA KEATING Attending Unavailable Allergies Allergy ClassificationReported Allergen(s)Allergy TypeDate of OnsetReaction(s) Facility (1 source)ALLERGIES NOT ON FILE; Translations: [ALLERGIES NOT ON FILE]Propensity to adverse reactions (disorder)[facility] Repository Medications Current Medications MedicationDrug Class(es)DatesSig (Normalized)Sig (Original)cetirizine hydrochloride 10 mg oral tablet (20 sources)Histamine-1 Receptor AntagonistStart: 01-96-5514usdksydakv (ZyrTEC) 10 MG tablet 09/23/2024 ActiveStart: 01-16-2022 End: 64-59-2884hirrjkhdda (ZyrTEC) 10 MG tablet 09/23/2024 ActiveEthinyl Estradiol / Ferrous fumarate / Norethindrone (13 sources)EstrogenStart: 08-21-2024 End: 94-71-5152qljouayqxkwbk-ethinyl estradiol (Blisovi FE 1/20) 1-20 MG-MCG tablet Indications: Uses control Take 1 tablet by mouth Daily 90 tablet 3 08/21/2024 12/04/2024 Discontinued (Therapy completed)Start: 07-21-2024 End: 16-69-2747kruiyqewbvreu-ethinyl estradiol (Blisovi FE 1/20) 1-20 MG-MCG tablet Indications: Uses control Take 1 tablet by mouth Daily 28 tablet 12 07/21/2024 07/21/2025 ActiveStart: 03-27-2024 End: 81-87-3397zfckzcnskkxjc-ethinyl estradiol (Blisovi FE 1/20) 1-20 MG-MCG tablet Indications: Uses control Take 1 tablet by mouth Daily 28 tablet 12 03/27/2024 07/21/2024 Discontinued (Reorder)Start: 03-27-2024 End: 36-78-3375rygmwjfekwtej-ethinyl estradiol (Blisovi FE 07/28) 1-20 MG-MCG tablet Indications: Uses control Take 1 tablet by mouth Daily 28 tablet 12 03/27/2024 03/27/2025 ActiveStart: 08-14-2023 End: 88-47-5990xjzs 1 tablet by mouth in the morning, then take 0.05 tablet by mouth oncenorethindrone-e.estradioL-iron (DECEMBERL FE 07/28) 1 mg-20 mcg (21)/75 mg (7) per tablet Take 1 tablet by mouth in the morning. 08/14/2023 12/04/2023 ActiveStart: 08-14-2023 End: 13-48-2895alsr 1 tablet by mouth in the morning, then take 0.05 tablet by mouth oncenorethindrone-e.estradioL-iron (DECEMBERL FE 07/28) 1 mg-20 mcg (21)/75 mg (7) per tablet Take 1 tablet by mouth in the morning. 0 08/14/2023 12/04/2023 Activeferrous sulfate 325 mg delayed release oral tablet (1 source)take 1 tablet by mouth once daily at breakfastferrous sulfate 325 (65 FE) mg EC tablet Take 1 tablet (325 mg total) by mouth daily with breakfast. Activefluticasone propionate 0.05 mg/actuat metered dose nasal spray (20 sources)CorticosteroidStart: 37-78-1499mflp 2 spray(s) nasal route in the morningfluticasone (Flonase) 50 MCG/ACT nasal spray Administer 2 sprays into affected nostril(s) in the morning. 02/05/2025 ActiveStart: 11-15-2023 End: 67-22-9044pinq 2 spray(s) nasal route in the morningfluticasone propionate (FLONASE) 50 mcg/actuation nasal spray Administer 2 sprays into each nostrilin the morning. 15.8 mL 2 02/05/2025 ActiveStart: 12-09-2020 End: 08-68-0613iuju 2 spray(s) nasal route once dailyfluticasone propionate (FLONASE) 50 mcg/actuation nasal spray Administer 2 sprays into each nostril daily. 15.8 mL 2 12/09/2020 11/15/2023 Discontinued (Reorder)metoclopramide 10 mg oral tablet (20 sources)Dopamine-2 Receptor AntagonistStart: 11-17-2024 End: 16-10-3583jnzowmrvesrwwh (Reglan) 10 MG tablet Indications: Nausea Take 1 tablet (10 mg) by mouth in the morning and 1 tablet (10 mg) at noon and 1 tablet (10 mg) in the evening. Take before meals. Take 1 tablet by mouth 30 minutes prior to meals 3 times daily as needed for nausea. 90 tablet 3 11/17/2024 Active omeprazole 20 mg delayed release oral capsule (2 sources)Proton Pump InhibitorStart: 05-20-2025 End: 97-90-9770toec 1 capsule by mouth before mealtimeomeprazole (PriLOSEC) [address] capsule Indications: Gastroesophageal Reflux Disease , Heartburn Take 1 capsule (20 mg) by mouth in the morning. Take before meals. Do not crush or chew. 30 capsule 3 05/20/2025 06/19/2025 Activeondansetron 4 mg disintegrating oral tablet (20 sources)Serotonin-3 Receptor AntagonistStart: 05-20-2025 End: 58-69-7077rfvn 1 tablet by mouth every six hours as needed for nausea and vomiting and nausea and nauseaondansetron ODT (Zofran-ODT) 4 MG disintegrating tablet Indications: Nausea Take 1 tablet (4 mg) bymouth every 6 (six) hours if needed for nausea or vomiting 30 tablet 2 05/20/2025 06/19/2025 ActiveStart: 62-97-3038anrv 1 tablet by mouth every six hours as needed for nausea and vomiting and nausea and nauseaondansetron (Zofran) 4 MG tablet Indications: Nausea Take 1 tablet (4 mg) by mouth every 6 (six) hours if needed for nausea or vomiting for up to 30 doses Take 1 tablet by mouth every 6 hours as needed for nausea. 30 tablet 3 11/10/2024 ActiveStart: 73-73-6085dftl 1 tablet by mouth every eight hours as needed for nausea and vomitingondansetron ODT (ZOFRAN ODT) 4 mg disintegrating tablet Dissolve 1 tablet (4 mg total) on tongue every 8 (eight) hours as needed for nausea or vomiting. 10 tablet 07/18/2024 Active Start: 11-12-2023 End: 22-99-2232guevkmwqmpp ODT (ZOFRAN ODT) 4 mg disintegrating tablet Indications: H/O motion sickness Dissolve 1tablet (4 mg total) on tongue every 8 (eight) hours as needed for nausea or vomiting. 10 tablet 11/12/2023 12/24/2023 Discontinued (Therapy completed)polysaccharide iron complex 391 mg oral capsule (8 sources)Start: 04-06-2025 End: 48-38-1261msgj 1 capsule by mouth once dailyiron polysaccharides (ProFe) 391.3 (180 Fe) MG capsule Indications: Anemia, unspecified type Take 1capsule (391.3 mg) by mouth Daily 30 capsule 6 04/06/2025 05/06/2025 Activeprenatal 115/iron/folic acid ( 19 ORAL) (1 source)take 1 tablet by mouth in the morningprenatal 115/iron/folic acid ( 19 ORAL) Take 1 tablet by mouth in the morning. Activepromethazine hydrochloride 12.5 mg oral tablet (1 source)PhenothiazineStart: 11-10-2024 End: 42-54-8335opth 1 tablet by mouth every six hours [...] 12/04/2024 Discontinued sertraline 50 mg oral tablet (15 sources)Serotonin Reuptake InhibitorStart: 07-20-2024 End: 92-55-0399kmesxujlsn (Zoloft) 50 MG tablet 07/20/2024 03/02/2025 Discontinued (Side effects)Start: 01-01-2024 End: 39-46-6317isgxwkrehb (ZOLOFT) 50 mg tablet Indications: Neurocardiogenic syncope Take 1 tablet (50 mg total) by mouth once daily at bedtime. Take 1/2 tab (25 mg) at bedtime for the first 4 nights. 30 tablet 1 01/01/2024 05/05/2024 Ullmgqbgumps78 hr venlafaxine 37.5 mg extended release oral capsule (17 sources)Serotonin and Norepinephrine Reuptake InhibitorStart: 03-02-2025 End: 77-91-9701wrnb 1 capsule by mouth once dailyvenlafaxine XR (Effexor XR) 37.5 MG 24 hr capsule Indications: Anxiety, generalized Take 1 capsule (37.5 mg) by mouth Daily Do not crush or chew. 30 capsule 5 03/02/2025 03/02/2026 Active Completed/Discontinued Medications MedicationDrug Class(es)DatesSig (Normalized)Sig (Original)azithromycin 250 mg oral tablet (4 sources)Macrolide AntimicrobialStart: 01-12-2025 End: 40-53-9452dmmwgmqpgwmw (Zithromax Z-Bjorn) 250 MG tablet Indications: Sinusitis, unspecified chronicity, unspecified location As directed 6 tablet 01/12/2025 02/02/2025 DiscontinuedStart: 12-24-2023 End: 40-28-9581gixukuqczvxs (ZITHROMAX) 250 mg tablet Indications: Pharyngitis, unspecified etiology Take 2 tablets the first day, then 1 tablet daily for 4 days. 6 tablet 12/24/2023 12/28/2023 Activeescitalopram 10 mg oral tablet (9 sources)Serotonin Reuptake InhibitorStart: 05-05-2024 End: 85-74-1923vywa 1 tablet by mouth in the morningescitalopram (LEXAPRO) 10 mg tablet Indications: Anxiety Take 1 tablet (10 mg total) by mouth in the morning. 30 tablet 2 05/05/2024 04/14/2025 Discontinuedibuprofen 800 mg oral tablet (5 sources)Nonsteroidal Anti-inflammatory DrugStart: 08-17-2024 End: 36-15-4564yajb 1 tablet by mouth every six hours as needed for pain ibuprofen (MOTRIN) 800 mg tablet Take 1 tablet (800 mg total) by mouth every 6 (six) hours as needed for pain. 30 tablet 08/17/2024 04/14/2025 Discontinued LORazepam 1 mg oral tablet (3 sources)BenzodiazepineStart: 11-12-2023 End: 02-67-7471itsg 1 tablet by mouth twice daily as needed for anxietyLORazepam (ATIVAN) 1 mg tablet Indications: Anxiety Take 1 tablet (1 mg total) by mouth 2 (two) times a day as needed for anxiety. 6 tablet 11/12/2023 12/24/2023 Discontinued (Therapy completed)midodrine hydrochloride 5 mg oral tablet (20 sources)alpha-Adrenergic AgonistStart: 05-15-2023 End: 56-17-2344krtv 1 tablet by mouth three times dailymidodrine (PROAMATINE) 5 mg tablet Take 1 tablet (5 mg total) by mouth 3 (three) times a day. 270 tablet 3 05/15/2023 04/14/2025 Eyybkhlpjxoi48 hr scopolamine 0.0139 mg/hr transdermal system (10 sources)AnticholinergicStart: 07-18-2024 End: 11-01-8600gtteq 1 dose transdermal route once dailyscopolamine (TRANSDERM- SCOP) 1 mg/[address] 1 patch on the skin every third day. 4 patch 07/18/2024 04/14/2025 DiscontinuedStart: 11-12-2023 End: 38-80-9330iumzx 1 dose transdermal route once dailyscopolamine (TRANSDERM- SCOP) 1 mg/3 days Indications: H/O motion sickness Place 1 patch on the skin every third day. 4 patch 11/12/2023 12/24/2023 Discontinued (Therapy completed) Problems Active Problems Problem ClassificationProblemDateDocumented DateEpisodic/ChronicAnxiety disorders (11 sources)Generalized anxiety disorder; Translations: [Anxiety disorder, unspecified]Onset: 13-28-4644VyykngtWskvvtadey and other anemia (2 sources)Anemia; Translations: [Anemia, unspecified]07-36-9176Tfxuvrhx Influenza (1 source)Influenza due to other identified influenza virus with other respiratory manifestations; Translations: [Influenza due to other identified influenza virus with other respiratory manifestations]Onset: 80-86-3789Qrjxxbnt Menstrual disorders (2 sources)Menorrhagia; Translations: [Excessive and frequent menstruation with regular cycle]49-55-0284TqbpgisRemy disorders (14 sources)Moderate major depression, single episode; Translations: [Major depressive disorder, single episode, moderate]Onset: 366131-58-7762Beydiny Nausea and vomiting (2 sources)Nausea; Translations: [Nausea]08-30-6779WebqztziXkhdhcyvqspo breast conditions (4 sources)Unspecified lump in axillary tail of the left breast; Translations: [UNS LUMP IN AXILLARY TAIL LT BREAST]Onset: 78-46-5766WepfjepnTgyuh and unspecified benign neoplasm (2 sources)Lipoma (clinical); Translations: [Benign lipomatous neoplasm of other sites]33-60-0301ZqmoffnnIirha complications of (1 source)Depressive disorder in mother complicating ; Translations: [Other mental disorders complicating , unspecified trimester]04-14-2025 EpisodicOther complications of (1 source)Other mental disorders complicating , unspecified trimester; Translations: [Mental disorders of mother, antepartum condition or complication] 75-36-4519OtdmyqurGjxgs complications of (2 sources) size does not accord with dates; Translations: [Uterine size- date discrepancy, unspecified trimester]78-06-1413NviuonpqTtxlc female genital disorders (2 sources)Vaginal discharge; Translations: [Other specified noninflammatory disorders of vagina]15-94-9356IrtuskmhXugcg gastrointestinal disorders (2 sources)Heartburn; Translations: [Heartburn]30-43-7100RaobucyvIqkvc inflammatory condition of skin (1 source)Pityriasis rosea; Translations: [Pityriasis rosea]Onset: 05-26-2024 ChronicOther inflammatory condition of skin (1 source)Pityriasis rosea; Translations: [Pityriasis rosea]75-64-6460Iokvezc Other and delivery including normal (18 sources); Translations: [Encounter for supervision of normal , unspecified, unspecified trimester]15-99-0212XxedelxzTdtke screening for suspected conditions (not mental disorders or infectious disease) (5 sources)Patient encounter status; Translations: [Encounter for other specified screening]Onset: 033774-58-6789JxgkjdfuGzsun upper respiratory infections (1 source)SinusitisOnset: 73-84-8029DqlecmmGzbrmvjd codes; unclassified (2 sources)Contraception ; Translations: [Other specified health status] 57-15-8835PbeotmweFkydysrq codes; unclassified (2 sources)Gestation period, 13 weeks; Translations: [13 weeks gestation of ]83-75-8558XiluxadgXfsltise codes; unclassified (2 sources)Gestation period, 17 weeks; Translations: [17 weeks gestation of ]23-31-0398ApqolwkcQkvzujkx codes; unclassified (2 sources)Gestation period, 21 weeks; Translations: [21 weeks gestation of ]40-43-8629BzitykfdJjpmljfs codes; unclassified (2 sources)Gestation period, 23 weeks; Translations: [23 weeks gestation of ]00-75-6885WaxwaktwJkhcvpjl codes; unclassified (2 sources)Gestation period, 26 weeks; Translations: [26 weeks gestation of ]77-43-1174ZtlbrsphIidbfbrh codes; unclassified (1 source)Gestation period, 27 weeks; Translations: [27 weeks gestation of ]81-98-8402StoiqfomDidaqgct codes; unclassified (1 source)FH: Brain disorder; Translations: [Family history of epilepsy and other diseases of the nervous system]77-17-9315QgyuyreuAhjgqtwo codes; unclassified (2 sources)Gestation period, 28 weeks; Translations: [28 weeks gestation of ]67-58-7730SdmykzmsOesrcmji codes; unclassified (2 sources)Gestation period, 30 weeks; Translations: [30 weeks gestation of ]34-06-1445QhtymkjyPwxbxvgr codes; unclassified (2 sources)Gestation period, 32 weeks; Translations: [32 weeks gestation of ]15-04-9575SuqolxhaIalyyvdhjqgz (1 source)Frequency of micturition; Translations: [Frequency of micturition] Onset: 01-13-6638Idviyaizwblh (1 source)RashOnset: 16-37-5472Bbryfulhskwe (1 source)discuss anxiety and motion sickness medicationsOnset: 11-12-2023 Unclassified (1 source)Cold Like SymptomsOnset: 66-88-0339Pmhyuafgbchs (1 source)diarrhea, cough, runny nose, congestionOnset: 17-31-9096Mhxpkasyhbdl (1 source)Brother with HydrocephalisOnset: 04-14-2025 Past or Other Problems Problem ClassificationProblemDateDocumented DateEpisodic/ChronicFever of unknown origin (1 source)Fever, unspecified; Translations: [FEVER UNSPECIFIED]Onset: 01-31-2020 EpisodicImmunizations and screening for infectious disease (4 sources)Encounter for screening for other viral diseases; Translations: [ENC SCREENING FOR OTH VIRAL DZ]Onset: 25-86-4187UkikpjqyRgyv disorders (14 sources)Mood disordersOnset: 08-21-2023 Resolved: Other connective tissue disease (4 sources)Pain in left foot; Translations: [PAIN IN LEFT FOOT]Onset: 03-02-2020 EpisodicOther upper respiratory infections (2 sources)Acute pharyngitis due to other specified organisms; Translations: [Pharyngitis]Onset: 733095-07-3097VtrqdwbyZklmgoki codes; unclassified (1 source)History of clinical finding in subject; Translations: [Personal history of other specified conditions]58-09-3406MqsbftmmRykocsqq codes; unclassified (1 source)Family history of Von Willebrand disease; Translations: [Family history of diseases of the blood and blood-forming organs and certain disorders involving the immune mechanism]41-42-0242FluqbhzwPekwunf (16 sources)Syncope and collapse; Translations: [Near syncope]Onset: 04-03-2023 10-43-2150Blqchoqw Results Test NameValueInterpretationReference RangeFacilityUS OB FOLLOW UP TRANSABDOMINAL APPROACHon 98-72-7790XU OB FOLLOW UP TRANSABDOMINAL APPROACH FINDINGS: A [...] menstrual period. TRANSCRIBED BY: ELECTRONICALLY SIGNED BY: Peterson Sales AvailableComment on above:Order Comment: US OB SCAN FOR GROWTH Estimated Date of Delivery: 07/10/25 Gestational Age as of 05/05/2025: 74r4xGvruapzqgn macro (dipstick) panel (U)on 86-69-8665Umfkjhvuo, UANegativeNegative - 4(70) +++ mg/dLNOMS HealthcareBlood, UANegativeNegative [...] HealthcareNOMS Healthcare Urinalysis macro (dipstick) panel (U)on 46-23-4279Fuzydfdxt, UANegativeNegative - 4(70) +++ mg/dLNOMS HealthcareBlood, UANegativeNegative [...] HealthcarepH, UA6.05 - 9NOMS HealthcareProtein, UANegativeNegative - 2000(20) ++++ mg/dLNOMS HealthcareSpec Grav, UA1.0151 - 1.03N[facility] Healthcare Urobilinogen, UA0.20.2 - 12 mg/dLNOMS HealthcareNOMS HealthcareUrinalysis macro (dipstick) panel (U)on 17-65-2209Dywbdusxt, UANegativeNegative - 4(70) +++ mg/dL NOMS HealthcareBlood, UANegativeNegative - 50 Jovani/mcLNOMS HealthcareClarity, UA ClearNOMS HealthcareColor, UAYellowNOMS HealthcareGlucose, UANegativeNegative - 1999(110) ++++ mg/dLNOMS HealthcareInterpretation and review of laboratory resultsNormalNOMS HealthcareKetones, UANegativeNegative - 160(16) ++++ mg/dLNOMS HealthcareLeukocytes, UANegativeNegative - 500+++ Luis E/mcLNONJ HealthcareNitrite, UANegativeNegative - PositiveNOMS HealthcarepH, UA65 - 9NONJ HealthcareProtein, UANegativeNegative - 2000(20) ++++ mg/dLSPANISH FORK HOSPITAL HealthcareSpec Grav, UA1.0151 - 1.03NONJ HealthcareUrobilinogen, UA1.00.2 - 12 mg/dLMercy Hospital St. John'sMS HealthcareALL CBC WITH AUTO DIFFon 73-91-1064ZNIQTMISA ABSOLUTE AUTO0.1NOMS HealthcareBasophils/100 WBC (Bld)0.5 %0.2 - 2.0 %[facility] HospitalEosinophils/100 WBC (Bld)7.5 %High0.9 - 7.0 %[facility] HospitalErythrocyte distribution width (RBC) [Ratio]12.3 %11.0 - 15.0 %[facility] HospitalHematocrit (Bld) [Volume fraction]31.9 %Low36.0 - 48.0 %[facility] HospitalHemoglobin (Bld) [Mass/Vol]10.7 g/dLLow12.0 - 16.0 g/dLCedar County Memorial HospitalIMMATURE GRANULOCYTES ABS AUTO0.1HighCedar County Memorial Hospital Immature granulocytes/100 WBC (Bld)0.8 %High0.0 - 0.5 %[facility] Interpretation and review of laboratory resultsAbnormalCedar [facility] Hospital LYMPHOCYTES ABSOLUTE AUTO1.3NOSt. Louis VA Medical CenterLymphocytes/100 WBC (Bld)11.1 %Low 20.5 - 60.0 %[facility]H (RBC) [Entitic mass]30.6 pg26.7 - 34.0 pgCox BransonHC (RBC) [Mass/Vol]33.5 g/dL29.9 - 35.2 g/dLCox BransonV (RBC) [Entitic vol]91.1 fL81.0 - 99.0 fLCedar County Memorial HospitalMONOCYTES ABSOLUTE AUTO0.8NOSt. Louis VA Medical CenterMonocytes/100 WBC (Bld)6.8 %1.7 - 12.0 %[facility] HospitalNEUTROPHILS ABSOLUTE AUTO8.9HighNOSt. Louis VA Medical CenterNeutrophils/100 WBC (Bld)73.3 %43.0 - 75.0 % NOMS HealthcarePlatelet mean volume (Bld) [Entitic vol]10.5 fL9.5 - 13.5 fLNOMS HealthcareTBH EO #0.9HighNOMS HealthcareTBH VLL310CSQH HealthcareTBH RBC3.5Low NOMS HealthcareTBH WBC12.1HighNOMS HealthcareCLINISYNCNOMS HealthcareUrinalysis macro (dipstick) panel (U)on 85-57-2640Imktbzgyt, UANegativeNegative - 4(70) +++ mg/dLNOMS HealthcareBlood, UANegativeNegative [...] - 12 mg/dLNOMS HealthcareNOMS HealthcareUS OB ANATOMYon 77-36-2259NloNor[place] [address] Ultrasound Report Signed Patient: CHRISTINA MUHAMMAD MR#: [id number] : 2000 Acct:[id number] Age/Sex: 25 / F ADM Date: 03/02/25 Loc: US Attending Dr: Becca Keating Ordering Physician: Becca Keating Date of Service: 03/02/25 Procedure(s): US OB anatomy Accession Number(s): [id number] cc: Becca Keating; SLICK GRAFF [address] [address] Patient Name: CHRISTINA MUHAMMAD MRN: [id number] date: 2000 Sex: F Assigned Patient Location: US Current Patient Location: Accession/Order Number: [id number] Exam Date: 03/02/2025 07:08 Report Date: 03/02/2025 [...] all 4 extremities were surveyed by the customer relations coordinator and no abnormalities were detected. The stomach, [...] Bailey M.D. 03/02/2025 8:54 AM Dictation Location: [place] [address] Electronically authenticated by: [id number] Y Date: 03/02/2025 08:54 Dictated By: Chiara Bailey M.D. Signed By: 03/02/25 0857 DD/ 0854 TD/TT: Garage Door Opener Installer:ZAINABHRadiology, Radiologist, - 03/02/2025 [place] [address] Ultrasound Report Signed Patient: CHRISTINA MUHAMMAD MR#: [id number] : 2000 Acct:[id number] Age/Sex: 25 / F ADM Date: 03/02/25 Loc: US Attending Dr: Becca Keating Ordering Physician: Becca Keating Date of Service: 03/02/25 Procedure(s): US OB anatomy Accession Number(s): [id number] cc: Becca Keating; SLICK GRAFF [place] [id number] Patient Name: CHRISTINA MUHAMMAD MRN: [facility]:[id number] date: 2000 Sex: F Assigned Patient Location: US Current Patient Location: US Accession/Order Number: [id number] Exam Date: 03/02/2025 07:08 Report Date: 03/02/2025 [...] all 4 extremities were surveyed by the customer relations coordinator and no abnormalities were detected. The stomach, [...] Bailey M.D. 03/02/2025 8:54 AM Dictation Location: [facility]-30 Electronically authenticated by: [id number] Y Date: 03/02/2025 08:54 Dictated By: Chiara Bailey M.D. Signed By: 03/02/2557 DD/ TD/TT: Garage Door Opener Installer: ME[facility] HealthcareRadiology Study observation (narrative)[facility] HospitalUS OB ANATOMYOrdered By: Radiologist Radiology on 78-93-8848GDEK Healthcare Work Phone: Urinalysis macro (dipstick) panel [...] - 12 mg/dLNOMS HealthcareNOMS HealthcareRECURRENT VAGINITIS (HTRX)on 63-13-0436OWVQLDWXJ [id number] HealthcareATOPOBIUM VAGINAE Not detectedNOMS HealthcareBVAB 2,3 (BACTERIAL VAGINOSIS ASSOCIATED BACTERIA 2, 3); MOBILUNCUS PFY5QMVL HealthcareBVAB 2,3 (BACTERIAL VAGINOSIS ASSOCIATED BACTERIA 2, 3); MOBILUNCUS SPPNot detectedNOMS HealthcareCANDIDA ALBICANS, PARAPSILOSIS, [id number] HealthcareCANDIDA ALBICANS, PARAPSILOSIS, TROPICALISNot detectedNOMS HealthcareCANDIDA BMXJPFOL4ZMNS HealthcareCANDIDA GLABRATANot detectedNOMS HealthcareCANDIDA WVBUKG1SNNH HealthcareCANDIDA KRUSEI Not detectedNOMS HealthcareCHLAMYDIA LTLAIBVDKMC7JBLS HealthcareCHLAMYDIA TRACHOMATISNot detectedNOMS HealthcareGARDNERELLA PSGTOPWPN5ZRLT Healthcare GARDNERELLA VAGINALISNot detectedNOMS HealthcareMEGASPHAERA (TYPES 1, 2)0NOMS HealthcareMEGASPHAERA (TYPES 1, 2)Not detectedNOMS HealthcareMYCOPLASMA [id number] HealthcareMYCOPLASMA GENITALIUMNot detectedNOMS Healthcare NEISSERIA RMHEXVAHLPS1ZBSX HealthcareNEISSERIA GONORRHOEAENot detectedNOMS HealthcareTRICHOMONAS [id number] HealthcareTRICHOMONAS VAGINALISNot detected NOMS HealthcareNOMS HealthcareUrinalysis macro (dipstick) panel (U)on 02-02-2025 Bilirubin, UANegativeNegative - 4(70) +++ mg/dLNOMS HealthcareBlood, UANegative Negative - 50 Jovani/mcLNOMS HealthcareClarity, UAClearNOMS HealthcareColor, UA YellowNOMS HealthcareGlucose, UANegativeNegative - 1999(110) ++++ mg/dLNOMS HealthcareInterpretation and review of laboratory resultsNormalNONJ Healthcare Ketones, UANegativeNegative - 160(16) ++++ mg/dLNOMS HealthcareLeukocytes, UA NegativeNegative - 500+++ Luis E/mcLNOMS HealthcareNitrite, UANegativeNegative - PositiveNOMS HealthcarepH, UA65 - 9NOMS HealthcareProtein, UANegativeNegative - 2000(20) ++++ mg/dLNOMS HealthcareSpec Grav, UA1.0251 - 1.03NOMS Healthcare Urobilinogen, UA0.20.2 - 12 mg/dLNONJ HealthcareNONJ HealthcareUrinalysis macro (dipstick) panel (U)on 03-06-7812Upssijabk, UANegativeNegative - 4(70) +++ mg/dL NOMS HealthcareBlood, UANegativeNegative - 50 Jovani/mcLNOMS HealthcareClarity, UA ClearNOMS HealthcareColor, UAYellowNOMS HealthcareGlucose, UANegativeNegative - 1999(110) ++++ mg/dLNOMS HealthcareInterpretation and review of laboratory resultsNormalNOMS HealthcareKetones, UANegativeNegative - 160(16) ++++ mg/dLNOMS HealthcareLeukocytes, UANegativeNegative - 500+++ Luis E/mcLNONJ HealthcareNitrite, UANegativeNegative - PositiveNOMS HealthcarepH, UA75 - 9NONJ HealthcareProtein, UANegativeNegative - 2000(20) ++++ mg/dLSPANISH FORK [facility] HealthcareSpec Grav, UA1.021 - 1.03 NOM HealthcareUrobilinogen, UA0.20.2 - 12 mg/dLFormerly [facility] ALL CBC WITH AUTO DIFFon 85-94-0929SVBRQVUCN ABSOLUTE QVUG2VNRESt. [facility] Basophils/100 WBC (Bld)0.3 %0.2 - 2.0 %[facility] HospitalEosinophils/100 WBC (Bld) 0.9 %0.9 - 7.0 %[facility] HospitalErythrocyte distribution width (RBC) [Ratio]12.2 %11.0 - 15.0 %[facility] HospitalIMPRTURE GRANULOCYTES ABS AUTO0.02NOSt. Louis [facility] Immature granulocytes/100 WBC (Bld)0.2 %0.0 - 0.5 %[facility] HospitalInterpretation and review of laboratory resultsAbnormalCedar County Memorial HospitalLYMPHOCYTES ABSOLUTE AUTO1.5NOSt. Louis VA Medical CenterLymphocytes/100 WBC (Bld)14.9 %Low20.5 - 60.0 %[facility] (RBC) [Entitic mass]29.7 pg26.7 - 34.0 pgCox BransonHC (RBC) [Mass/Vol]33.7 g/dL29.9 - 35.2 g/dLCox BransonV (RBC) [Entitic vol]88.1 fL 81.0 - 99.0 fLCedar County Memorial HospitalMONOCYTES ABSOLUTE AUTO0.7[facility] Monocytes/100 WBC (Bld)6.6 %1.7 - 12.0 %[facility] HospitalNEUTROPHILS ABSOLUTE AUTO 7.9HighCedar County Memorial HospitalNeutrophils/100 WBC (Bld)77.1 %High43.0 - 75.0 %[facility] HospitalPlatelet mean volume (Bld) [Entitic vol]10.4 fL9.5 - 13.5 fLSoutheast Missouri Hospital EO #0.1NOMS Flower HospitalTB QHV824DgqVQBCSaint [facility] RBC4.28NOSaint Luke's [facility] Hospital[facility] WBC10.2NOMS HealthcareCLINISYNCNOMS HealthcareCBC without diffon 58-25-5708Ueydoxeew (Bld) [#/Vol]147 10*3/uLGrant HospitalRb Mcv (Fl) By Automated Count88.1PThe Surgical Hospital at SouthwoodsDrug Screen, Urineon 12-08-2024 Amphetamine/MethamphetamineNegativeGrant HospitalBarbituratesNegative Grant HospitalBenzodiazepinesNegativeGrant HospitalCocaine MetaboliteNegativeGrant HospitalMethadoneNegativeGrant HospitalOpiatesNegativeGrant HospitalOxycodoneNegativeGrant HospitalPhencyclidineNegativeGrant HospitalTh Marijuana, UrinePositive Grant HospitalHBV surface Ag IA Qlon 18-92-0362Vnkjtmadh B Surface AntigenNegativeGrant HospitalHCV Ab IA Qlon 53-88-5052OEK Ab Ql (S) Non-ReactiveGrant HospitalLaboratory - Hematology and Cell countson 05-20-9427Leytprenbk (Bld) [Volume fraction]37.7 %NOMS HealthcareHemoglobin (Bld) [Mass/Vol]12.7 g/dLNONJ SpsqlsetzkRoA0g (Bld) [Mass fraction]5.4 %4.0 - 6.0 %NOMS HealthcareComment on above:ADA RECOMMENDED LIMIT 4.0 - 6.0 ADA THERAPEUTIC TARGET < 7.0 ACTION SUGGESTED > 7.0 MLR HEMOGLOBIN A1Con 74-23-9054Hpliaex [Mass/Vol]108 mg/dLNOSt. [facility] Center CLINISYNCNo Panel Informationon 08-92-9501DXZA HealthcareRubella IGG immune statuson 32-39-6149Zfownab immune IgGIMMUNEGrant HospitalT. pallidum IgG+IgM IA Ql (S)Ordered By: Becca Gale on 37-02-0626NzlqtypzNsv-Reactive Grant HospitalType and screenon 50-33-0925Ere/Rh(D)PositiveGrant HospitalHCG ( test) Ql (U)on 24-62-8133Khtrqfixtvtswb and review of laboratory resultsAbnormalNOMS HealthcarePreg Test, UrPositiveNegativeNONJ HealthcareNOMS HealthcareUS OB TRANSVAGINALon 53-69-6950YA OB TRANSVAGINALEXAM: US OB TRANSVAGINAL HISTORY: Dating. [...] II, MD, PHD at 05-Dec-2024 11:53:[address] [facility] TeleradiologyNormalNot AvailableComment on above:Order Comment: US OB TRANSVAGINAL No LMP recorded.Urinalysis macro (dipstick) panel (U)on 80-01-6968Tgwvcmbdv, UA PositiveNegative - 4(70) +++ mg/dLNOMS HealthcareComment [...] 1.03NOMS HealthcareUrobilinogen, UA0.20.2 - 12 mg/dLNOMS HealthcareNOMS HealthcareSARS/FLU A+B/RSV by NAAT/Molecularon 03-99-7124FXWS/FLU A+B/RSV by NAAT/MolecularFLU A PCR Positive (qualifier value) FLU B PCR Negative (qualifier value) RSV by PCR Negative (qualifier value) SARS CoV 2 Not detected (qualifier value) NOTE The Xpert Xpress SARS-CoV-2/Flu/RSV Plus test is a rapid, multiplexed real-time RT-PCR test intended for the simultaneous qualitative detection and differentiation of SARS-CoV-2, influenza A, influenza B and respiratory syncytial virus (RSV) viral RNA from individuals suspected of respiratory viral infection consistent with COVID-19 by their healthcare provider. This test has not been validated in asymptomatic patients. The Xpert Xpress SARS-CoV-2 test is intended for use by qualified and trained operators who are performing tests using either [employer] DX or [employer] Infinity systems and is limited to laboratories that meet the CLIA requirements to perform high and moderate complexity tests. The Xpert Xpress SARS-CoV-2/Flu/RSV Plus is only for use under the Food and Drug Administration's Emergency Use Authorization. Results are for the simultaneous detection and differentiation of SARS-CoV-2, influenza A, influenza B and RSV nucleic acids in clinical specimens. SARS-CoV-2, influenza A, influenza B and RSV RNA identified by this test are generally detectable in upper respiratory samples during the acute phase of infection. Positive results are indicative of the presence of the identified virus, but do not rule out bacterial infection or co-infection with other pathogens not detected by this test. Clinical correlation with patient history and other diagnostic information is necessary to determine patient infection status. The agent detected may not be the definite cause of disease. Negative results do not preclude SARS-CoV-2, influenza A, influenza B and RSV infection and should not be used as the sole basis for treatment or other patient management decisions. Negative results must be combined with clinical observations, patient history and epidemiological information. An Invalid result may occur with specimen-associated inhibition unable to be resolved with specimen repeat. Fact Sheet for Healthcare Providers: https://www.fda.gov/media/512918/download Fact Sheet for Patients: https://www.fda.gov/media/916872/downloadNormalProMedica Los Angeles Community HospitalComment on above:Performed By: #### COVFLR #### [facility] ([id number]) [address] [place] [address], [place], [place] [address]MUZ,APTIMA HPV,AGE GDLNon 15-39-9252ZKZ GDLN ACOG TESTINGNote. NOMS HealthcareComment on above:TESTS RESULT FLAG UNITS REF RANGE LAB Clinician Provided Cytology Information Source.............Cervix;Endocervix No. of containers..01 ThinPrep Vial Age Algo ACOG Jannet... FLAG LEGEND: L-Low Normal,H-High Normal,LL-Alert Low,HH-Alert High <-Panic Low,>-Panic High,A-Abnormal,AA-Critical Abnormal Performed at: 01 =[facility] [address] Haylie Bustamante MD, IGP, RFX APTIMA HPV ASCUNote.[facility] HealthcareComment on above:TESTS RESULT FLAG UNITS REF RANGE LAB DIAGNOSIS: 02 NEGATIVE FOR INTRAEPITHELIAL LESION OR MALIGNANCY. Specimen adequacy: 02 Satisfactory for evaluation. Endocervical and/or squamous metaplastic cells (endocervical component) are present. Performed by: 02 Veena Miller, [employer] Boards Solder Leveler ([facility]) . 02 Note: Note 03 The [...] High,A-Abnormal,AA-Critical Abnormal Performed at: 02 AGUILAR [facility] [place] [address] [place] [address] Tania Mullins PhD, 03 WB [facility] [address] [address] Haylie Bustamante MD, Performed at: = - [facility] [address] [facility], [place] [id number] Power System Operator: Haylie Bustamante MD, Phone: [phone] Performed at: [facility] LabH[facility] [address] [facility], [place] [id number] Power System Operator: Tania Mullins PhD, Phone: [phone] BRUSH-SPATULA CERVIX ENDOCERVIX CLINISYNCNOMS HealthcareCoagulation factor VIII activity actual/normal Coag (PPP) [Relative time]on 41-22-1742Sdbumelokhhhfc and review of laboratory resultsAbnormalGrant HospitalProGreene Memorial Hospital SystemFactor 8 activityon 16-71-0118Dxrssuzclsg factor VIII activity actual/normal Coag (PPP) [Relative time]152 %HighGrant HospitalNo Panel Informationon 75-62-7213DslZmtumoThe Surgical Hospital at SouthwoodsVon Willebrand antigen factor VIII agon 82-65-1751oMw Ag IA Qn (PPP)157 %High50 - 150 %Grant HospitalComment on above: It has been reported that [...] 69:1691, 1987 vWf Ag IA Qn (PPP)on 29-32-7809Jurivayytdfskp and review of laboratory results AbnormalGrant Hospitalvon Willebrand Factor Activityon 08-22-2023 vWf.activity actual/normal IA (PPP) [Relative ratio]158 %50 - 200 %Grant HospitalAPTTon 66-22-7065iVKQ Coag (PPP) [Time]30 [facility] CBC auto differentialon 49-93-0678Pfvqnzkiw (Bld) [#/Vol]0.0 10*3/[facility] HospitalBasophils/100 WBC (Bld)0.6 %Grant HospitalEosinophils (Bld) [#/Vol]0.1 10*3/uLGrant HospitalEosinophils/100 WBC (Bld)2.0 % Grant HospitalErythrocyte distribution width (RBC) [Ratio]13.3 %11.5 - 15.0 %Grant HospitalHematocrit (Bld) [Volume fraction]38.6 %35 - 47 % Grant HospitalHemoglobin (Bld) [Mass/Vol]13.1 g/dL11.7 - 15.5 g/dL Grant HospitalLymphocytes (Bld) [#/Vol]1.2 10*3/[facility] HospitalLymphocytes/100 WBC (Bld)23.5 %Grant HospitalMCH (RBC) [Entitic mass]29.8 pg27 - 34 [facility] HospitalMCHC (RBC) [Mass/Vol]33.8 g/dL32 - 36 g/dLGrant HospitalMCV (RBC) [Entitic vol]88 fL80 - 100 [facility] HospitalMonocytes (Bld) [#/Vol]0.4 10*3/[facility] Monocytes/100 WBC (Bld)8.5 %Grant HospitalNeutrophils (Bld) [#/Vol]3.4 10*3/[facility] HospitalNeutrophils/100 WBC (Bld)65.4 %Grant HospitalPlatelet mean volume (Bld) [Entitic vol]8.9 fL7 - 12 Christian HospitalPlatelets (Bld) [#/Vol]225 10*3/[facility] HospitalRBC (Bld) [#/Vol] 4.38 10*6/[facility] HospitalWBC corrected for nucl RBC Auto (Bld) [#/Vol] 5.2PExcela Frick HospitalFerritinon 62-32-6809Fzstfhyw [Mass/Vol]9 ng/mLLow11 - 307 ng/mLProMedica Health SystemFerritin [Mass/Vol]on 69-71-5352Utvrkzffeonisj and review of laboratory resultsAbnormalProMedica Health SystemProMedica Health SystemIron and TIBCon 94-74-9252Firrzbrtanbyim and review of laboratory resultsAbnormalProMedica Health SystemIron [Mass/Vol]67 ug/dL50 - 170 ug/dLProMedica Health SystemIron binding capacity [Mass/Vol]438 ug/qBSkku684 - 425 ug/dLProMedica Health SystemIron saturation [Mass fraction]15 Pro[facility] Health SystemProMedica Health SystemNo Panel Informationon 08-21-2023 ProMTyler Hospital SystemProtime & INRon 29-41-9118EKS Coag (PPP) [Relative time] 1.1 {INR}[facility] SystemPT Coag (PPP) [Time]13.1 [facility] Telemedicineon 62-70-3633Ybetzgoyer Health Telemedicine [id number] Muhammad,Christina 2000 F Date Provider Department Center 06/14/2023 [facility] Gloria Heal No family history on file Reason for Visit and Comments: Therapy [849][facility] Health Telemedicineon 40-26-6943Edebbmcgep Health [id number] Muhammad,2000 F Date Provider Department Center 05/17/2023 [facility] Gloria Heal No family history on file Reason for Visit and Comments: Therapy [849][facility] Health Telemedicineon 87-64-0088Bvifffmxub Health [id number] Muhammad,Christina 2000 F Date Provider Department Center [facility]2023 [facility] Gloria Heal No family history on file Reason for Visit and Comments: Therapy [849][facility] Cultureon 04-29-2023 Bacteria identified Cx Nom (U)ORGANISM: Strep. agalactiae Grp B (O:B) [place] Count <10,000 PERFORMED BY: [facility] [address] [place] [address] PATHOLOGIST MONEY ROOM TELLER TUAN HOGAN M.D.NormalPomerene HospitalComment on above: Performed By: #### CUU #### [facility] [address] [place] [address] [place] #### VAGINITIS+ #### [facility] ,Vaginitis Plus (VG+)on 83-16-2224Pjdpjjchm VaginaeLow - 0Normal.Pomerene HospitalComment on above:Performed By: #### CUU #### [facility] [address] [place] [address] [place] #### VAGINITIS+ #### [facility] ,TGOA7Oke - 0Normal.Pomerene HospitalComment on above:Performed By: #### CUU #### [facility] [address] [place] [address] [place] #### VAGINITIS+ #### [facility] ,Cherie Albicans, NAANegativeNormalNegGood Samaritan Hospital Comment on above:Result Comment: This test was developed and its performance characteristics determined by [facility]. It has not been cleared or approved by the Food and Drug Administration.Performed By: #### CUU #### [facility] [address] [place] [address] [place] #### VAGINITIS+ #### [facility] ,Cherie Glabrata, NAANegativeNormalNegGood Samaritan Hospital Comment on above:Result Comment: This test was developed and its performance characteristics determined by [facility]. It has not been cleared or approved by the Food and Drug Administration. PERFORMED BY: [place] [address] PATHOLOGIST MONEY ROOM TELLER TUAN HOGAN M.D.Performed By: #### CUU #### [facility] [address] [place] [address] [place] #### VAGINITIS+ #### [facility] ,Chlamydia Trachomotis, NAANegativeNormalNegativePomerene HospitalComment on above:Performed By: #### CUU #### [facility] [address] [place] [address] [place] #### VAGINITIS+ #### [facility] ,MegasphaeraLow - 0Normal.Pomerene HospitalComment on above: Result Comment: Calculate total [...] developed and its performance characteristics determined by [employer]. It has not been cleared or approved by the Food and Drug Administration.Performed By: #### CUU #### [place] [address] [place] #### VAGINITIS+ #### [facility] ,Neisseria Gonorrhoeae, NAANegativeNormalNegativePomerene HospitalComment on above:Result Comment: Performed at: =[facility] [id number] Power System Operator: Haylie Bustamante MD, Phone: [phone] By: #### CUU #### [facility] [address] [place] [address] #### VAGINITIS+ #### [facility] ,Tric Vag NAANegativeNormalNegativePomerene HospitalComment on above:Performed By: #### CUU #### [facility] [address] [place] [address] [place] #### VAGINITIS+ #### [facility] ,Behavioral Health Telemedicineon 39-89-8082Rabyzjgasp Health Telemedicine [id number] Christina Muhammad 2000 F Date Provider Department Center 04/10/2023 [facility] Gloria Heal No family history on file Reason for Visit and Comments: Therapy [849]NormalMercy Health – The Jewish Hospitalhavioral Health Telemedicineon 44-60-3313Epkqyeklyn Health [id number] Christina Muhammad 2000 F Date Provider Department Center 03/26/2023 [facility] Gloria Heal No family history on file Reason for Visit and Comments: Therapy [849]NormalUnDunlap Memorial Hospital Health Telemedicineon 57-07-5587Hbdzusnoff [facility] [id number] Christina Muhammad 2000 F Date Provider Department Center 03/09/2023 [facility] Gloria [facility] No family history on file Reason for Visit and Comments: Therapy [849][facility] CampusUS BREAST LEFT LIMITEDon 14-16-9833EF BREAST LEFT LIMITEDPatient: CHRISTINA MUHAMMAD Exam Date: 12/07/2020 : 2000 Gender:F Ordering : DR. ALISHA SHELLEY . Admission #: [id number] Family : Order #: [id number] CLICK HERE TO VIEW EXAM RADIOLOGY REPORT [...] by: Ann Dunham MD on 12/07/2020 at 15:12[facility] COVID-19 PCRon 28-67-8205ZZAH-CoV-2 (COVID-19) RNA ALEXANDER+probe Ql (Unsp spec)Not detectedNormalNot DetectedThe Wayne HospitalComment on above:Result Comment: This test was developed and its performance characteristics determined by [employer]. This test has not been FDA cleared [...] in this assay.Performed By: #### CVDPCR #### [facility] [address] [place] [address] Summaryon 19-58-1639Kazgwxcxu SummaryMR#: [id number] [facility] Name: Christina Muhammad Admitted: 11/08/2017 Discharged: 11/12/2017 Date of : 2000 Physician: Domenico Goodwin M.D. DISCHARGE SUMMARYREASON FOR ADMISSION: Suicidal ideation.HISTORY OF PRESENT ILLNESS AT ADMISSION: :Patient is a 17 year old female with no previous psychiatric history,presenting as a direct admission from [facility], where shepresented with her mother after she [...] now or isstill contemplating suicide.HOSPITAL COURSE:Upon admission [facility] child unit, pt was assessed in detail [...] asked to test those coping skills, w nicci she reported significantimprovement in her coping skills. [...] wasgood. Judgment was also good.DISCHARGE MEDICATIONS: None.DISCHARGE DIAGNOSES:Theresa I: Mood disorder, NOS.Theresa II: Deferred.Theresa III: We do not know, but unsafe.Theresa IV: Romantic relationship conflict.Theresa V: GAF of 67.POSTDISCHARGE APPOINTMENT/POSTDISCHARGE FOLLOWUP: See [...] personal documentation from me. Date Dict: 12/07/2017/01:07 Mic/Randall Andres MDDate Trans: 12/07/2017 06:22 A/mmoDN_JN:[id number] [facility] HospitalFREE T3on 29-95-6808Bythfcoelhmmxlzx (T3) free3.4 pg/mLNormal 2.5-3.9The [facility]erm[facility] HospitalComment on above:Order Comment: No: Do not add to previous drawPerformed By: #### 35896, 70493, 45164, 31123 ####[facility] [facility].[address] FREE T4on 90-55-6513Appcskfsg (T4) free0.89 ng/dLNormal0.71-1.85The [facility]erm[facility] HospitalComment on above:Order Comment: No: Do not add to previous drawPerformed By: #### 69315, 15376, 68242, 27831 ####[facility] [facility] [place] [place] [address], USALIPID PROFILEon 01-34-4491Mztgjumlinq428 mg/wOOkctpc954-442Ypq [facility] HospitalComment on above:Order Comment: No: Do not add to previous drawResult Comment: CHOLESTEROL REFERENCE RANGE:20 YEARS AND OLDER CARDIOVASCULAR RISKLess than 200 mg/dl Low Ynwa463 to 239 mg/dl Borderline Gngn950 mg/dl and greater High RiskPerformed By: #### 63624, 57654, 29435, 54796 ####[facility] [place] [address], USACholesterol to HDL Ratio3.3 {ratio}Normal.0-4.5The [facility] HospitalComment on above: Order Comment: No: Do not add to previous drawPerformed By: #### 18241, 32453, 15358, 13963 ####[facility] ARSKYLARMAYO [facility] [place] [address], USAHDL Ftwbgglaywn66 mg/cBVawmxm42-22Mxa [facility] HospitalComment on above:Order Comment: No: Do not add to previous drawResult Comment: Slight variation in normal range could be due to gender and/or age.HDL CHOLESTEROL REFERENCE RANGE:20 years and older Cardiovascular Risk> or =60 mg/dL Ftkixpdat82 TO 59 mg/dL Low Risk<40 mg/dL High RiskPerformed By: #### 21543, 41304, 56376, 88262 ####[facility] [place] [address], USALDL Tjjhiztkwfs09 mg/dLNormal0-130The [facility] HospitalComment on above:Order Comment: No: Do not add to previous drawResult Comment: LDL IS A CALCULATIONLDL IS ONLY VALID IF THE TRIG IS LESS THAN 400.Performed By: #### 10074, 85006, 93994, 12160 ####[facility] [place] [address], USANON-HDL HQCXZHMQBQD446 mg/dLNormalThe [facility] HospitalComment on above:Order Comment: No: Do not add to previous drawPerformed By: #### 51939, 45298, 51043, 33476 ####[facility] [facility] [place] [address], NBWLvmjhzgmylgt72 mg/fSQyrtpr71-079Ufb [facility] Comment on above:Order Comment: No: Do not add to previous drawResult Comment: TRIGLYCERIDE REFERENCE RANGE:20 YEARS AND OLDER CARDIOVASCULAR RISKLESS THAN 150 mg/dl LOW XUNV277 TO 199 mg/dl BORDERLINE XEMV348 mg/dl AND GREATER HIGH RISK Performed By: #### 33353, 18356, 53312, 13472 ####[facility] [facility] [place] [address], D[facility] HEALTH CENTERVLDL CHOL14 mg/dLNormal0-40The [facility] HospitalComment on above:Order Comment: No: Do not add to previous drawPerformed By: #### 35722, 09975, 30275, 35850 ####[facility] [facility] [place] [address], USATSHon 11-09-2017 Thyroid stimulating hormone (TSH)1.25 MICRO-IU/MLNormal0.34-5.60The [facility] HospitalComment on above:Order Comment: No: Do not add to previous drawPerformed By: #### 49140, 58029, 20572, 64785 ####[address] [place] [address], [facility] Vital Signs Date TimeVital SignValuePerforming DwbipunipSggowcsx31-32-1077 08:41-0500Body mass index (BMI) [Ratio]29.39 kg/m2Becca DALE Work Phone: [facility] HospitalWurvwjshss19-00-2494 08:41-0500Body grpeuc11.9 kg Becca DALE Work Phone: noSt. Louis [facility] Medical CenterLjltgqokwu72-50-1095 08:41-0500Diastolic blood ihmyebix27 mm[Hg]Becca DALE Work Phone: [phone] [place], [place] [address]Impmcifarv15-50-2819 08:41-0500Systolic blood mm[Hg]Becca DALE Work Phone: [phone] [place], [place] [address]Jbnhukycgz07-95-3209 14:21-0400Body mass index (BMI) [Ratio]29.53 kg/u2Vhyth Wilson DO Work Phone: [phone] [place], [place] [address]Gmxrmcrlft09-05-6295 14:21-0400Body .35 kgCorey Wilson DO Work Phone: [phone] [place], [place] [address]Zytgkubajq20-79-0325 14:21-0400Diastolic blood ymixygkl91 mm[Hg]Rudi Wilson DO Work Phone: [phone])[facility] [place], [place] [address]Nqhwiobbag80-07-6341 14:21-0400Systolic blood dofhehve272 mm[Hg]Rudick Aliceao DO Work Phone: [phone])[facility] [place], [place] [address]Vhjzeucqxd78-41-9522 15:12-0400Body mass index (BMI) [Ratio]29.2 kg/m2Becca DALE Work Phone: [phone])[facility] [place] [address]-13-2025 15:12-0400Body qsivjo91.31 kgBecca DALE Work Phone: [phone])[facility] [place], [place] [address]Fgjjuuhcgw81-03-8019 15:12-0400Diastolic blood botbrimk82 mm[Hg]Becca DALE Work Phone: [phone] [place], [place] [address]Okbxjpsamk75-76-7408 15:12-0400Systolic blood fythrkfy546 mm[Hg]Becca DALE Work Phone: [phone])[facility] [place], [place] [address]Lgpvznzcfa77-05-9840 07:57-0400Body kovxul442.8 cmKevin Ybarra MD Work Phone: [phone] [place], [place] [address]10-07-2025 07:57-0400Body mass index (BMI) [Ratio]28.5 kg/m2Kevin Ybarra MD Work Phone: [phone]10-07-2025 07:57-0400Body jbafra63.08 kgKevin Ybarra MD Work Phone: [phone] [place], [place] 0460710-07-2025 07:57-0400Diastolic blood mdfgrecc85 mm[Hg]Kevin Ybarra MD Work Phone: [phone] [place], [place] [address]10-07-2025 07:57-0400Heart rate 84 /minIra Tate COOPER Work Phone: [phone])[facility] [place], [place] 04[address]10-07-2025 07:57-0400Systolic blood pajgmanf990 mm[Hg]Kevin Ybarra MD Work Phone: [phone] [place] 8046809-29-2025 14:49-0400Body mass index (BMI) [Ratio]28.12 kg/y3Lwnntgtb Kody ADMIN ASST Work Phone: 1(242)[address]09-29-2025 14:49-0400Body houvdx82.91 kgKristina Kody ADMIN ASST Work Phone: [phone])[address] [place], [place] 4734509-29-2025 14:49-0400Diastolic blood epfkufmh56 mm[Hg]Joseline Kody ADMIN ASST Work Phone: 1(771)[facility] [place], [place] [address]Mlhiialsnq90-49-5841 14:49-0400Systolic blood mcnwfugn145 mm[Hg]Joseline Kody ADMIN ASST Work Phone: 1(599)[address] [place], [place] 4734509-08-2025 13:25-0400Body mass index (BMI) [Ratio]27.28 kg/j1Sdrhzshh Kody ADMIN ASST Work Phone: 1(816)[address] [place], [place] 4734509-08-2025 13:25-0400Body bjyeod60.24 kgKristina Kody ADMIN ASST Work Phone: 1(028)[address] [place], [place] 4734509-08-2025 13:25-0400Diastolic blood hkewxecj36 mm[Hg]Joseline Kody ADMIN ASST Work Phone: 1(963)[address] [place], [place] 4734509-08-2025 13:25-0400Systolic blood mkfjtgma462 mm[Hg]Joseline Kody ADMIN ASST Work Phone: 1(706)[address] [place], [place] 4734508-25-2025 09:19-0400Body mass index (BMI) [Ratio]26.6 kg/z6IcgwlRudi Rachel DO Work Phone: 1(476)741-[address] [place], [place] [address]Zjugdputte71-15-1988 09:19-0400Body rnygtg22.1 kg Rudi Wilson DO Work Phone: [facility] HospitalHscwavdhty68-92-0376 09:19-0400Diastolic blood nzbmqhpo80 mm[Hg]Rudi Wilson DO Work Phone: [facility] HospitalYsoheogsus76-36-2859 09:19-0400Systolic blood uuognwgd608 mm[Hg]Rudi Wilson DO Work Phone: 1(343)193-[address] [place], [place] [address]Bqawoebtet52-01-4139 15:45-0400Body mass index (BMI) [Ratio]24.03 kg/m2Amy Ger DALE Work Phone: 1(225)[address] [place], [place] [address]Wpkmazlkvw11-47-0812 15:45-0400Body xolxur13.98 kgBecca Ger DALE Work Phone: [facility] HospitalXijpadywnr85-17-6568 15:45-0400Diastolic blood zwoolhje61 mm[Hg]Becca DALE Work Phone: 1(093)[address] [place], [place] [address]Vkqmdvdnhx08-97-3966 15:45-0400Systolic blood scmfymmq740 mm[Hg]Becca DALE Work Phone: 1(754)230-[address] [place], [place] [address]Caqacfaemf64-20-1680 14:08-0400Body mass index (BMI) [Ratio]22.67 kg/c8Qjzdk Wilson DO Work Phone: [facility] HospitalJdjjlsesci77-59-9825 14:08-0400Body .67 kgCorey Wilson DO Work Phone: 1(572)[address] [place], [place] [address]Nkefbkakdu64-21-7530 14:08-0400Diastolic blood rgpkccue05 mm[Hg]Rudi Wilson DO Work Phone: [facility] HospitalFdobhfzuam17-26-8945 14:08-0400Systolic blood kkavjpin094 mm[Hg]Rudi Wilson DO Work Phone: 1(729)205-[address] [place], [place] [address]Iqdgqofvgu34-15-0721 12:53-0400Body mass index (BMI) [Ratio]21.56 kg/m2[facility]05-29-2025 12:53-0400Body vqsibp60.15 [facility]NoK[facility] Igkatgjgdc81-00-4822 12:53-0400Diastolic blood sbanjlfz53 mm[Hg][facility]05-29-2025 12:53-0400Systolic blood xwqiljgv879 mm[Hg][facility]01-13-2025 14:39-0500Body mass index (BMI) [Ratio]21.95 kg/m2Becca Ger PA Work Phone: 1(752)619-[address] [place], [place] [address]Helbshlqbr02-65-4972 14:39-0500Body jidrnw76.4 kg Becca Keating PA Work Phone: 1(356)321-[address] [place], [place] [address]Lccuunkivi81-04-8992 14:39-0500Diastolic blood mm[Hg]Becca Keating PA Work Phone: 1(670)[address] [place], [place] 4734501-13-2025 14:39-0500Systolic blood qhpfheaf206 mm[Hg]Becca Keating PA Work Phone: 1(589)[address]12-04-2024 09:28-0500Body mass index (BMI) [Ratio]21.58 kg/m2Amy Ger PA Work Phone: 1(619)720-[address] [place], [place] [address]Wjhzyhpdsq20-59-3505 09:28-0500Body .22 kgBecca Broadview PA Work Phone: 1(994)857-[address] [place], [place] [address]Dmpgnwpkmb28-64-4871 09:28-0500Diastolic blood qxpoaksq34 mm[Hg]Becca Keating PA Work Phone: 1(423)822-[address] [place], [place] [address]Orltvvwemt37-82-8307 09:28-0500Systolic blood mm[Hg]Becca Keating PA Work Phone: 1(308)630-[address] [place], [place] [address]Cbvkcqggmu62-93-7132 15:25-0500Body mass index (BMI) [Ratio]21.38 kg/m2Slick Graff MD Work Phone: 1(387)328-[address] [place], [place] 9892611-18-2024 15:25-0500Body okmlvw25.59 kgSlick Graff MD Work Phone: 1(651)754-[address] [place], [place] 9892611-18-2024 15:25-0500Diastolic blood iyfmgqzx69 mm[Hg]Slick Graff MD Work Phone: 1(685)[address]11-18-2024 15:25-0500Heart rate 99 /minSlick Graff MD Work Phone: 1(925)[address]11-18-2024 15:25-0500Systolic blood tvodskbk827 mm[Hg]Slick Graff MD Work Phone: 1(862)[address]10-28-2024 15:52-0400Body mass index (BMI) [Ratio]21.92 kg/m2Slick Graff MD Work Phone: 1(032)[address]10-28-2024 15:52-0400Body .31 kgSlick Graff MD Work Phone: 1(437)[address]10-28-2024 15:52-0400Diastolic blood pwatvspk26 mm[Hg]Slick Graff MD Work Phone: 1(048)[address]10-28-2024 15:52-0400Heart rate 62 /minSlick Graff MD Work Phone: 1(430)[address]10-28-2024 15:52-0400Systolic blood zvhdkdhy804 mm[Hg]Slick Graff MD Work Phone: 1(944)[address]06-25-2024 15:42-0400Body mass index (BMI) [Ratio]20.81 kg/m2Slick Graff MD Work Phone: 1(320)[address]06-25-2024 15:42-0400Body aeyase34.77 kgSlick Graff MD Work Phone: 1(169)[address]06-25-2024 15:42-0400Diastolic blood mm[Hg]Slick Graff MD Work Phone: 1(855)[address]06-25-2024 15:42-0400Systolic blood kmkeylsm379 mm[Hg]Slick Graff MD Work Phone: 1(198)[address]06-17-2024 13:58-0400Body mass index (BMI) [Ratio]20.81 kg/m2Slick Graff MD Work Phone: 1(014)[address]06-17-2024 13:58-0400Body nmqqdaituvi79.29 [degF]Slick Graff MD Work Phone: 1(937)[address]06-17-2024 13:58-0400Body wnxgew87.77 kgSlick Graff MD Work Phone: 1(590)[address]06-17-2024 13:58-0400Diastolic blood yzbjwwpf81 mm[Hg]Slick Graff MD Work Phone: 1(260)[address]06-17-2024 13:58-0400Heart rate 104 /minSlick Graff MD Work Phone: 1(329)[address]06-17-2024 13:58-0400Systolic blood mm[Hg]Slick Graff MD Work Phone: 1(294)[address]05-06-2024 15:54-0400Body mass index (BMI) [Ratio]21.67 kg/m2Slick Graff MD Work Phone: 1(989)[address]05-06-2024 15:54-0400Body zisycu06.49 kgSlick Graff MD Work Phone: 1(066)[address]05-06-2024 15:54-0400Diastolic blood abmoycig16 mm[Hg]Slick Graff MD Work Phone: 1(368)[address]05-06-2024 15:54-0400Heart rate 81 /minSlick Graff MD Work Phone: 1(853)[address]05-06-2024 15:54-0400Systolic blood czgkaafv709 mm[Hg]Slick Graff MD Work Phone: 1(918)[address]02-13-2024 14:46-0500Body .8 cmLino Conner MD Work Phone: 1(294)[facility]02-13-2024 14:46-0500Body mass index (BMI) [Ratio]21.48 kg/m2Lino Conner MD Work Phone: 1(699)[facility]02-13-2024 14:46-0500Body .9 kgLino Conner MD Work Phone: 1(100)[facility] CenterAlector Gvpepl51-71-3623 14:46-0500Diastolic blood wmrhuqrt06 mm[Hg]Lino Conner MD Work Phone: 1(422)[facility] CenterHeirloom Computing02-13-2024 14:46-0500Heart rate 66 /minDmirela Conner MD Work Phone: 1(556)[facility] HospitalEvolution Nutrition Flooxp53-52-8033 14:46-0500Systolic blood dkbeqmjf829 mm[Hg]Lino Conner MD Work Phone: 1([phone])[facility] Sensdata Encounters Encounter DateEncounter TypeCare ProviderFacilityStart: 05-20-2025 End: 69-32-9471Jnyzvi outpatient visit 15 minutesAmy Ger DALE Work Phone: [facility] [place] OBGYNComment on above:Third trimester ([facility]); 32 weeks gestation of ([facility]); Heartburn; NauseaStart: 05-20-2025 End: 15-25-3362rdhngsansbJIT RAMLoco AvailableStart: 05-05-2025 End: 39-25-3717nlqyatdjjxTKPYN FAZIONot AvailableStart: 05-05-2025 End: 34-85-7936Vvmbsz flowsheetCorey Wilson DO Work Phone: [facility] OBGYNStart: 05-05-2025 End: 52-95-7751Qlevta flowsheetCorey Wilson DO Work Phone: [facility] OBGYNStart: 05-05-2025 End: 86-12-4203Ureixmxu flow sheetCorey Wilson DO Work Phone: [facility] [place] OBGYNComment on above:Third trimester ([facility]); 30 weeks gestation of ([facility]); size inconsistent with dates ([facility])Start: 04-20-2025 End: 71-67-9411Ydzwuzan flow Regina DALE Work Phone: [facility] [place] OBGYNComment on above:Third trimester ([facility]); 28 weeks gestation of ([facility])Start: 04-20-2025 End: 16-23-6626vaaddilopyFFY RAMEYNot AvailableStart: 04-20-2025 End: 60-42-6979Zlfket Gracia DALE Work Phone: [facility] [place] OBGYNStart: 04-20-2025 End: 74-13-1432Isjbaj Gracia DALE Work Phone: [facility] [place] OBGYNStart: 04-14-2025 End: 09-19-0694Gkdqsm consultation new/estab patient 60 Aryan Ybarra MD Work Phone: [phone]-Mraui [facility] Comment on above:Family history of disorder of brain (Primary Dx); 27 weeks gestation of ; Depression affecting ; Anxiety disorder affecting , antepartumStart: 04-14-2025 End: 46-99-2150fwhbcrwtnxVSTXQ [facility] HospitalStart: 04-06-2025 End: 41-16-3970uiikstynexJIQRGTDE EBERLYNot AvailableStart: 04-06-2025 End: 56-60-2807Ppjotjhx flow Christine Gates NP Work Phone: [facility] [place] OBGYNComment on above:Anemia, unspecified type (Primary Dx); Second trimester ([facility]); 26 weeks gestation of ([facility])Start: 04-06-2025 End: 59-85-7493Fuheyv Michele Gates NP Work Phone: [facility] [place] [facility]BGYNStart: 04-06-2025 End: 98-80-9297Eewerf Michele Gates NP Work Phone: [facility] [place] OBGYNStart: 04-04-2025 End: 91-75-7889Jqmcthzyi Result EncounterChazmile Kody ALVAREZ Work Phone: [facility] External Department UnsolicitedStart: 04-04-2025 End: 96-29-4870Dpvrcconz Result EncounterChazmile Kody ALVAREZ Work Phone: [facility] External Department UnsolicitedStart: 03-16-2025 End: 39-00-8536Tkgbfe flowsheetJoseline Gates ADMIN ASST Work Phone: [facility] [place] [facility]BGYNStart: 03-16-2025 End: 92-51-2785Bmtzyf flowsheetJoseline Gates NP Work Phone: [facility] [place] OBGYNStart: 03-16-2025 End: 36-29-6365Phpnk Hernan Ybarra MD Work Phone: [phone]-Yjxfc [facility] Start: 03-16-2025 End: 34-67-3943Irlzrkbx flow sheetJoseline Gates NP Work Phone: [facility] [place] OBGYNComment on above:23 weeks gestation of ([facility]); Second trimester ([facility]); Anxiety, generalized ; Diabetes mellitus screeningStart: 03-16-2025 End: 03-93-8894lxovdohchjYXDBMUTR EBERLYNot AvailableStart: 03-13-2025 End: 53-07-2641Zajvd Hernan Ybarra MD Work Phone: [phone]-Dqdey [facility] Start: 03-02-2025 End: 55-82-7118Iktdxe flowsheetCorey Wilson DO Work Phone: [facility] [place] [facility]BGYNStart: 03-02-2025 End: 88-70-1668Jywjma flowsheetCorey Wilson DO Work Phone: [facility] [place] [facility]BGYNStart: 03-02-2025 End: 39-06-0934Qfsfurvog Result EncounterBecca DALE Work Phone: [facility] External Department UnsolicitedStart: 03-02-2025 End: 12-78-6255Ztfmoqzb flow sheetCorey Wilson DO Work Phone: [facility] [place] OBGYNComment on above:Anxiety, generalized (Primary Dx); Second trimester ([facility]); 21 weeks gestation of ([facility])Start: 03-02-2025 End: 29-93-6880dvcoaqabcpTFDDJ FAZIONot AvailableStart: 02-05-2025 End: 72-36-2848FdpcwoZtsoBenoit Raymond [facility] Internal Medicine/PediatricsStart: 02-02-2025 End: 74-60-3997gjwvtgtxurQMF RAMEYNot AvailableStart: 02-02-2025 End: 95-24-2275Nsbrjgvz flow sheetBecca DALE Work Phone: [facility] [place] OBGYNComment on above:Second trimester ([facility]); 17 weeks gestation of ([facility]); Screening, , for anatomic survey ([facility]); Vaginal dischargeStart: 02-02-2025 End: 02-10-9806Etpgpe flowsTeddy DALE Work Phone: [facility] [place] [facility]BGYNStart: 02-02-2025 End: 64-57-1049Svxvgq flowsTeddy DALE Work Phone: [facility] [place] [facility]BGYNStart: 02-02-2025 End: 71-41-2254Vggsyyqx Result EncounterBecca DALE Work Phone: [facility] External Department UnsolicitedStart: 01-05-2025 End: 62-66-3770Bfqogy flowsheetCorey Wilson DO Work Phone: [facility] BCP OBStart: 01-05-2025 End: 65-01-0250Kjmmmh flowsheetCorey Wilson DO Work Phone: [facility] BCP OBStart: 01-05-2025 End: 91-04-6313jyhnhxelfaVUVHX FAZIONot AvailableStart: 01-05-2025 End: 68-22-9394Glpxueyy flow sheetCorey Wilson DO Work Phone: noMS BCP OBComment on above:Second trimester ([facility]); 13 weeks gestation of ([facility])Start: 12-08-2024 End: 56-56-1218Zcwjwatkt Result EncounterCorey Wilson DO Work Phone: noMS External Department UnsolicitedStart: 12-08-2024 End: 26-23-1287Alozpipip Result EncounterCorey Wilson DO Work Phone: noMS External Department UnsolicitedStart: 12-04-2024 End: 03-42-9979Zinzdm outpatient visit 5 minutesNoms Bcp Ob Wilson NurseNOMS BCP OBComment on above:GA: 0i6iNxaie: 12-04-2024 End: 83-94-5755hpxydgzzemXQPVA FAZIONot AvailableStart: 08-17-2024 End: 34-95-3724Dwjnuopwo department patient visitCRITICAL ACCESS H[facility]PITAL PRERNAUniversity Hospitals St. John Medical Centertart: 08-15-2024 End: 54-48-7013VupwiwUhgwKwame Graff MD Work Phone: [facility] Comment on above:AnxietyStart: 07-21-2024 End: 15-29-1477Aedbyd flowsheetBecca DALE Work Phone: [facility] BCP OBStart: 07-21-2024 End: 27-88-3878Evowwo flowsheetBecca DALE Work Phone: [facility] BCP OBStart: 07-21-2024 End: 89-30-4114Vpjxxqtpz Result EncounterBecca DALE Work Phone: noMS External Department UnsolicitedStart: 07-21-2024 End: 49-94-7083Zuhgbxt encounter procedureBecca DALE Work Phone: [facility] Work Phone: Start: 07-21-2024 End: 67-72-5209Hajmkses preventive med est patient 18-39 yrsBecca Ger DALE Work Phone: noms BCP OBComment on above:Well woman exam with routine gynecological exam; Uses controlStart: 07-21-2024 End: 62-68-8942qlaxstwcaxXHY RAMEYNot AvailableStart: 07-18-2024 End: 24-18-4122Hbzqpxcjq encounterSlick Graff MD Work Phone: [facility] Start: 06-11-2024 End: 75-48-0933Kjckmx flowsheetBecca Keating PA Work Phone: [facility] BCP OBStart: 06-11-2024 End: 77-72-5395Dmwguz flowsheetBecca Keating PA Work Phone: [facility] BCP OBStart: 06-11-2024 End: 12-73-9203Kkgqru outpatient visit 10 minutesBecca DALE Work Phone: noms BCP OBComment on above:Lipoma of other specified sites (Primary Dx)Start: 06-11-2024 End: 41-49-5413zzojtksgznBBQ RAMEYNot AvailableStart: 05-26-2024 End: 11-11-9720xbsnnsvxlcNTGE [facility] Ambulatory PPGStart: 05-26-2024 End: 25-81-4740Sbmdym outpatient visit 15 Gui Graff MD Work Phone: [facility] Comment on above:Pityriasis rosea (Primary Dx)Start: 05-05-2024 End: 88-94-0449Brheig outpatient visit 15 Gui Graff MD Work Phone: [facility] Comment on above:Anxiety (Primary Dx)Start: 05-05-2024 End: 08-78-1858zwirgwkijuIGMW J [facility] Ambulatory PPGStart: 01-01-2024 End: 64-47-4841Lkgati outpatient visit 15 minutesSlick Graff MD Work Phone: [facility] Comment on above:Neurocardiogenic syncope (Primary Dx); AnxietyStart: 01-01-2024 End: 81-57-8925acpwispjmtJDAM [facility] Ambulatory PPGStart: 12-24-2023 End: 77-00-4200Yvxikd outpatient visit 15 minutesSlick Graff MD Work Phone: [facility] Comment on above:Pharyngitis, unspecified etiology (Primary Dx)Start: 12-24-2023 End: 14-76-6817ihcilabddqOVST [facility] Ambulatory PPGStart: 11-15-2023 End: 50-70-2378RnratfYtwgkvwvc [facility] Physicians Internal Medicine/PediatricsStart: 11-12-2023 End: 37-74-9232Xakimt outpatient visit 15 minutesSlick Graff MD Work Phone: [facility] Comment on above:Anxiety (Primary Dx); H/O motion sicknessStart: 11-12-2023 End: 45-64-5075fpivfcanbpRYIE [facility] Ambulatory PPGStart: 08-21-2023 End: 38-13-4700Glaunw outpatient new 30 minutesDrkorey Conner MD Work Phone: [facility] Hemophilia CenterComment on above:Family history of von Willebrand disease (Primary Dx); Menorrhagia with regular cycleStart: 05-04-2023 End: 87-64-7456jsjxhioahmAygic Hart Other [employer] Other Start: 55-27-0296Glxsofvan encounterPealexander [facility] Hospitaltart: 38-12-8803ldzdmqyvaqNBKTXCH S. KNOXFulton County Health Centertart: 04-29-2023 End: 95-29-3471aaltqbdcxyXyrwr HartFacility:[facility] Start: 04-29-2023 End: 23-46-5974nliqtxtgjqAW Peggy Hart Work Phone: [facility] Work Phone: Start: 04-29-2023 End: 01-31-9465Izmewhwc Mariela Browne Work Phone: [facility] [place] Work Phone: Start: 07-71-6871fbsqqrbuuzCOEKHTN S. [facility] Hospitaltart: 54-80-4069ynxqwbbfwpPIMWYMA S. [facility] Hospitaltart: 54-49-1721pahgxzvohjEHQCWJF S. [facility] Hospitaltart: 12-07-2020 End: 38-12-9412hoqcjyzfgfZIDLYV MOOREFacility:L7Myvce: 03-02-2020 End: 00-21-5290gzolymssvhAB ANN Marin WESTFacility:J4Evniq: 01-27-2020 End: 12-18-0255cpjkwchizdAL SLICK Fierro HIESTANDFacility:H1 Procedures DateProcedureProcedure DetailPerforming ClinicianStart: 55-48-2746Hhphr dip stick/tablet rgnt non-auto w/o micrscpAmy Ger DALE Work Phone: Start: 38-13-4637Uiqjr dip stick/tablet rgnt non-auto w/o micrscpCorey Wilson DO Work Phone: Start: 27-77-2485Qhlzm dip stick/tablet rgnt non-auto w/o micrscpAmy Ger PA Work Phone: Start: 40-97-8629Tqqjy dip stick/tablet rgnt non-auto w/o micrscpKristina Kody ADMIN ASST Work Phone: Start: 63-72-7713GCQ CBC WITH AUTO DIFFKristina Kody ADMIN ASST Work Phone: Start: 24-88-0942Oqwhz dip stick/tablet rgnt non-auto w/o micrscpKristina Kody ADMIN ASST Work Phone: Start: 83-67-5555Zqdgk dip stick/tablet rgnt non-auto w/o micrscpCorey Wilson DO Work Phone: Start: 10-18-5306GW OB ANATOMYBecca DALE Work Phone: Start: 27-95-0742BUTFWGGLX VAGINITIS (HTRX)Becca DALE Work Phone: Start: 79-49-6534Lllmt dip stick/tablet rgnt non-auto w/o micrscpAmy Ger DALE Work Phone: Start: 46-29-3404Qrvgc dip stick/tablet rgnt non-auto w/o micrscpCorey Wilson DO Work Phone: Start: 68-98-6512VPE CBC WITH AUTO DIFFCorey Wilson DO Work Phone: Start: 51-43-8638BYZ HEMOGLOBIN M7QCnmcf Wilson DO Work Phone: Start: 33-90-0535Xdppptyi screenKevin Ybarra MD Work Phone: Start: 08-95-1488Ygwh scrn 1+ class nonchromoNot In System Ref ProvStart: 26-08-5872Bmwexupcsp glycosylated a1cKevin Ybarra MD Work Phone: Start: 90-95-0388Zknpptttn c antibodyNot In System Ref ProvStart: 44-00-7477Yvpd ia hepatitis b surface antigenNot In System Ref Prov Start: 31-81-5907XJEUDTEX TOTAL(UNKNOWN SYPHILIS STATUS)Not In System Ref Prov Start: 20-41-9084YGLA AND SCREENNot In System Ref ProvStart: 12-04-2024 End: 43-63-4229Jzqay dip stick/tablet rgnt non-auto w/o micrscpCorey Wilson DO Work Phone: Start: 92-20-6540ERF,APTIMA HPV,AGE GDLNBecca DALE Work Phone: Start: 24-57-0181Vpszfjplmdd observation [Identifier] in Cervix by Cyto stainAngela Rincon RMAStart: 36-92-4303Tapsqu-up visitFollow-up SLICK OSCARANDStart: 01-99-3028Kfznr depression screening assessmentSlick Graff MD Work Phone: start: 13-16-0971Zagxb depression screening assessment Lino Conner MD Work Phone: Plan of Treatment DateCare ActivityDetailAuthorStart: 75-78-4734Vqsgymoio for malignant neoplasm of cervixPap SmearProGreene Memorial Hospital SystemStart: 59-20-7230Pfrcz BMI Screening Adult BMI ScreeningProGreene Memorial Hospital SystemStart: 21-18-1068Ammhhbl Screening Tobacco ScreeningProGreene Memorial Hospital SystemStart: 52-02-5653Ibxxr BMI Screening Adult BMI ScreeningMercy Hospital SystemStart: 06-03-2025 End: 51-73-7324Rcnoisg encounter /26/2025 2:50 PM EST Routine [facility] [place] [address] [place], [id number] Rudi Rachel DO [address] [place] [address] NOMAlicia GASPARNStart: 73-69-5654Xkjzo BMI ScreeningAdult BMI ScreeningProGreene Memorial Hospital SystemStart: 29-57-2524Fkkmbix ScreeningTobacco ScreeningMercy Hospital SystemStart: 05-20-2025 End: 58-06-3838Xsxlylp encounter spjksgqyv96/12/2025 9:20 AM EST Routine [facility] [address] [place], [id number] Becca Keating PA [address] [place] [address] MEHDI [place] OBGYNStart: 05-20-2025 End: 59-66-8775Suuzmvuaezhx / ancillary services ahovfnyaqy69/12/2025 8:00 AM EST Ancillary Procedure [facility] [address] [place] [id number] [phone] [place] OBGYNStart: 66-33-3282Xcvkc BMI ScreeningAdult BMI ScreeningMercy Hospital SystemStart: 51-53-4407Jxsnvjerqs ScreeningDepression ScreeningProGreene Memorial Hospital SystemStart: 05-05-2025 End: 51-70-4251Jmeefbd encounter /28/2025 2:00 PM EDT Routine [facility] [address] [place], [id number] Rudi Rachel DO [address] [place] [address] [facility] [place] OBGYNStart: 05-05-2025 Tobacco ScreeningTobacco ScreeningProGreene Memorial Hospital SystemStart: 05-05-2025 End: 31-89-0157DK for pregnancyUS OB follow up transabdominal approach Imaging Routine size inconsistent with dates ([facility]) Expected: 05/05/2025, Expires: 09/05/2025[facility] Work Phone: comment on above:Expected: 05/05/2025, Expires: 09/05/2025Start: 04-20-2025 End: 46-34-9133Bkueizn encounter procedureNOMS [place] OBGYNComment on above: ArrivedStart: 04-14-2025 End: 49-23-0273Cvmdplu encounter uxtxxnhuf47/07/2025 8:45 AM EDT Office Visit [facility] at [facility] [address] [place] [phone] Kevin Ybarra MD [address] [place] [address] [facility] 04-14-2025 End: 81-26-9928Vkmbvxw encounter qwtnnopce16/07/2025 7:30 AM EDT Appointment [facility] [address] [place] [address] [facility]: 04-06-2025 End: 72-59-7055Rnqbdma encounter ifjhfifgd50/29/2025 2:30 PM EDT Routine NOMAliica SALOMON [address], [id number] Joseline Gates, ADMIN ASST [address] [place] [address] NOMAlicia Toro OBGYNStart: 03-16-2025 End: 44-70-5907OXN panel - Blood by Automated countCBC Lab Routine Diabetes mellitus screening Expected: 03/16/2025 (Approximate), Expires: 03/16/2026[facility] Work Phone: comment on above:Expected: 03/16/2025 (Approximate), Expires: 03/16/2026Start: 03-16-2025 End: 44-69-2574Snjentgpenf of glucose 1 hour after glucose challenge for glucose tolerance testGlucose tolerance, 1 hour Lab Routine Diabetes mellitus screening Expected: 03/16/2025 (Approximate), Expires: 03/16/2026[facility] HealthcareComment on above:Expected: 03/16/2025 (Approximate), Expires: 03/16/2026Start: 03-16-2025 End: 52-99-6948Pagdali encounter procedureNOMS [place]etta OBGYNComment on above: ArrivedStart: 88-50-8899Gpamnptyc vaccinationInfluenza VaccineKettering Health Main Campus Health SystemStart: 03-02-2025 End: 05-95-8636Kxxrbcf encounter procedureNOMS [place] OBGYNComment on above: ArrivedStart: 03-02-2025 End: 37-78-5441Zmvqgpuuqidt / ancillary services smbsyfgeju05/25/2025 8:00 AM EDT Ancillary Procedure NOMAlicia MEYERSGYN [address] [place] [address] EJER Renetta OBGYNStart: 02-02-2025 End: 43-51-7968Bdrau fetoprotein, maternalAlpha fetoprotein, maternal Lab Routine Second trimester ([facility]) Expected: 02/02/2025 (Approximate), Expires: 04/05/2025NOMS HealthcareComment on above:Expected: 02/02/2025 (Approximate), Expires: 04/05/2025Start: 02-02-2025 End: 69-64-6167ZG for pregnancyUS OB 14+ weeks anatomy scan Imaging Routine Screening, , for anatomic survey ([facility]) Expected: 02/02/2025, Expires: 05/05/2025NOMS HealthcareComment on above:Expected: 02/02/2025, Expires: 05/05/2025Start: 01-05-2025 End: 80-27-2878Uzvccdh encounter ykcqpqovz21/30/2025 1:50 PM EDT Routine [facility] [address] [place] [address] Ruid Rachel, DO [address] [place] [address] [facility] OBStart: 66-09-8192Lukve BMI ScreeningAdult BMI ScreeningProTrihealth Bethesda Butler Hospitalca Health SystemStart: 34-98-1550Ojgtaii ScreeningTobacco ScreeningProTrihealth Bethesda Butler Hospitalca Health SystemStart: 61-86-4648Mrljk BMI ScreeningAdult BMI ScreeningProMedica Health SystemStart: 22-72-5222Bvmrgde ScreeningTobacco ScreeningProTrihealth [facility] Butler Hospitalca Health SystemStart: 12-04-2024 End: 29-22-3932EUC/RhABO/Rh Lab Routine Missed menses , unspecified gestational age Expected: 12/04/2024 (Approximate), Expires: 12/04/2025NOMS HealthcareComment on above:Expected: 12/04/2024 (Approximate), Expires: 12/04/2025Start: 12-04-2024 End: 33-83-5343Vmjye type and Indirect antibody screen panel - BloodType and screen Lab Routine Missed menses , unspecified gestational age Expected: 12/04/2024 (Approximate), Expires: 12/04/2025NOM[facility] HealthcareComment on above:Expected: 12/04/2024 (Approximate), Expires: 12/04/2025Start: 12-04-2024 End: 78-46-5407Vnjqw of abuse panel - Urine by Screen methodRapid drug screen, urine Lab Routine , unspecified gestational age Encounter for supervision of normal first in first trimester Expected: 12/04/2024 (Approximate), Expires: 12/04/2025NOMS HealthcareComment on above:Expected: 12/04/2024 (Approximate), Expires: 12/04/2025Start: 11-28-2024 End: 47-43-4253BE Pelvis transvaginalUS OB transvaginal Imaging Routine Missed menses Expected: 11/28/2024, Expires: 02/28/2025[facility] Work Phone: comment on above:Expected: 11/28/2024, Expires: 02/28/2025Start: 73-86-5066Hhfdu BMI ScreeningAdult BMI ScreeningProTrihealth Bet[facility] Butler Hospitalca Health SystemStart: 26-92-2059Akfbeor ScreeningTobacco ScreeningProTrihealth Bet[facility] Butler Hospitalca Health SystemStart: 26-86-0450Jebsk BMI ScreeningAdult BMI ScreeningProTrihealth Bet[facility] Butler Hospitalca Health SystemStart: 54-06-7625Godcecntza ScreeningDepression ScreeningProTrihealth [facility] Butler Hospitalca Health SystemStart: 09-12-1387Cqbthyt ScreeningTobacco ScreeningProMedica Health System Start: 07-21-2024 End: 22-45-9474Secrmnt encounter procedureNOMS BCP OBComment on above:Arrived Start: 06-11-2024 End: 61-96-9099Xirdfkc encounter ahgwqqhje56/04/2024 9:30 AM EST Office Visit [facility] [address] [place] [id number] Becca Keating PA [address] [place], [place] [address] [facility] OBComment on above:ArrivedStart: 03-09-2024 Influenza vaccinationInfluenza VaccineCape Fear Valley Hoke Hospitaltart: 11-26-2023 DTaP,Tdap and Td Vaccines (7 - Td or Tdap)DTaP,Tdap and Td Vaccines (7 - Td or Tdap)[facility] Hospitaltart: 36-43-8375Uylsgahm identified in Urine by CultureMercy Health – The Jewish Hospitaltart: 40-00-8120DndjnvgbeMercy Health – The Jewish Hospitaltart: 12-25-6917Czyogqyzz vaccinationInfluenza VaccineCape Fear Valley Hoke Hospitaltart: 39-35-5944Kassueuia for malignant neoplasm of cervixPap SmearCape Fear Valley Hoke Hospitaltart: 92-90-0072Khbxf BMI Follow Up PlanAdult BMI Follow Up PlanCape Fear Valley Hoke Hospitaltart: 98-40-4488Cnjacfkcf for Chlamydia trachomatisChlamydia ScreeningGrant HospitalAtopobium vaginae DNA [Presence] in Vaginal fluid by ALEXANDER with probe detectionPomerene HospitalBacteria identified in Urine by CultureUrine culture Microbiology Routine Missed menses Ordered: 12/04/2024[facility] HealthcareComment on above: Ordered: 12/04/2024acterial vaginosis associated bacterium 2 DNA [Presence] in Vaginal fluid by ALEXANDER with probe detectionPomerene HospitalCBC W Auto Differential panel - BloodCBC and differential Lab Routine Missed menses , unspecified gestational age Ordered: 12/04/2024[facility] HealthcareComment on above:Ordered: 12/04/2024HLAMYDIA TRACHOMATIS (GENITO/STI)CHLAMYDIA TRACHOMATIS (GENITO/STI) Lab Routine Vaginal discharge Ordered: 02/02/2025[facility] HealthcareComment on above:Ordered: 02/02/2025ytology Cervical or vaginal smear or scraping studyPap Smear Pathology and Cytology Routine Well woman exam with routine gynecological exam Ordered: 07/21/2024[facility] Healthcare Work Phone: comment on above:Ordered: 07/21/2024Hemoglobin A1c/Hemoglobin.total in BloodHemoglobin A1c Lab Routine Missed menses , unspecified gestational age Ordered: 12/04/2024[facility] HealthcareComment on above: Ordered: 12/04/2024Hepatitis B virus surface Ag [Presence] in Serum or Plasma by ImmunoassayHepatitis B surface antigen Lab Routine Missed menses , unspecified gestational age Ordered: 12/04/2024[facility] HealthcareComment on above: Ordered: 12/04/2024Hepatitis C virus Ab [Presence] in Serum or Plasma by ImmunoassayHepatitis C antibody Lab Routine Missed menses , unspecified gestational age Ordered: 12/04/2024[facility] HealthcareComment on above:Ordered: 12/04/2024HIV-1/HIV-2 antigen/antibody combination immunoassayHIV-1 and HIV-2 antibodies Lab Routine Missed menses , unspecified gestational age Ordered: 12/04/2024[facility] HealthcareComment on above:Ordered: 12/04/2024 Megasphaera sp type 1 DNA [Presence] in Vaginal fluid by ALEXANDER with probe detectionPomerene HospitalNeisseria gonorrhoeae DNA [Presence] in Unspecified specimen by ALEXANDER with probe detectionNeisseria gonorrhea DNA probe, direct Lab Routine Vaginal discharge Ordered: 02/02/2025[facility] Healthcare Comment on above:Ordered: 02/02/2025Reagin Ab [Presence] in Serum by RPRRPR Lab Routine Missed menses , unspecified gestational age Ordered: 12/04/2024 [facility] HealthcareComment on above:Ordered: 12/04/2024Rubella antibody, IgGRubella antibody, IgG Lab Routine Missed menses , unspecified gestational age Ordered: 12/04/2024[facility] HealthcareComment on above:Ordered: 12/04/2024 SURESWAB(R) ADVANCED VAGINITIS PLUS, TMASURESWAB(R) ADVANCED VAGINITIS PLUS, TMA Pathology and Cytology Routine Vaginal discharge Ordered: 02/02/2025[facility] Healthcare Work Phone: comment on above:Ordered: 02/02/2025 End: 86-23-3080Dvbttncq Lab TestUnlisted Lab Test Lab Routine Family history of von Willebrand disease Menorrhagia with regular cycle 1 Occurrences starting 08/21/2023 until 08/21/2024[facility] Work Phone: Comment on above:1 Occurrences starting 08/21/2023 until 08/21/2024Unlisted Lab Test [facility]Unlisted Lab Test GP1bM send to [facility] ([facility]) Lab Routine Family history of von Willebrand disease Menorrhagia with regular cycle 08/21/2023 3:50 PM [facility] Pel[facility] transvaginalUS OB transvaginal Imaging Routine Missed menses 12/04/2024 12:52 PM EDTNONJ Healthcare Immunizations Immunization DateImmunizationNotesCare JbuqetbzLqbzxxjx18-00-8093estrb papilloma virus vaccine, quadrivalentLino Conner MD Work Phone: [phone] HospitalLoqyli33-15-2151tjhdgalqp, seasonal, injectable, preservative Gamaliel Conner MD Work Phone: [phone] HospitalWqtpcm87-63-1199gxwyhuxil virus vaccine, unspecified formulationLino Conner MD Work Phone: [phone] HospitalMucvzl92-36-2648kfvduxlkfvfdw oligosaccharide (groups A, C, Y and W-135) diphtheria toxoid conjugate vaccine (MCV4O)Lino Conner MD Work Phone: [phone]08-09-2019human papilloma virus vaccine, quadrivalentLino oCnner MD Work Phone: [phone] HospitalVrpoqn11-65-0024nzggrmmsz, injectable, quadrivalent, preservative Gamaliel Conner MD Work Phone: [phone] Payers DatePayer CategoryPayerPolicy [id number]-[id number] Care Other (unspecified) [id number] Health Insurance 1.2.840.179170.1.13.693.2.7.9.674059.314[id number] 2.16.840.2.67661[id number] 2.16.840.1.406927.3.579.2.593 [id number] 2.16.840.1.863994.3.579.2.364996-65-4816Fdblyau [id number] 2.16.840.1.416350.3.57[id number] 2.16.840.1.028170.3.57[id number] 2.840.1.034105.3.57[id number] 2.840.1.962556.3.579.[id number] 2.840.1.758862.3.579.[id number] 2.840.1.731392.3.57[id number] 2.840.1.307403.3.57[id number] 2.840.1.011381.3.57[id number] 2.840.1.434193.3.57[id number] 2.840.1.448877.3.57[id number] 2.840.1.456445.3.57[id number] 2.840.1.154660.3.57[id number] 2.16.840.1.746862.3.57[id number] 2.16.840.1.421316.3.57[id number] 2.16.840.1.265741.3.57[id number] 2.16.840.1.226919.3.57[id number] 2.16.840.1.452191.3.57[id number] 2.16.840.1.326238.3.57[id number] 2..840.1.490655.3.57[id number] 2..840.1.535060.3.579.2.068308-43-0675Yhtjtph7522143 2..840.1.320887.3.57[id number] 2.16.840.1.942116.3.579.[id number] 2.840.1.873548.3.579.2.531 Social History DateTypeDetailFacilbarney children's medical centerTobacco smoking status NHISUnknown if ever smokedChillicothe Hospital Work Phone: Start: 82-39-7646Wfw Assigned At BirthGeorgetown Behavioral Hospitaltart: 08-19-2020 End: 50-82-4294Cnd Assigned At BirthGrant HospitalTobacco smoking status NHISTobacco smoking consumption unknownNOMS HealthcareStart: 07-17-2023 Gender identityIdentifies as female gender (finding)[facility] HealthcareStart: 49-76-7717Idlxoem smoking status NHISNever smoked tobaccoGrant Hospital Start: 03-97-1821Gojzzkh use and exposureSmokeless tobacco non-userKettering Health Main Campus Osurv [facility] Hospitaltart: 05-26-2024 End: 56-65-4095Jcmrrdnli beverage intakeEx-drinker (finding)[facility] DataCouptart: 08-19-2020 End: 99-77-8198Pzpamab of Social functionGrant HospitalHow hard is it for you to pay for the very basics like food, housing, medical care, and heating Not very hardKettering Health Main Campus Osurv [facility] Hospitaltart: 26-09-5118Lfkyfcghgx depression screening nlnuydzrex5SgkOyqste Health SystemStart: 79-33-9536Kqcvttk Comment sociallyKettering Health Main Campus Osurv [facility] Hospitaltart: 97-39-7042Pkj assigned at birthNot on file [facility] DataCouptart: 33-37-7830OyvLegseq (finding)[facility] DataCouptart: 12-80-5308KbgpztzhpSFQQ Healthcare Clinical Notes 03-02-2020 to 05-20-2025 Note Date & QfghLhxuLbxtbuwd03-18-7248 History of Present illness Narrative* Monika Carter [...] ASSESSMENT & PLAN ICD-10-CM 1. Third trimester ([facility]) Z34.93 2. 32 weeks gestation of ([facility]) Z3A.32 POCT urinalysis dipstick manually resulted Return [...] behalf of: CHITO Alvarez documented in this encounterCedar County Memorial HospitalQyvzrohslf06-50-1225 History of Present illness Narrative* Chiara Rosales LPN - 05/05/2025 2:00 PM EDT Reason for [...] nursing note reviewed. Exam conducted with a school librarian present. Vitals: Estimated body mass index is 29.53 kg/m as calculated from the following: Height as of 24: 5' 10 . Weight as of this encounter: 205 lb 12.8 oz. BP: 110/78 Patient's last menstrual period was 10/03/2024. Assessment/Plan ICD-10-CM 1. Third trimester ([facility]) Z34.93 2. 30 weeks gestation of ([facility]) Z3A.30 POCT urinalysis dipstick manually resulted Return [...] of: Rudi Rachel DO documented in this encounterCedar County Memorial HospitalJeruwjjnqt23-36-5849 History of Present illness Narrative* CHITO Alvarez [...] ASSESSMENT & PLAN ICD-10-CM 1. Third trimester ([facility]) Z34.93 POCT urinalysis dipstick manually resulted 2. 28 weeks gestation of ([facility]) Z3A.28 Return OB: Patient presents today for [...] surgical history on file. documented in this encounterCedar County Memorial HospitalAlfnpqcjmn91-27-8009 History of Present illness Narrative* Becca Gale LPN - 04/14/2025 8:45 AM EDT Headache/epigastric pain/blurry vision/swelling? Dizziness, lightheadedness, sees stars Cramping/contractions? Cramping last week, called primary OB stated they thought it was round ligament pain Spotting/vaginal bleeding? No Loss or gush of fluid like your water may have broken? No Do you have cats at home? No Do you change the litter box (reason: risk of toxoplasmosis)? N/A Genetic testing done this here or other office? Yes, through Primary OB, low risk Have you been seen here at [facility] in a previous ? N/A Recent ER visits or hospitalizations? N/A Bring blood sugar log or meter with you today? (Please bring them with you for every visit at [facility]) N/A Flu vaccine (May-September)? N/A Any concerns that you would like me to mention to the provider today? No * Kevin Ybarra MD - 04/14/2025 8:45 AM EDT REASON FOR CONSULTATION: family history of hydrocephalus HISTORY OF PRESENT ILLNESS: Christina Montoya is a pleasant 25 y.o. at 27w4d due on Estimated Date of Delivery: 07/10/25. complicated by: Family history of hydrocephalus History of iron-deficiency anemia. Follows with Hematology. Family history of von Willebrand's disease. Patient herself tested negative for von Willebrand's disease on 08/21/2023. Was evaluated by Hematology, Dr Conner Depression affecting . Beginning of variation was managed successfully on Lexapro with decreasing anxiety and depression. However she discontinued due to fears after echogenicity in . She denies any SI HI and reports stable mood at this time. Today, the patient is doing well. She denies headaches, vision changes, nausea, vomiting, right upper quadrant or epigastric pain, SOB or chest pain. She denies contractions, vaginal bleeding, leaking of fluid. She reports good movement. Aneuploidy screening: low risk cell free DNA for trisomy 13, 18, 21, monosomy X, sex chromosome aneuploidy (Addy) Carrier screening: Baby Boy Devyn Jordan Schuyler have reviewed the pertinent available patient records including but not limited to notes, labs and images. PAST OBSTETRICAL HISTORY: OB History Para Term AB Living 1 SAB IAB Ectopic Multiple Live Births # Outcome Date GA Lbr Quintin/2nd Weight Sex Type Anes PTL Lv 1 Current MEDICAL HISTORY: Past Medical History: Diagnosis Date ADD (attention deficit disorder) Depression Orthostatic hypotension Suicide attempt by drug ingestion ([facility]) 07/2017 pt states she took 7 flexeril SURGICAL HISTORY: History reviewed. No pertinent surgical history. FAMILY/GENETIC HISTORY: Family History Problem Relation Age of Onset Diabetes Paternal Grandmother Autoimmune disease Maternal Grandmother thyroid Hypertension Maternal Grandmother Cancer Maternal Grandmother Heart disease Maternal Grandmother Sudden Maternal Grandfather PE Bleeding Disorder Maternal Grandfather Hypertension Maternal Grandfather Cancer Maternal Grandfather Dementia Maternal Grandfather Parkinsonism Maternal Grandfather Heart disease Maternal Grandfather Von Willebrand disease Maternal Grandfather Pulmonary embolism Maternal Grandfather No Known Problems Father Meniere's disease Mother Hydrocephalus Brother Seizures Brother Bleeding Disorder Maternal Aunt Von Willebrand disease Maternal Aunt Autoimmune disease Maternal Uncle Multiple sclerosis Maternal Uncle Hypertension Paternal Aunt Autism Neg Hx Developmental delay Neg Hx Down syndrome Neg Hx Clotting disorder Neg Hx Heart defect Neg Hx SOCIAL HISTORY: Social History Tobacco Use Smoking status: Never Smokeless tobacco: Never Vaping Use Vaping status: Former Substances: Nicotine, THC, CBD, Flavoring Devices: Disposable Substance Use Topics Alcohol use: Not Currently Comment: socially Drug use: Not Currently Types: Marijuana Comment: few times per month ALLERGIES: No Known Allergies CURRENT MEDICATIONS: Current Outpatient Medications: cetirizine (ZyrTEC) 10 mg tablet, Take 1 tablet (10 mg total) by mouth in the morning., Disp: 90 tablet, Rfl: 1 ferrous sulfate 325 (65 FE) mg EC tablet, Take 1 tablet (325 mg total) by mouth daily with breakfast., Disp: , Rfl: fluticasone propionate (FLONASE) 50 mcg/actuation nasal spray, Administer 2 sprays into each nostril in the morning., Disp: 15.8 mL, Rfl: 2 ondansetron ODT (ZOFRAN ODT) 4 mg disintegrating tablet, Dissolve 1 tablet (4 mg total) on tongue every 8 (eight) hours as needed for nausea or vomiting., Disp: 10 tablet, Rfl: 0 115/iron/folic acid ( 19 ORAL), Take 1 tablet by mouth in the morning., Disp: , Rfl: RECENT HOSPITALIZATION: none HABITS: Patient activity no restrictions, diet no restrictions REVIEW OF SYSTEMS: Head and Neck: Negative for any dizziness and headaches. Cardiovascular and Respiratory System: Denies any chest pain, shortness of breath, and coughing. Abdominal and System: Denies any abdominal pain, nausea, vomiting, vaginal bleeding, and vaginal discharge REVIEW OF TESTS AND ULTRASOUND REPORTS: Referral records and epic chart were reviewed Pertinent Ultrasound findings are see formal ultrasound report. PHYSICAL EXAMINATION: BP 125/80 (BP Site: Left Arm, BP Postition: Sitting) Pulse 84 Ht 177.8 cm(5' 10 ) Wt 90.1 kg (198 lb 9.6 oz) LMP 10/03/2024 BMI 28.50 kg/m Well-appearing in no distress. Respirations not labored, speaking comfortably in full sentences Gravid abdomen OVERALL ASSESSMENT -Christina Montoya is a pleasant 25 y.o. at 27w4d -family h/o hydrocephalus -history of iron deficiency -depression affecting COUNSELING/MEDICAL DECISION-MAKING Family history of hydrocephalus Patient does not know if her brother has ever undergone genetic testing or the underlying etiology of the hydrocephalus. Her brother has a half brother, shared mother. Today, there was no evidence of hydrocephalus or other structural evidence of defects on detailed anatomy ultrasound. Posterior lateral ventricle measured 0.38 cm. The remainder of the intracranial anatomy was normal. We reviewed the broad etiology of hydrocephalus including underlying genetic condition such as X-linked aqueductal stenosis. I emphasized the importance of patient discussing with her mother and brother and if any evidence of genetic inheritance, I recommend genetic counseling in the future. Anxiety depression affecting Anxiety disorders and depression are among the most common psychiatric conditions. Prior to patient was managed on Lexapro 10 mg daily with success. She discontinued Lexapro in the 1st trimester after realizing she was due to fears of teratogenicity. She is currently doing well from a mood standpoint. Per ACOG : In general, SSRIs are considered first-line medications for the treatment of depression or anxiety disorders. For individuals who have been treated effectively with an antidepressant from any class (eg, SSRI, SNRI) in the past, that medication should be the pharmacotherapy of choice. Potential complications include maternal weight changes and premature . Most studies show that SSRIs aren't associated with defects. However, paroxetine (Paxil) might be associatedwith a small increased risk of a heart defect and is generally discouraged during . Reviewed the risk of pulmonary hypertension in less than 07/999 fetus is exposed to SSRIs in . In addition we discussed withdrawal and reviewed with her that her baby might experience temporary signs and symptoms of discontinuation -- such as jitters, irritability, poor feeding and respiratory distress -- for up to a month after . She vocalized understanding. A meta-analysis by Cirilo et al, 2015 (PMID 69905415) of prospective cohort studies found no association between SSRI use in first trimester and women with depression who did not take antidepressants in . Thus, the previously identified association between in-utero antidepressant exposure and heart defects appears most likely to be associated with other risk factors and behaviors that are prevalent in the population taking antidepressants in . An association between SSRIs and pulmonary hypertension was first noted in 2006 and led the FDA to have an alert. The studies in the literature have mixed results. Some found no association and others found an association. Andres et al 2015 (PMID [id number]) performed an analysis on close to 3.8 million women and found an OR of 1.51 (CI, 1.35-1.69) for an association between SSRI exposure and pulmonary hypertension in the unadjusted analysis. However, when the analysis was adjusted for potential confounders such as major depressive disorder the OR was then not significant. Although it remains to be seen whether there are associations between antidepressants and poor outcomes, it is clear that the psychiatric illness itself, and its associated risk factors, are associated with significant effects on infant outcomes. SUMMARY/RECOMMENDATION: Continue routine care with primary OB If mood deterioration, patient can restart Lexapro 10 mg daily Anticipate term vaginal delivery at local hospital DISPOSITION: At this point the patient is in complete care of her supervisor machining. Thank you for allowing me to participate in the care of Christina Montoya. If there any questions please do not hesitate to contact us. Kevin Ybarra MD Maternal- Medicine [facility] [address] [place] [address] This document was created with [employer] technology. Though I make every effort to review the dictation as it is transcribed, on occasion the spoken word can be misinterpreted by the technology leading to inappropriate words, phrases, or sentences. This note is addressed to the requesting provider as a consultation for clinical guidance. Specificmedical abbreviations are occasionally used and those are generally approved by the [place]?Board of?Obstetrics and?Gynecology?as well as?Natalie rai abbreviations. The above plan of care was based solely on the diagnoses for which a consultation was requested. ?More frequent testing may be indicated based on her other medical/obstetrical conditions. The management of other or medical conditions is beyond the scope of requested consultation and will c ontinue to be followed by the primary supervisor machining or primary care provider. Note to patient: The Century Cures Act makes medical notes like these available to patients inthe interest of transparency. However, be advised this is a medical document. It is intended as peer to peer communication. It is written in medical language and may contain abbreviations or verbiagethat are unfamiliar. It may appear blunt or direct. Medical documents are intended to carry relevant information, facts as evident, and the clinical opinion of the practitioner. documented in this encounterOhioHealth Grant Medical CenterAlector [id number] History of Present illness Narrative* Joseline Gates NP - 04/06/2025 2:30 PM EDT [...] nursing note reviewed. Exam conducted with a school librarian present. Vitals: Estimated body mass index is 28.12 kg/m as calculated from the following: Height as of 07/17/23: 5' 10 . Weight as of this encounter: 196 lb. BP: 130/80 Patient's last menstrual period was 10/03/2024. ASSESSMENT & PLAN ICD-10-CM 1. Second trimester ([facility]) Z34.92 POCT urinalysis dipstick manually resulted 2. 26 weeks gestation of ([facility]) Z3A.26 Return OB: Patient presents today for a routine obstetrics appointment. Patient is currently 26w3d . Patient states she is doing well but has complaints of being tired due to current . Patient has verbalizes frequent movement. labor precautions was discussed/given and patient was instructed to perform kick counts three times a day. Pt has not been to [facility] for a Level 2 US. [facility] appointment is scheduled for April 14. Patient to begin ProFE and prescription sent to pharmacy Orders Placed This Encounter Procedures POCT urinalysis dipstick manually resulted Follow Up: Patient is to return to office in 2 week for routine OB appointment. Documented by Mary Kay Salazar MA on behalf of: Joseline Gates NP documented in this encounterCedar County Memorial [id number] History of Present illness Narrative* Joseline Gates NP - 03/16/2025 1:20 PM EDT [...] nursing note reviewed. Exam conducted with a school librarian present. Vitals: Estimated body mass index is 27.28 kg/m as calculated from the following: Height as of 07/17/23: 5' 10 . Weight as of this encounter: 190 lb 1.9 oz. BP: 130/70 Patient's last menstrual period was 10/03/2024. ASSESSMENT & PLAN ICD-10-CM 1. 23 weeks gestation of ([facility]) Z3A.23 POCT urinalysis dipstick manually resulted 2. Second trimester ([facility]) Z34.92 POCT urinalysis dipstick manually resulted 3. [...] for routine OB appointment. Patient scheduled for MFM appointment on April 14. Patient with a family history of hydrocephalus in brother. Documented by Joseline Gates NP on behalf of: Joseline Gates NP documented in this encounterCedar County Memorial [id number] History of Present illness Narrative* Joseline Gates NP - 03/02/2025 9:00 AM EDT [...] nursing note reviewed. Exam conducted with a school librarian present. Vitals: Estimated body mass index is 26.6 kg/m as calculated from the following: Height as of 07/17/23: 5' 10 . Weight as of this encounter: 185 lb 6.4 oz. BP: 110/74 Patient's last menstrual period was 10/03/2024. ASSESSMENT & PLAN ICD-10-CM 1. Second trimester ([facility]) Z34.92 POCT urinalysis dipstick manually resulted 2. 21 weeks gestation of ([facility]) Z3A.21 POCT urinalysis dipstick manually resulted Return [...] weeks for routine OB appointment. Documented by Joseline Gates NP on behalf of: Rudi Rachel DO documented in this encounterCedar County Memorial [id number] Miscellaneous Notes* Telephone Encounter - SARAH Lugo - 02/05/2025 2:05 PM EDT Patient requesting refill. [facility] encounter[facility] Telephone encounter Note* Telephone Encounter - SARAH Lugo - 02/05/2025 2:05 PM EDT Patient [facility]ill. [facility] History of Present illness Narrative* CHITO Alvarez [...] 10/03/2024. ASSESSMENT & PLAN (Z34.92) Second trimester ([facility]) Plan: Alpha fetoprotein, maternal, Alpha fetoprotein, maternal (Z3A.17) 17 weeks gestation of ([facility]) Plan: POCT urinalysis dipstick manually resulted (Z36.89) Screening, , for anatomic survey ([facility]) Plan: US OB 14+ weeks [...] behalf of: CHITO Alvarez documented in this encounterCedar County Memorial [id number] History of Present illness Narrative* CHITO Alvarez [...] ASSESSMENT & PLAN ICD-10-CM 1. Second trimester ([facility]) Z34.92 POCT urinalysis dipstick manually resulted 2. 13 weeks gestation of ([facility]) Z3A.13 Return OB: Patient presents [...] Documented by CHITO Alvarez on behalf of: Rudi Rachel DO documented in this encounterCedar County Memorial HospitalFsgxdooheh72-74-3864 History of Present illness Narrative* Rupal Owusu [...] or undercooked meat, and stay away from [facility]. Patient has also been advised to not [...] by: Rupal Owusu MA documented in this encounterCedar County Memorial HospitalWppmiootyy53-70-1911 History of Present illness Narrative* CHITO Alvarez [...] nursing note reviewed. Exam conducted with a school librarian present. Vitals: Estimated body mass index is [...] behalf of: CHITO Alvarez documented in this encounterCedar County Memorial HospitalPgdsypxsfx26-86-1726 Miscellaneous Notes* Telephone Encounter - Christy Zhang - 07/18/2024 10:56 AM EST Aryan is wondering if you could prescribe motion sickness patches and zofran for her. She is goingon a cruise and is afraid she will get motion sickness. Please advise * Telephone Encounter - Slick Graff MD - 07/18/2024 10:56 AM EST Scripts sent * Telephone Encounter - Christy Zhang - 07/18/2024 10:56 AM EST Patient was appreciative of the meds being called in and of the call. documented in this encounterGrant Hospital01-10-2025 Telephone encounter Note* Telephone Encounter - Christy Zhang - 07/18/2024 10:56 AM EST Aryan is wondering if you could prescribe motion sickness patches and zofran for her. She is goingon a cruise and is afraid she will get motion sickness. Please advise [facility]01-10-[facility] Telephone encounter Note* Telephone Encounter - Slick Graff MD - 07/18/2024 10:56 AM EST Scripts sent [employer]01-10-2025 Telephone encounter Note* Telephone Encounter - Christy Leatha - 07/18/2024 10:56 AM EST Patient was appreciative of the meds being called in and of the call. [employer]12-04-2024 History of Present illness Narrative* CHITO Alvarez [...] behalf of: CHITO Alvarez documented in this encounterCedar County Memorial HospitalIrpwcollzq71-30-2033 History of Present illness Narrative* Slick Graff MD - 05/26/2024 3:15 PM EST Subjective Patient ID: Christina Montoya is a 24 y.o. female. Comes in with a rash that she has had for two weeks. Not really spreading now. Mainly on her trunk,a few on her arms. No itch. She [...] this visit: Pityriasis rosea documented in this encounterGrant Hospital10-28-2024 History of Present illness Narrative* Slick Graff MD - 05/05/2024 3:45 PM EDT Subjective Patient ID: Christina Montoya is a 24 y.o. female. She has a history of near-syncope episodes on the basis of neurocardiogenic syncope and also a history of depression and anxiety. She was tried on sertraline at the end of the summer and that did notgo well. She only took a couple of doses but experienced significant stomach upset and diarrhea. She denies any worsening of depression symptoms and does not have thoughts of self- harm. Her near-syncope spells have been relatively few [...] mouth in the morning. documented in this encounterGrant Hospital06-25-2024 History of Present illness Narrative* Slick Graff MD - 01/01/2024 3:45 PM EDT Subjective Patient ID: Christina Muhammad is a [...] to nights was quick which might be exace rbating her symptoms. This started on December 09. [...] less energy drinks. Will sign the paperwork toallow her 6 days per month instead of the [facility] standard 2 days per week and 4 maximum per month. She is agreeable to start sertraline to help reduce these spells and anxiety. She should take themidodrine as she feels needed. Further pending her course. Diagnoses and all orders for this visit: Neurocardiogenic syncope - sertraline (ZOLOFT) 50 mg tablet; Take 1 tablet (50 mg total) by mouth once daily at bedtime. Take 1/2 tab (25 mg) at bedtime for the first 4 nights. Anxiety documented in this encounterGrant Hospital06-17-2024 History of Present illness Narrative* Slick Graff MD - 12/24/2023 2:00 PM EDT Subjective Patient ID: Christina Muhammad is a [...] past social history, past surgical history, and problemlist. Review of Systems Objective Physical Exam Constitutional: [...] is not resolved or something more develops shewill let me know. Diagnoses and all orders for this visit: Pharyngitis, unspecified etiology - azithromycin (ZITHROMAX) 250 mg tablet; Take 2 tablets the first day, then 1 tablet daily for 4 days. documented in this encounterGrant Hospital05-09-2024 Miscellaneous Notes* Telephone Encounter - Trish Gan CMA - 11/15/2023 3:42 PM EDT Refill request, patient's allergies are bothering her and would like these meds refilled documented in this encounterGrant Hospital05-09-2024 Telephone encounter Note* Telephone Encounter - Trish Gan CMA - 11/15/2023 3:42 PM EDT Refill request, patient's allergies are bothering her and would like these meds refilled [facility]05-[facility] History of Present illness Narrative* Slick Graff MD - 11/12/2023 4:00 PM EDT Subjective Patient ID: Christina Muhammad is a 23 y.o. female. She went on a trip to [place]. She has quite a bit of anxiety related to flying. She will be flying internationally and is concerned about the anxiety. She also has concern regarding motion sickness associated with train travel through [place]. Dramamine did not help her previously. The [...] mouth 2 (two) times a day as neededfor anxiety. H/O motion sickness - ondansetron ODT (ZOFRAN ODT) 4 mg disintegrating tablet; Dissolve 1 tablet (4 mg total) on tongueevery 8 (eight) hours as needed for nausea or vomiting. - scopolamine (TRANSDERM-SCOP) 1 mg/3 days; Place 1 patch on the skin every third day. documented in this encounterGrant Hospital02-13-2024 History of Present illness Narrative* Cydney Rocha RN - 08/21/2023 3:00 PM EST Pt is here as a new patient [...] 3 hours Cramping [x] Clotting [x] BC: June started about 1 month ago. 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 [facility] ADULT [facility] PEDIATRIC BENIGN HEMATOLOGY PEDIATRIC THROMBOPHILIA Dr.Dagmar Miguel Hernandez PA-C NEW OUTPATIENT NOTE: [facility] Patient ID: Christina Muhammad, 23 [...] who presents today for consultation at the [facility] due to menorrhagia and [...] Assessment Tool: Prashanth Martinez J Thromb Haemost. 2009;8(9):2063-. 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 2014 May;20(6):831-5. REVIEW OF SYSTEMS: Complete 10-point ROS is negative except as mentioned in HPI. PAST MEDICAL HISTORY: Past Medical History: Diagnosis Date ADD (attention deficit disorder) Depression Orthostatic hypotension Suicide attempt by drug ingestion ([facility]) 07/2017 pt states she took 7 flexeril PAST SURGICAL HISTORY: History reviewed. No pertinent surgical history. PAST FAMILY HISTORY: Family History Problem Relation Age of Onset Meniere's disease Mother No Known Problems Father Heart disease Maternal Grandmother Dementia Maternal Grandfather Parkinsonism Maternal Grandfather Heart disease Maternal Grandfather Diabetes Paternal Grandmother SOCIAL HISTORY: Lives in [place], [place] with her parents. Works for [employer]. 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 15.8 mL 2 midodrine (PROAMATINE) 5 mg [...] 08/21/2023 PROTIME 13.1 08/21/2023 IMAGING: Reviewed in Timescape BILLING: Total time spent was 30 minutes: [...] who presents today for consultation at the [facility] due to menorrhagia and family history of VWD. 1. Concern for bleeding diathesis / family history of VWD in cousin: She is here today given concerns for bleeding diathesis. Past bleeding includes menorrhagia mostly. She has not had any other bleeding or significant epistaxis. Her ISTH bleeding assessment score is 3 which is below the cutoff forabnormal bleeding in a woman. We discussed further bleed workup could be obtained given his family h istory. We discussed the pros and cons of this. We discussed the potential implications. At the endof our discussion, we decided to proceed with selective testing for von Willebrand's disease alone.Will also check GP1bM and her cousin's diagnosis was based on send out GP1bM. We discussed that hervon Willebrand levels could be falsely elevated due [...] the above results. Lino Conner MD Adult Director Inpatient Headache Program [facility]surv Pager: [phone] documented in this encounterVermont State HospitalDurham Technical [facility] College12-07-2023 NotePsych Progress Note WEBEX SESSION Time In: [...] PhD (electronically signed on 06/14/2023 at 3:59 PM)[facility]11-09-2023 NotePsych Progress Note WEBEX SESSION Time [...] PhD (electronically signed on 05/17/2023 at 11:07 AM)[facility]10-26-2023 NotePsych Progress Note WEBEX SESSION Time [...] calling MD re: taking supplements. Advised seeing International Banker. Response to Intervention: Agreeable Overall Assessment of [...] PhD (electronically signed on 05/03/2023 at 11:00 AM)[facility]10-03-2023 NotePsych Progress Note WEBEX SESSION Time [...] help her with OBGYN appt. Also saw fuel attendant and has low blood pressure. AGREED will make an appt with mother to go over health insurance and other benefits. Call to schedule echo for cardio issues. NEED TO REVIEW - call advisor at [facility]. Response to Intervention: Agreeable Overall Assessment of [...] treatment delivery for patient at this time. Francsico Doyle, PhD (electronically signed on 04/10/2023 at 11:18 AM)[facility]09-18-2023 NotePsych Progress Note WEBEX SESSION Time [...] scale and anxiety as high. 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 Worries about college - wants to get an Associates in Business Management. Failed digital literacy class. Addressed plans and worries about her future, medical issues. AGREED - schedule OBGYN, and call advisor at [facility]. Response to Intervention: Agreeable Overall Assessment of [...] PhD (electronically signed on 03/26/2023 at 10:57 AM)[facility]09-01-2023 NoteDepartment of Psychiatry Diagnostic Assessment Time In: 10 am Time Out: 10:55 am Encounter Type: On-Site Video at [facility] Patient Name: Christina Muhammad MRN / CSN: [id number] Date of / Age: 8 2000 / [...] they were at home ([address], [place], [place]), and I was in my home office. Their alternate # was reported as ([phone]). They informed me that they were in [...] boyfriend Osmin, now, at [address], [place], [place]. 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 SCHOOL / JOB Not in school now. [...] Dr Doyle at age 17. No meds. YAZIDISM/CULTURE Not latter-day. She is . STRENGTHS /WEAKNESSES [...] is a 23 y.o. female (marital status) (jehovah's witness) (job) (living) Chief Complaint Anxiety History of Present Illness: Christina Muhammad is a 23 y.o. female with past psychiatric history of anxiety presenting to the [facility]patient [facility] for a psychiatric [...] Surgeries: Denies Head I (more content not included)...[facility] 03-02-2020 NotePROCEDURE: XR FOOT LT MIN 3 VIEWS COMPARISON: None. HISTORY: Pain in left foot FINDINGS: BONES:No fracture, acute abnormality, or significant arthropathy. Incidental fused os trigonum SOFT TISSUES:Negative. No visible soft tissue swelling. EFFUSION:None visible. OTHER: Negative. IMPRESSION: No acute abnormality Electronically authenticated by: ANN DUNHAM Date: 2020-03-02 09:21[facility]Evaluation noteNo assessment information availableChillicothe Hospital Work Phone: Evaluation noteNo InformationNort Sal[place] Social Other Evaluation note* Diagnosis Lipoma of other specified sites- Primary documented in this encounter [facility] HealthcareEvaluation note* Diagnosis Well woman exam with routine gynecological exam Routine gynecological examination Uses control documented in this encounter [facility] HealthcareEvaluation note* Diagnosis Anxiety Anxiety state, unspecified [facility] Diagnosis Anxiety- Primary Anxiety state, unspecified H/O motion sickness [facility]* Diagnosis Pharyngitis, unspecified etiology- Primary [facility]* Diagnosis Family history of von Willebrand disease- Primary Menorrhagia with regular cycle [facility]* Diagnosis Neurocardiogenic syncope- Primary Anxiety Anxiety state, unspecified [facility]* Diagnosis Anxiety- Primary Anxiety state, unspecified [facility]* Diagnosis Pityriasis rosea- Primary [facility]* Diagnosis Missed menses , unspecified gestational age Encounter for supervision of normal first in first trimester documented in this encounter [facility] HealthcareEvaluation note* Diagnosis Second trimester ([facility]) state, incidental 13 weeks gestation of ([facility]) documented in this encounter [facility] HealthcareEvaluation note* Diagnosis Second trimester ([facility]) state, incidental 17 weeks gestation of ([facility]) Screening, , for anatomic survey ([facility]) Encounter for anatomic survey Vaginal discharge Leukorrhea, not specified as infective documented in this encounter [facility] HealthcareEvaluation note* Diagnosis Anxiety, generalized- Primary Second trimester ([facility]) state, incidental 21 weeks gestation of ([facility]) documented in this encounter [facility] HealthcareEvaluation note* Diagnosis 23 weeks gestation of ([facility]) Second trimester ([facility]) state, incidental Anxiety, generalized Diabetes mellitus screening Screening for diabetes mellitus documented in [facility] encounter [facility]* Diagnosis Anemia, unspecified type- Primary Second trimester ([facility]) state, incidental 26 weeks gestation of ([facility]) documented in this encounter [facility]* Diagnosis Family history of disorder of brain- Primary 27 weeks gestation of Depression affecting Anxiety disorder affecting , antepartum [facility] Diagnosis Third trimester ([facility]) state, incidental 28 weeks gestation of ([facility]) documented in [facility] encounter [facility]* Diagnosis Third trimester ([facility]) state, incidental 30 weeks gestation of ([facility]) size inconsistent with dates ([facility]) documented in [facility] encounter [facility]* Diagnosis Third trimester ([facility]) state, incidental 32 weeks gestation of ([facility]) Heartburn Nausea Nausea alone documented in this encounter [facility] HealthcareInstructionsNot on filedocumented in this encounterProMedica Health SystemInstructionsNot on filedocumented in this encounterProMedima Health SystemInstructionsNot on filedocumented in this encounterProMedima Health SystemInstructions* Attachments The following attachments cannot be sent through Care Everywhere. * Taking care of bruises (Angolan) documented in this encounterProMedica Health SystemInstructionsNot on file documented in this encounterProMedima Health SystemInstructionsNot on file documented in this encounterProMedima Health SystemInstructionsNot on file documented in this encounterK[facility] Summary Purpose Family History No [...] DATE CREATED AUTHOR 12/25/2017 [facility] DATE CREATED AUTHOR AUTHOR'S ORGANIZ ATION 12/17/2020 [facility] DATE CREATED AUTHOR AUTHOR'S ORGANIZ ATION 05/07/2023 [facility] DATE CREATED AUTHOR AUTHOR'S ORGANIZ ATION 06/15/2023 [facility] DATE CREATED AUTHOR AUTHOR'S ORGANIZ ATION 05/28/2024 [facility] DATE CREATED AUTHOR AUTHOR'S ORGANIZ ATION 08/18/2024 [facility] DATE CREATED AUTHOR AUTHOR'S ORGANIZ ATION 04/16/2025 [facility] DATE CREATED AUTHOR AUTHOR'S ORGANIZ ATION 05/21/2025 [facility] EPIC Care Teams (unrecognized sec tion and content) Team Status: Inactive Member Role Status Dates Triny Browne NP Attending Provider Active Team MemberRelationshipSpecialtyStart DateEnd Date Slick Graff MD [address] [place] [address], [address] [place] [address] PCP - GeneralFamily Medicine07/17/23Team MemberRelationshipSpecialtyStart DateEnd Date Slick Graff MD [address] [place] [address], [address] [place] [address] PCP - GeneralFamily Medicine07/17/23Team MemberRelationshipSpecialtyStart DateEnd Date Slick Graff MD [address] [place] [address], [address] [place] [address] PCP - GeneralPediatrics2/Team MemberRelationshipSpecialtyStart DateEnd Date Slick Graff MD [address] [place] [address], [address] [place] [address] PCP - GeneralFamily Medicine07/17/23Team MemberRelationshipSpecialtyStart DateEnd Date Slick Graff MD [address] [place] [address], [address] [place] [address] PCP - GeneralFamily Medicine07/17/23Team MemberRelationshipSpecialtyStart DateEnd Date Slick Graff MD [address] [place] [address], [address] [place] [address] PCP - GeneralFamily Medicine07/17/23Team MemberRelationshipSpecialtyStart DateEnd Date Slick Graff MD [address] [place] [address], [address] [place] [address] PCP - GeneralPediatrics2/Team MemberRelationshipSpecialtyStart DateEnd Date Slick Graff MD [address] [place] [address], [address] [place] [address] PCP - GeneralPediatrics2/Team MemberRelationshipSpecialtyStart DateEnd Date Slick Graff MD [address] [place] [address], [address] [place] [address] PCP - GeneralPediatrics2/Team MemberRelationshipSpecialtyStart DateEnd Date Slick Graff MD [address] [place] [address], [address] [place] [address] PCP - GeneralFamily Medicine07/17/23Team MemberRelationshipSpecialtyStart DateEnd Date Slick Graff MD [address] [place] [address], [address] [place] [address] PCP - GeneralFamily Medicine07/17/23Team MemberRelationshipSpecialtyStart DateEnd Date Slick Graff MD [address] [place] [address], [address] [place] [address] PCP - GeneralFamily Medicine07/17/23Team MemberRelationshipSpecialtyStart DateEnd Date Slick Graff MD [address] [place] [address], [address] [place] [address] PCP - GeneralFamily Medicine07/17/23Team MemberRelationshipSpecialtyStart DateEnd Date Slick Graff MD [address] [place] [address], [address] [place] [address] PCP - GeneralFamily Medicine07/17/23Team MemberRelationshipSpecialtyStart DateEnd Date Slick Graff MD [address] [place] [address], [address] [place] [address] PCP - GeneralPediatrics2/Team MemberRelationshipSpecialtyStart DateEnd Date Slick Graff MD [address] [place] [address], [address] [place] [address] PCP - GeneralFamily Medicine07/17/23Team MemberRelationshipSpecialtyStart DateEnd Date Slick Graff MD [address] [place] [address], [address] [place] [address] PCP - GeneralPediatrics2/Team MemberRelationshipSpecialtyStart DateEnd Date Slick Graff MD [address] [place] [address], [address] [place] [address] PCP - GeneralFamily Medicine07/17/23Team MemberRelationshipSpecialtyStart DateEnd Date Slick Graff MD [address] [place] [address], [address] [place] [id number] PCP - GeneralFamily Medicine07/17/23Team MemberRelationshipSpecialtyStart DateEnd Date Slick Graff MD [address] [place] [address], [address] [place] [address] PCP - GeneralFamily Medicine07/17/23Team MemberRelationshipSpecialtyStart DateEnd Date Slick Graff MD [address] [place] [address], [address] [place] [address] PCP - GeneralPediatrics2/Team MemberRelationshipSpecialtyStart DateEnd Date Slick Graff MD [address] [place] [address], [address] [place] [address] PCP - GeneralFamily Medicine07/17/23Team MemberRelationshipSpecialtyStart DateEnd Date Slick Graff MD [address] [place] [address], [address] [place] [address] PCP - Generalmily Medicine07/17/23 Goals (unrecognized section and content) Goals [...] for Visit (unrecogniz ed section and content) ReasonCommentsBrother with HydrocephalisFHx VWD in Maternal CousinReasonOnset DateCommentsMed [id number]/05/2025ReasonCommentsRoutine VisitReason CommentsAmenorrheaReasonCommentsRashAbdomen and back, some on arm, does not itch ReasonCommentsFollow-upNeeds FMLA forms filled out and anxiety meds making her sick.ReasonCommentsworking midnightsHas noticed her BP is elevatedReasonComments New PatientFHx Bleeding DisorderReasonCommentsSinusitisSore throatReasonOnset DateCommentsMed [id number] anxiety and motion sickness medicationsReasonCommentsMed RefillReasonCommentsWell Women VisitReason CommentsPelvic lump FOR RECORDS PERTAINING TO PATIENTS WHO [...] BE BASED ON THE PRIMARY CLINICAL RECORDS. [facility] [employer] provides no warranty or guarantee of the accuracy or completeness of information in this document.
[2025-07-08 16:34] VITALS: BP 116/78; PULSE 95
== END 2025-07-08 16:56 | disposition home or self-care (01) ==
LOC: FBCO 16:03 → FBC 16:06 → FBCO 16:57
PROVIDERS: Visit Provider Obstetrics & Gynecology
DX: O26.893 Other specified pregnancy related conditions, third trimester (principal); Z3A.39 39 weeks gestation of pregnancy
CPT/HCPCS: 76818